=== PATIENT | female | born 1990 | race Caucasian/White ===

== ENCOUNTER 2018-02-15 12:54 | Emergency (ER) | payer MEDICAID, SELFPAY ==
[2018-02-15 13:00] VITALS: BP 137/64; PULSE 91; RESP 15; TEMP 37
--- NOTE | 2018-02-15 13:14 | W.ED.GENAD ---
Discharge Plan Disposition Patient Disposition: HOME Condition: Fair Discharge Details Chief Complaint: DentalOral Clinical Impression: Pain, dental Primary Care Provider: None,None ED Provider: Sara Suresh Home Meds and New Rx's Prescriptions: New penicillin V potassium 500 mg tablet 500 mg PO QID Qty: 28 RF: 0 Discharge Instructions Instructions: Toothache (ED) Additional Instructions: Encourage hydration. You may continue with Tylenol, 1000 mg every 6 hours as needed for discomfort. Please follow-up with dentist next week for reevaluation. Please take antibiotics as prescribed. Even if symptoms improve, please take the entire course. If you develop new or worsening symptoms please seek care urgently once again. I have asked our healthcare prof to help facilitate follow-up with primary care . Medical Decision Making Patient is 27-year-old female with chief complaint of anterior lower dental pain. She reports that yesterday she had multiple teeth extracted by her dentist in [place]. Is concerned that her pain is been increasing. Currently rating her pain at a 5 out of 10. Is also concerned that she stuck some remnant tooth remaining. On exam, she has swollen erythematous gums. No fluctuant area to suggest an abscess. Findings most consistent with postoperative changes. However, as the pain has been increasing, I feel that antibiotics are appropriate. She is not been placed on antibiotics postoperatively. I did attempt to contact the patient's dentist at [facility] in [place] and they are already closed. Discussed this with the patient. She reports is been taking Tylenol and this is not been completely helping with her discomfort. At this point, her pain seems fairly minimal. We discussed appropriate Tylenol dosing. Also advised heat or ice. I do not feel that narcotics are appropriate at this time she reports she is unable to take anti-inflammatories. I advised she follow-up with dentist next week for reevaluation. We discussed new/worsening symptoms, in particular signs of infection, and whe to seek care urgently once again. All of her questions and concerns were addressed, she is in agreement with this plan. HPI General Mode of arrival: ambulatory. Date/Time Provider Initiated Documentation: 02/15/18 13:04. Limitations to Documentation: no limitations. Information obtained by: patient. History of Present Illness 27 year old F presents to the emergency department with the chief complaint of dental pain, described as moderate, with intensity rated at 5. Quality is described as aching, and is localized to the face. Patient reports no radiation. Patient started experiencing this day(s) (1) and it has been constant. No relieving factors improve symptom(s), Movement worsens symptoms . Patient notes denies chest pain, cough, fever/chills, headaches, nausea/vomiting, rash and shortness of breath. Patient did receive the following treatments prior to arrival, none Related Data Home Medications Medication Instructions Recorded Confirmed penicillin V potassium 500 mg PO QID #28 tab 02/15/18 Previous Rx's Medication Instructions Recorded penicillin V potassium 500 mg PO QID #28 tab 02/15/18 General Stated Complaint: DentalOral KARIME: 5 Review of Systems Constitutional Reports as per HPI Eyes Denies change in vision ENT Reports as per HPI, Reports dental pain (lower dental pain), Denies otalgia, Denies nasal discharge, Denies sinus pain and Denies sinus pressure Cardiovascular Denies chest pain Respiratory Denies cough Gastrointestinal Denies nausea and Denies vomiting Musculoskeletal Denies numbness and Denies tingling Integumentary/Breasts Reports as per HPI, Denies erythema and Denies rash Neurologic Denies numbness, Denies radicular pain, Denies tingling and Denies paresthesias Exam Const General: cooperative, healthy appearing, comfortable, no acute distress, well developed and well groomed Nutritional Appearance: average body habitus and well nourished Orientation: alert and awake [facility] Head: normal to inspection and normocephalic Ears: hearing grossly normal bilaterally, external ears normal and TM's normal bilaterally General nose exam: external nose normal and nares normal Face and sinus: normal facial exam and sinuses nontender Mouth: abnormal oral mucosae (Patient has erythema and swelling to the anterior lower gumline. Exam is consistent with recent extraction of multiple lower anterior teeth. There does appear to be some retained bits of 11 along the left side of the anterior teeth which was concerned for the patient), tongue normal, oropharynx normal, moist mucous membranes, no muffled voice and no trismus Teeth and gingiva: abnormal dentition (As of) Throat: posterior oropharynx normal Eyes General: appearance normal, both eyes and all related structures Neck Neck: normal visual inspection, full ROM, no lymphadenopathy, no meningeal signs, trachea midline and supple Resp Effort & Inspection: normal respiratory effort, able to speak in complete sentences and no respiratory distress Auscultation: clear to auscultation bilaterally Cardio Rate: regular rate Rhythm: regular rhythm Heart Sounds: S1 normal and S2 normal Skin General skin exam: no rashes or lesions noted Neuro General: alert and awake Cognition: normal cognition Speech: speech normal Gait: normal gait Psych Appearance: grossly normal Mental Status: mental status grossly normal Speech and Movement: speech and movement normal Course Vital Signs Temperature 37.0 C 02/15/18 13:00 Pulse 91 H 02/15/18 13:00 Respiratory Rate 15 02/15/18 13:00 Blood Pressure 137/64 02/15/18 13:00 Temperature 37.0 C 02/15/18 13:00 Temperature Source Skin 02/15/18 13:00 Pulse 91 H 02/15/18 13:00 Respiratory Rate 15 02/15/18 13:00 Blood Pressure 137/64 02/15/18 13:00 Blood Pressure Position Sitting 02/15/18 13:00 Oxygen Delivery Method Room Air 02/15/18 13:00 Oxygen Flow Rate 0 02/15/18 13:00 Pain Level 5 02/15/18 13:00
--- NOTE | 2018-02-15 13:40 | ED.GENADUL_ITS ---
Discharge Plan Disposition Patient Disposition: HOME Condition: Fair Discharge Details Chief Complaint: DentalOral Clinical Impression: Pain, dental Primary Care Provider: None,None ED Provider: Sara Suresh Home Meds and New Rx's Prescriptions: New penicillin V potassium 500 mg tablet 500 mg PO QID Qty: 28 RF: 0 Discharge Instructions Instructions: Toothache (ED) Additional Instructions: Encourage hydration. You may continue with Tylenol, 1000 mg every 6 hours as needed for discomfort. Please follow-up with dentist next week for reevaluation. Please take antibiotics as prescribed. Even if symptoms improve , please take the entire course. If you develop new or worsening symptoms please seek care urgently once again. I have asked our regular senior care provider to help facilitate follow-up with primary care . Medical Decision Making Patient is 27-year-old female with chief complaint of anterior lower dental pain. She reports that yesterday she had multiple teeth extracted by her dentist in [place]. Is concerned that her pain is been increasing. Currently rating her pain at a 5 out of 10. Is also concerned that she stuck some remnant tooth remaining. On exam, she has swollen erythematous gums. No fluctuant area to suggest an abscess. Findings most consistent with postoperative changes. However, as the pain has been increasing, I feel that antibiotics are appropriate. She is not been placed on antibiotics postoperatively. I did attempt to contact the patient's dentist at [facility] in [place] and they are already closed. Discussed this with the patient. She reports is been taking Tylenol and this is not been completely helping with her discomfort. At this point, her pain seems fairly minimal. We discussed appropriate Tylenol dosing. Also advised heat or ice. I do not feel that narcotics are appropriate at this time she reports she is unable to take anti-inflammatories. I advised she follow-up with dentist next week for reevaluation. We discussed new/worsening symptoms, in particular signs of infection, and whe to seek care urgently once again. All of her questions and concerns were addressed, she is in agreement with this plan. HPI General Mode of arrival: ambulatory . Date/Time Provider Initiated Documentation: 02/15/18 13:04 . Limitations to Documentation: no limitations . Information obtained by: patient . History of Present Illness 27 year old F presents to the emergency department with the chief complaint of dental pain, described as moderate, with intensity rated at 5. Quality is described as aching, and is localized to the face. Patient reports no radiation. Patient started experiencing this day(s) (1) and it has been constant. No relieving factors improve symptom(s), Movement worsens symptoms . Patient notes denies chest pain, cough, fever/chills, headaches, nausea/vomiting, rash and shortness of breath. Patient did receive the following treatments prior to arrival, none Related Data Home Medications Medication Instructions Recorded Confirmed penicillin V potassium 500 mg PO QID #28 tab 02/15/18 Previous Rx's Medication Instructions Recorded penicillin V potassium 500 mg PO QID #28 tab 02/15/18 General Stated Complaint: DentalOral KARIME: 5 Review of Systems Constitutional Reports as per HPI Eyes Denies change in vision ENT Reports as per HPI, Reports dental pain (lower dental pain), Denies otalgia, Denies nasal discharge, Denies sinus pain and Denies sinus pressure Cardiovascular Denies chest pain Respiratory Denies cough Gastrointestinal Denies nausea and Denies vomiting Musculoskeletal Denies numbness and Denies tingling Integumentary/Breasts Reports as per HPI, Denies erythema and Denies rash Neurologic Denies numbness, Denies radicular pain, Denies tingling and Denies paresthesias Exam Const General: cooperative, healthy appearing, comfortable, no acute distress, well developed and well groomed Nutritional Appearance: average body habitus and well nourished Orientation: alert and awake [facility] Head: normal to inspection and normocephalic Ears: hearing grossly normal bilaterally, external ears normal and TM's normal bilaterally General nose exam: external nose normal and nares normal Face and sinus: normal facial exam and sinuses nontender Mouth: abnormal oral mucosae (Patient has erythema and swelling to the anterior lower gumline. Exam is consistent with recent extraction of multiple lower anterior teeth. There does appear to be some retained bits of 11 along the left side of the anterior teeth which was concerned for the patient), tongue normal, oropharynx normal, moist mucous membranes, no muffled voice and no trismus Teeth and gingiva: abnormal dentition (As of) Throat: posterior oropharynx normal Eyes General: appearance normal, both eyes and all related structures Neck Neck: normal visual inspection, full ROM, no lymphadenopathy, no meningeal signs , trachea midline and supple Resp Effort & Inspection: normal respiratory effort, able to speak in complete sentences and no respiratory distress Auscultation: clear to auscultation bilaterally Cardio Rate: regular rate Rhythm: regular rhythm Heart Sounds: S1 normal and S2 normal Skin General skin exam: no rashes or lesions noted Neuro General: alert and awake Cognition: normal cognition Speech: speech normal Gait: normal gait Psych Appearance: grossly normal Mental Status: mental status grossly normal Speech and Movement: speech and movement normal Course Vital Signs Temperature 37.0 C 02/15/18 13:00 Pulse 91 H 02/15/18 13:00 Respiratory Rate 15 02/15/18 13:00 Blood Pressure 137/64 02/15/18 13:00 Temperature 37.0 C 02/15/18 13:00 Temperature Source Skin 02/15/18 13:00 Pulse 91 H 02/15/18 13:00 Respiratory Rate 15 02/15/18 13:00 Blood Pressure 137/64 02/15/18 13:00 Blood Pressure Position Sitting 02/15/18 13:00 Oxygen Delivery Method Room Air 02/15/18 13:00 Oxygen Flow Rate 0 02/15/18 13:00 Pain Level 5 02/15/18 13:00
[2018-02-15 13:44] VITALS: BP 140/77; PULSE 77; RESP 16; TEMP 37; O2SAT 95
== END 2018-02-15 13:55 | disposition home or self-care (01) ==
LOC: ER 14:05
PROVIDERS: Emergency Provider Physician Assistant; PCP Nurse Practitioner Family
DX: R68.84 Jaw pain (principal); G89.18 Other acute postprocedural pain; Y84.8 Other medical procedures as the cause of abnormal reaction of the patient, or of later complication, without mention of misadventure at the time of the procedure
CPT/HCPCS: 81025; 99283

== ENCOUNTER 2018-03-05 19:38 | Inpatient (IN) | payer MEDICAID, SELFPAY ==
[2018-03-05] VITALS (33 sets, daily range): BP systolic 113–143; BP diastolic 47–82; PULSE 106–153; RESP 15–23; TEMP 36.5–37.2; O2SAT 38–100
--- NOTE | 2018-03-05 19:49 | DI.RAD_ITS ---
SYMPTOMS/DIAGNOSIS: ENDOTRACHEAL TUBE PORTABLE AP CHEST: There are no prior comparison exams. The endotracheal tube has been inserted with the tip at the level of the clavicles. A nasogastric tube is also seen, which projects in the stomach. The lungs are not well inflated and there are mildly increased basilar densities, likely reflecting atelectasis. There may be tiny bilateral pleural effusions. No pneumothorax is seen. IMPRESSION: Satisfactory placement of endotracheal and nasogastric tubes.
[2018-03-05] MEDS: PROPOFOL 500 MG/50 ML BTL 13.8 MG IVPB (19:50)
--- NOTE | 2018-03-05 20:04 | DI.CT_ITS ---
SYMPTOMS/DIAGNOSIS: SEIZURE, HYPOXIC, NO H/O PREVIOUS SEIZURES NONCONTRAST HEAD CT: Nasogastric tube and endotracheal tube are partially included. There is some mucosal thickening of the sinuses as well as evidence of previous sinus surgery. No intracranial hemorrhage or skull fracture is seen. No mass is identified. The ventricles are normal in size. Beam-hardening artifact is seen through the level of the nathan. IMPRESSION: No acute abnormality. CT ANGIOGRAPHY OF THE HEAD AND NECK: CT angiography was performed with multi slice acquisition and multi planar and 3D reconstruction. CT ANGIOGRAPHY OF THE HEAD: There is no evidence of occlusion or dissection or significant stenosis. No gross aneurysm is identified. IMPRESSION: Negative CT angiography of the head. CT ANGIOGRAPHY OF THE NECK: A nasogastric tube and endotracheal tube are seen. The vessels appear patent. There is no evidence of dissection, significant stenosis or occlusion. IMPRESSION: Negative CT angiography of the neck. CHEST CT FOR PULMONARY EMBOLISM: No pulmonary emboli or aortic dissection is seen. The heart size is normal. A nasogastric tube projects in the stomach. An endotracheal tube is in place with the tip at the level of the aortic arch. There are dependent changes in the lung bases. Basilar pneumonia cannot be entirely excluded. There is no evidence of pneumothorax, rib or spine fracture. There is artifact through the visualized portions of the upper abdomen. No gross abnormality is identified. IMPRESSION: No evidence of pulmonary emboli. There are bibasilar densities in the lungs, which may represent atelectasis versus pneumonia. Clinical correlation is recommended.
--- NOTE | 2018-03-05 20:27 | DI.VRAD_ITS ---
EXAM: XR Chest, 1 View EXAM DATE/TIME: 03/05/2018 7:51 PM CLINICAL HISTORY: 28 years old, female; Signs and symptoms; Other: Line placement TECHNIQUE: XR of the chest, 1 view. COMPARISON: No relevant prior studies available. FINDINGS: Tubes, catheters and devices: Endotracheal tube in satisfactory position. Nasogastric tube appears within the proximal stomach. Lungs: Low lung volumes. Linear bibasilar opacities. No elbert air space consolidation. Question small granuloma right lung base. Pleural space: Suspect small bilateral pleural effusions. No pneumothorax. Heart/Mediastinum: No cardiomegaly. Bones/joints: No acute fracture. IMPRESSION: 1. Lines and tubes in satisfactory position. 2. Linear bibasilar opacities most consistent with subsegmental atelectasis. Suspect small bilateral pleural effusions. Dictated and Authenticated by: Tatiana Abraham MD. Ordering:ADELE ROSE MD
[2018-03-05 20:31] LABS: Ammonia 49 umol/L (11-32)
[2018-03-05 20:32] LABS: Bilirubin Negative (Negative); Blood Small (Negative); Clarity Clear; Glucose Negative (Negative); Ketones Negative (Negative); Leukocyte Esterase Negative (Negative); Nitrite Negative (Negative); Specific Gravity 1.015 (1.005-1.025); Urobilinogen 0.2 EU/dL (Up TO 0.2); pH 5.5 (5-8)
[2018-03-05 20:35] LABS: INR 1.1 (1.0-3.5); PTT Activated 25.2 sec (21.0-31.4)
[2018-03-05 20:36] LABS: Salicylate 4.1 mg/dL (2.8-20.0)
[2018-03-05 20:45] LABS: Absolute Basophil Count 0.06 k/cumm (0.0-0.2); Absolute Monocyte Count 0.72 k/cumm (0.11-0.7); Basophils % 0.4; C-Reactive Protein 0.13 mg/dL (0.0-0.3); Eosinophils % 1.8; HCT 33.1 % (36.0-46.0); Immature Grans % 0.6; Lymphocytes % 49.8; Mean Corp. HGB Concentration 30.2 g/dL (32.0-36.0); Mean Corpuscular Hemoglobin 22.7 pg (27.0-33.0); Mean Corpuscular Volume 75.1 fL (80-95); Mean Platelet Volume 11.1 fL (8.0-11.0); Monocytes % 4.5; Neutrophils % 42.9; Platelet Count 480 x1000/uL (130-400); RBC 4.41 m/cumm (4.00-5.20); White Blood Cell Count 15.89 k/cumm (4.4-10.8)
[2018-03-05 20:46] LABS: ALT 22 U/L (12-78); AST 27 U/L (15-37); Albumin 3.9 g/dL (3.4-5.0); Alkaline Phosphatase 76 U/L (46-116); Anion Gap 20.6 mmol/L (3-11); BUN 14 mg/dL (7-18); Bilirubin, Total 1.1 mg/dL (0.2-1.0); CO2 17.4 mmol/L (21.0-32.0); Calcium 8.7 mg/dL (8.5-10.1); Chloride 100 mmol/L (98-107); Estimated GFR 59.14 (mL/min/1.73m2); Glucose 200 mg/dL (70-100); Sodium 138 mmol/L (136-145); TSH 2.22 uIU/mL (0.358-3.74); Total Protein 7.7 g/dL (6.4-8.2)
[2018-03-05 20:47] LABS: *AMPHETAMINES SCREEN URINE POSITIVE (Negative); *BARBITURATES SCREEN URINE Negative (Negative); *BENZODIAZEPINES SCREEN URINE Negative (Negative); Cannabinoids THC POSITIVE (Negative); Cocaine Screen,Urine Negative (Negative); METHADONE URINE SCREEN Negative (Negative); OPIATES URINE SCREEN Negative (Negative)
[2018-03-05 20:50] LABS: Absolute Eosinophil Count 0.29 k/cumm (0.0-0.7); Absolute Lymphocyte Count 7.91 k/cumm (1.2-3.4); Absolute Neutrophil Count 6.82 k/cumm (1.2-6.7); Troponin I < 0.02 ng/mL (0.00-0.06)
[2018-03-05 20:51] LABS: ETHANOL BLOOD < 3.0 mg/dL (<3); Tricyclic Antidepressants Negative (Negative)
[2018-03-05 20:54] LABS: Bacteria Moderate HPF (Negative); C & S Indicated? Yes; Casts Negative LPF (Negative); Crystals Few Amorphous HPF (Negative); Epithelial Cells Few HPF (Negative); Mucus Negative (Negative); Other Cells Few Renal (Negative); RBC Negative (0-2); WBC 0-2 HPF (0-5)
[2018-03-05 20:56] LABS: Acetaminophen < 2 ug/mL (10-30)
[2018-03-05 21:01] LABS: Diff Comment Diff Reviewed; Microcytosis 1+
[2018-03-05 21:02] LABS: Hypochromasia 2+
[2018-03-05 21:03] LABS: ESR 16 MM/HR (0-20)
[2018-03-05] MEDS: Omnipaque 350 MG/ML 100 ML BTL IJ ×2 (21:06→21:08)
--- NOTE | 2018-03-05 21:10 | DI.VRAD_ITS ---
EXAM: CT Head Without Intravenous Contrast EXAM DATE/TIME: 03/05/2018 8:09 PM CLINICAL HISTORY: 28 years old, female; Signs and symptoms; Other: Seizure, no seizure HX TECHNIQUE: Axial computed tomography images of the head/brain without intravenous contrast. All CT scans at this facility use at least one of these dose optimization techniques: automated exposure control; mA and/or kV adjustment per patient size (includes targeted exams where dose is matched to clinical indication); or iterative reconstruction. Coronal and sagittal reformatted images were created and reviewed. COMPARISON: No relevant prior studies available. FINDINGS: Tubes, catheters and devices: Endotracheal tube and nasogastric tube are partially seen. Brain: Small areas of hypoattenuation in the nathan, in the region of significant artifact, probably artifact related. No edema, midline shift or hemorrhage. No supratentorial infarct is identified. Ventricles: No ventriculomegaly. Bones/joints: No acute fracture. Sinuses: Air-fluid levels in the maxillary sinuses and left sphenoid sinus. Mastoid air cells: No mastoid effusion. Soft tissues: Small subcutaneous nodules in the right scalp, probably sebaceous cysts, benign morphology. Nasopharynx: Fluid in the nasopharynx and oropharynx. IMPRESSION: 1. No acute intracranial findings. 2. Small areas of hypoattenuation in the nathan, in the region of significant artifact, probably artifact related. Consider MRI if there is a clinical concern for acute pathology in the brainstem. 3. Air-fluid levels in the maxillary sinuses and left sphenoid sinus suggests acute sinusitis. Dictated and Authenticated by: Tatiana Abraham MD. Ordering:ADELE ROSE MD
--- NOTE | 2018-03-05 21:13 | DI.VRAD_ITS ---
EXAM: CT Angiography Chest With Intravenous Contrast EXAM DATE/TIME: 03/05/2018 8:09 PM CLINICAL HISTORY: 28 years old, female; Signs and symptoms; Other: Seizure, hypoxic TECHNIQUE: Axial computed tomographic angiography images of the chest with intravenous contrast using CT angiography protocol. All CT scans at this facility use at least one of these dose optimization techniques: automated exposure control; mA and/or kV adjustment per patient size (includes targeted exams where dose is matched to clinical indication); or iterative reconstruction. Coronal and sagittal reformatted images were created and reviewed. MIP reconstructed images were created and reviewed. CONTRAST: 85 ml of omnipaque 350 administered intravenously. COMPARISON: SC XR PORTABLE CHEST AP 03/05/2018 7:56 PM FINDINGS: Tubes, catheters and devices: Endotracheal tube in satisfactory position. Nasogastric tube passes through a small gastric remnant into proximal jejunum. Pulmonary arteries: No pulmonary emboli. Aorta: No aortic aneurysm. No aortic dissection. Lungs: Predominantly subpleural airspace disease, left greater than right lower lobes. Pleural space: No pneumothorax. No pleural effusion. Heart: No cardiomegaly. No pericardial effusion. Mediastinum: Question mild wall thickening of the midesophagus, no pathologic dilation. Stomach and bowel: Post surgical changes in the stomach. Lymph nodes: No enlarged lymph nodes. Bones/joints: No acute fracture. Soft tissues: No suspicious lesions. IMPRESSION: 1. No pulmonary emboli are seen. 2. Predominantly subpleural airspace disease, left greater than right lower lobes. Morphology suggests dependent atelectasis, favored over aspiration or pneumonia. 3. Lines and tubes as described. 4. Question mild wall thickening of the midesophagus, no pathologic dilation, but reflect a mild esophagitis. Dictated and Authenticated by: Tatiana Abraham MD. Ordering:ADELE ROSE MD
[2018-03-05] MEDS: LORazepam 2 MG/ML VIAL IVP ×2 (21:14→23:57)
[2018-03-05] MEDS: POTASSIUM CHLORIDE 20 MEQ/100 ML BAG 50 MEQ IVPB (21:14)
[2018-03-05] MEDS: Normal Saline 1,000 ML 1000 ML IV (21:14)
--- NOTE | 2018-03-05 21:22 | W.ED.GENAD ---
Discharge Plan Disposition Patient Disposition: [facility] INPATIENT Condition: Critical Discharge Details Chief Complaint: Seizure Clinical Impression: Overdose, Seizure, Hypoxemia, Acute respiratory failure, Tachycardia Reason For Visit: MAHI Primary Care Provider: None,None ED Provider: Luan Norton Home Meds and New Rx's Prescriptions: No Action dextroamphetamine-amphetamine [Adderall] 5 mg Tablet 5 mg PO BID RF: 0 trazodone 50 mg Tablet 50 mg PO DAILY RF: 0 sertraline 50 mg Tablet 50 mg PO DAILY RF: 0 Medical Decision Making This is a 28-year-old female who presents for seizure. She has no history of a seizure but does have a family history of seizures. Family states that she was sitting in bed when she just suddenly developed tonic-clonic movements, and seizure-like activity. Upon EMS arrival patient was postictal, and they had notable difficulty getting initial pulse ox. Accu-Chek was noted to be normal, she was tachycardic but afebrile per EMS. upon arrival to the emergency department the patient was notably obtunded, GCS was 4-5 based on some minimal movement to stimulation of the foot. She appeared to be in a postictal stage, pulse oximetry demonstrated an O2 sat in the 50s with a good [place], we immediately provided supplemental oxygen and began providing rescue breaths. Moments after this the patient began seizing again with mild tonic-clonic like movements. 2 mg of Ativan were given and 2 g of Prior were started, the seizure dissipated shortly thereafter. Repeat neuro exam demonstrated a GCS of 3, notable drooling, dilated and sluggishly reactive pupils, and a notably decreased respiratory drive. With the patient's hypoxemia, decreased mental status, and poor risk ration the decision was made to immediate intubate. After notable preoxygenation and bagging getting the patient up to 100% on pulse ox, patient was intubated. The initial attempt a MAC 3 blade was used and a limited view was noted. Tube was placed, however notable resistance to ventilation decreased breath sounds were present. Tube was immediately retracted, and using glide scope grade 1 view was achieved and the patient was easily intubated without complication. Patient's O2 saturation maintained above 96% during the entire intubation process. Patient was started on propofol. Initial differential is broad including toxic overdose, infection, or stroke with the patient's notable hypertension and tachycardia. He did go in and discussed the case with the patient's family, has been did state that she recently had her meds filled for the first time in months. She was given a full bottle of Adderall, but he denies any overdose. We did asked that he go back and retrieve the bottles for inspection. Upon retrieval it was noted that the Adderall was completely empty, and she had had a prescription for 3 days insinuating that she had taken over 25 pills which would be roughly 125 mg of Adderall. Patient's sertraline and trazodone bottles were completely filled. No medications were missing from there. I feel that this is the most likely source of her seizures, and Adderall overdose. EKG demonstrates no evidence of QRS widening, doubt TCA overdose as this would be clinically inconsistent. Patient signs and symptoms with her tachycardia, hypertension, and seizure correspond well with a Adderall overdose. Patient's laboratory workup demonstrates an elevated white count, which is most likely reactive. Hypokalemia 3.0, with a normal sodium and normal chloride. Anion gap is slightly elevated at 20, creatinine is elevated at 1.1, glucose is hyperglycemic. Ammonia is minimally elevated at 49, ESR and CRP are both normal. TSH and troponin are normal. Tox screen is positive for amphetamines and cannabis. Acetaminophen and salicylates and alcohol are negative. Patient's ABG demonstrates mild acidosis with a pH of 7.24, normal PCO2, and an elevated PaO2. Bicarb is slightly low at 20. Patient CT scan of the head is negative for any acute bleed, there is evidence of an abnormality in the nathan with recommended MRI follow-up. CT angios of the head demonstrates no acute process. CT angiography of the chest demonstrates no evidence of pulmonary embolus, some mild airspace disease, concerning for aspiration pneumonia, tox screen is positive for amphetamines. I feel the patient signs and symptoms are clinically consistent with an Adderall overdose. We did contact poison control, they had no additional recommendations. They recommended continued propofol and Ativan as needed, supportive therapy, fluid rehydration, and eventual MRI or EEG if available. We have added 20 mEq of IV potassium for the patient's hypokalemia, she will require continued IV potassium. For the aspiration pneumonia we have given 4.5 g of Zosyn. Patient had mild persistent tachycardia in the 110s-120s, we added an additional 2 mg of Ativan for 4 mg total. With the patient's seizure in addition to the Ativan that was given she was loaded with 2 g of Keppra for prophylaxis of future seizures. Patient has been rehydrated with 2 L of normal saline. Blood pressures are stable. He did contact the hospitalist Dr. Gonzalez, I discussed the case with him. He agrees with the assessment and plan. The patient will be admitted to the ICU for further management. I have extensively reviewed the treatment plan with the patient. I have addressed all patient concerns at this time. I have also discussed the plan with the admitting physician and they agree with the current assessment and plan and have agreed to assume responsibility for the patient. All parties demonstrate verbal understanding and agreement with our assessment and plan at this time. Procedure: Endotracheal Intubation Indication: Respiratory Distress A time-out was completed verifying correct patient, procedure, site, positioning, and special equipment if applicable. The patient was placed in a flat position. Sedation was obtained using Etomidate 20mg and paralysis was obtained using Rocuronium 100mg. The patient was easily ventilated using an ambu bag, and the patient had additional passive oxygenation with a nasal cannula running at 15 L. Oxygen saturations were 99-100% prior to intubation. A Mac 3 blade was used, the patient was edentulous, the patient was notably anterior, and a grade 3 view was achieved, endotracheal tube was placed, however first breath demonstrated no end-tidal change, and limited breath sounds. Oxygen saturation remained above 99%. Because of concern for inadequate tube placement the tube was immediately removed and the [employer] was used and inserted into the oropharynx at which time there was a Grade 1 view of the vocal cords. A 7.5-ukrainian endotracheal tube was inserted and visualized going through the vocal cords. The stylette was removed. Colorimetric change was visualized on the CO2 meter. Breath sounds were heard in both lung barnes equally. The endotracheal tube was placed at 23 cm, measured at the teeth. The patient continued to demonstrate excellent oxygen saturation during the entire intubation event, never dropping below 96%. Entire procedure lasted less than 3 minutes per A chest x-ray was ordered to assess for pneumothorax and verify endotrachealtube placement. No pneumothorax was seen and tube was in good position. The patient tolerated the procedure well and there were no complications. EKG 20: 10 Rate 137, QTc 500, QRS 100, sinus tachycardia versus atrial flutter, more likely sinus tachycardia. No ST elevations or depressions, no T wave inversions. No Q waves. Impression: 1. No pulmonary emboli are seen. 2. Predominantly subpleural airspace disease, left greater than right lower lobes. Morphology suggests dependent atelectasis, favored over aspiration or pneumonia. 3. Lines and tubes as described. 4. Question mild wall thickening of the midesophagus, no pathologic dilation, but reflect a mild esophagitis. Dictated and Authenticated by: Tatiana Abraham MD. Impression: 1. No acute intracranial findings. 2. Small areas of hypoattenuation in the nathan, in the region of significant artifact, probably artifact related. Consider MRI if there is a clinical concern for acute pathology in the brainstem. 3. Air-fluid levels in the maxillary sinuses and left sphenoid sinus suggests acute sinusitis. Dictated and Authenticated by: Tatiana Abraham MD. Impression: No acute arterial pathology. Patent carotid and vertebral system bilaterally. HPI General Date/Time Provider Initiated Documentation: 03/05/18 19:57. HPI Narrative: This is a 28-year-old female with a past medical history of ADHD who presents today for evaluation of seizure. Per family the patient was sitting in bed playing with her son when her eyes rolled in the back of the head and she started having a tonic-clonic seizure. EMS was immediately called, and on their arrival she was in a postictal state. She is tachycardic, and they had difficulty getting a normal pulse ox. Immediately brought her to the ER for further evaluation. The patient has no history of seizures in the past. She does have a family history of seizure on her mother side. Patient's does state that 3 days ago she did get a new prescription for 5 mg of Adderall times 30 pills, as well as 50 mg of trazodone times 30 pills and 50 mg of sertraline times 30 pills. He states that she used to be on 45 mg/day of Adderall, but her new primary care provider did not want to start her at that dose. He has been denies any recent suicidal ideations. He felt that she had been taking her medications as directed. He denies any IV or illicit drug use. From a social perspective does state that they have been living in a hotel/snf for the last 3 months. They are originally from [facility]. does admit that she does smoke marijuana occasionally. He denies any other modifying factors to the history. Past surgical history is positive for gastric bypass. No other significant past medical history or past surgical history per the . Related Data Home Medications Medication Instructions Recorded Confirmed dextroamphetamine-amphetamine 5 mg PO BID 03/05/18 03/05/18 [Adderall] sertraline 50 mg PO DAILY 03/05/18 03/05/18 trazodone 50 mg PO DAILY 03/05/18 03/05/18 General Stated Complaint: Seizure KARIME: 1 Review of Systems Review of Systems Unobtainable due to mental condition Exam Narrative Exam Narrative: 1.Const: Appearing older than stated age, notably obtunded, no signs of trauma 2.Eyes: Pupils were dilated, minimally reactive. No evidence of pinpoint pupils. 3.ENT: Atraumatic external nose and ears. Moist MM. Neck: Symmetric, trachea midline, No thyromegaly. There is no evidence of raccoon eyes, patel sign, CSF rhinorrhea, mastoid tenderness, cranial crepitus, hemotympanum, exophthalmos, or hyphema. Patient has no teeth, no evidence of tongue biting or lip biting. 4.CVS: +S1/S2, notably tachycardia no murmurs or gallops. Peripheral pulses 2+ and equal in all extremities. Brisk capillary refill in all extremities. 5.RESP: Rhonchorous breath sounds, decreased respiratory effort, no wheezes or rhonchi 6.GI: Soft, Nontender/Nondistended, No hepatosplenomegaly. No guarding or rebound. 7.MSK: Normocephalic/Atraumatic, Extremities w/o deformity or ttp No cyanosis or clubbing, no evidence of significant needle injection sites, cellulitis or abscess, notable tonic-clonic movements from seizure. 8.Skin: Warm, Dry. No rashes or lesions. 9.Neuro: GCS of 3, actively seizing, however prior to seizures patient had no evidence of clonus or hyperreflexia. 10.Psych: (AAO) x3. Appropriate mood and affect Course Vital Signs Respiratory Rate 23 03/05/18 19:33 Pulse Oximetry 56 L 03/05/18 19:33 Pulse 135 H 03/05/18 20:10 Pulse 135 H 03/05/18 20:10 Respiratory Rate 15 03/05/18 20:10 Respiratory Effort Grunting 03/05/18 20:11 Respiratory Depth Shallow 03/05/18 20:11 Respiratory Pattern Bradypnea 03/05/18 20:11 Blood Pressure 129/59 L 03/05/18 20:10 Blood Pressure Mean 75 03/05/18 20:10 Blood Pressure Position Supine 03/05/18 20:09 Pulse Oximetry 96 03/05/18 20:10 Respiratory End-tidal CO2 40 03/05/18 20:10 Oxygen Delivery Method Non-Rebreather 03/05/18 20:11 Oxygen Flow Rate 0 03/05/18 20:09 Fraction of Inspired Oxygen (FIO2) 60 03/05/18 20:04 Lab/Test Results Lab/Test Results: 03/05/18 21:11 Blood Blood Culture - Pending 03/05/18 21:11 Blood Blood Culture - Pending 03/05/18 19:59 Urine - Reflex from Ua Urine Culture - Pending 03/05/18 20:00 Blood Blood Culture - Pending 03/05/18 20:00 Blood Blood Culture - Pending Laboratory Tests Range/Units 03/05/18 03/05/18 03/05/18 19:59 19:59 19:59 WBC (4.4-10.8) k/cumm RBC (4.00-5.20) m/cumm Hgb (12.0-15.5) g/dL Hct (36.0-46.0) % MCV (80-95) fL MCH (27.0-33.0) pg MCHC (32.0-36.0) g/dL RDW (11.7-14.6) % Plt Count (130-400) x1000/uL MPV (8.0-11.0) fL Immature Gran % Neutrophils % Lymphocytes % Monocytes % Eosinophils % Basophils % Absolute Neutrophils (1.2-6.7) k/cumm Absolute Lymphocytes (1.2-3.4) k/cumm Absolute Monocytes (0.11-0.7) k/cumm Absolute Eosinophils (0.0-0.7) k/cumm Absolute Basophils (0.0-0.2) k/cumm Differential Comment RBC Morphology Hypochromasia Microcytosis ESR (0-20) MM/HR 16 PT (9.3-10.8) sec INR (1.0-3.5) APTT (21.0-31.4) sec Sodium (136-145) mmol/L Potassium (3.5-5.1) mmol/L Chloride (98-107) mmol/L Carbon Dioxide (21.0-32.0) mmol/L Anion Gap (3-11) mmol/L BUN (7-18) mg/dL Creatinine (0.55-1.02) mg/dL Estimated GFR/1.73 m2 (mL/min/1.73m2) Glucose (70-100) mg/dL Calcium (8.5-10.1) mg/dL Total Bilirubin (0.2-1.0) mg/dL AST (15-37) U/L ALT (12-78) U/L Alkaline Phosphatase (46-116) U/L Ammonia (11-32) umol/L Troponin I (0.00-0.06) ng/mL C-Reactive Protein (0.0-0.3) mg/dL 0.13 Total Protein (6.4-8.2) g/dL Albumin (3.4-5.0) g/dL TSH (0.358-3.74) uIU/mL Urine Color (Yellow) Urine Clarity Urine pH (5-8) Ur Specific [place] (1.005-1.025) Urine Protein (Negative) mg/dL Urine Ketones (Negative) mg/dL Urine Blood (Negative) Urine Nitrite (Negative) Urine Bilirubin (Negative) Urine Urobilinogen (Up TO 0.2) EU/dL Ur Leukocyte Esterase (Negative) Urine RBC (0-2) Urine WBC (0-5) HPF Ur Epithelial Cells (Negative) HPF Urine Crystals (Negative) HPF Urine Bacteria (Negative) HPF Urine Casts (Negative) LPF Urine Mucus (Negative) Urine Other (Negative) Ur Culture Indicated? Urine Glucose (Negative) mg/dL Salicylates (2.8-20.0) mg/dL 4.1 Urine Opiates Screen (Negative) Urine Methadone Screen (Negative) Acetaminophen (10-30) ug/mL < 2 L Ur Barbiturates Screen (Negative) Ur Tricyclics Screen (Negative) Ur Amphetamines Screen (Negative) U Benzodiazepines Scrn (Negative) Urine Cocaine Screen (Negative) Ur THC Screen (Negative) Ethyl Alcohol (<3) mg/dL Range/Units 03/05/18 03/05/18 03/05/18 19:59 19:59 19:59 WBC (4.4-10.8) k/cumm 15.89 H RBC (4.00-5.20) m/cumm 4.41 Hgb (12.0-15.5) g/dL 10.0 L Hct (36.0-46.0) % 33.1 L MCV (80-95) fL 75.1 L MCH (27.0-33.0) pg 22.7 L MCHC (32.0-36.0) g/dL 30.2 L RDW (11.7-14.6) % 17.0 H Plt Count (130-400) x1000/uL 480 H MPV (8.0-11.0) fL 11.1 H Immature Gran % 0.6 Neutrophils % 42.9 Lymphocytes % 49.8 Monocytes % 4.5 Eosinophils % 1.8 Basophils % 0.4 Absolute Neutrophils (1.2-6.7) k/cumm 6.82 H Absolute Lymphocytes (1.2-3.4) k/cumm 7.91 H Absolute Monocytes (0.11-0.7) k/cumm 0.72 H Absolute Eosinophils (0.0-0.7) k/cumm 0.29 Absolute Basophils (0.0-0.2) k/cumm 0.06 Differential Comment Diff reviewed RBC Morphology See below Hypochromasia 2+ Microcytosis 1+ ESR (0-20) MM/HR PT (9.3-10.8) sec INR (1.0-3.5) APTT (21.0-31.4) sec Sodium (136-145) mmol/L 138 Potassium (3.5-5.1) mmol/L 3.0 L Chloride (98-107) mmol/L 100 Carbon Dioxide (21.0-32.0) mmol/L 17.4 L Anion Gap (3-11) mmol/L 20.6 H BUN (7-18) mg/dL 14 Creatinine (0.55-1.02) mg/dL 1.10 H Estimated GFR/1.73 m2 (mL/min/1.73m2) 59.14 Glucose (70-100) mg/dL 200 H Calcium (8.5-10.1) mg/dL 8.7 Total Bilirubin (0.2-1.0) mg/dL 1.1 H AST (15-37) U/L 27 ALT (12-78) U/L 22 Alkaline Phosphatase (46-116) U/L 76 Ammonia (11-32) umol/L 49 H Troponin I (0.00-0.06) ng/mL < 0.02 C-Reactive Protein (0.0-0.3) mg/dL Total Protein (6.4-8.2) g/dL 7.7 Albumin (3.4-5.0) g/dL 3.9 TSH (0.358-3.74) uIU/mL 2.22 Urine Color (Yellow) Urine Clarity Urine pH (5-8) Ur Specific [place] (1.005-1.025) Urine Protein (Negative) mg/dL Urine Ketones (Negative) mg/dL Urine Blood (Negative) Urine Nitrite (Negative) Urine Bilirubin (Negative) Urine Urobilinogen (Up TO 0.2) EU/dL Ur Leukocyte Esterase (Negative) Urine RBC (0-2) Urine WBC (0-5) HPF Ur Epithelial Cells (Negative) HPF Urine Crystals (Negative) HPF Urine Bacteria (Negative) HPF Urine Casts (Negative) LPF Urine Mucus (Negative) Urine Other (Negative) Ur Culture Indicated? Urine Glucose (Negative) mg/dL Salicylates (2.8-20.0) mg/dL Urine Opiates Screen (Negative) Urine Methadone Screen (Negative) Acetaminophen (10-30) ug/mL Ur Barbiturates Screen (Negative) Ur Tricyclics Screen (Negative) Ur Amphetamines Screen (Negative) U Benzodiazepines Scrn (Negative) Urine Cocaine Screen (Negative) Ur THC Screen (Negative) Ethyl Alcohol (<3) mg/dL < 3.0 Range/Units 03/05/18 03/05/18 03/05/18 19:59 19:59 19:59 WBC (4.4-10.8) k/cumm RBC (4.00-5.20) m/cumm Hgb (12.0-15.5) g/dL Hct (36.0-46.0) % MCV (80-95) fL MCH (27.0-33.0) pg MCHC (32.0-36.0) g/dL RDW (11.7-14.6) % Plt Count (130-400) x1000/uL MPV (8.0-11.0) fL Immature Gran % Neutrophils % Lymphocytes % Monocytes % Eosinophils % Basophils % Absolute Neutrophils (1.2-6.7) k/cumm Absolute Lymphocytes (1.2-3.4) k/cumm Absolute Monocytes (0.11-0.7) k/cumm Absolute Eosinophils (0.0-0.7) k/cumm Absolute Basophils (0.0-0.2) k/cumm Differential Comment RBC Morphology Hypochromasia Microcytosis ESR (0-20) MM/HR PT (9.3-10.8) sec 11.0 H INR (1.0-3.5) 1.1 APTT (21.0-31.4) sec 25.2 Sodium (136-145) mmol/L Potassium (3.5-5.1) mmol/L Chloride (98-107) mmol/L Carbon Dioxide (21.0-32.0) mmol/L Anion Gap (3-11) mmol/L BUN (7-18) mg/dL Creatinine (0.55-1.02) mg/dL Estimated GFR/1.73 m2 (mL/min/1.73m2) Glucose (70-100) mg/dL Calcium (8.5-10.1) mg/dL Total Bilirubin (0.2-1.0) mg/dL AST (15-37) U/L ALT (12-78) U/L Alkaline Phosphatase (46-116) U/L Ammonia (11-32) umol/L Troponin I (0.00-0.06) ng/mL C-Reactive Protein (0.0-0.3) mg/dL Total Protein (6.4-8.2) g/dL Albumin (3.4-5.0) g/dL TSH (0.358-3.74) uIU/mL Urine Color (Yellow) Yellow Urine Clarity Clear Urine pH (5-8) 5.5 Ur Specific [place] (1.005-1.025) 1.015 Urine Protein (Negative) mg/dL 30 H Urine Ketones (Negative) mg/dL Negative Urine Blood (Negative) Small H Urine Nitrite (Negative) Negative Urine Bilirubin (Negative) Negative Urine Urobilinogen (Up TO 0.2) EU/dL 0.2 Ur Leukocyte Esterase (Negative) Negative Urine RBC (0-2) Negative Urine WBC (0-5) HPF 0-2 Ur Epithelial Cells (Negative) HPF Few Urine Crystals (Negative) HPF Few amorphous Urine Bacteria (Negative) HPF Moderate Urine Casts (Negative) LPF Negative Urine Mucus (Negative) Negative Urine Other (Negative) Few renal Ur Culture Indicated? Yes Urine Glucose (Negative) mg/dL Negative Salicylates (2.8-20.0) mg/dL Urine Opiates Screen (Negative) Negative Urine Methadone Screen (Negative) Negative Acetaminophen (10-30) ug/mL Ur Barbiturates Screen (Negative) Negative Ur Tricyclics Screen (Negative) Negative Ur Amphetamines Screen (Negative) Positive U Benzodiazepines Scrn (Negative) Negative Urine Cocaine Screen (Negative) Negative Ur THC Screen (Negative) Positive Ethyl Alcohol (<3) mg/dL POC- Test(urine) Negative
[2018-03-05 21:36] LABS: HCO3 20 mmol/L (22-28); pCO2 47 mmHg (34-47); pH 7.24 (7.35-7.45); pO2 168 mmHg (83-108)
--- NOTE | 2018-03-05 21:36 | DI.VRAD_ITS ---
EXAM DATE/TIME: 03/05/2018 8:09 PM EXAM: CT Angiography Head With Intravenous Contrast CLINICAL HISTORY: 28 years old, female; Signs and symptoms; Other: Seizure, hypoxic TECHNIQUE: Axial computed tomographic angiography images of the head with intravenous contrast using CT angiography protocol. All CT scans at this facility use at least one of these dose optimization techniques: automated exposure control; mA and/or kV adjustment per patient size (includes targeted exams where dose is matched to clinical indication); or iterative reconstruction. MIP reconstructed images were created and reviewed. CONTRAST: 85 ml of omnipaque 350 administered intravenously. COMPARISON: CT HEAD WO 03/05/2018 8:18 PM FINDINGS: Right internal carotid artery: Intracranial segment is patent with no significant stenosis. No aneurysm. Right anterior cerebral artery: No occlusion or significant stenosis. No aneurysm. Right middle cerebral artery: No occlusion or significant stenosis. No aneurysm. Right posterior cerebral artery: No occlusion or significant stenosis. No aneurysm. Right vertebral artery: No occlusion or significant stenosis. No aneurysm. Left internal carotid artery: Intracranial segment is patent with no significant stenosis. No aneurysm. Left anterior cerebral artery: No occlusion or significant stenosis. No aneurysm. Left middle cerebral artery: No occlusion or significant stenosis. No aneurysm. Left posterior cerebral artery: No occlusion or significant stenosis. No aneurysm. Left vertebral artery: No occlusion or significant stenosis. No aneurysm. Basilar artery: No occlusion or significant stenosis. No aneurysm. IMPRESSION: No acute arterial pathology. Patent [place] of [place]. EXAM: CT Angiography Neck With Intravenous Contrast EXAM DATE/TIME: 03/05/2018 8:09 PM CLINICAL HISTORY: 28 years old, female; Signs and symptoms; Other: Seizure, hypoxic TECHNIQUE: Axial computed tomographic angiography images of the neck with intravenous contrast using CT angiography protocol. All CT scans at this facility use at least one of these dose optimization techniques: automated exposure control; mA and/or kV adjustment per patient size (includes targeted exams where dose is matched to clinical indication); or iterative reconstruction. MIP reconstructed images were created and reviewed. CONTRAST: 85 ml of omnipaque 350 administered intravenously. COMPARISON: CT HEAD WO 03/05/2018 8:18 PM FINDINGS: VASCULATURE: Right common carotid artery: No significant stenosis. No dissection or occlusion. Right internal carotid artery: Extracranial segment is patent with no significant stenosis. No dissection or occlusion. Right external carotid artery: No occlusion or significant stenosis. Right vertebral artery: No significant stenosis. No dissection or occlusion. Left common carotid artery: No significant stenosis. No dissection or occlusion. Left internal carotid artery: Extracranial segment is patent with no significant stenosis. No dissection or occlusion. Left external carotid artery: No occlusion or significant stenosis. Left vertebral artery: No significant stenosis. No dissection or occlusion. NECK: Nasopharynx: Small amount of fluid in the nasopharynx, oropharynx, upper airway above the ETT terminates. Bones/joints: No acute fracture. Soft tissues: Normal. No significant soft tissue swelling. Esophagus: Nasogastric tube in the expected position in the esophagus. Other findings: Endotracheal tube in satisfactory position. IMPRESSION: No acute arterial pathology. Patent carotid and vertebral system bilaterally. COMMENT: Reference per NASCET criteria for degree of stenosis: Mild: <50% stenosis. Moderate: 50-69% stenosis. Severe: 70-94% stenosis. Near occlusion: 95-99% stenosis. Dictated and Authenticated by: Tatiana Abraham MD. Ordering:ADELE ROSE MD
[2018-03-05 21:38] LABS: Site Left Radial; sO2 100 % (94-98)
[2018-03-05] MEDS: PIPERACILLIN/TAZO 4.5 GM in Normal Saline 100 ML IVPB (21:43)
--- NOTE | 2018-03-05 22:07 | HPE_ITS ---
Date of service: 03/05/18 Time of Service: 22:06 Assessment and Plan (1) Seizure: Current visit: No Status: Acute Seizure most likely secondary to Adderall overdose though cannot rule out primary seizure disorder at this point. The overdose itself is either presumably intentional self-harm or perhaps a misguided attempt to immediately resume her prior dose. At any rate treatment will involve general supportive measures, will maintain on ventilator overnight. The propofol sedation should also be satisfactory antiseizure prophylaxis but will add benzodiazepines as needed for any breakthrough seizures. Should this become problematic will put on Versed drip. Otherwise the potassium is being replaced and will maintain on maintenance fluids. As to the possible aspiration patient has already received a loading dose of Zosyn and this is a satisfactory empiric program while monitoring for any development of pneumonitis. History of Present Illness Chief Complaint: Seizure Narrative: 28-year-old female with no prior history of seizures. Does have history of depression and ADHD previously on 45 mg daily of Adderall, none since September when she moved up here new PCP started her on Adderall 5 mg twice daily 3 days ago while at home today she was suddenly noted to have a tonic- clonic seizure. EMS was summoned and she was post ictal here in the emergency room she had another seizure, was given 2 g of Keppra and 2 mg of Ativan with resolution. He was noted to be hypoxic and deemed unable to protect her airway and she was intubated prophylactically. initial workup of note for potassium 3.[address] head [address] It was then noted that her Adderall bottle was empty representing thirty 5 mg tablets. Has been unable to recognize any preceding suicidal ideation. Post intubation film shows tubes in place with bibasilar atelectasis. Out of concern for possible aspiration she was given loading dose of Zosyn. Past medical history: ADHD, depression, status post gastric bypass Allergies none known Medications Adderall 5 bid, Zoloft 50 daily trazodone 50 daily Physical exam: Blood pressure 119/55, pulse 111, respirations on the ventilator 15, temp 37.2. HEENT shows no signs of head trauma. Pupils are 4 mm and reactive. Lungs are clear. Heart tachycardic and regular. Abdomen soft and nontender. Pelvic and rectal exams deferred. Extremities without edema, pulses 2+ and equal. Neurologically the the patient is not reactive to touch or voice and has no spontaneous motor activity. Laboratory: White count is 15.8 hematocrit 33 platelets 480. Sodium 138 potassium 3.0 chloride 100 bicarb 17 BUN 14 creatinine 1.1 glucose 200 calcium 8.7 TSH 2.2 urinalysis unremarkable urine tox screen positive for amphetamine and THC, acetaminophen is negative alcohol is negative. EKG shows sinus tachycardia with nonspecific T wave changes. Head CT negative (note small area of hypoattenuation in nathan, presumably artifact). X-ray shows tube in place and bibasilar atelectasis. Review of Systems Review of Systems Unobtainable due to mental status Meds Home Medications Medication Instructions Recorded Confirmed Type dextroamphetamine-amphetamine 5 mg PO BID 03/05/18 03/05/18 History [Adderall] sertraline 50 mg PO DAILY 03/05/18 03/05/18 History trazodone 50 mg PO DAILY 03/05/18 03/05/18 History Exam Narrative Exam Narrative: per HPI Results Labs : 03/05/18 19:59 03/05/18 19:59 Laboratory Results - last 24 hr 03/05/18 03/05/18 03/05/18 19:59 19:59 19:59 WBC RBC Hgb Hct MCV MCH MCHC RDW Plt Count MPV Immature Gran % Neutrophils % Lymphocytes % Monocytes % Eosinophils % Basophils % Absolute Neutrophils Absolute Lymphocytes Absolute Monocytes Absolute Eosinophils Absolute Basophils Differential Comment RBC Morphology Hypochromasia Microcytosis ESR 16 PT INR APTT Sample Site pCO2 pO2 O2 Saturation ABG pH ABG HCO3 ABG Total CO2 ABG Base Excess Oxygen Liter Flow FiO2 Sodium Potassium Chloride Carbon Dioxide Anion Gap BUN Creatinine Estimated GFR/1.73 m2 Glucose Calcium Total Bilirubin AST ALT Alkaline Phosphatase Ammonia Troponin I C-Reactive Protein 0.13 Total Protein Albumin TSH Urine Color Urine Clarity Urine pH Ur Specific Breeding Urine Protein Urine Ketones Urine Blood Urine Nitrite Urine Bilirubin Urine Urobilinogen Ur Leukocyte Esterase Urine RBC Urine WBC Ur Epithelial Cells Urine Crystals Urine Bacteria Urine Casts Urine Mucus Urine Other Ur Culture Indicated? Urine Glucose Salicylates 4.1 Urine Opiates Screen Urine Methadone Screen Acetaminophen < 2 L Ur Barbiturates Screen Ur Tricyclics Screen Ur Amphetamines Screen U Benzodiazepines Scrn Urine Cocaine Screen Ur THC Screen Ethyl Alcohol 03/05/18 03/05/18 03/05/18 19:59 19:59 19:59 WBC 15.89 H RBC 4.41 Hgb 10.0 L Hct 33.1 L MCV 75.1 L MCH 22.7 L MCHC 30.2 L RDW 17.0 H Plt Count 480 H MPV 11.1 H Immature Gran % 0.6 Neutrophils % 42.9 Lymphocytes % 49.8 Monocytes % 4.5 Eosinophils % 1.8 Basophils % 0.4 Absolute Neutrophils 6.82 H Absolute Lymphocytes 7.91 H Absolute Monocytes 0.72 H Absolute Eosinophils 0.29 Absolute Basophils 0.06 Differential Comment Diff reviewed RBC Morphology See below Hypochromasia 2+ Microcytosis 1+ ESR PT INR APTT Sample Site pCO2 pO2 O2 Saturation ABG pH ABG HCO3 ABG Total CO2 ABG Base Excess Oxygen Liter Flow FiO2 Sodium 138 Potassium 3.0 L Chloride 100 Carbon Dioxide 17.4 L Anion Gap 20.6 H BUN 14 Creatinine 1.10 H Estimated GFR/1.73 m2 59.14 Glucose 200 H Calcium 8.7 Total Bilirubin 1.1 H AST 27 ALT 22 Alkaline Phosphatase 76 Ammonia 49 H Troponin I < 0.02 C-Reactive Protein Total Protein 7.7 Albumin 3.9 TSH 2.22 Urine Color Urine Clarity Urine pH Ur Specific Breeding Urine Protein Urine Ketones Urine Blood Urine Nitrite Urine Bilirubin Urine Urobilinogen Ur Leukocyte Esterase Urine RBC Urine WBC Ur Epithelial Cells Urine Crystals Urine Bacteria Urine Casts Urine Mucus Urine Other Ur Culture Indicated? Urine Glucose Salicylates Urine Opiates Screen Urine Methadone Screen Acetaminophen Ur Barbiturates Screen Ur Tricyclics Screen Ur Amphetamines Screen U Benzodiazepines Scrn Urine Cocaine Screen Ur THC Screen Ethyl Alcohol < 3.0 03/05/18 03/05/18 03/05/18 19:59 19:59 19:59 WBC RBC Hgb Hct MCV MCH MCHC RDW Plt Count MPV Immature Gran % Neutrophils % Lymphocytes % Monocytes % Eosinophils % Basophils % Absolute Neutrophils Absolute Lymphocytes Absolute Monocytes Absolute Eosinophils Absolute Basophils Differential Comment RBC Morphology Hypochromasia Microcytosis ESR PT 11.0 H INR 1.1 APTT 25.2 Sample Site pCO2 pO2 O2 Saturation ABG pH ABG HCO3 ABG Total CO2 ABG Base Excess Oxygen Liter Flow FiO2 Sodium Potassium Chloride Carbon Dioxide Anion Gap BUN Creatinine Estimated GFR/1.73 m2 Glucose Calcium Total Bilirubin AST ALT Alkaline Phosphatase Ammonia Troponin I C-Reactive Protein Total Protein Albumin TSH Urine Color Yellow Urine Clarity Clear Urine pH 5.5 Ur Specific Breeding 1.015 Urine Protein 30 H Urine Ketones Negative Urine Blood Small H Urine Nitrite Negative Urine Bilirubin Negative Urine Urobilinogen 0.2 Ur Leukocyte Esterase Negative Urine RBC Negative Urine WBC 0-2 Ur Epithelial Cells Few Urine Crystals Few amorphous Urine Bacteria Moderate Urine Casts Negative Urine Mucus Negative Urine Other Few renal Ur Culture Indicated? Yes Urine Glucose Negative Salicylates Urine Opiates Screen Negative Urine Methadone Screen Negative Acetaminophen Ur Barbiturates Screen Negative Ur Tricyclics Screen Negative Ur Amphetamines Screen Positive U Benzodiazepines Scrn Negative Urine Cocaine Screen Negative Ur THC Screen Positive Ethyl Alcohol 03/05/18 21:32 WBC RBC Hgb Hct MCV MCH MCHC RDW Plt Count MPV Immature Gran % Neutrophils % Lymphocytes % Monocytes % Eosinophils % Basophils % Absolute Neutrophils Absolute Lymphocytes Absolute Monocytes Absolute Eosinophils Absolute Basophils Differential Comment RBC Morphology Hypochromasia Microcytosis ESR PT INR APTT Sample Site Left radial pCO2 47 pO2 168 H O2 Saturation 100 H ABG pH 7.24 L ABG HCO3 20 L ABG Total CO2 Not Applicable ABG Base Excess Oxygen Liter Flow A/c 15 vt 500 FiO2 60% 5 peep Sodium Potassium Chloride Carbon Dioxide Anion Gap BUN Creatinine Estimated GFR/1.73 m2 Glucose Calcium Total Bilirubin AST ALT Alkaline Phosphatase Ammonia Troponin I C-Reactive Protein Total Protein Albumin TSH Urine Color Urine Clarity Urine pH Ur Specific Breeding Urine Protein Urine Ketones Urine Blood Urine Nitrite Urine Bilirubin Urine Urobilinogen Ur Leukocyte Esterase Urine RBC Urine WBC Ur Epithelial Cells Urine Crystals Urine Bacteria Urine Casts Urine Mucus Urine Other Ur Culture Indicated? Urine Glucose Salicylates Urine Opiates Screen Urine Methadone Screen Acetaminophen Ur Barbiturates Screen Ur Tricyclics Screen Ur Amphetamines Screen U Benzodiazepines Scrn Urine Cocaine Screen Ur THC Screen Ethyl Alcohol Last Vital Signs Temp 37.2 C 03/05/18 20:09 Pulse 111 H 03/05/18 21:55 Resp 15 03/05/18 21:55 BP 119/55 L 03/05/18 21:55 Pulse Ox 99 03/05/18 21:55
[2018-03-05] MEDS: Normal Saline Flush 10 ML SYR IVP (23:57)
[2018-03-05] MEDS: POTASSIUM CHLORIDE/0.9% NACL 1,000 ML 125 MEQ IV (23:58)
[2018-03-06] VITALS (86 sets, daily range): BP systolic 86–136; BP diastolic 38–82; PULSE 88–141; RESP 10–27; TEMP 36.5–37.9; O2SAT 96–100
[2018-03-06 00:25] LABS: HCO3 19 mmol/L (22-28); pCO2 42 mmHg (34-47); pH 7.27 (7.35-7.45); pO2 97 mmHg (83-108); sO2 97 % (94-98); tCO2 19 mmol/L (22-29)
[2018-03-06 00:27] LABS: Site Right Radial
[2018-03-06] MEDS: PROPOFOL 1,000 MG/100 ML BTL 24.1 MG (00:45)
[2018-03-06] MEDS: LORazepam 2 MG/ML VIAL IVP ×3 (02:27→06:34)
[2018-03-06] MEDS: Normal Saline Flush 10 ML SYR IVP ×4 (02:27→10:48)
[2018-03-06] MEDS: PROPOFOL 1,000 MG/100 ML BTL 27.6 MG (03:10)
[2018-03-06] MEDS: PIPERACILLIN/TAZO 3.375 GM in Normal Saline 50 ML IVPB ×4 (03:51→21:10)
[2018-03-06 07:14] LABS: HCO3 20 mmol/L (22-28); pCO2 28 mmHg (34-47); pH 7.46 (7.35-7.45); pO2 139 mmHg (83-108)
[2018-03-06 07:17] LABS: Site Right Radial
[2018-03-06 07:19] LABS: FIO2 30 %
[2018-03-06 07:20] LABS: sO2 100 % (94-98)
[2018-03-06 07:21] LABS: HCT 26.7 % (36.0-46.0); Mean Corpuscular Hemoglobin 21.9 pg (27.0-33.0); RBC 3.66 m/cumm (4.00-5.20); RBC Distribution Width 16.7 % (11.7-14.6); White Blood Cell Count 9.56 k/cumm (4.4-10.8)
--- NOTE | 2018-03-06 07:36 | PDOC.CMIN ---
- If Service Date Differs Date of service: 03/06/18 Time of Service: 07:36 Care Management Initial Assess REASON FOR HOSPITALIZATION:: Adderall overdose, seizure. PAST MEDICAL HISTORY/PAST SURGICAL HISTORY:: Depression, ADHD. Surgical hx: gastic bypass. PREVIOUS FUNCTIONAL STATUS/SOCIAL/FAMILY SUPPORTS:: Per ER report, patient was sitting in bed playing with her son when her eyes rolled back in her head and she started having a tonic-clonic seizure. Per report, Selma's denies prior suicidal ideation, IV or illicit drug use. The family is originally from [facility] and have been living in a hotel/mcc for 3 months. CURRENT FUNCTIONAL STATUS:: Selma is currently intubated in the ICU. She continues to recieve IV fluids and has propofol titrated for sedation. Selma is getting a second EKG at this time, as changes were noted on her first. She is also having a chest xray. Selma is 'twitchy' and restless, and RN Madeline continues to monitor and titrate propofol and provide oral care and suction as needed. CM will offer support regarding housing and possible psychiatric needs when patient is awake. When medically clear, a psych evaluation will be ordered, MH will evaluate patient and a safety plan/CPSO will be initiated if necessary. ADVANCE DIRECTIVES:: None on file at [facility]. Has patient been provided with information about the portal?: Yes Did the patient sign up for the portal?: No CODE STATUS:: Full Code INSURANCE COVERAGE / FINANCIAL ISSUES:: Medicaid. CURRENT HOME/COMMUNITY SERVICES/EQUIPMENT:: Patient reportedly has been residing at a hotel/mcc for three months. No equipment. PRIMARY CARE PHYSICIAN:: Javier Gonzalez MD. PATIENT/FAMILY EDUCATION NEEDS:: Discharge education, any limitations, and follow up plan of care. Ask Me Three discussion. PLAN:: CM will continue to offer support to patient, family, and care team regarding discharge planning and discharge.
[2018-03-06 07:43] LABS: Anion Gap 13.7 mmol/L (3-11); BUN 13 mg/dL (7-18); CO2 19.3 mmol/L (21.0-32.0); CREATININE 0.82 mg/dL (0.55-1.02); Calcium 8.2 mg/dL (8.5-10.1); Chloride 106 mmol/L (98-107); Glucose 88 mg/dL (70-100); Potassium 3.8 mmol/L (3.5-5.1); Sodium 139 mmol/L (136-145)
[2018-03-06] MEDS: PROPOFOL 1,000 MG/100 ML BTL 34.5 MG IVPB (07:50)
--- NOTE | 2018-03-06 08:30 | DI.RAD_ITS ---
SYMPTOMS/DIAGNOSIS: CHECK TUBE PLACEMENT PORTABLE AP CHEST: Comparison is made with March,. Endotracheal tube and nasogastric tubes are unchanged in position. The heart size is normal. The lungs appear clear. IMPRESSION: No change in endotracheal or nasogastric tube. No acute abnormality.
[2018-03-06 08:32] LABS: Creatine Kinase 917 U/L (26-192)
--- NOTE | 2018-03-06 08:59 | INITIAL_ITS ---
- If Service Date Differs Date of service: 03/06/18 Time of Service: 07:36 Care Management Initial Assess REASON FOR HOSPITALIZATION:: Adderall overdose, seizure. PAST MEDICAL HISTORY/PAST SURGICAL HISTORY:: Depression, ADHD. Surgical hx: gastic bypass. PREVIOUS FUNCTIONAL STATUS/SOCIAL/FAMILY SUPPORTS:: Per ER report, patient was sitting in bed playing with her son when her eyes rolled back in her head and she started having a tonic-clonic seizure. Per report, Selma's denies prior suicidal ideation, IV or illicit drug use. The family is originally from [facility] and have been living in a hotel/fci for 3 months. CURRENT FUNCTIONAL STATUS:: Selma is currently intubated in the ICU. She continues to recieve IV fluids and has propofol titrated for sedation. Selma is getting a second EKG at this time, as changes were noted on her first. She is also having a chest xray. Selma is 'twitchy' and restless, and RN Madeline continues to monitor and titrate propofol and provide oral care and suction as needed. CM will offer support regarding housing and possible psychiatric needs when patient is awake. When medically clear, a psych evaluation will be ordered , MH will evaluate patient and a safety plan/CPSO will be initiated if necessary. ADVANCE DIRECTIVES:: None on file at [facility]. Has patient been provided with information about the portal?: Yes Did the patient sign up for the portal?: No CODE STATUS:: Full Code INSURANCE COVERAGE / FINANCIAL ISSUES:: Medicaid. CURRENT HOME/COMMUNITY SERVICES/EQUIPMENT:: Patient reportedly has been residing at a hotel/fci for three months. No equipment. PRIMARY CARE PHYSICIAN:: Javier Gonzalez MD. PATIENT/FAMILY EDUCATION NEEDS:: Discharge education, any limitations, and follow up plan of care. Ask Me Three discussion. PLAN:: CM will continue to offer support to patient, family, and care team regarding discharge planning and discharge.
[2018-03-06] MEDS: Enoxaparin 40 MG/0.4 ML SYR SC (09:03)
[2018-03-06 09:04] LABS: Troponin I 0.04 ng/mL (0.00-0.06)
[2018-03-06] MEDS: POTASSIUM CHLORIDE/0.9% NACL 1,000 ML 125 MEQ IV ×2 (09:33→18:25)
[2018-03-06 10:19] LABS: HCO3 22 mmol/L (22-28); pCO2 38 mmHg (34-47); pH 7.36 (7.35-7.45); pO2 96 mmHg (83-108); sO2 98 % (94-98); tCO2 21 mmol/L (22-29)
[2018-03-06 10:20] LABS: FIO2 30 %; Site Right Radial
[2018-03-06 10:22] LABS: FIO2L Vent L
[2018-03-06] MEDS: PROPOFOL 1,000 MG/100 ML BTL 44.9 MG IVPB ×6 (10:22→22:56)
--- NOTE | 2018-03-06 10:22 | PHARADMIT ---
Admission Pharmacy Clinical Review adderall overdose, seizure Code Status Full Code Current Weight Wgt- 104.9 kg Renally Cleared and Narrow Therapeutic Index Meds CrCl~ NA (no Height) QTc Value / Action Taken QTc-446 na BP Control, Fever BP- 102/57 Tmax- 37.2C Electrolytes reviewed Na- 139 K+3.8 DVT Prophylaxis Lovenox Opiate Usage / Scheduled Bowel Regimen Ordered No No Plt/SCr for Heparin / Enoxaparin Plts-480, SCr-0.82 INR for Warfarin inr-1.1 H/H stable, WBC/Bands H&H- 8.0/26.7 WBC- 9.56 Antibiotic appropriateness Zosyn Cultures and Sensitivities Blood, Urine-Pending Surgical ABX d/c within 24 hr na DM control / Insulin Dosing BG-88 Heart Failure (Check EF%) (YOMAIRA's, B-Block, Diuretics) none IV to PO Switch No Home Meds Reviewed Yes Home Meds Not Ordered Adderall, Sertraline, Trazodone Comments
[2018-03-06] MEDS: Furosemide 20 MG/2 ML VIAL IVP (10:47)
--- NOTE | 2018-03-06 11:03 | PT.INNT ---
Date of service: 03/06/18 Time of Service: 11:03 PT Notes PHYSICAL THERAPY NOTE 03/06/18 P.T consult received, chart reviewed. Pt remains sedated/not alert on ventilator. Spoke with RN, nursing will perform PROM to all extremities today and is repositioning patient every 2 hours. Will attempt PT eval tomorrow if patient alert and able to begin dangling at bedside and strengthening exercises or if patient gets extubated. Sheeba Ceja PT
[2018-03-06] MEDS: Pantoprazole 40 MG VIAL IVP (11:26)
--- NOTE | 2018-03-06 11:50 | NS.NUTBLAN_ITS ---
Date of service: 03/06/18 Time of Service: 11:30 Nutritional Consult Assessment:: Nutrition consult for tube feeding recommendations as patient is intubated. Spoke with who states that patient has been eating a regular diet for several years now. Her gastric bypass was many years ago. I was asking so as to get guidance for formula type. He also states that he thinks Selma is is 64. Her weight is 231 lbs./104.9kg. Adjusted ideal body weight is 185 lbs/84 kg. Her BMI is likely around 39.5 kg/m2 consistent with class 2 obesity. Her estimated energy needs for weight maintenance are 2120 calories (REE x 1.2). Estimated protein needs are 67- 84 grams per day ( 0.8-1.0 g/kg/day of adjusted ideal body weight. Estimated fluid needs are 2520 ml/day (30 ml/kg of adjusted ideal body weight. Nutritional Diagnosis:: Inability to take oral foods and fluids related to intubation. Intervention:: Recommend the following tube feeding regimen at goal: Jevity 1.2 jessica @ 55 ml/hour x 24 hour continuously. Start feeding at 30 ml/hr and increase by 15 ml/hr every four hours as tolerated ( or per protocol.) This feeding will provide 100% of her micronutrient need and her protein needs. It is underfeeding for calories but at a rate for slow weight weight loss and this feeding is likely short term. This feeding provides 1050 ml of free water so she may need up to 1.0 to 1.5 liters of additional free water based on her hydration needs. Monitoring and Evaluation:: Will monitor her weight and her tolerance to tube feeding. Will evaluate her nutrition care plan and will adjust as needed based on the goals of her feeding plan. Time Spent in Nutritional Counseling and Treatment: CATHY
[2018-03-06] MEDS: PROPOFOL 1,000 MG/100 ML BTL 41.4 MG IVPB (14:04)
[2018-03-06 14:39] LABS: Troponin I 0.02 ng/mL (0.00-0.06)
[2018-03-06 16:30] LABS: Magnesium 1.5 mg/dL (1.8-2.4)
--- NOTE | 2018-03-06 16:32 | PGE_ITS ---
Date of Service Date of service: 03/06/18 Time of Service: 16:18 Assessment and Plan (1) Amphetamine overdose of undetermined intent: Current visit: Yes Status: Acute The patient remains in the ICU, intubated, sedated. Continue sedation with propofol with prn ativan for seizures. Poison control checking in frequently and agrees with plan. Once patient is conscious, mental health evaluation would have to be performed. Vent settings adjusted - f/u daily CXR and ABG's. (2) Seizures: Current visit: Yes Status: Acute Likely due to adderall overdose. Read discussion above. Evidently, the initial seizure was about 10 minutes long. I am concerned that there may have been enough time for the patient to have sustained hypoxic brain injury. We will have to repeat head imaging/obtain MRI to ensure that there is not anoxic brain injury. (3) Rhabdomyolysis: Current visit: Yes Status: Acute Continue IV fluids + lasix. Monitor I/O's and kidney function. (4) Nonsustained ventricular tachycardia: Current visit: Yes Status: Acute Checking magnesium level. (5) ADHD: Current visit: Yes Status: Chronic home meds on hold (6) Depression: Current visit: Yes Status: Chronic home meds on hold (7) Microcytic anemia: Current visit: Yes Status: Acute obtain iron studies, b12, folate, hemoccult. Monitor H/H. (8) Hypokalemia: Current visit: Yes Status: Resolved (9) Discharge planning issues: Current visit: Yes Status: Acute will need mental health evaluation (10) DVT prophylaxis: Current visit: Yes Status: Acute lovenox Subjective Interval history since last seen: Ms Rosado had 2 seizure-like episodes overnight while intubated, treated with ativan. Her propofol was titrated up. Since then, she has not had any convulsive episodes. She remains intubated, sedated. She had a 7 beat run of non-sustained VTach. The patient is unable to answer questions due to being intubated/sedated. Exam Narrative Exam Narrative: General: Obese female, laying in bed, intubated, sedated, does not respond to verbal or painful stimuli Neurological: Sedated, no obvious focal deficits, not tracking, not following commands Psychiatric: Impossible to assess due to being sedated Skin: Intact HEENT: Eyes closed, pupils pinpoint; no submandibular lymphadenopathy, goiter, or JVD; not tracking; ET tube as well as OG tube in place Cardiovascular: regularly regular rhythm, no murmurs, rubs, or gallops Lungs: clear to auscultation bilaterally Gastrointestinal: Abdomen soft, nondistended Genitourinary: Ramirez in place Extremities: Trace edema bilateral lower extremities, no clubbing, or cyanosis, 2+ pedal pulses bilaterally Objective Objective Clinical Data: Abnormal lab results 03/05/18 03/05/18 03/05/18 Range/Units 19:59 19:59 19:59 WBC (4.4-10.8) k/cumm RBC (4.00-5.20) m/cumm Hgb (12.0-15.5) g/dL Hct (36.0-46.0) % MCV (80-95) fL MCH (27.0-33.0) pg MCHC (32.0-36.0) g/dL RDW (11.7-14.6) % Plt Count (130-400) x1000/uL MPV (8.0-11.0) fL Absolute Neutrophils (1.2-6.7) k/cumm Absolute Lymphocytes (1.2-3.4) k/cumm Absolute Monocytes (0.11-0.7) k/cumm PT (9.3-10.8) sec pCO2 (34-47) mmHg pO2 (83-108) mmHg O2 Saturation (94-98) % ABG pH (7.35-7.45) ABG HCO3 (22-28) mmol/L ABG Total CO2 (22-29) mmol/L Potassium 3.0 L (3.5-5.1) mmol/L Carbon Dioxide 17.4 L (21.0-32.0) mmol/L Anion Gap 20.6 H (3-11) mmol/L Creatinine 1.10 H (0.55-1.02) mg/dL Glucose 200 H (70-100) mg/dL Calcium (8.5-10.1) mg/dL Total Bilirubin 1.1 H (0.2-1.0) mg/dL Ammonia 49 H (11-32) umol/L Creatine Kinase (26-192) U/L Urine Protein (Negative) mg/dL Urine Blood (Negative) Acetaminophen < 2 L (10-30) ug/mL 03/05/18 03/05/18 03/05/18 Range/Units 19:59 19:59 19:59 WBC 15.89 H (4.4-10.8) k/cumm RBC (4.00-5.20) m/cumm Hgb 10.0 L (12.0-15.5) g/dL Hct 33.1 L (36.0-46.0) % MCV 75.1 L (80-95) fL MCH 22.7 L (27.0-33.0) pg MCHC 30.2 L (32.0-36.0) g/dL RDW 17.0 H (11.7-14.6) % Plt Count 480 H (130-400) x1000/uL MPV 11.1 H (8.0-11.0) fL Absolute Neutrophils 6.82 H (1.2-6.7) k/cumm Absolute Lymphocytes 7.91 H (1.2-3.4) k/cumm Absolute Monocytes 0.72 H (0.11-0.7) k/cumm PT 11.0 H (9.3-10.8) sec pCO2 (34-47) mmHg pO2 (83-108) mmHg O2 Saturation (94-98) % ABG pH (7.35-7.45) ABG HCO3 (22-28) mmol/L ABG Total CO2 (22-29) mmol/L Potassium (3.5-5.1) mmol/L Carbon Dioxide (21.0-32.0) mmol/L Anion Gap (3-11) mmol/L Creatinine (0.55-1.02) mg/dL Glucose (70-100) mg/dL Calcium (8.5-10.1) mg/dL Total Bilirubin (0.2-1.0) mg/dL Ammonia (11-32) umol/L Creatine Kinase (26-192) U/L Urine Protein 30 H (Negative) mg/dL Urine Blood Small H (Negative) Acetaminophen (10-30) ug/mL 03/05/18 03/06/18 03/06/18 Range/Units 21:32 00:15 07:00 WBC (4.4-10.8) k/cumm RBC (4.00-5.20) m/cumm Hgb (12.0-15.5) g/dL Hct (36.0-46.0) % MCV (80-95) fL MCH (27.0-33.0) pg MCHC (32.0-36.0) g/dL RDW (11.7-14.6) % Plt Count (130-400) x1000/uL MPV (8.0-11.0) fL Absolute Neutrophils (1.2-6.7) k/cumm Absolute Lymphocytes (1.2-3.4) k/cumm Absolute Monocytes (0.11-0.7) k/cumm PT (9.3-10.8) sec pCO2 (34-47) mmHg pO2 168 H (83-108) mmHg O2 Saturation 100 H (94-98) % ABG pH 7.24 L 7.27 L (7.35-7.45) ABG HCO3 20 L 19 L (22-28) mmol/L ABG Total CO2 19 L (22-29) mmol/L Potassium (3.5-5.1) mmol/L Carbon Dioxide 19.3 L (21.0-32.0) mmol/L Anion Gap 13.7 H (3-11) mmol/L Creatinine (0.55-1.02) mg/dL Glucose (70-100) mg/dL Calcium 8.2 L (8.5-10.1) mg/dL Total Bilirubin (0.2-1.0) mg/dL Ammonia (11-32) umol/L Creatine Kinase 917 H (26-192) U/L Urine Protein (Negative) mg/dL Urine Blood (Negative) Acetaminophen (10-30) ug/mL 03/06/18 03/06/18 03/06/18 Range/Units 07:00 07:10 10:10 WBC (4.4-10.8) k/cumm RBC 3.66 L (4.00-5.20) m/cumm Hgb 8.0 L (12.0-15.5) g/dL Hct 26.7 L (36.0-46.0) % MCV 73.0 L (80-95) fL MCH 21.9 L (27.0-33.0) pg MCHC 30.0 L (32.0-36.0) g/dL RDW 16.7 H (11.7-14.6) % Plt Count (130-400) x1000/uL MPV (8.0-11.0) fL Absolute Neutrophils (1.2-6.7) k/cumm Absolute Lymphocytes (1.2-3.4) k/cumm Absolute Monocytes (0.11-0.7) k/cumm PT (9.3-10.8) sec pCO2 28 L (34-47) mmHg pO2 139 H (83-108) mmHg O2 Saturation 100 H (94-98) % ABG pH 7.46 H (7.35-7.45) ABG HCO3 20 L (22-28) mmol/L ABG Total CO2 21 L (22-29) mmol/L Potassium (3.5-5.1) mmol/L Carbon Dioxide (21.0-32.0) mmol/L Anion Gap (3-11) mmol/L Creatinine (0.55-1.02) mg/dL Glucose (70-100) mg/dL Calcium (8.5-10.1) mg/dL Total Bilirubin (0.2-1.0) mg/dL Ammonia (11-32) umol/L Creatine Kinase (26-192) U/L Urine Protein (Negative) mg/dL Urine Blood (Negative) Acetaminophen (10-30) ug/mL Vital Signs Temperature 37.2 C 03/06/18 15:18 Temperature Source Temporal Artery Scan 03/06/18 15:18 Pulse 98 H 03/06/18 14:00 Pulse 99 H 03/06/18 14:00 Respiratory Rate 12 03/06/18 15:18 Respiratory Effort 03/06/18 15:18 Respiratory Depth Normal 03/06/18 15:18 Respiratory Pattern Normal 03/06/18 15:18 Blood Pressure 103/56 L 03/06/18 14:00 Blood Pressure Mean 66 03/06/18 14:00 Blood Pressure Position Supine 03/06/18 15:18 Pulse Oximetry 99 03/06/18 15:18 Respiratory End-tidal CO2 33 03/06/18 15:01 Oxygen Delivery Method Mechanical Ventilator 03/06/18 15:18 Oxygen Flow Rate 0 03/06/18 15:18 Fraction of Inspired Oxygen (FIO2) 25 03/06/18 15:01 Intake & Output 03/05/18 03/06/18 03/06/18 23:59 11:59 23:59 Intake Total 1450.00 / 1450.00 1310.000 / 1310.000 273.813 / 273.813 Output Total 500 / 500 600 / 600 187 / 1875 Balance 950.00 / 950.00 710.000 / 710.000 -1601.187 / -1601.187 Weight 115 kg 104.9 kg Intake: IV 1450.00 / 1450.00 1310.000 / 1310.000 273.813 / 273.813 Oral 0 / 0 Output: Gastric Drainage 0 / 0 0 / 0 0 / 0 Right Nare 0 / 0 0 / 0 0 / 0 Urine 500 / 500 600 / 600 1875 / 1875 Other: Urine Color Pale Yellow Pale Yellow Yellow Urine Appearance Clear Cloudy Clear Sediment Sediment Comment Ramirez patent and draining yellow/sediment urine. Ramirez patent and draining yellow/sediment urine. Gastric Occult Blood Right Nare Negative Laboratory Results WBC 9.56 k/cumm (4.4-10.8) D 03/06/18 07:00 RBC 3.66 m/cumm (4.00-5.20) L 03/06/18 07:00 Hgb 8.0 g/dL (12.0-15.5) L 03/06/18 07:00 Hct 26.7 % (36.0-46.0) L 03/06/18 07:00 MCV 73.0 fL (80-95) L 03/06/18 07:00 MCH 21.9 pg (27.0-33.0) L 03/06/18 07:00 MCHC 30.0 g/dL (32.0-36.0) L 03/06/18 07:00 RDW 16.7 % (11.7-14.6) H 03/06/18 07:00 Plt Count x1000/uL (130-400) 03/06/18 07:00 MPV fL (8.0-11.0) 03/06/18 07:00 Immature Gran % 0.6 03/05/18 19:59 Neutrophils % 42.9 03/05/18 19:59 Lymphocytes % 49.8 03/05/18 19:59 Monocytes % 4.5 12/04/18 19:59 Eosinophils % 1.8 03/05/18 19:59 Basophils % 0.4 03/05/18 19:59 Absolute Neutrophils 6.82 k/cumm (1.2-6.7) H 03/05/18 19:59 Absolute Lymphocytes 7.91 k/cumm (1.2-3.4) H 03/05/18 19:59 Absolute Monocytes 0.72 k/cumm (0.11-0.7) H 03/05/18 19:59 Absolute Eosinophils 0.29 k/cumm (0.0-0.7) 03/05/18 19:59 Absolute Basophils 0.06 k/cumm (0.0-0.2) 03/05/18 19:59 Differential Comment Diff reviewed 03/05/18 19:59 RBC Morphology See below 03/05/18 19:59 Hypochromasia 2+ 03/05/18 19:59 Microcytosis 1+ 03/05/18 19:59 ESR 16 MM/HR (0-20) 03/05/18 19:59 PT 11.0 sec (9.3-10.8) H 03/05/18 19:59 INR 1.1 (1.0-3.5) 03/05/18 19:59 APTT 25.2 sec (21.0-31.4) 03/05/18 19:59 Sample Site Right radial 03/06/18 10:10 pCO2 38 mmHg (34-47) 03/06/18 10:10 pO2 96 mmHg (83-108) 03/06/18 10:10 O2 Saturation 98 % (94-98) 03/06/18 10:10 ABG pH 7.36 (7.35-7.45) 03/06/18 10:10 ABG HCO3 22 mmol/L (22-28) 03/06/18 10:10 ABG Total CO2 21 mmol/L (22-29) L 03/06/18 10:10 ABG Base Excess mmol/L (-3-3) 03/06/18 10:10 Oxygen Liter Flow Vent L 03/06/18 10:10 FiO2 30 % 03/06/18 10:10 Sodium 139 mmol/L (136-145) 03/06/18 07:00 Potassium 3.8 mmol/L (3.5-5.1) D 03/06/18 07:00 Chloride 106 mmol/L (98-107) 03/06/18 07:00 Carbon Dioxide 19.3 mmol/L (21.0-32.0) L 03/06/18 07:00 Anion Gap 13.7 mmol/L (3-11) H 03/06/18 07:00 BUN 13 mg/dL (7-18) 03/06/18 07:00 Creatinine 0.82 mg/dL (0.55-1.02) 03/06/18 07:00 Estimated GFR/1.73 m2 >= 60.00 (mL/min/1.73m2) 03/06/18 07:00 Glucose 88 mg/dL (70-100) D 03/06/18 07:00 Calcium 8.2 mg/dL (8.5-10.1) L 03/06/18 07:00 Total Bilirubin 1.1 mg/dL (0.2-1.0) H 03/05/18 19:59 AST 27 U/L (15-37) 03/05/18 19:59 ALT 22 U/L (12-78) 03/05/18 19:59 Alkaline Phosphatase 76 U/L (46-116) 03/05/18 19:59 Ammonia 49 umol/L (11-32) H 03/05/18 19:59 Creatine Kinase 917 U/L (26-192) H 03/06/18 07:00 Troponin I 0.02 ng/mL (0.00-0.06) 03/06/18 14:10 C-Reactive Protein 0.13 mg/dL (0.0-0.3) 03/05/18 19:59 Total Protein 7.7 g/dL (6.4-8.2) 03/05/18 19:59 Albumin 3.9 g/dL (3.4-5.0) 03/05/18 19:59 TSH 2.22 uIU/mL (0.358-3.74) 03/05/18 19:59 Urine Color Yellow (Yellow) 03/05/18 19:59 Urine Clarity Clear 03/05/18 19:59 Urine pH 5.5 (5-8) 03/05/18 19:59 Ur Specific Converse 1.015 (1.005-1.025) 03/05/18 19:59 Urine Protein 30 mg/dL (Negative) H 03/05/18 19:59 Urine Ketones Negative mg/dL (Negative) 03/05/18 19:59 Urine Blood Small (Negative) H 03/05/18 19:59 Urine Nitrite Negative (Negative) 12 19:59 Urine Bilirubin Negative (Negative) 03/05/18 19:59 Urine Urobilinogen 0.2 EU/dL (Up TO 0.2) 12 19:59 Ur Leukocyte Esterase Negative (Negative) 03/05/18 19:59 Urine RBC Negative (0-2) 03/05/18 19:59 Urine WBC 0-2 HPF (0-5) 03/05/18 19:59 Ur Epithelial Cells Few HPF (Negative) 03/05/18 19:59 Urine Crystals Few amorphous HPF (Negative) 03/05/18 19:59 Urine Bacteria Moderate HPF (Negative) 03/05/18 19:59 Urine Casts Negative LPF (Negative) 03/05/18 19:59 Urine Mucus Negative (Negative) 03/05/18 19:59 Urine Other Few renal (Negative) 03/05/18 19:59 Ur Culture Indicated? Yes 03/05/18 19:59 Urine Glucose Negative mg/dL (Negative) 03/05/18 19:59 Salicylates 4.1 mg/dL (2.8-20.0) 03/05/18 19:59 Urine Opiates Screen Negative (Negative) 03/05/18 19:59 Urine Methadone Screen Negative (Negative) 03/05/18 19:59 Acetaminophen < 2 ug/mL (10-30) L 03/05/18 19:59 Ur Barbiturates Screen Negative (Negative) 03/05/18 19:59 Ur Tricyclics Screen Negative (Negative) 03/05/18 19:59 Ur Amphetamines Screen Positive (Negative) 03/05/18 19:59 U Benzodiazepines Scrn Negative (Negative) 03/05/18 19:59 Urine Cocaine Screen Negative (Negative) 03/05/18 19:59 Ur THC Screen Positive (Negative) 03/05/18 19:59 Ethyl Alcohol < 3.0 mg/dL (<3) 03/05/18 19:59 CXR: IMPRESSION: No change in endotracheal or nasogastric tube. No acute abnormality.
[2018-03-06] MEDS: MAGNESIUM SULFATE 4 GM/100 ML BAG IVPB (17:45)
[2018-03-06] MEDS: Acetaminophen Solution 650 MG/20.3 ML CUP NG (17:50)
[2018-03-06] MEDS: Normal Saline 1,000 ML 999 ML IV (18:42)
--- NOTE | 2018-03-06 19:44 | NUR.NOTE ---
Nursing Note: Between 3207-8871, blood pressures decreased from to 80s-90s systolically/30s-40s diastolically. Blood pressures compared on both upper extremeties. Normal saline bolus started, paged at 1842. confirmed order for normal saline bolus of 1 liter. At 1844 blood pressure 99/48. Patient mechanically ventilated with vital signs at 1845: HR 96, O2 98%, RR 13, BP 97/53(Map 63). IV RAC access leaking at 1845. Bolus paused during IV restart #20 Right Wrist. Bolus resumed and blood pressures mapping 60s.
[2018-03-07] VITALS (82 sets, daily range): BP systolic 84–130; BP diastolic 48–80; PULSE 74–113; RESP 11–17; TEMP 36–37.3; O2SAT 95–100
[2018-03-07] MEDS: PROPOFOL 1,000 MG/100 ML BTL 44.9 MG IVPB ×4 (01:14→09:37)
[2018-03-07] MEDS: LORazepam 2 MG/ML VIAL IVP ×2 (02:56→05:26)
[2018-03-07] MEDS: PIPERACILLIN/TAZO 3.375 GM in Normal Saline 50 ML IVPB ×4 (03:28→21:59)
[2018-03-07] MEDS: PROPOFOL 1,000 MG/100 ML BTL 44.898 MG IVPB ×2 (03:33→09:37)
[2018-03-07] MEDS: POTASSIUM CHLORIDE/0.9% NACL 1,000 ML 125 MEQ IV ×2 (03:40→13:11)
[2018-03-07 07:29] LABS: ALT 17 U/L (12-78); AST 33 U/L (15-37); Albumin 2.7 g/dL (3.4-5.0); Alkaline Phosphatase 55 U/L (46-116); Anion Gap 10.1 mmol/L (3-11); BUN 9 mg/dL (7-18); Bilirubin, Direct 0.25 mg/dL (0.00-0.20); Bilirubin, Total 0.7 mg/dL (0.2-1.0); CO2 22.9 mmol/L (21.0-32.0); CREATININE 0.82 mg/dL (0.55-1.02); Calcium 7.4 mg/dL (8.5-10.1); Chloride 107 mmol/L (98-107); Creatine Kinase 567 U/L (26-192); Glucose 100 mg/dL (70-100); Magnesium 2.2 mg/dL (1.8-2.4); Potassium 3.4 mmol/L (3.5-5.1); Sodium 140 mmol/L (136-145); Total Protein 5.6 g/dL (6.4-8.2)
[2018-03-07 07:32] LABS: Absolute Basophil Count 0.02 k/cumm (0.0-0.2); Absolute Lymphocyte Count 1.59 k/cumm (1.2-3.4); Absolute Monocyte Count 0.23 k/cumm (0.11-0.7); Absolute Neutrophil Count 2.49 k/cumm (1.2-6.7); Basophils % 0.5; Eosinophils % 2.3; HCT 25.3 % (36.0-46.0); HGB 7.4 g/dL (12.0-15.5); Lymphocytes % 35.9; Mean Corp. HGB Concentration 29.2 g/dL (32.0-36.0); Mean Corpuscular Hemoglobin 22.2 pg (27.0-33.0); Mean Corpuscular Volume 75.7 fL (80-95); Mean Platelet Volume 11.2 fL (8.0-11.0); Monocytes % 5.2; Neutrophils % 56.1; Platelet Count 242 x1000/uL (130-400); RBC 3.34 m/cumm (4.00-5.20); RBC Distribution Width 17.1 % (11.7-14.6); White Blood Cell Count 4.43 k/cumm (4.4-10.8)
[2018-03-07 07:53] LABS: Ferritin 4 ng/mL (8-388)
[2018-03-07 08:09] LABS: Iron 9 ug/dL (50-175); Total Iron Binding Capacity 335 ug/dL (250-450); Transferrin Sat 3 % (15-50)
--- NOTE | 2018-03-07 08:30 | DI.RAD_ITS ---
SYMPTOM/DIAGNOSIS: VENTED PATIENT PORTABLE CHEST: Comparison is made with 06 Mar 2018. An endotracheal tube and nasogastric tube are again noted, unchanged. Leads and tubing over lie the chest. The lungs are not well inflated but grossly clear. The heart size is normal. IMPRESSION: Stable positioning of endotracheal tube and nasogastric tube. No acute abnormality.
[2018-03-07 08:34] LABS: Folate 19.1 ng/mL (8.6-20.0); Vitamin B12 1918 pg/mL (193-986)
--- NOTE | 2018-03-07 09:52 | PT.INNT ---
Date of service: 03/07/18 Time of Service: 09:53 PT Notes PHYSICAL THERAPY NOTE 03/07/18 Pt remains sedated on ventilator, not appropriate for skilled PT intervention at this time. Nursing performing ROM and position changes. Sheeba Ceja PT
[2018-03-07] MEDS: Enoxaparin 40 MG/0.4 ML SYR SC (10:00)
[2018-03-07] MEDS: Pantoprazole 40 MG VIAL IVP ×2 (10:01→20:25)
[2018-03-07] MEDS: Normal Saline Flush 10 ML SYR IVP ×4 (10:01→20:24)
[2018-03-07] MEDS: Furosemide 20 MG/2 ML VIAL IVP ×3 (10:01→20:33)
[2018-03-07] MEDS: POTASSIUM CHLORIDE 20 MEQ/100 ML BAG 50 MEQ IVPB (11:44)
[2018-03-07] MEDS: PROPOFOL 1,000 MG/100 ML BTL 44.8 MG IVPB (11:44)
--- NOTE | 2018-03-07 12:03 | PDOC.CMPRO ---
- If Service Date Differs Date of service: 03/07/18 Time of Service: 12:03 Care Management Progress Note S/O: Selma continues to receive care in the ICU. She is intubated and receiving propofol for sedation, IV fluids, and feedings. Selma's , Elian, is at bedside and CM received history of patient and family from him. Elian reports that the family is from [place] and had been living in their car with their two children, ages 2 and 4, until they moved to [place] in September. At that time they lived in a family member's camper in [place] until the seasons changed and it became too cold. As of this past Sunday they have been residing at the [facility] in [facility]. Elian is currently unemployed and has an interview at [employer] tomorrow morning. Selma does not work. Selma is independent with her ADLs but does not drive. The family has been working with [employer] who have been paying for the hotel room. Elian reports that the vouchers are cold weather exemptions and they need to check in with [employer] daily as the vouchers are dependent on the weather. If it is cold, they provide a voucher. If not, they do not. Selma and Elian have been working with [employer] additionally (Raquel). According to Elian, [facility] will provide first and last month's rent for an apartment if he gets employment. Elian denies past suicidal ideations/depression for Selma and does not feel that this overdose was a suicide attempt. He reiterates the report from the ER and MD that Selma's new PCP ([facility]) restarted her adderall at a very low dose compared with her previous prescription. Elian reports that Selma told him on Sunday that she did not feel that the low dose was doing anything and so she adjusted her dose so that she could feel more clear and be more present. A: 28 year old female admitted with adderall overdose and seizures. P: Selma will discharge home when medically ready per MD. Anticipate patient will discharge with no services and follow up with her PCP. Selma will transport via private vehicle with her , Elian. CM will continue to offer support to patient, family, and care team regarding discharge planning and disposition.
--- NOTE | 2018-03-07 12:19 | CMPROGNOTE_ITS ---
- If Service Date Differs Date of service: 03/07/18 Time of Service: 12:03 Care Management Progress Note S/O: Selma continues to receive care in the ICU. She is intubated and receiving propofol for sedation, IV fluids, and feedings. Selma's , Elian, is at bedside and CM received history of patient and family from him. Elian reports that the family is from [place] and had been living in their car with their two children, ages 2 and 4, until they moved to [place] in September. At that time they lived in a family member's camper in [place] until the seasons changed and it became too cold. As of this past Sunday they have been residing at the [facility] in [facility]. Elian is currently unemployed and has an interview at [employer] tomorrow morning. Selma does not work. Selma is independent with her ADLs but does not drive. The family has been working with [employer] who have been paying for the hotel room. Elian reports that the vouchers are cold weather exemptions and they need to check in with [employer] daily as the vouchers are dependent on the weather. If it is cold, they provide a voucher. If not, they do not. Selma and Elian have been working with [employer] additionally ([place]). According to Elian, [facility] will provide first and last month's rent for an apartment if he gets employment. Elian denies past suicidal ideations/depression for Selma and does not feel that this overdose was a suicide attempt. He reiterates the report from the ER and MD that Selma's new PCP ([facility]) restarted her adderall at a very low dose compared with her previous prescription. Elian reports that Selma told him on Sunday that she did not feel that the low dose was doing anything and so she adjusted her dose so that she could feel more clear and be more present. A: 28 year old female admitted with adderall overdose and seizures. P: Selma will discharge home when medically ready per MD. Anticipate patient will discharge with no services and follow up with her PCP. Selma will transport via private vehicle with her , Elian. CM will continue to offer support to patient, family, and care team regarding discharge planning and disposition.
[2018-03-07] MEDS: PROPOFOL 1,000 MG/100 ML BTL 48.3 MG IVPB ×2 (14:01→16:01)
--- NOTE | 2018-03-07 15:39 | PDOC.EEG ---
EEG: [facility] Department of Neurology INPATIENT EEG REPORT Date of Recordin03/07/18 Interpreting Physician: Dr. Lakia De Anda Reason for study: Ms. Rosado is a 28 year-old woman admitted for status epilepticus (no prior history of seizures) thought to be secondary to Adderall OD. She is currently on propofol sedation with no seizure activity in 24+ hours. Current Medications: Active Medications Generic Name Dose Route Start Last Admin Trade Name Freq PRN Reason Stop Dose Admin Acetaminophen 650 mg 03/06/18 10:30 03/06/18 17:50 Tylenol Solution NG 650 mg Q6H PRN PRN Administration Acetaminophen 650 mg 03/07/18 12:00 Tylenol Solution NG TODAY SHOSHANA Albuterol/Ipratropium 3 ml 03/06/18 10:31 Duoneb Updraft UPD Q6H PRN PRN Diphenhydramine HCl 0 mg 03/07/18 11:15 Benadryl NG TODAY SHOSHANA Furosemide 20 mg 03/07/18 08:30 03/07/18 10:01 Lasix IVP 20 mg DAILY SHOSHANA Administration Potassium Chloride/Sodium Chloride 1,000 mls @ 125 mls/hr 03/05/18 22:45 03/07/18 13:11 Kcl 20meq/Ns IV 125 mls/hr INFUSION SHOSHANA Administration Piperacillin Sod/Tazobactam 50 mls @ 100 mls/hr 03/06/18 04:00 03/07/18 10:38 Sod 3.375 gm/ Sodium Chloride IVPB Infused Q6H SHOSHANA Infusion Propofol 1,000 mg in 100 mls @ 0 mls/hr 03/06/18 07:30 03/07/18 14:01 Diprivan IVPB 70 mcg/kg/min INFUSION SHOSHANA 48.3 mls/hr Administration Protocol As Directed Levetiracetam 1,000 mg/ Sodium 110 mls @ 400 mls/hr 03/07/18 20:00 Chloride IVPB Q12H SHOSHANA IV Miscellaneous Supplies 1 each 03/05/18 21:30 IV DIRECTED SHOSHANA Lorazepam 2 mg 03/06/18 01:01 03/07/18 05:26 Ativan Injection IVP 2 mg Q30 MIN PRN PRN Administration Pantoprazole Sodium 40 mg 03/07/18 20:00 Protonix Injection IVP BID SHOSHANA Sodium Chloride 0 ml 03/05/18 21:30 03/07/18 10:01 Saline Flush 10 Ml Syringe IVP 30 ml PRN PRN Administration dextroamphetamine-amphetamine [Adderall] 5 mg PO BID 03/05/18 sertraline 50 mg PO DAILY 03/05/18 trazodone 50 mg PO DAILY 03/05/18 METHODS: A 21 channel digitized electroencephalogram was performed in the [facility] Med/Surg Floor or ICU. The 10/20 international system of electrode placement was used and bipolar and referential electrode montages were recorded. In addition to EEG the patient was monitored for EKG and lateral/vertical eye movements. Activation procedures of photic stimulation and hyperventilation were performed if applicable. Video was used during activation procedures and during events where applicable. The duration of the recording was 30 minutes. DESCRIPTION OF EEG: The background was a continuous mix of moderate-amplitude delta and theta rhythms with beta activity noted frontally and at the vertex. There was no responsivity to the recording. There were abundant, high-amplitude left temporal (T3>F7) spike-wave discharges. There was no periodicity to suggest PLEDs. No seizures were detected. Activating Procedures: Photic stimulation was performed which produced no posterior driving response. Hyperventilation was not performed. EKG: EKG revealed normal sinus rhythm. INTERPRETATION: This EEG is abnormal due to: #1. Abundant left temporal spike-wave discharges. #2. Severe generalized slowing of the background rhythm. PRIOR EEG: none CLINICAL CORRELATION: This recording indicates the patient continues to be at increased risk for partial and secondary tonic-clonic seizures. The severe generalized slowing is likely secondary to medication effect, however, an underlying process (toxic/metabolic/ischemic) cannot be ruled out. Clinical correlation is advised. Lakia De Anda MD
--- NOTE | 2018-03-07 15:45 | PDOC.EEG_ITS ---
EEG: [facility] Department of Neurology INPATIENT EEG REPORT Date of Recordin03/07/18 Interpreting Physician: Dr. Lakia De Anda Reason for study: Ms. Rosado is a 28 year-old woman admitted for status epilepticus (no prior history of seizures) thought to be secondary to Adderall OD. She is currently on propofol sedation with no seizure activity in 24+ hours. Current Medications: Active Medications Generic Name Dose Route Start Last Admin Trade Name Freq PRN Reason Stop Dose Admin Acetaminophen 650 mg 03/06/18 10:30 03/06/18 17:50 Tylenol Solution NG 650 mg Q6H PRN PRN Administration Acetaminophen 650 mg 03/07/18 12:00 Tylenol Solution NG TODAY SHOSHANA Albuterol/Ipratropium 3 ml 03/06/18 10:31 Duoneb Updraft UPD Q6H PRN PRN Diphenhydramine HCl 0 mg 03/07/18 11:15 Benadryl NG TODAY SHOSHANA Furosemide 20 mg 03/07/18 08:30 03/07/18 10:01 Lasix IVP 20 mg DAILY SHOSHANA Administration Potassium Chloride/Sodium Chloride 1,000 mls @ 125 mls/hr 03/05/18 22:45 09/17 13:11 Kcl 20meq/Ns IV 125 mls/hr INFUSION SHOSHANA Administration Piperacillin Sod/Tazobactam 50 mls @ 100 mls/hr 03/06/18 04:00 03/07/18 10:38 Sod 3.375 gm/ Sodium Chloride IVPB Infused Q6H SHOSHANA Infusion Propofol 1,000 mg in 100 mls @ 0 mls/hr 03/06/18 07:30 03/07/18 14:01 Diprivan IVPB 70 mcg/kg/min INFUSION SHOSHANA 48.3 mls/hr Administration Protocol As Directed Levetiracetam 1,000 mg/ Sodium 110 mls @ 400 mls/hr 03/07/18 20:00 Chloride IVPB Q12H SHOSHANA IV Miscellaneous Supplies 1 each 03/05/18 21:30 IV DIRECTED SHOSHANA Lorazepam 2 mg 03/06/18 01:01 03/07/18 05:26 Ativan Injection IVP 2 mg Q30 MIN PRN PRN Administration Pantoprazole Sodium 40 mg 03/07/18 20:00 Protonix Injection IVP BID SHOSHANA Sodium Chloride 0 ml 03/05/18 21:30 03/07/18 10:01 Saline Flush 10 Ml Syringe IVP 30 ml PRN PRN Administration dextroamphetamine-amphetamine [Adderall] 5 mg PO BID 03/05/18 sertraline 50 mg PO DAILY 03/05/18 trazodone 50 mg PO DAILY 03/05/18 METHODS: A 21 channel digitized electroencephalogram was performed in the [facility] Med/Surg Floor or ICU. The 10/20 international system of electrode placement was used and bipolar and referential electrode montages were recorded. In addition to EEG the patient was monitored for EKG and lateral /vertical eye movements. Activation procedures of photic stimulation and hyperventilation were performed if applicable. Video was used during activation procedures and during events where applicable. The duration of the recording was 30 minutes. DESCRIPTION OF EEG: The background was a continuous mix of moderate-amplitude delta and theta rhythms with beta activity noted frontally and at the vertex. There was no responsivity to the recording. There were abundant, high-amplitude left temporal (T3>F7) spike-wave discharges. There was no periodicity to suggest PLEDs. No seizures were detected. Activating Procedures: Photic stimulation was performed which produced no posterior driving response. Hyperventilation was not performed. EKG: EKG revealed normal sinus rhythm. INTERPRETATION: This EEG is abnormal due to: #1. Abundant left temporal spike-wave discharges. #2. Severe generalized slowing of the background rhythm. PRIOR EEG: none CLINICAL CORRELATION: This recording indicates the patient continues to be at increased risk for partial and secondary tonic-clonic seizures. The severe generalized slowing is likely secondary to medication effect, however, an underlying process (toxic/ metabolic/ischemic) cannot be ruled out. Clinical correlation is advised. Lakia De Anda MD
--- NOTE | 2018-03-07 15:48 | NCONE_ITS ---
Date of service: 03/07/18 Time of Service: 15:48 Assessment and Plan (1) Seizures: Current visit: Yes Status: Acute (2) Status epilepticus: Current visit: Yes Status: Acute Ms. Rosado is a 28 year-old, right-handed woman admitted in status epilepticus secondary to presumed Adderall overdose. She is currently sedated on a propofol drip and has not had any seizure activity in the last 24 hours. However, she underwent an EEG this afternoon which shows ongoing left temporal irritability. Poison control has not been able to provide much information on how long to expect effects from the Adderall. I agree with Keppra load of 2000mg followed by 1000mg BID. While her EEG showed no seizure activity, the findings are concerning. We will record EEG activity overnight (we do not have continuous monitoring but can download the information in the morning). In the meantime, I think that we should be aggressive. I recommend increasing propofol sedation further in hopes to suppress the interictal activity and obtain burst suppression. Theoretically, the irritabilty should decrease with time as the amphetamines leave her system, however, there are concerns for hypoxic-ischemic injury which could cause ongoing epileptic activity. We are unable to obtain MRIs while intubated at our facility. Pending the overnight EEG, we should consider getting an updated CT head tomorrow vs transfer to higher level of care for MRI and continuous EEG monitoring. History of Present Illness Chief Complaint: seizures Narrative: Handedness: right. HPI: Ms. Rosado is a 28 year-old woman with a history of ADHD and depression who was admitted on 03/05/18 after she had a sudden convulsive seizure while at home. Her estimates she seized for approximately 10minutes. She was transported to [facility] ER where she was noted to have a GCS of 4-5 and O2 sats in the 50s. She was also hypertensive, tachycardia, and hypokalemic. She had another seizure in the ER and was subsequently intubated and placed on a propofol drip. She has no prior history of seizures. She had recently been prescribed Adderall of which the bottle was found empty (Rx was for 5mg BID). She was suspected of having overdosed on Adderall as the cause of her symptoms. She had several more seizures overnight on 03/05/18 which were treated with Ativan and an increase in propofol. She hasn't had any seizure activity since. She has periodically bucked the vent, chewed on her trach tube, and been agitated at times. She has a family history of seizures in her mother who began having seizures just a few years ago. Ms. Rosado's thinks her seizures were secondary to drug use. Otherwise, upon admission she had a CT head and CTA head/neck which I was able to review. She had some artifact in the nathan, otherwise, they were unremarkable. Her WBC was initially 15.89 which has reduced to 4.43. Potassium was 3.0 and is currently 3.4. She had an ammonia of 49. Her CK was 917 and is now 567. Her hgb has been dropping and is down to 7.4. She was guaiac positive and the plan is for a transfusion today. She had a normal TSH and B12. She underwent an EEG today which showed generalized slowing as well as abundant left temporal spike-wave discharges. 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 Surgical History H/O gastric bypass (Acute) Social History household members: family marital status: number of children: 2 current occupational status: unemployed current occupation: SAHM; 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 Visit Medication and Allergies Active Medications Generic Name Dose Route Start Last Admin Trade Name Freq PRN Reason Stop Dose Admin Acetaminophen 650 mg 03/06/18 10:30 03/06/18 17:50 Tylenol Solution NG 650 mg Q6H PRN PRN Administration Acetaminophen 650 mg 03/07/18 12:00 Tylenol Solution NG TODAY SHOSHANA Albuterol/Ipratropium 3 ml 03/06/18 10:31 Duoneb Updraft UPD Q6H PRN PRN Diphenhydramine HCl 0 mg 03/07/18 11:15 Benadryl NG TODAY SHOSHANA Furosemide 20 mg 03/07/18 08:30 03/07/18 10:01 Lasix IVP 20 mg DAILY SHOSHANA Administration Potassium Chloride/Sodium Chloride 1,000 mls @ 125 mls/hr 03/05/18 22:45 09/17 13:11 Kcl 20meq/Ns IV 125 mls/hr INFUSION SHOSHANA Administration Piperacillin Sod/Tazobactam 50 mls @ 100 mls/hr 03/06/18 04:00 03/07/18 10:38 Sod 3.375 gm/ Sodium Chloride IVPB Infused Q6H SHOSHANA Infusion Propofol 1,000 mg in 100 mls @ 0 mls/hr 03/06/18 07:30 03/07/18 14:01 Diprivan IVPB 70 mcg/kg/min INFUSION SHOSHANA 48.3 mls/hr Administration Protocol As Directed Levetiracetam 1,000 mg/ Sodium 110 mls @ 400 mls/hr 03/07/18 20:00 Chloride IVPB Q12H SHOSHANA IV Miscellaneous Supplies 1 each 03/05/18 21:30 IV DIRECTED SHOSHANA Lorazepam 2 mg 03/06/18 01:01 03/07/18 05:26 Ativan Injection IVP 2 mg Q30 MIN PRN PRN Administration Pantoprazole Sodium 40 mg 03/07/18 20:00 Protonix Injection IVP BID SHOSAHNA Sodium Chloride 0 ml 03/05/18 21:30 03/07/18 10:01 Saline Flush 10 Ml Syringe IVP 30 ml PRN PRN Administration Exam Narrative Exam Narrative: Physical Exam: Constitutional: intubated on proprofol drip, NAD Neck: Supple, no meningismus CV: RRR Resp: CTAB Abd: Soft, nontender, nondistended Neuro: MS/Language/Speech: intubated and sedated CN: PERRL, absent blink reflex; gag reflex reported as present; absent doll's eyes Sensory-motor: limited exam due to sedation; withdraw in the bilateral LE Reflexes: hyporeflexic throughout; toes downgoing bilaterally; Coordination: no ataxia Gait: deferred Results Last Vital Signs Temp 37 C 03/07/18 08:45 Pulse 93 H 03/07/18 14:00 Resp 12 03/07/18 15:44 BP 116/75 03/07/18 14:00 Pulse Ox 97 03/07/18 15:44 Labs : 03/07/18 18:38 03/07/18 06:40 Laboratory Results - last 24 hr 03/05/18 03/06/18 03/07/18 20:09 14:10 06:40 WBC RBC Hgb Hct MCV MCH MCHC RDW Plt Count MPV Immature Gran % Neutrophils % Lymphocytes % Monocytes % Eosinophils % Basophils % Absolute Neutrophils Absolute Lymphocytes Absolute Monocytes Absolute Eosinophils Absolute Basophils Sodium 140 Potassium 3.4 L Chloride 107 Carbon Dioxide 22.9 Anion Gap 10.1 BUN 9 Creatinine 0.82 Estimated GFR/1.73 m2 >= 60.00 Glucose 100 Calcium 7.4 L Magnesium 1.5 L 2.2 Iron TIBC Transferrin % Sat Ferritin 4 L Total Bilirubin 0.7 Conjugated Bilirubin 0.25 H AST 33 ALT 17 Alkaline Phosphatase 55 Creatine Kinase 567 H Troponin I 0.02 Total Protein 5.6 L Albumin 2.7 L Vitamin B12 Folate Urine Opiates Screen Cancelled Urine Methadone Screen Cancelled Ur Barbiturates Screen Cancelled Ur Tricyclics Screen Cancelled Ur Amphetamines Screen Cancelled U Benzodiazepines Scrn Cancelled Urine Cocaine Screen Cancelled Ur THC Screen Cancelled Patient ABO/Rh Antibody Screen Antibody Identification Antigen Identification Crossmatch 03/07/18 03/07/18 03/07/18 06:40 06:40 06:40 WBC 4.43 D RBC 3.34 L Hgb 7.4 L Hct 25.3 L MCV 75.7 L MCH 22.2 L MCHC 29.2 L RDW 17.1 H Plt Count 242 D MPV 11.2 H Immature Gran % 0.0 Neutrophils % 56.1 Lymphocytes % 35.9 Monocytes % 5.2 Eosinophils % 2.3 Basophils % 0.5 Absolute Neutrophils 2.49 Absolute Lymphocytes 1.59 Absolute Monocytes 0.23 Absolute Eosinophils 0.10 Absolute Basophils 0.02 Sodium Potassium Chloride Carbon Dioxide Anion Gap BUN Creatinine Estimated GFR/1.73 m2 Glucose Calcium Magnesium Iron 9 L TIBC 335 Transferrin % Sat 3 L Ferritin Total Bilirubin Conjugated Bilirubin AST ALT Alkaline Phosphatase Creatine Kinase Troponin I Total Protein Albumin Vitamin B12 1918 H Folate 19.1 Urine Opiates Screen Urine Methadone Screen Ur Barbiturates Screen Ur Tricyclics Screen Ur Amphetamines Screen U Benzodiazepines Scrn Urine Cocaine Screen Ur THC Screen Patient ABO/Rh Antibody Screen Antibody Identification Antigen Identification Crossmatch 03/07/18 03/07/18 11:34 11:34 WBC RBC Hgb Hct MCV MCH MCHC RDW Plt Count MPV Immature Gran % Neutrophils % Lymphocytes % Monocytes % Eosinophils % Basophils % Absolute Neutrophils Absolute Lymphocytes Absolute Monocytes Absolute Eosinophils Absolute Basophils Sodium Potassium Chloride Carbon Dioxide Anion Gap BUN Creatinine Estimated GFR/1.73 m2 Glucose Calcium Magnesium Iron TIBC Transferrin % Sat Ferritin Total Bilirubin Conjugated Bilirubin AST ALT Alkaline Phosphatase Creatine Kinase Troponin I Total Protein Albumin Vitamin B12 Folate Urine Opiates Screen Urine Methadone Screen Ur Barbiturates Screen Ur Tricyclics Screen Ur Amphetamines Screen U Benzodiazepines Scrn Urine Cocaine Screen Ur THC Screen Patient ABO/Rh O Positive Antibody Screen Positive Antibody Identification Anti-E Antigen Identification Not Applicable c Antigen - POSITIVE Crossmatch See Detail
--- NOTE | 2018-03-07 16:08 | CHAPLAIN ---
Selma remains intubated and sedated. I spoke with her Elian today as RT Javier, was getting ready to do tests. Elian said their two children are staying with family members and that's more important than him having support here, and allows him to be here with Selma. Elian said he believes Selma may be extubated tomorrow. He seems to be comfortable here, and attentive to Selma.
[2018-03-07] MEDS: PROPOFOL 1,000 MG/100 ML BTL 55.2 MG IVPB ×3 (17:58→21:31)
--- NOTE | 2018-03-07 18:10 | W.PM.PROGNOT ---
Date of Service Date of service: 03/07/18 Time of Service: 10:30 Assessment and Plan (1) Amphetamine overdose of undetermined intent: Current visit: Yes Status: Acute intubated, sedated. Continue sedation with propofol with prn ativan for seizures - considering ongoing epileptiform discharges, keppra was added today. Keep on ventilator, strongly sedated with propofol. Daily CXR. (2) Seizures: Current visit: Yes Status: Acute Likely due to adderall overdose. Read discussion above. Concern for anoxic brain injury due to the length of seizure. (3) Rhabdomyolysis: Current visit: Yes Status: Acute Improved. Continue IV fluids + lasix. Monitor I/O's and kidney function. (4) Nonsustained ventricular tachycardia: Current visit: Yes Status: Acute Repleted magnesium. Continue to monitor on tele. (5) ADHD: Current visit: Yes Status: Chronic home meds on hold (6) Depression: Current visit: Yes Status: Chronic home meds on hold Will need mental health evaluation to assess for suicidality once/if we are able to wean the vent. (7) Microcytic anemia: Current visit: Yes Status: Acute Gastroccult positive. S/p 1 unit pRBC's today. DVT ppx on hold. Patient was on iron infusions in the past and will likely have to have these as outpatient on discharge (8) Hypokalemia: Current visit: Yes Status: Resolved (9) Discharge planning issues: Current visit: Yes Status: Acute will need mental health evaluation if/when weaned off the ventilator. (10) DVT prophylaxis: Current visit: Yes Status: Acute SCD's Subjective Interval history since last seen: Remains intubated, sedated. Had an EEG today - this reveals epileptiform discharges in left temporal lobe (even while on propofol). No weaning trial today/sedation vacation due to findings on EEG. Exam Narrative Exam Narrative: General: Intubated, sedated, unarousable HEENT: pinpoint pupils, not tracking, MMM, no JVD. ET/OG tubes in place Heart: RRR, no m/r/g Lungs: CTAB GI: abdomen soft, nontender, nondistended Extremities: trace edema, no clubbing or cyanosis BLE's. Objective Objective Clinical Data: Abnormal lab results 03/07/18 03/07/18 03/07/18 Range/Units 06:40 06:40 06:40 RBC 3.34 L (4.00-5.20) m/cumm Hgb 7.4 L (12.0-15.5) g/dL Hct 25.3 L (36.0-46.0) % MCV 75.7 L (80-95) fL MCH 22.2 L (27.0-33.0) pg MCHC 29.2 L (32.0-36.0) g/dL RDW 17.1 H (11.7-14.6) % MPV 11.2 H (8.0-11.0) fL Potassium 3.4 L (3.5-5.1) mmol/L Calcium 7.4 L (8.5-10.1) mg/dL Iron 9 L (50-175) ug/dL Transferrin % Sat 3 L (15-50) % Ferritin 4 L (8-388) ng/mL Conjugated Bilirubin 0.25 H (0.00-0.20) mg/dL Creatine Kinase 567 H (26-192) U/L Total Protein 5.6 L (6.4-8.2) g/dL Albumin 2.7 L (3.4-5.0) g/dL Vitamin B12 (193-986) pg/mL Crossmatch 18 03/07/18 Range/Units 06:40 11:34 RBC (4.00-5.20) m/cumm Hgb (12.0-15.5) g/dL Hct (36.0-46.0) % MCV (80-95) fL MCH (27.0-33.0) pg MCHC (32.0-36.0) g/dL RDW (11.7-14.6) % MPV (8.0-11.0) fL Potassium (3.5-5.1) mmol/L Calcium (8.5-10.1) mg/dL Iron (50-175) ug/dL Transferrin % Sat (15-50) % Ferritin (8-388) ng/mL Conjugated Bilirubin (0.00-0.20) mg/dL Creatine Kinase (26-192) U/L Total Protein (6.4-8.2) g/dL Albumin (3.4-5.0) g/dL Vitamin B12 1918 H (193-986) pg/mL Crossmatch See Detail Vital Signs Temperature 36.4 C L 03/07/18 17:27 Temperature Source Temporal Artery Scan 03/07/18 13:45 Pulse 86 03/07/18 17:27 Pulse 89 03/07/18 14:20 Respiratory Rate 12 03/07/18 17:27 Respiratory Effort Mechanically Ventilated 03/07/18 13:45 Respiratory Depth Normal 03/07/18 13:45 Respiratory Pattern Normal 03/07/18 13:45 Blood Pressure 111/67 03/07/18 17:27 Blood Pressure Mean 83 03/07/18 14:00 Blood Pressure Position Supine 03/07/18 03:00 Pulse Oximetry 97 03/07/18 17:27 Respiratory End-tidal CO2 30 03/07/18 15:44 Oxygen Delivery Method Mechanical Ventilator 03/07/18 17:27 Oxygen Flow Rate 0 03/07/18 17:27 Fraction of Inspired Oxygen (FIO2) 21 03/07/18 15:44 Intake & Output 03/06/18 03/07/18 03/07/18 23:59 11:59 23:59 Intake Total 2805.063 / 2805.063 2525.332 / 2525.332 516.305 / 516.305 Output Total 2675 / 2675 225 / 225 1350 / 1350 Balance 130.063 / 671.218 8037.332 / 2300.332 -833.695 / -833.695 Weight 106 kg Intake: IV 2805.063 / 2805.063 2525.332 / 2525.332 516.305 / 516.305 Output: Gastric Drainage 0 / 0 Right Nare 0 / 0 Urine 2675 / 2675 225 / 225 1350 / 1350 Other: Urine Color Pale Pale Pale Yellow Brown Urine Appearance Clear Clear Clear Sediment Sediment Sediment Comment Ramirez patent and draining yellow/sediment urine. Ramirez in place Approxiate urine amount. Catheter device malfunctioned and leaked on floor Gastric Occult Blood Right Nare Positive Laboratory Results WBC 4.43 k/cumm (4.4-10.8) D 03/07/18 06:40 RBC 3.34 m/cumm (4.00-5.20) L 03/07/18 06:40 Hgb 7.4 g/dL (12.0-15.5) L 03/07/18 06:40 Hct 25.3 % (36.0-46.0) L 03/07/18 06:40 MCV 75.7 fL (80-95) L 03/07/18 06:40 MCH 22.2 pg (27.0-33.0) L 03/07/18 06:40 MCHC 29.2 g/dL (32.0-36.0) L 03/07/18 06:40 RDW 17.1 % (11.7-14.6) H 03/07/18 06:40 Plt Count 242 x1000/uL (130-400) D 03/07/18 06:40 MPV 11.2 fL (8.0-11.0) H 03/07/18 06:40 Immature Gran % 0.0 03/07/18 06:40 Neutrophils % 56.1 03/07/18 06:40 Lymphocytes % 35.9 03/07/18 06:40 Monocytes % 5.2 03/07/18 06:40 Eosinophils % 2.3 03/07/18 06:40 Basophils % 0.5 03/07/18 06:40 Absolute Neutrophils 2.49 k/cumm (1.2-6.7) 03/07/18 06:40 Absolute Lymphocytes 1.59 k/cumm (1.2-3.4) 03/07/18 06:40 Absolute Monocytes 0.23 k/cumm (0.11-0.7) 03/07/18 06:40 Absolute Eosinophils 0.10 k/cumm (0.0-0.7) 03/07/18 06:40 Absolute Basophils 0.02 k/cumm (0.0-0.2) 03/07/18 06:40 Differential Comment Diff reviewed 03/05/18 19:59 RBC Morphology See below 03/05/18 19:59 Hypochromasia 2+ 03/05/18 19:59 Microcytosis 1+ 03/05/18 19:59 ESR 16 MM/HR (0-20) 03/05/18 19:59 PT 11.0 sec (9.3-10.8) H 03/05/18 19:59 INR 1.1 (1.0-3.5) 03/05/18 19:59 APTT 25.2 sec (21.0-31.4) 03/05/18 19:59 Sample Site Right radial 03/06/18 10:10 pCO2 38 mmHg (34-47) 03/06/18 10:10 pO2 96 mmHg (83-108) 03/06/18 10:10 O2 Saturation 98 % (94-98) 03/06/18 10:10 ABG pH 7.36 (7.35-7.45) 03/06/18 10:10 ABG HCO3 22 mmol/L (22-28) 03/06/18 10:10 ABG Total CO2 21 mmol/L (22-29) L 03/06/18 10:10 ABG Base Excess mmol/L (-3-3) 03/06/18 10:10 Oxygen Liter Flow Vent L 03/06/18 10:10 FiO2 30 % 03/06/18 10:10 Sodium 140 mmol/L (136-145) 03/07/18 06:40 Potassium 3.4 mmol/L (3.5-5.1) L 03/07/18 06:40 Chloride 107 mmol/L (98-107) 03/07/18 06:40 Carbon Dioxide 22.9 mmol/L (21.0-32.0) 03/07/18 06:40 Anion Gap 10.1 mmol/L (3-11) 03/07/18 06:40 BUN 9 mg/dL (7-18) 03/07/18 06:40 Creatinine 0.82 mg/dL (0.55-1.02) 03/07/18 06:40 Estimated GFR/1.73 m2 >= 60.00 (mL/min/1.73m2) 03/07/18 06:40 Glucose 100 mg/dL (70-100) 03/07/18 06:40 Calcium 7.4 mg/dL (8.5-10.1) L 03/07/18 06:40 Magnesium 2.2 mg/dL (1.8-2.4) 03/07/18 06:40 Iron 9 ug/dL (50-175) L 03/07/18 06:40 TIBC 335 ug/dL (250-450) 03/07/18 06:40 Transferrin % Sat 3 % (15-50) L 03/07/18 06:40 Ferritin 4 ng/mL (8-388) L 03/07/18 06:40 Total Bilirubin 0.7 mg/dL (0.2-1.0) 03/07/18 06:40 Conjugated Bilirubin 0.25 mg/dL (0.00-0.20) H 03/07/18 06:40 AST 33 U/L (15-37) 03/07/18 06:40 ALT 17 U/L (12-78) 03/07/18 06:40 Alkaline Phosphatase 55 U/L (46-116) 03/07/18 06:40 Ammonia 49 umol/L (11-32) H 03/05/18 19:59 Creatine Kinase 567 U/L (26-192) H 03/07/18 06:40 Troponin I 0.02 ng/mL (0.00-0.06) 03/06/18 14:10 C-Reactive Protein 0.13 mg/dL (0.0-0.3) 03/05/18 19:59 Total Protein 5.6 g/dL (6.4-8.2) L 03/07/18 06:40 Albumin 2.7 g/dL (3.4-5.0) L 03/07/18 06:40 Vitamin B12 1918 pg/mL (193-986) H 03/07/18 06:40 Folate 19.1 ng/mL (8.6-20.0) 03/07/18 06:40 TSH 2.22 uIU/mL (0.358-3.74) 03/05/18 19:59 Urine Color Yellow (Yellow) 03/05/18 19:59 Urine Clarity Clear 03/05/18 19:59 Urine pH 5.5 (5-8) 03/05/18 19:59 Ur Specific [place] 1.015 (1.005-1.025) 03/05/18 19:59 Urine Protein 30 mg/dL (Negative) H 03/05/18 19:59 Urine Ketones Negative mg/dL (Negative) 03/05/18 19:59 Urine Blood Small (Negative) H 03/05/18 19:59 Urine Nitrite Negative (Negative) 03/05/18 19:59 Urine Bilirubin Negative (Negative) 03/05/18 19:59 Urine Urobilinogen 0.2 EU/dL (Up TO 0.2) 03/05/18 19:59 Ur Leukocyte Esterase Negative (Negative) 03/05/18 19:59 Urine RBC Negative (0-2) 03/05/18 19:59 Urine WBC 0-2 HPF (0-5) 03/05/18 19:59 Ur Epithelial Cells Few HPF (Negative) 03/05/18 19:59 Urine Crystals Few amorphous HPF (Negative) 03/05/18 19:59 Urine Bacteria Moderate HPF (Negative) 03/05/18 19:59 Urine Casts Negative LPF (Negative) 03/05/18 19:59 Urine Mucus Negative (Negative) 03/05/18 19:59 Urine Other Few renal (Negative) 03/05/18 19:59 Ur Culture Indicated? Yes 03/05/18 19:59 Urine Glucose Negative mg/dL (Negative) 03/05/18 19:59 Salicylates 4.1 mg/dL (2.8-20.0) 03/05/18 19:59 Urine Opiates Screen Negative (Negative) 03/05/18 19:59 Urine Methadone Screen Negative (Negative) 03/05/18 19:59 Acetaminophen < 2 ug/mL (10-30) L 03/05/18 19:59 Ur Barbiturates Screen Negative (Negative) 03/05/18 19:59 Ur Tricyclics Screen Negative (Negative) 03/05/18 19:59 Ur Amphetamines Screen Positive (Negative) 03/05/18 19:59 U Benzodiazepines Scrn Negative (Negative) 03/05/18 19:59 Urine Cocaine Screen Negative (Negative) 03/05/18 19:59 Ur THC Screen Positive (Negative) 03/05/18 19:59 Ethyl Alcohol < 3.0 mg/dL (<3) 03/05/18 19:59 Patient ABO/Rh O Positive 03/07/18 11:34 Antibody Screen Positive 03/07/18 11:34 Antibody Identification Anti-E 03/07/18 11:34 Antigen Identification Not Applicable 03/07/18 11:34 Antigen Identification E Antigen - NEGATIVE c Antigen - POSITIVE 03/07/18 11:34 Crossmatch See Detail 03/07/18 11:34
[2018-03-07 18:49] LABS: Abs Immature Grans 0.01 k/cumm (0.0-0.09); Absolute Basophil Count 0.02 k/cumm (0.0-0.2); Absolute Eosinophil Count 0.13 k/cumm (0.0-0.7); Absolute Lymphocyte Count 1.37 k/cumm (1.2-3.4); Absolute Monocyte Count 0.23 k/cumm (0.11-0.7); Absolute Neutrophil Count 2.81 k/cumm (1.2-6.7); Basophils % 0.4; Eosinophils % 2.8; HCT 27.4 % (36.0-46.0); HGB 8.3 g/dL (12.0-15.5); Immature Grans % 0.2; Mean Corp. HGB Concentration 30.3 g/dL (32.0-36.0); Mean Corpuscular Hemoglobin 22.9 pg (27.0-33.0); Mean Corpuscular Volume 75.7 fL (80-95); Mean Platelet Volume 11.6 fL (8.0-11.0); Neutrophils % 61.6; Platelet Count 237 x1000/uL (130-400); RBC 3.62 m/cumm (4.00-5.20); White Blood Cell Count 4.57 k/cumm (4.4-10.8)
[2018-03-07] MEDS: diphenhydrAMINE 25 MG CAP NG (19:26)
--- NOTE | 2018-03-07 21:18 | NUR.NOTE ---
Vianey Dodd RN was asked regarding the patient having a positive gastroccult at 0600 on 03/07/18 and thereby the patient received blood because the AM lovenox had been given. He stated that he did not get any residual from the patient and may have marked the positive erin errantly.The patient's HGB has improved. Dr. Zuniga did want the blood in the patient to improve the HGB for a possible extubation. Nursing Note:
[2018-03-07] MEDS: PROPOFOL 1,000 MG/100 ML BTL 51.8 MG IVPB (23:24)
[2018-03-08] VITALS (49 sets, daily range): BP systolic 82–114; BP diastolic 48–81; PULSE 71–94; RESP 12–20; TEMP 36.5–37.1; O2SAT 93–100
[2018-03-08] MEDS: PROPOFOL 1,000 MG/100 ML BTL 55.2 MG IVPB ×9 (01:15→14:40)
[2018-03-08] MEDS: POTASSIUM CHLORIDE/0.9% NACL 1,000 ML 125 MEQ IV (02:48)
[2018-03-08] MEDS: PIPERACILLIN/TAZO 3.375 GM in Normal Saline 50 ML 9 GM IVPB (03:30)
[2018-03-08 07:16] LABS: Abs Immature Grans 0.01 k/cumm (0.0-0.09); Absolute Basophil Count 0.01 k/cumm (0.0-0.2); Absolute Eosinophil Count 0.17 k/cumm (0.0-0.7); Absolute Lymphocyte Count 1.68 k/cumm (1.2-3.4); Absolute Monocyte Count 0.21 k/cumm (0.11-0.7); Absolute Neutrophil Count 2.22 k/cumm (1.2-6.7); Basophils % 0.2; HCT 27.7 % (36.0-46.0); HGB 8.4 g/dL (12.0-15.5); Immature Grans % 0.2; Lymphocytes % 39.1; Mean Corp. HGB Concentration 30.3 g/dL (32.0-36.0); Mean Corpuscular Volume 75.7 fL (80-95); Mean Platelet Volume 11.9 fL (8.0-11.0); Monocytes % 4.9; Neutrophils % 51.6; Platelet Count 234 x1000/uL (130-400); RBC 3.66 m/cumm (4.00-5.20); RBC Distribution Width 18.1 % (11.7-14.6)
[2018-03-08 07:33] LABS: Anion Gap 10.4 mmol/L (3-11); BUN 10 mg/dL (7-18); CO2 22.6 mmol/L (21.0-32.0); CREATININE 0.73 mg/dL (0.55-1.02); Calcium 7.5 mg/dL (8.5-10.1); Chloride 109 mmol/L (98-107); Creatine Kinase 225 U/L (26-192); Glucose 78 mg/dL (70-100); Magnesium 1.6 mg/dL (1.8-2.4); Potassium 3.8 mmol/L (3.5-5.1); Sodium 142 mmol/L (136-145)
[2018-03-08 07:44] LABS: Anisocytosis 2+; Diff Comment RBC Morph Reviewed; Hypochromasia 3+; Microcytosis 3+
[2018-03-08 07:45] LABS: Poikilocytes 2+
[2018-03-08] MEDS: Normal Saline Flush 10 ML SYR IVP (08:20)
[2018-03-08] MEDS: Pantoprazole 40 MG VIAL IVP (08:20)
[2018-03-08] MEDS: Furosemide 20 MG/2 ML VIAL IVP (08:20)
--- NOTE | 2018-03-08 08:49 | PT.INNT ---
Date of service: 03/08/18 Time of Service: 08:49 PT Notes PHYSICAL THERAPY NOTE 03/08/18 Pt remains deeply sedated, D/C PT Consult due to patient unable to actively participate in skilled therapy services at this time. Nursing to perform PROM to extremities and reposition every 2 hours. Sheeba Ceja PT
--- NOTE | 2018-03-08 09:08 | PDOC.EEG ---
EEG: [facility] Department of Neurology INPATIENT OVERNIGHT EEG REPORT Date of Recordin03/07/18 at 16:54:15 to 03/08/18 at 07:52:45 Interpreting Physician: Dr. Lakia De Anda Reason for study: Ms. Rosado is a 28 year-old woman admitted in status epilepticus who remains on propofol drip and Keppra. Current Medications: Active Medications Generic Name Dose Route Start Last Admin Trade Name Freq PRN Reason Stop Dose Admin Acetaminophen 650 mg 03/06/18 10:30 03/06/18 17:50 Tylenol Solution NG 650 mg Q6H PRN PRN Administration Acetaminophen 650 mg 03/07/18 12:00 Tylenol Solution NG TODAY SHOSHANA Albuterol/Ipratropium 3 ml 03/06/18 10:31 Duoneb Updraft UPD Q6H PRN PRN Diphenhydramine HCl 0 mg 03/07/18 11:15 03/07/18 19:26 Benadryl NG 25 mg TODAY SHOSHANA Administration Furosemide 20 mg 03/07/18 08:30 03/08/18 08:20 Lasix IVP 20 mg DAILY SHOSHANA Administration Potassium Chloride/Sodium Chloride 1,000 mls @ 125 mls/hr 03/05/18 22:45 03/08/18 02:48 Kcl 20meq/Ns IV 125 mls/hr INFUSION SHOSHANA Administration Piperacillin Sod/Tazobactam 50 mls @ 100 mls/hr 03/06/18 04:00 03/08/18 08:00 Sod 3.375 gm/ Sodium Chloride IVPB 0 mls/hr Q6H SHOSHANA Infusion Propofol 1,000 mg in 100 mls @ 0 mls/hr 03/06/18 07:30 03/08/18 08:02 Diprivan IVPB 80 mcg/kg/min INFUSION SHOSHANA 55.2 mls/hr Administration Protocol As Directed Levetiracetam 1,000 mg/ Sodium 110 mls @ 400 mls/hr 03/07/18 20:00 03/08/18 08:20 Chloride IVPB 400 mls/hr Q12H SHOSHANA Administration IV Miscellaneous Supplies 1 each 03/05/18 21:30 IV DIRECTED SHOSHANA Lorazepam 2 mg 03/06/18 01:01 03/07/18 05:26 Ativan Injection IVP 2 mg Q30 MIN PRN PRN Administration Pantoprazole Sodium 40 mg 03/07/18 20:00 03/08/18 08:20 Protonix Injection IVP 40 mg BID SHOSHANA Administration Sodium Chloride 0 ml 03/05/18 21:30 03/08/18 08:20 Saline Flush 10 Ml Syringe IVP 30 ml PRN PRN Administration dextroamphetamine-amphetamine [Adderall] 5 mg PO BID 03/05/18 sertraline 50 mg PO DAILY 03/05/18 trazodone 50 mg PO DAILY 03/05/18 METHODS: A 21 channel digitized electroencephalogram was performed in the [facility] Med/Surg Floor or ICU. The 10/20 international system of electrode placement was used and bipolar and referential electrode montages were recorded. In addition to EEG the patient was monitored for EKG and lateral/vertical eye movements. Activation procedures of photic stimulation and hyperventilation were performed if applicable. Video was used during activation procedures and during events where applicable. The duration of the recording was ~15 hours. DESCRIPTION OF EEG: The background rhythm varied from a sleep looking pattern (mixed delta/theta with alpha/beta activity frontally and at the vertex) to burst suppression (suppression 3-5 seconds long; ~6 hours of the recording) to full suppression (about 1 hour). Through all of this, there continued to be frequent moderate and high-amplitude left temporal spike wave discharges even during times of suppression. At times, there was a periocidity to the spike-waves consistent with PLEDs (periodic lateralized epileptiform discharges). There was no seizure activity noted. Activating Procedures: Photic stimulation and hyperventilation were not performed. EKG: EKG revealed normal sinus rhythm. INTERPRETATION: This EEG is abnormal due to: #1. Frequent left temporal spike-wave discharges. #2. Occasional left temporal PLEDs (periodic lateralized epileptiform discharges). #3. Severe generalized slowing. PRIOR EE03/07/18: severe generalized slowing and abundant left temporal spike-wave discharges. CLINICAL CORRELATION: The patient remains at high risk for breakthrough seizures. The background rhythm showed varying levels of suppression likely secondary to medication effects, however, an underlying process cannot be excluded. Lakia De Anda MD
--- NOTE | 2018-03-08 09:17 | PDOC.EEG_ITS ---
EEG: [facility] Department of Neurology INPATIENT OVERNIGHT EEG REPORT Date of Recordin03/07/18 at 16:54:15 to 03/08/18 at 07:52:45 Interpreting Physician: Dr. Lakia De Anda Reason for study: Ms. Rosado is a 28 year-old woman admitted in status epilepticus who remains on propofol drip and Keppra. Current Medications: Active Medications Generic Name Dose Route Start Last Admin Trade Name Freq PRN Reason Stop Dose Admin Acetaminophen 650 mg 03/06/18 10:30 03/06/18 17:50 Tylenol Solution NG 650 mg Q6H PRN PRN Administration Acetaminophen 650 mg 03/07/18 12:00 Tylenol Solution NG TODAY SHOSHANA Albuterol/Ipratropium 3 ml 03/06/18 10:31 Duoneb Updraft UPD Q6H PRN PRN Diphenhydramine HCl 0 mg 03/07/18 11:15 03/07/18 19:26 Benadryl NG 25 mg TODAY SHOSHANA Administration Furosemide 20 mg 03/07/18 08:30 03/08/18 08:20 Lasix IVP 20 mg DAILY SHOSHANA Administration Potassium Chloride/Sodium Chloride 1,000 mls @ 125 mls/hr 03/05/18 22:45 10/17 02:48 Kcl 20meq/Ns IV 125 mls/hr INFUSION SHOSHANA Administration Piperacillin Sod/Tazobactam 50 mls @ 100 mls/hr 03/06/18 04:00 03/08/18 08:00 Sod 3.375 gm/ Sodium Chloride IVPB 0 mls/hr Q6H SHOSHANA Infusion Propofol 1,000 mg in 100 mls @ 0 mls/hr 03/06/18 07:30 03/08/18 08:02 Diprivan IVPB 80 mcg/kg/min INFUSION SHOSHANA 55.2 mls/hr Administration Protocol As Directed Levetiracetam 1,000 mg/ Sodium 110 mls @ 400 mls/hr 03/07/18 20:00 03/08/18 08:20 Chloride IVPB 400 mls/hr Q12H SHOSHANA Administration IV Miscellaneous Supplies 1 each 03/05/18 21:30 IV DIRECTED SHOSHANA Lorazepam 2 mg 03/06/18 01:01 03/07/18 05:26 Ativan Injection IVP 2 mg Q30 MIN PRN PRN Administration Pantoprazole Sodium 40 mg 03/07/18 20:00 03/08/18 08:20 Protonix Injection IVP 40 mg BID SHOSHANA Administration Sodium Chloride 0 ml 03/05/18 21:30 03/08/18 08:20 Saline Flush 10 Ml Syringe IVP 30 ml PRN PRN Administration dextroamphetamine-amphetamine [Adderall] 5 mg PO BID 03/05/18 sertraline 50 mg PO DAILY 03/05/18 trazodone 50 mg PO DAILY 03/05/18 METHODS: A 21 channel digitized electroencephalogram was performed in the [facility] Med/Surg Floor or ICU. The 10/20 international system of electrode placement was used and bipolar and referential electrode montages were recorded. In addition to EEG the patient was monitored for EKG and lateral /vertical eye movements. Activation procedures of photic stimulation and hyperventilation were performed if applicable. Video was used during activation procedures and during events where applicable. The duration of the recording was ~15 hours. DESCRIPTION OF EEG: The background rhythm varied from a sleep looking pattern (mixed delta/theta with alpha/beta activity frontally and at the vertex) to burst suppression ( suppression 3-5 seconds long; ~6 hours of the recording) to full suppression ( about 1 hour). Through all of this, there continued to be frequent moderate and high-amplitude left temporal spike wave discharges even during times of suppression. At times, there was a periocidity to the spike-waves consistent with PLEDs (periodic lateralized epileptiform discharges). There was no seizure activity noted. Activating Procedures: Photic stimulation and hyperventilation were not performed. EKG: EKG revealed normal sinus rhythm. INTERPRETATION: This EEG is abnormal due to: #1. Frequent left temporal spike-wave discharges. #2. Occasional left temporal PLEDs (periodic lateralized epileptiform discharges ). #3. Severe generalized slowing. PRIOR EE03/07/18: severe generalized slowing and abundant left temporal spike-wave discharges. CLINICAL CORRELATION: The patient remains at high risk for breakthrough seizures. The background rhythm showed varying levels of suppression likely secondary to medication effects, however, an underlying process cannot be excluded. Lakia De Anda MD
[2018-03-08] MEDS: DEXTROSE 5%-0.9% SALINE 1,000 ML 75 ML IV (09:53)
[2018-03-08] MEDS: MAGNESIUM SULFATE 2 GM/50 ML BAG IVPB (10:03)
[2018-03-08] MEDS: PIPERACILLIN/TAZO 3.375 GM in Normal Saline 50 ML IVPB (10:46)
--- NOTE | 2018-03-08 11:16 | DI.RAD_ITS ---
SYMPTOM/DIAGNOSIS: INTUBATED, F/U PORTABLE AP CHEST: Comparison is made with 03/07/18. There is poor inspiration with low lung volumes. Heart size and pulmonary vasculature are within normal limits. The endotracheal tube is present, the tip is at the thoracic inlet above the emilia , approximately 5 cm. above the emilia. This is stable. There is a nasogastric tube present, the tip is seen in the stomach. This is unchanged in location. The lungs remain clear. No effusions or pneumothoraces are identified. IMPRESSION: Stable position of both endotracheal tube and nasogastric tube. No acute pulmonary process.
--- NOTE | 2018-03-08 11:24 | PDOC.CMPRO ---
- If Service Date Differs Date of service: 03/08/18 Time of Service: 11:24 Care Management Progress Note S/O: Selma continues to receive care in the ICU. She is intubated and receiving propofol for sedation, IV fluids, and feedings. Jose Guadalupe's , Elian, is at bedside. Stephanes brain activity was monitored overnight via EEG with focal activity noted. Jose Guadalupe will likely be transferred to [facility] today, pending bed availability. CHRISTIAN spoke at length with Jose Guadalupe's , who reports that he will follow behind the ambulance if Jose Guadalupe is transferred. Elian was able to postpone his interview at [facility] until Sunday. He is now staying at the [facility]; moving there yesterday from the [facility]. A: 28 year old female admitted with adderall overdose and seizures. P: Selma will discharge home when medically ready per MD. Anticipate patient will transfer to [facility] pending bed availability. Selma will transport via private vehicle with her , Elian. CHRISTIAN will continue to offer support to patient, family, and care team regarding discharge planning and disposition.
--- NOTE | 2018-03-08 11:43 | CMPROGNOTE_ITS ---
- If Service Date Differs Date of service: 03/08/18 Time of Service: 11:24 Care Management Progress Note S/O: Selma continues to receive care in the ICU. She is intubated and receiving propofol for sedation, IV fluids, and feedings. Jose Guadalupe's , Elian, is at bedside. Stephanes brain activity was monitored overnight via EEG with focal activity noted. Jose Guadalupe will likely be transferred to [facility] today, pending bed availability. CHRISTIAN spoke at length with Jose Guadalupe's , who reports that he will follow behind the ambulance if Jose Guadalupe is transferred. Elian was able to postpone his interview at [facility] until Sunday. He is now staying at the [facility]; moving there yesterday from the [facility]. A: 28 year old female admitted with adderall overdose and seizures. P: Selma will discharge home when medically ready per MD. Anticipate patient will transfer to [facility] pending bed availability. Selma will transport via private vehicle with her , Elian. CHRISTIAN will continue to offer support to patient, family, and care team regarding discharge planning and disposition.
--- NOTE | 2018-03-08 12:05 | DSE_ITS ---
Date of service: 03/08/18 Time of Service: 12:12 DS: Diagnosis Discharge Diagnosis (1) Amphetamine overdose of undetermined intent: Status: Acute (2) Seizures: Status: Acute Asessment and Plan: Tonic clonic (3) Status epilepticus: Status: Acute Asessment and Plan: nonconvulsive (4) Nonsustained ventricular tachycardia: Status: Resolved Asessment and Plan: In setting of hypomagnesemia (5) Microcytic anemia: Status: Chronic Asessment and Plan: s/p transfusion of 1 unit pRBC's, mild gastroccult positivity with OG tube in place (6) Upper GI bleed: Status: Resolved Asessment and Plan: Never active; gastroccult positive (7) ADHD: Status: Chronic (8) Depression: Status: Chronic (9) Rhabdomyolysis: Status: Resolved (10) Hypokalemia: Status: Resolved (11) Obesity: Status: Chronic Asessment and Plan: BMI 41.6, s/p gastic bypass Discharge Plan Disposition Patient Disposition: [facility] Condition: Critical Discharge Details Reason For Visit: ADDERALL OVERDOSE, SEIZURE Admit Date/Time: 03/05/18 21:30 Admit Provider: Javier Gonzalez Attending Provider: Javier Gonzalez Primary Care Provider: None,None Hospital Course Hospital Course: Ms Rosado is a 28 year old female with PMHx of ADHD, depression, chronic anemia post gastric bypass, who was admitted to [facility] on 03/05/18 after a witnessed seizure at home as well as a seizure in the ED. The seizure at home had lasted 10 minutes, per . He noted that her adderall bottle was empty. She had been prescribed adderall 5 mg PO BID by her new PCP, and there had been 30 pills in the bottle. The medication was filled 3 days earlier. It is unclear if the patient had ingested the 30 mg all at once or had been taking higher doses over several days. There is no reported suicidal ideation that she had expressed to her . After treatment of her seizure in the ED, she was intubated prophylactically after being noted to be hypoxic and unable to protect airway. She was admitted to [facility] ICU with propofol for sedation, on vent. During the course of the night 03/05/18 - 03/06/18, the patient had 2 more tonic clonic events, requiring treatment with ativan IV. Propofol was titrated up, and visible tonic clonic seizures resolved. EEG obtained based on neurology recommendations showed continued L temporal lobe epileptiform discharges, however. IV keppra was introduced, with overnight EEG showing continued L temporal lobe epileptiform activity. The patient was loaded with fosphenytoin. At this point, it is felt that the patient would benefit from continuous EEG monitoring at a facility where such services are available ([facility] does not have this modality available and there is no neurology coverage today or on the weekend). Other things to note are that 1.The patient is being prophylactically treated with zosyn for an aspiration pneumonia, though her CXR has not revealed any infiltrate 2. She had an episode of nonsustained Vtach while her magnesium was 1.5. 3. She required a transfusion of 1 unit of pRBC's for her acute on chronic anemia. There is no evidence of active/gross bleeding, but she was found to be gastroccult positive. She is on protonix IV BID and her tube feeding is on hold. Her DVT ppx was d/c'ed. Patient was previously on venofer infusions due to her chronic anemia post gastric bypass. 4. Patient had mild rhabdomyolysis which resolved with IV hydration in combination with IV lasix. 5. Patient remains hemodynamically stable with minimal oxygen requirements on vent. 6. Patient remains deeply sedated on propofol. 7. It is unclear whether or not the patient may have sustained a hypoxic brain injury. [facility] was contacted - no ICU beds available. Dr Ritter of MICU at [facility] agreed to accept the patient. We appreciate the help of our [facility] colleagues and wish the patient well. Home Meds and New Rx's Prescriptions: New ipratropium-albuterol 0.5 mg-3 mg(2.5 mg base)/3 mL Solution For Nebulization 3 ml UPD Q6H PRN PRNQty: 0 RF: 0 acetaminophen 650 mg/20.3 mL Solution 650 mg NG Q6H PRN PRNQty: 0 RF: 0 lorazepam 2 mg/mL Solution 2 mg IVP Q30 MIN PRN PRNQty: 0 RF: 0 pantoprazole [Protonix] 40 mg Recon Soln 40 mg IVP BID Qty: 0 RF: 0 levetiracetam [Keppra] 500 mg/5 mL Solution 1,000 mg IVPB Q12H Qty: 0 RF: 0 piperacillin-tazobactam [Zosyn] 3.375 gram recon soln 3.375 gm IV Q6H Qty: 10 RF: 0 Discontinued dextroamphetamine-amphetamine [Adderall] 5 mg Tablet 5 mg PO BID RF: 0 trazodone 50 mg Tablet 50 mg PO DAILY RF: 0 sertraline 50 mg Tablet 50 mg PO DAILY RF: 0 Discharge Instructions Activity:: bedrest Equipment/Supplies:: No Equipment Needed Diet:: NPO Discharge Orders Discharge Orders: Discharge Order (Routine); Ordered 03/08/18 Ordered By: Stephani Zuniga Exam Narrative Exam Narrative: General: Intubated, sedated, unarousable HEENT: pinpoint pupils, not tracking, MMM, no JVD. ET/OG tubes in place Heart: RRR, no m/r/g Lungs: CTAB GI: abdomen soft, nontender, nondistended Extremities: trace edema, no clubbing or cyanosis BLE's. DS: Data Vitals/I&O Vitals and I&O: Vital Signs Temperature 36.5 C 03/08/18 08:35 Temperature Source Temporal Artery Scan 03/08/18 08:35 Pulse 87 03/08/18 10:00 Pulse 87 03/08/18 10:00 Respiratory Rate 12 03/08/18 11:53 Respiratory Effort 03/08/18 08:35 Respiratory Depth Normal 03/08/18 08:35 Respiratory Pattern Normal 03/08/18 03:00 Blood Pressure 111/67 03/08/18 10:00 Blood Pressure Mean 77 03/08/18 10:00 Blood Pressure Position Standing 03/08/18 08:35 Pulse Oximetry 97 03/08/18 11:53 Respiratory End-tidal CO2 27 03/08/18 11:53 Oxygen Delivery Method Mechanical Ventilator 03/08/18 08:35 Oxygen Flow Rate 0 03/08/18 08:35 Fraction of Inspired Oxygen (FIO2) 32 03/08/18 11:53 Intake & Output 03/07/18 03/08/18 03/08/18 23:59 11:59 23:59 Intake Total 1161.865 / 7223.356 3999.470 / 2874.470 Output Total 3100 / 3100 1700 / 1700 Balance -1938.135 / -1934.956 7416.470 / 1174.470 Weight 106.5 kg Intake: IV 911.865 / 220.823 3706.470 / 2874.470 Blood Product 250 / 250 Rbc Leuko Reduced Unit 250 / 250 [id number] Output: Urine 3100 / 3100 1700 / 1700 Other: Urine Color Pale Yellow Straw Green Urine Appearance Clear Clear Comment Voding large amounts clear light yellow/pale urine with indwelling robledo intact. Pale yellow urine output in robledo tube, though greenish color noted in robledo collection bag. Gastric Occult Blood Right Nare Negative Negative Completed studies during hospitalization [Text1]: CXR 03/05/18: Satisfactory placement of endotracheal and nasogastric tubes. CT/CTA head/neck 03/05/18: No acute abnormality. Negative CT angiography of the head. Negative CT angiography of the neck. CTA chest 03/05/18: No evidence of pulmonary emboli. There are bibasilar densities in the lungs, which may represent atelectasis versus pneumonia. Clinical correlation is recommended. CXR 03/06/18: IMPRESSION: No change in endotracheal or nasogastric tube. No acute abnormality. CXR 03/07/18: Stable positioning of endotracheal tube and nasogastric tube. No acute abnormality. CXR 03/08/18: IMPRESSION: Stable position of both endotracheal tube and nasogastric tube. No acute pulmonary process. Labs on day of discharge: Labs from last 24 hours 03/08/18 03/08/18 03/07/18 06:50 06:50 18:38 WBC 4.30 L 4.57 RBC 3.66 L 3.62 L Hgb 8.4 L 8.3 L Hct 27.7 L 27.4 L MCV 75.7 L 75.7 L MCH 23.0 L 22.9 L MCHC 30.3 L 30.3 L RDW 18.1 H 18.0 H Plt Count 234 237 MPV 11.9 H 11.6 H Immature Gran % 0.2 0.2 Neutrophils % 51.6 61.6 Lymphocytes % 39.1 30.0 Monocytes % 4.9 5.0 Eosinophils % 4.0 2.8 Basophils % 0.2 0.4 Absolute Neutrophils 2.22 2.81 Absolute Lymphocytes 1.68 1.37 Absolute Monocytes 0.21 0.23 Absolute Eosinophils 0.17 0.13 Absolute Basophils 0.01 0.02 Differential Comment Rbc morph reviewed RBC Morphology See below Hypochromasia 3+ Poikilocytosis 2+ Anisocytosis 2+ Microcytosis 3+ Sodium 142 Potassium 3.8 Chloride 109 H Carbon Dioxide 22.6 Anion Gap 10.4 BUN 10 Creatinine 0.73 Estimated GFR/1.73 m2 >= 60.00 Glucose 78 Calcium 7.5 L Magnesium 1.6 L Creatine Kinase 225 H Patient ABO/Rh Antibody Screen Antibody Identification Antigen Identification Crossmatch 03/07/18 03/07/18 11:34 11:34 WBC RBC Hgb Hct MCV MCH MCHC RDW Plt Count MPV Immature Gran % Neutrophils % Lymphocytes % Monocytes % Eosinophils % Basophils % Absolute Neutrophils Absolute Lymphocytes Absolute Monocytes Absolute Eosinophils Absolute Basophils Differential Comment RBC Morphology Hypochromasia Poikilocytosis Anisocytosis Microcytosis Sodium Potassium Chloride Carbon Dioxide Anion Gap BUN Creatinine Estimated GFR/1.73 m2 Glucose Calcium Magnesium Creatine Kinase Patient ABO/Rh O Positive Antibody Screen Positive Antibody Identification Anti-E Antigen Identification c Antigen - POSITIVE Not Applicable Crossmatch See Detail Preliminary micro results at discharge 03/05/18 21:30 Blood Culture - Preliminary Blood NO GROWTH 48 HOURS 03/05/18 21:15 Blood Culture - Preliminary Blood NO GROWTH 48 HOURS PFSH Depression (Chronic) ADHD (Chronic) Family History Mother Substance abuse Seizures H/O gastric bypass (Acute) Family History Mother Substance abuse Seizures Medical History Depression (Chronic) ADHD (Chronic) Social History household members: family marital status: number of children: 2 current occupational status: unemployed current occupation: [employer]; 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 Surgical History H/O gastric bypass (Acute) Social History household members: family marital status: number of children: 2 current occupational status: unemployed current occupation: SAHM; 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
--- NOTE | 2018-03-08 13:51 | PDOC.CMDIS ---
- If Service Date Differs Date of service: 03/08/18 Time of Service: 13:51 LACE Index Scoring Tool - Questions: Length of Stay (in days): 4 - 6 Acuity (Admit via E.D.?): Yes E.D. Visits: 2 - Answers: Total Score: 9 Risk of Readmission: Low Risk Care Management Discharge Reason for Hospitalization: Adderall overdose, seizure. Discharge Plan: Jose Guadalupe was transfered to [facility] for continual care.
--- NOTE | 2018-03-08 13:54 | CMDISCH_ITS ---
- If Service Date Differs Date of service: 03/08/18 Time of Service: 13:51 LACE Index Scoring Tool - Questions: Length of Stay (in days): 4 - 6 Acuity (Admit via E.D.?): Yes E.D. Visits: 2 - Answers: Total Score: 9 Risk of Readmission: Low Risk Care Management Discharge Reason for Hospitalization: Adderall overdose, seizure. Discharge Plan: Jose Guadalupe was transfered to [facility] for continual care.
[2018-03-08] MEDS: Normal Saline 1,000 ML 1000 ML IV (14:40)
--- NOTE | 2018-03-08 14:53 | CHAPLAIN ---
Selma was transferred to [facility]. Her left a few hours before to get here ahead of her. Their children are staying with family members.
== END 2018-03-08 14:55 | DRG 917 ==
LOC: ER 23:09 → ICU 03-06 11:30
PROVIDERS: Admitting Provider General Practice; Emergency Provider Student in an Organized Health Care Education/Training Program; PCP Nurse Practitioner Family; Visit Provider Internal Medicine
DX: T43.624A Poisoning by amphetamines, undetermined, initial encounter (principal); J96.01 Acute respiratory failure with hypoxia; R40.20 Unspecified coma; E87.2 Acidosis; I47.2 Ventricular tachycardia; K92.2 Gastrointestinal hemorrhage, unspecified; Z68.41 Body mass index [BMI] 40.0-44.9, adult; D62 Acute posthemorrhagic anemia; Z99.11 Dependence on respirator [ventilator] status; R56.9 Unspecified convulsions; G25.3 Myoclonus; E87.6 Hypokalemia; D50.9 Iron deficiency anemia, unspecified; R94.01 Abnormal electroencephalogram [EEG]; T79.6XXA Traumatic ischemia of muscle, initial encounter; Y92.013 Bedroom of single-family (private) house as the place of occurrence of the external cause; F90.9 Attention-deficit hyperactivity disorder, unspecified type; F32.9 Major depressive disorder, single episode, unspecified; E66.9 Obesity, unspecified; Z98.84 Bariatric surgery status; R40.2432 Glasgow coma scale score 3-8, at arrival to emergency department; R78.89 Finding of other specified substances, not normally found in blood; E83.42 Hypomagnesemia; Z78.1 Physical restraint status
CPT/HCPCS: 31500; 36415; 36430; 36591; 51702; 70496; 70498; 71275; 80048; 80053; 80076; 80307; 81025; 82550; 82805; 85027; 85652; 86255; 86850; 86900; 86901; 86920; 87040; 93005; 96361; 96365; 96366; 96368; 96375; 99223; 99255; 99291; J1650; 36600; 70450; 71045; 80320; 80329; 81003; 81015; 82140; 82607; 82728; 82746; 83540; 83550; 83735; 84443; 84484; 85025; 85610; 85730; 86140; 86870; 86902; 87086; 93010; 94002; J1941; J1953; J2060; J2543; J3475; J3480; J3490; J7042; P9016

== ENCOUNTER 2018-03-12 10:45 | Inpatient (IN) | payer MEDICAID, SELFPAY ==
[2018-03-12] VITALS (48 sets, daily range): BP systolic 116–144; BP diastolic 52–95; PULSE 76–108; RESP 8–93; TEMP 36.5–37.1; O2SAT 93–99
--- NOTE | 2018-03-12 10:55 | DI.COMBO_ITS ---
SYMPTOM/DIAGNOSIS: ALTERED MENTAL STATUS NONCONTRAST HEAD CT: No intracranial hemorrhage, mass or infarct is seen. There has been no change when compared with 03/05/18. IMPRESSION: Negative head CT. PA AND LATERAL CHEST: Comparison is made with 03/08/18. The endotracheal tube and nasogastric tube have been removed. The heart size is normal. The lungs are clear. IMPRESSION: Negative chest xray.
--- NOTE | 2018-03-12 11:13 | ED.GENADUL_ITS ---
Discharge Plan Disposition Patient Disposition: [facility] INPATIENT Condition: Poor Discharge Details Chief Complaint: AMS/LOC Clinical Impression: Altered mental status, Seizures Reason For Visit: SEIZURE Admit Date/Time: 03/12/18 13:22 Admit Provider: Tex Lucas Attending Provider: Tex Lucas Primary Care Provider: Yoli Manning ED Provider: Sara Suresh Discharge Data Discharge Date/Time-TO BE ENTERED AT DEPARTURE: 03/12/18 16:07 Medical Decision Making Patient is a 28-year-old female, brought in by , with chief complaint of altered mental status. Patient has complicated, acute medical course. Patient was discharged from [facility] yesterday. Patient was initially seen on 03/05/2018 during episode of status epilepticus in the setting of Adderall overdose. Patient was initially admitted here and then was transferred to [facility]. Past medical history includes ADHD, depression, chronic anemia post gastric bypass. During her admission, patient had 2 more tonic-clonic events treated with IV Ativan. EEG was performed showing a left temporal lobe epileptiform discharges. Was also noted by Dr. Cunha that the patient had severe generalized slowing which she was questioning may be secondary to medication effects. Patient was on IV Keppra. Patient was transferred to [facility] for further neurologic evaluation. While here patient did have an episode of nonsustained V. tach with a magnesium of 1.5. Patient did require a transfusion of RBCs for acute on chronic anemia. At the time of her evaluation, there is no evidence of acute/gross bleeding Gastroccult was positive. Patient was noted to have mild rhabdomyolysis which resolved with IV hydration and IV Lasix. There is also concern if the patient may have sustained hypoxic brain injury. On exam today, she is moving all of her extremities but has no ability of speech, is not following directions. Gag reflex is intact. reports that prior to arrival, they are at the gas station when she suddenly became altered. States that she was staring off into space and since that time has not been able to speak to him or answer questions. Reports that since going home yesterday, patient was at baseline with normal mentation per the 's report. He reports that she has not taken any medication as of today. No alcohol or drug use. No trauma. All this began approximate 30 minutes prior to arrival. No seizure activity is noted on exam. Will obtain repeat imaging as well as laboratory evaluation. Access is very difficult to obtain on the patient which is delayed blood work. Review discharge information from [facility] EEG was obtained at that time concerning for focal structural lesion affecting the left cerebral hemisphere and possibly an epileptic focus in this region. In addition, they no diffuse or possible multifocal cerebral dysfunction likely in part due to medication effect. Subsequent EEG video demonstrate nonspecific markers of significant diffuse or multifocal encephalopathy and propensity towards seizure suggested. Patient discharged with f/u with PCP and local neurology. Advised repeat EEG in 4-6 weeks. Patient not placed on antiepileptic drugs at that time. Approximately 45 minutes after arrival, patient began saying yes and is nodding her head. Cannot form speech beyond this but does appear more alert and to be improving. Patient's mentation and physical ability has waxed and waned. She is able to follow commands, moving all 4 extremities well with strength equal bilaterally. Needs redirection with frequent relapse into poor mentation and speech. Laboratory evaluation without significant abnormality. Patient remains anemic at 10.2 but is improved since last admission, she did recieve I U pRBC. UA and UDS pending Consulted with Dr. Yee who advised giving the patient 0.5mg Ativan IV and 2g of Keppra. Advised MRI and EEG. Advised admission for observation. Will consult with hospitalist. Spoke with Dr. Lucas who agrees to admission, will consult with Dr. Alen north. EEG is able to be done at this time, will be completed in the department. consulted with hospitalist, Dr. Lucas, regarding admission for continued observation, neurology consult and MRI. He agrees to admission. Spoke with patient regarding admission, has left [facility] and has been gone for the past few hours. She is agreeable to admission although seems frustrated as she was hoping to be home after recent hospital stay. Patient appears improved, is speaking in short sentences. Speech is slightly slurred. Dr. Shah evaluated the patient in the department prior to her being transitioned to inpatient unit, she reviewed EEG findings. Please see her note. Patient transferred to inpatient unit. HPI General Mode of arrival: wheelchair . Date/Time Provider Initiated Documentation: 03/12/18 10:45 . Limitations to Documentation: altered mental status . Information obtained by: family () . History of Present Illness 28 year old F presents to the emergency department with the chief complaint of AMS, described as severe, Patient started experiencing this minute(s) (30) and it has been constant. No relieving factors improve symptom(s), No exacerbating factors reported . Patient notes other ( reports that prior to her sudden onset of AMS, she was at baseline with no complaints.). Related Data Home Medications Medication Instructions Recorded Confirmed ipratropium-albuterol 3 ml UPD Q6H PRN PRN #0 ml 03/08/18 03/12/18 dextroamphetamine-amphetamine 5 mg PO BID 03/12/18 03/12/18 [Adderall] sertraline [Zoloft] 100 mg PO DAILY 03/12/18 03/12/18 trazodone 100 mg PO .QHS 03/12/18 03/12/18 Previous Rx's Medication Instructions Recorded ipratropium-albuterol 3 ml UPD Q6H PRN PRN #0 ml 03/08/18 Allergies Allergy/AdvReac Type Severity Reaction Status Date / Time No Known Allergies Allergy Unverified 03/12/18 11:01 General Stated Complaint: AMS/LOC KARIME: 1 Review of Systems Review of Systems Unobtainable due to mental status Neurologic Reports as per HPI PFSH 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) Depression (Chronic) ADHD (Chronic) Family History Mother Substance abuse Seizures H/O gastric bypass (Acute) Family History Mother Substance abuse Seizures Medical History Depression (Chronic) ADHD (Chronic) Social History household members: family number of children: 2 current occupational status: unemployed current occupation: SAHM; 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 Surgical History H/O gastric bypass (Acute) Social History household members: family number of children: 2 current occupational status: unemployed current occupation: SAHM; 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 Exam Const General: comfortable and no acute distress Nutritional Appearance: well nourished and overweight Orientation: alert and awake Limitations: altered mental status, behavioral limitations and physical limitations (patient is not answering questions, will not follow commands) [facility] Head: normal to inspection, no palpable skull fracture, normocephalic and atraumatic Ears: hearing grossly normal bilaterally, external ears normal and TM's normal bilaterally General nose exam: external nose normal Mouth: oral mucosae normal, lip normal, tongue normal, oropharynx normal and moist mucous membranes Throat: other (gag intact) Eyes General: appearance normal, both eyes and all related structures Alignment and Position: alignment normal Periorbital: periorbital findings normal Eyelids: eyelids normal Cornea: corneas normal Pupils: PERRL EOM: EOM intact bilaterally Resp Effort & Inspection: normal respiratory effort, not able to speak in complete sentences (not speaking), no respiratory distress, no retractions and no stridor Auscultation: clear to auscultation bilaterally, no rales, no rhonchi and no wheezes Cardio Rate: regular rate Rhythm: regular rhythm Heart Sounds: S1 normal and S2 normal GI Inspection: normal to inspection, no abdominal wall ecchymosis, no edema and non-distended Palpation: soft, no hepatosplenomegaly, not firm, no guarding, not rigid and nontender Auscultation: normal bowel sounds Skin General skin exam: no rashes or lesions noted Lesions: no lesions Rashes: no rashes Trauma: no lacerations or abrasions Neuro General: alert, awake, not oriented x3, gait abnormal, tone abnormal and moves all extremities (patiet is moving extremities, was able to assist staff in getting into bed. However, she will not follow commands, unable to have her preform strength testing activities) Cranial Nerves: PERRL, accommodation normal, EOM intact bilaterally, no nystagmus, tongue midline, gag reflex normal and able to rotate head bilaterally Cognition: abnormal cognition Speech: abnormal speech (aphasic) Gait: gait abnormal (patient needed large amount of assistance with transition from wheelchair to bed) Motor: tone not normal throughout (unable to assess) Sensory Exam: sensory deficits noted (unable to assess) Plantar Reflexes: Downgoing: bilateral Course Vital Signs Temperature 36.6 C 03/12/18 10:56 Pulse 87 03/12/18 10:56 Respiratory Rate 93 H 03/12/18 10:56 Blood Pressure 140/83 03/12/18 10:56 Pulse Oximetry 97 03/12/18 10:56 Temperature 36.6 C 03/12/18 10:56 Temperature Source Skin 03/12/18 10:56 Pulse 87 03/12/18 10:56 Respiratory Rate 93 H 03/12/18 10:56 Respiratory Effort Non-Labored 03/12/18 10:56 Blood Pressure 140/83 03/12/18 10:56 Pulse Oximetry 97 03/12/18 10:56 Oxygen Delivery Method Room Air 03/12/18 10:56 Oxygen Flow Rate 0 03/12/18 10:56
[2018-03-12 11:52] LABS: Ammonia < 10 umol/L (11-32)
[2018-03-12 11:54] LABS: Abs Immature Grans 0.03 k/cumm (0.0-0.09); Absolute Basophil Count 0.02 k/cumm (0.0-0.2); Absolute Eosinophil Count 0.26 k/cumm (0.0-0.7); Absolute Lymphocyte Count 1.56 k/cumm (1.2-3.4); Absolute Monocyte Count 0.31 k/cumm (0.11-0.7); Absolute Neutrophil Count 2.34 k/cumm (1.2-6.7); Basophils % 0.4; Eosinophils % 5.8; HCT 34.1 % (36.0-46.0); HGB 10.2 g/dL (12.0-15.5); Immature Grans % 0.7; Lymphocytes % 34.5; Mean Corp. HGB Concentration 29.9 g/dL (32.0-36.0); Mean Corpuscular Hemoglobin 22.2 pg (27.0-33.0); Mean Corpuscular Volume 74.1 fL (80-95); Mean Platelet Volume 11.3 fL (8.0-11.0); Monocytes % 6.9; Neutrophils % 51.7; Platelet Count 237 x1000/uL (130-400); RBC Distribution Width 18.5 % (11.7-14.6); White Blood Cell Count 4.52 k/cumm (4.4-10.8)
[2018-03-12 12:04] LABS: ALT 32 U/L (12-78); AST 38 U/L (15-37); Albumin 3.3 g/dL (3.4-5.0); Alkaline Phosphatase 67 U/L (46-116); BUN 17 mg/dL (7-18); Bilirubin, Total 0.3 mg/dL (0.2-1.0); CREATININE 0.63 mg/dL (0.55-1.02); Calcium 8.9 mg/dL (8.5-10.1); Chloride 106 mmol/L (98-107); Glucose 103 mg/dL (70-100); Magnesium 1.7 mg/dL (1.8-2.4); Potassium 3.9 mmol/L (3.5-5.1); Sodium 142 mmol/L (136-145); TSH 3.87 uIU/mL (0.358-3.74); Total Protein 6.9 g/dL (6.4-8.2)
[2018-03-12 12:09] LABS: Anisocytosis 3+; Diff Comment RBC Morph Reviewed; Hypochromasia 3+; Microcytosis 3+; Poikilocytes 2+; Polychromasia Present
[2018-03-12 12:13] LABS: ETHANOL BLOOD < 3.0 mg/dL (<3)
[2018-03-12 12:14] LABS: Troponin I < 0.02 ng/mL (0.00-0.06)
[2018-03-12 12:45] LABS: FREE T4 0.91 ng/dL (0.76-1.46)
[2018-03-12] MEDS: LORazepam 2 MG/ML VIAL 0.5 MG IVP (12:45)
[2018-03-12] MEDS: Normal Saline 1,000 ML 1000 ML IV (12:45)
--- NOTE | 2018-03-12 15:16 | PDOC.EEG ---
EEG: [facility] Department of Neurology INPATIENT EEG REPORT Date of Recordin03/12/18 Interpreting Physician: Dr. Lakia De Anda Reason for study: Ms. Rosado is a 28 year-old woman with a recent history of status epilepticus thought to be secondary to Adderall OD who presents with a staring spell and continued altered behavior. Current Medications: Active Medications Generic Name Dose Route Start Last Admin Trade Name Freq PRN Reason Stop Dose Admin Acetaminophen 0 mg 03/12/18 13:22 Tylenol PO Q4H PRN PRN Al Hydrox/Mg Hydrox/Simethicone 30 ml 03/12/18 13:22 Mylanta Liquid PO Q2H PRN PRN Albuterol/Ipratropium 3 ml 03/12/18 13:22 Duoneb Updraft UPD Q6H PRN PRN Dimethicone/Zinc Oxide 0 gm 03/12/18 13:22 Misael Protect Cream TP PRN PRN Docusate Sodium 100 mg 03/12/18 13:22 Colace PO TID PRN PRN Enoxaparin Sodium 40 mg 03/12/18 14:00 Lovenox SC Q24H SHOSHANA Sodium Chloride 1,000 mls @ 100 mls/hr 03/12/18 13:30 Saline 1000ml Bag IV INFUSION SHOSHANA IV Miscellaneous Supplies 1 each 03/12/18 11:00 IV DIRECTED SHOSHANA Magnesium Hydroxide 30 ml 03/12/18 13:22 Milk Of Magnesia PO DAILY PRN PRN Polyethylene Glycol 17 gm 03/12/18 13:22 Miralax PO DAILY PRN PRN Constipation Sertraline HCl 100 mg 03/13/18 08:30 Zoloft PO DAILY SHOSHANA Sodium Chloride 0 ml 03/12/18 10:55 Saline Flush 10 Ml Syringe IVP PRN PRN Trazodone HCl 100 mg 03/12/18 22:00 Desyrel PO HS SHOSHANA ipratropium-albuterol 3 ml UPD Q6H PRN PRN #0 ml 03/08/18 dextroamphetamine-amphetamine [Adderall] 5 mg PO BID 03/12/18 sertraline [Zoloft] 100 mg PO DAILY 03/12/18 trazodone 100 mg PO .QHS 03/12/18 METHODS: A 21 channel digitized electroencephalogram was performed in the [facility] ER, Med/Surg Floor, or ICU. The 10/20 international system of electrode placement was used and bipolar and referential electrode montages were recorded. In addition to EEG the patient was monitored for EKG and lateral/vertical eye movements. Activation procedures of photic stimulation and hyperventilation were performed if applicable. Video was used during activation procedures and during events where applicable. The duration of the recording was 30 minutes. DESCRIPTION OF EEG: The patient was noted to be asleep during the recording. There were periods of normal arousal but no sustained wakefulness. Stage II sleep was present with symmetrical sleep spindles, K-complexes, and vertex waves. There were occasional, left>right, independent, high-amplitude spike-wave discharges in the bilateral temporal lobes (T3 and F8). Activating Procedures: Photic stimulation was performed which produced no posterior driving response. Hyperventilation was not performed. EKG: EKG revealed normal sinus rhythm. INTERPRETATION: This EEG is abnormal due to: #1. Bilateral independent temporal spike-wave discharges (T3 and F8). #2. Asleep only study. PRIOR EEG: -03/07/18: severe generalized slowing and abundant left temporal spike-wave discharges. -03/07/18-03/08/18 (inpatient): severe generalized slowing with occasional periods of burst suppression; abundant left temporal spike-wave discharges occasionally rhythmic consistent with PLEDs CLINICAL CORRELATION: This recording represents the interictal expression of a localization-related epilepsy and indicates the patient is at increased risk for partial and secondary tonic-clonic seizures. Clinical correlation is advised. Lakia De Anda MD
[2018-03-12] MEDS: Normal Saline Flush 10 ML SYR IVP (16:41)
[2018-03-12] MEDS: Normal Saline 1,000 ML 100 ML IV (16:42)
--- NOTE | 2018-03-12 18:10 | W.PM.HP.N ---
Date of service: 03/12/18 Time of Service: 18:10 Assessment and Plan (1) Seizures: Current visit: No Status: Acute She appears to be continuing to have seizures, EEG abnormal, she was not discharged home on any antiepileptic medications. She has been Keppra loaded, she will continue Keppra 1000 mg BID starting tonight based on Neurology recommendations. MRI results from [facility] available, no evidence of anoxic brain injury. MRI for tomorrow cancelled. Neurology to follow. Ativan ordered PRN for seizures. Monitor on telemetry. (2) Depression: Current visit: No Status: Chronic Continue home dose of Zoloft. (3) DVT prophylaxis: Current visit: No Status: Acute Subcutaneous lovenox. (4) Discharge planning issues: Current visit: No Status: Acute She is a FULL code. Continue to monitor overnight. This case was discussed with Dr. Lucas who is in agreement. History of Present Illness Chief Complaint: Altered mental status Narrative: Selma Rosado is a 28 year old female with a history of ADHD, depression and chronic anemia s/p gastric bypass surgery who was recently admitted to [facility] for Adderall overdose with seizures (tonic clonic) at which time she was intubated, sedated on Propofol and continued to have epileptiform discharges on EEG. There was concern for anoxic brain injury. She was transferred to [facility] on 03/08/18 for higher level of care as [facility] does not have continuous EEG monitoring and does not have constant neurology coverage. While at [facility], she had EEG which was concerning for focal structural lesion affecting the left cerebral hemisphere and possibly an epileptic focus in this region. In addition, they no diffuse or possible multifocal cerebral dysfunction likely in part due to medication effect. Subsequent EEG video demonstrate nonspecific markers of significant diffuse or multifocal encephalopathy and propensity towards seizure suggested. Patient discharged with f/u with PCP and local neurology. Advised repeat EEG in 4-6 weeks. Patient not discharged on antiepileptic medication. She also underwent MRI Brain at [facility] which did not show evidence of diffuse anoxic brain injury. She was discharged from [facility] yesterday, on 03/11/18. Today, per the ED record, she an her were at a gas station 30 minutes prior to her arrival at the hospital when her mental status suddenly changed. She was staring off and was unable to speak to him or answer his questions. In the ED, she was unable to engage in conversation. She was able to follow directions. Her labs were largely unremarkable. She remains anemic with Hgb of 10.2. UA and UDS pending. Her denies any alcohol or drug use. Dr. De Anda was consulted in the ED, she recommended giving her Ativan 0.5 mg IV and Keppra load, as well as MRI and EEG. EEG was completed in the ED and continued to show bilateral independent temporal spike-wave discharges. She is admitted to the Med/surg floor for further observation and management. At the time of her admission to the floor, she wakens to voice, however, she is not able to engage in meaningful conversation. She is drowsy, she opens her eyes and makes eye contact. She follows some commands. She is not able to provide HPI or ROS. She does not have any visitors present. 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 Meds Home Medications Medication Instructions Recorded Confirmed Type ipratropium-albuterol 3 ml UPD Q6H PRN PRN #0 ml 03/08/18 03/12/18 Rx dextroamphetamine-amphetamine 5 mg PO BID 03/12/18 03/12/18 History [Adderall] sertraline [Zoloft] 100 mg PO DAILY 03/12/18 03/12/18 History trazodone 100 mg PO .QHS 03/12/18 03/12/18 History Allergies Allergy/AdvReac Type Severity Reaction Status Date / Time No Known Allergies Allergy Unverified 03/12/18 11:01 Exam Narrative Exam Narrative: General: Drowsy, opens eyes briefly to verbal stimuli, answers some questions briefly. Well nourished, overweight. Neurology: Not able to state name, date or place. Pupils are equal, round and reactive to light, Unable to assess EOMs. Mucous membranes moist. Not able to follow commands. HEENT: Normocephalic, atraumatic. Hearing intact, mucous membranes moist. Neck: supple, no JVD. Respiratory: respirations even and unlabored. Lung sounds clear to auscultation throughout. Cardiac: heart rate regular, no murmur, gallop or rubs. Abdomen: Normoactive bowel sounds, abdomen soft, nontender, nondistended, no masses appreciated. Extremities: no calf swelling or warmth, no edema, pedal pulses intact bilaterally. Results Labs : 03/12/18 11:46 03/12/18 11:25 Laboratory Results - last 24 hr 03/12/18 03/12/18 03/12/18 11:25 11:25 11:25 WBC RBC Hgb Hct MCV MCH MCHC RDW Plt Count MPV Immature Gran % Neutrophils % Lymphocytes % Monocytes % Eosinophils % Basophils % Absolute Neutrophils Absolute Lymphocytes Absolute Monocytes Absolute Eosinophils Absolute Basophils Differential Comment RBC Morphology Polychromasia Hypochromasia Poikilocytosis Anisocytosis Microcytosis Sodium 142 Potassium 3.9 Chloride 106 Carbon Dioxide 29.0 Anion Gap 7.0 BUN 17 Creatinine 0.63 Estimated GFR/1.73 m2 >= 60.00 Glucose 103 H Calcium 8.9 Magnesium 1.7 L Total Bilirubin 0.3 AST 38 H ALT 32 Alkaline Phosphatase 67 Ammonia < 10 L Troponin I < 0.02 Total Protein 6.9 Albumin 3.3 L TSH 3.87 H Free T4 0.91 Ethyl Alcohol < 3.0 03/12/18 11:46 WBC 4.52 RBC 4.60 Hgb 10.2 L Hct 34.1 L MCV 74.1 L MCH 22.2 L MCHC 29.9 L RDW 18.5 H Plt Count 237 MPV 11.3 H Immature Gran % 0.7 Neutrophils % 51.7 Lymphocytes % 34.5 Monocytes % 6.9 Eosinophils % 5.8 Basophils % 0.4 Absolute Neutrophils 2.34 Absolute Lymphocytes 1.56 Absolute Monocytes 0.31 Absolute Eosinophils 0.26 Absolute Basophils 0.02 Differential Comment Rbc morph reviewed RBC Morphology See below Polychromasia Present Hypochromasia 3+ Poikilocytosis 2+ Anisocytosis 3+ Microcytosis 3+ Sodium Potassium Chloride Carbon Dioxide Anion Gap BUN Creatinine Estimated GFR/1.73 m2 Glucose Calcium Magnesium Total Bilirubin AST ALT Alkaline Phosphatase Ammonia Troponin I Total Protein Albumin TSH Free T4 Ethyl Alcohol Last Vital Signs Temp 36.9 C 03/12/18 16:56 Pulse 84 03/12/18 16:56 Resp 19 03/12/18 16:56 BP 124/77 03/12/18 16:56 Pulse Ox 98 03/12/18 16:56
--- NOTE | 2018-03-12 18:26 | HPE_ITS ---
Date of service: 03/12/18 Time of Service: 18:10 Assessment and Plan (1) Seizures: Current visit: No Status: Acute She appears to be continuing to have seizures, EEG abnormal, she was not discharged home on any antiepileptic medications. She has been Keppra loaded, she will continue Keppra 1000 mg BID starting tonight based on Neurology recommendations. MRI results from [facility] available, no evidence of anoxic brain injury. MRI for tomorrow cancelled. Neurology to follow. Ativan ordered PRN for seizures. Monitor on telemetry. (2) Depression: Current visit: No Status: Chronic Continue home dose of Zoloft. (3) DVT prophylaxis: Current visit: No Status: Acute Subcutaneous lovenox. (4) Discharge planning issues: Current visit: No Status: Acute She is a FULL code. Continue to monitor overnight. This case was discussed with Dr. Lucas who is in agreement. History of Present Illness Chief Complaint: Altered mental status Narrative: Selma Rosado is a 28 year old female with a history of ADHD, depression and chronic anemia s/p gastric bypass surgery who was recently admitted to [facility] for Adderall overdose with seizures (tonic clonic) at which time she was intubated, sedated on Propofol and continued to have epileptiform discharges on EEG. There was concern for anoxic brain injury. She was transferred to [facility] on 03/08/18 for higher level of care as [facility] does not have continuous EEG monitoring and does not have constant neurology coverage. While at [facility], she had EEG which was concerning for focal structural lesion affecting the left cerebral hemisphere and possibly an epileptic focus in this region. In addition, they no diffuse or possible multifocal cerebral dysfunction likely in part due to medication effect. Subsequent EEG video demonstrate nonspecific markers of significant diffuse or multifocal encephalopathy and propensity towards seizure suggested. Patient discharged with f/u with PCP and local neurology. Advised repeat EEG in 4-6 weeks. Patient not discharged on antiepileptic medication. She also underwent MRI Brain at [facility] which did not show evidence of diffuse anoxic brain injury. She was discharged from [facility] yesterday, on 03/11/18. Today, per the ED record, she an her were at a gas station 30 minutes prior to her arrival at the hospital when her mental status suddenly changed. She was staring off and was unable to speak to him or answer his questions. In the ED, she was unable to engage in conversation. She was able to follow directions. Her labs were largely unremarkable. She remains anemic with Hgb of 10.2. UA and UDS pending. Her denies any alcohol or drug use. Dr. De Anda was consulted in the ED, she recommended giving her Ativan 0.5 mg IV and Keppra load, as well as MRI and EEG. EEG was completed in the ED and continued to show bilateral independent temporal spike-wave discharges. She is admitted to the Med/surg floor for further observation and management. At the time of her admission to the floor, she wakens to voice, however, she is not able to engage in meaningful conversation. She is drowsy, she opens her eyes and makes eye contact. She follows some commands. She is not able to provide HPI or ROS. She does not have any visitors present. 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 Meds Home Medications Medication Instructions Recorded Confirmed Type ipratropium-albuterol 3 ml UPD Q6H PRN PRN #0 ml 03/08/18 03/12/18 Rx dextroamphetamine-amphetamine 5 mg PO BID 03/12/18 03/12/18 History [Adderall] sertraline [Zoloft] 100 mg PO DAILY 03/12/18 03/12/18 History trazodone 100 mg PO .QHS 03/12/18 03/12/18 History Allergies Allergy/AdvReac Type Severity Reaction Status Date / Time No Known Allergies Allergy Unverified 03/12/18 11:01 Exam Narrative Exam Narrative: General: Drowsy, opens eyes briefly to verbal stimuli, answers some questions briefly. Well nourished, overweight. Neurology: Not able to state name, date or place. Pupils are equal, round and reactive to light, Unable to assess EOMs. Mucous membranes moist. Not able to follow commands. HEENT: Normocephalic, atraumatic. Hearing intact, mucous membranes moist. Neck: supple, no JVD. Respiratory: respirations even and unlabored. Lung sounds clear to auscultation throughout. Cardiac: heart rate regular, no murmur, gallop or rubs. Abdomen: Normoactive bowel sounds, abdomen soft, nontender, nondistended, no masses appreciated. Extremities: no calf swelling or warmth, no edema, pedal pulses intact bilaterally. Results Labs : 03/12/18 11:46 03/12/18 11:25 Laboratory Results - last 24 hr 03/12/18 03/12/18 03/12/18 11:25 11:25 11:25 WBC RBC Hgb Hct MCV MCH MCHC RDW Plt Count MPV Immature Gran % Neutrophils % Lymphocytes % Monocytes % Eosinophils % Basophils % Absolute Neutrophils Absolute Lymphocytes Absolute Monocytes Absolute Eosinophils Absolute Basophils Differential Comment RBC Morphology Polychromasia Hypochromasia Poikilocytosis Anisocytosis Microcytosis Sodium 142 Potassium 3.9 Chloride 106 Carbon Dioxide 29.0 Anion Gap 7.0 BUN 17 Creatinine 0.63 Estimated GFR/1.73 m2 >= 60.00 Glucose 103 H Calcium 8.9 Magnesium 1.7 L Total Bilirubin 0.3 AST 38 H ALT 32 Alkaline Phosphatase 67 Ammonia < 10 L Troponin I < 0.02 Total Protein 6.9 Albumin 3.3 L TSH 3.87 H Free T4 0.91 Ethyl Alcohol < 3.0 03/12/18 11:46 WBC 4.52 RBC 4.60 Hgb 10.2 L Hct 34.1 L MCV 74.1 L MCH 22.2 L MCHC 29.9 L RDW 18.5 H Plt Count 237 MPV 11.3 H Immature Gran % 0.7 Neutrophils % 51.7 Lymphocytes % 34.5 Monocytes % 6.9 Eosinophils % 5.8 Basophils % 0.4 Absolute Neutrophils 2.34 Absolute Lymphocytes 1.56 Absolute Monocytes 0.31 Absolute Eosinophils 0.26 Absolute Basophils 0.02 Differential Comment Rbc morph reviewed RBC Morphology See below Polychromasia Present Hypochromasia 3+ Poikilocytosis 2+ Anisocytosis 3+ Microcytosis 3+ Sodium Potassium Chloride Carbon Dioxide Anion Gap BUN Creatinine Estimated GFR/1.73 m2 Glucose Calcium Magnesium Total Bilirubin AST ALT Alkaline Phosphatase Ammonia Troponin I Total Protein Albumin TSH Free T4 Ethyl Alcohol Last Vital Signs Temp 36.9 C 03/12/18 16:56 Pulse 84 03/12/18 16:56 Resp 19 03/12/18 16:56 BP 124/77 03/12/18 16:56 Pulse Ox 98 03/12/18 16:56
[2018-03-12] MEDS: Acetaminophen 325 MG TAB PO (18:49)
[2018-03-12] MEDS: Enoxaparin 40 MG/0.4 ML SYR SC (18:51)
[2018-03-12] MEDS: MAGNESIUM SULFATE 1 GM/100 ML BAG IVPB (19:02)
--- NOTE | 2018-03-12 19:13 | NUR.NOTE ---
Nursing Note: 1845 Patient awake and more alert at this time. Patient is attempting to answer questions but is making little sense. Speech is repetitive and does not answer the questions asked. Patient does know who she is, her and todays date. Patient keeps repeating that it is Mar 12 when asked where she is
--- NOTE | 2018-03-12 20:58 | NCONE_ITS ---
Date of service: 03/12/18 Time of Service: 16:22 Assessment and Plan (1) Status epilepticus: Current visit: No Status: Acute (2) Focal epilepsy with impairment of consciousness: Current visit: Yes Status: Acute Ms. Rosado is a 28 year-old, right-handed woman with a PMH of depression and ADHD who was recently admitted in status epilepticus thought to be secondary to Adderall OD, who now present s/p complex partial seizure. An EEG shows independent bilateral temporal spikes indicating she is at increased risk of further seizures. It's unclear is she underwent a brain MRI at [facility] or now. The EEG findings are certainly concerning for an anoxic brain injury. I recommend a brain MRI w/o contrast as further work-up if it has not already been performed. Otherwise, she should continue Keppra 1000mg BID starting tonight. ADRs were discussed with her and her . I agree with observation admission until she returns to baseline and to ensure no further seizures. History of Present Illness Chief Complaint: seizure Narrative: Handedness: right. HPI: Ms. Rosado is a 28 year-old woman with a PMH of depression and ADHD who was recently admitted to [facility] and later transferred to [facility] on 03/05/18 for status epilepticus thought to be secondary to an Adderall OD (non-intentional). While hospitalized, an EEG showed frequent left temporal spike-waves. There was a concern she may have suffered an anoxic brain injury due to significant hypoxemia upon presentation. She was eventually extubated and per spouse, was back to baseline. She was not started on an AED as the mechanism of seizure was felt to be secondary to the OD. It is unclear if she had a brain MRI prior to discharge yesterday 03/11/18. She presents back to the ER after she was witnessed by her to have another seizure. They stopped at a gas station/mart but she did not get out of the car. He noted that she was staring off, looking slowly around. She was unresponsive for about 2minutes. He did not note any automatisms. He brought her to the ER where she was initially thought to be post-ictal but then had waxing and waning alertness/ability to converse, etc. There was concern for ongoing seizure activity vs status epilepticus. She was given 0.5mg IV Ativan and 2gm IV Keppra after which she seemed to improve, though at the time of my evaluation, she was still having some confusion. She had a CT head which I was able to review and showed no acute changes. She had an EEG with showed occasional, independent, bilateral temporal spikes. She had not slept the night before and had not taken her Trazadone. She and her tell me that she was scared to take any medications in case they caused a seizure. To review, she has no prior history of seizure before last week. Her mother had a single seizure at age 2 associated with an acute TBI and then no seizures until as an adult 3 years ago which has been attributed to drug abuse. She has no history of meningitis/encephalitis. She has a 6th grade education which was complicated by ADHD. She does not drive. 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 Surgical History H/O gastric bypass (Acute) Social History household members: family number of children: 2 current occupational status: unemployed current occupation: SAHM; 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 Visit Medication and Allergies Active Medications Generic Name Dose Route Start Last Admin Trade Name Freq PRN Reason Stop Dose Admin Acetaminophen 0 mg 03/12/18 13:22 03/12/18 18:49 Tylenol PO 650 mg Q4H PRN PRN Administration Al Hydrox/Mg Hydrox/Simethicone 30 ml 03/12/18 13:22 Mylanta Liquid PO Q2H PRN PRN Albuterol/Ipratropium 3 ml 03/12/18 13:22 Duoneb Updraft UPD Q6H PRN PRN Dimethicone/Zinc Oxide 0 gm 03/12/18 13:22 Misael Protect Cream TP PRN PRN Docusate Sodium 100 mg 03/12/18 13:22 Colace PO TID PRN PRN Enoxaparin Sodium 40 mg 03/12/18 18:00 03/12/18 18:51 Lovenox SC 40 mg Q24H SHOSHANA Administration Sodium Chloride 1,000 mls @ 100 mls/hr 03/12/18 13:30 03/12/18 16:42 Saline 1000ml Bag IV 100 mls/hr INFUSION SHOSHANA Administration Levetiracetam 1,000 mg/ Sodium 110 mls @ 400 mls/hr 03/12/18 20:00 03/12/18 20:53 Chloride IVPB 400 mls/hr BID SHOSHANA Administration IV Miscellaneous Supplies 1 each 03/12/18 11:00 IV DIRECTED SHOSHANA Lorazepam 1 mg 03/12/18 17:54 Ativan Injection IVP Q2H PRN PRN Magnesium Hydroxide 30 ml 03/12/18 13:22 Milk Of Magnesia PO DAILY PRN PRN Polyethylene Glycol 17 gm 03/12/18 13:22 Miralax PO DAILY PRN PRN Constipation Sertraline HCl 100 mg 03/13/18 08:30 Zoloft PO DAILY SHOSHANA Sodium Chloride 0 ml 03/12/18 10:55 03/12/18 16:41 Saline Flush 10 Ml Syringe IVP 10 ml PRN PRN Administration Trazodone HCl 100 mg 03/12/18 22:00 Desyrel PO HS SHOSHANA Allergies No Known Allergies Allergy (Unverified 03/12/18 11:01) Exam Narrative Exam Narrative: Physical Exam: Gen: Patient of apparent stated age, NAD Head and face: no facial or cranial abnormalities Neck: Supple, no meningismus, no occipital tenderness CV: + S1, S2, RRR, no murmur Resp: CTA B/L Abd: soft, nontender, nondistended Ext: No edema. No clubbing or cyanosis. No bony deformity. Neuro Exam: Language: fluency, naming, and repetition intact; some difficulty with commands/ comprehension Mental Status: somewhat lethargic, some confusion on recent events and remote history Speech: mild dysarthria/raspiness (baseline per +/- slightly worse from recent intubation) Cranial nerves: Funduscopy: not performed CN II: visual barnes intact CN III, IV, : extraocular movements intact, no nystagmus, pupils symmetric and reactive to light CN V: face sensation intact to LT CN VII: no facial asymmetry noted CN VIII: hearing intact bilaterally CN IX, X: palate rises symmetrically CN XI: trapezius/SCM 5/5 bilaterally CN XII: protrudes tongue symmetrically Sensory: intact to LT in all extremities Motor: bulk and tone intact. Fine motor movements intact bilaterally. No pronator drift. Strength 5/5 throughout including the deltoids, biceps, triceps , wrist extensors, hip flexors, knee flexors, knee extensors, ankle flexors, and ankle extensors. Reflexes: 2+ at the biceps, triceps, brachioradialis, patella, and achilles tendons bilaterally; toes down going bilaterally; Coordination: FTN and HTS intact bilaterally Gait: deferred Results Last Vital Signs Temp 37.1 C 03/12/18 19:25 Pulse 80 03/12/18 19:25 Resp 17 03/12/18 19:25 BP 116/77 03/12/18 19:25 Pulse Ox 98 03/12/18 19:25 Labs : 03/12/18 11:46 03/12/18 11:25 Laboratory Results - last 24 hr 03/12/18 03/12/18 03/12/18 11:25 11:25 11:25 WBC RBC Hgb Hct MCV MCH MCHC RDW Plt Count MPV Immature Gran % Neutrophils % Lymphocytes % Monocytes % Eosinophils % Basophils % Absolute Neutrophils Absolute Lymphocytes Absolute Monocytes Absolute Eosinophils Absolute Basophils Differential Comment RBC Morphology Polychromasia Hypochromasia Poikilocytosis Anisocytosis Microcytosis Sodium 142 Potassium 3.9 Chloride 106 Carbon Dioxide 29.0 Anion Gap 7.0 BUN 17 Creatinine 0.63 Estimated GFR/1.73 m2 >= 60.00 Glucose 103 H Calcium 8.9 Magnesium 1.7 L Total Bilirubin 0.3 AST 38 H ALT 32 Alkaline Phosphatase 67 Ammonia < 10 L Troponin I < 0.02 Total Protein 6.9 Albumin 3.3 L TSH 3.87 H Free T4 0.91 Ethyl Alcohol < 3.0 03/12/18 11:46 WBC 4.52 RBC 4.60 Hgb 10.2 L Hct 34.1 L MCV 74.1 L MCH 22.2 L MCHC 29.9 L RDW 18.5 H Plt Count 237 MPV 11.3 H Immature Gran % 0.7 Neutrophils % 51.7 Lymphocytes % 34.5 Monocytes % 6.9 Eosinophils % 5.8 Basophils % 0.4 Absolute Neutrophils 2.34 Absolute Lymphocytes 1.56 Absolute Monocytes 0.31 Absolute Eosinophils 0.26 Absolute Basophils 0.02 Differential Comment Rbc morph reviewed RBC Morphology See below Polychromasia Present Hypochromasia 3+ Poikilocytosis 2+ Anisocytosis 3+ Microcytosis 3+ Sodium Potassium Chloride Carbon Dioxide Anion Gap BUN Creatinine Estimated GFR/1.73 m2 Glucose Calcium Magnesium Total Bilirubin AST ALT Alkaline Phosphatase Ammonia Troponin I Total Protein Albumin TSH Free T4 Ethyl Alcohol
[2018-03-12] MEDS: traZODone 100 MG TAB PO (21:07)
[2018-03-13] VITALS (10 sets, daily range): BP systolic 111–144; BP diastolic 69–86; PULSE 82–100; RESP 17–20; TEMP 36.8–37.8; O2SAT 97–99
[2018-03-13] MEDS: Acetaminophen 325 MG TAB PO ×2 (03:26→23:50)
[2018-03-13] MEDS: Normal Saline 1,000 ML 100 ML IV ×2 (04:45→16:06)
[2018-03-13 07:16] LABS: Abs Immature Grans 0.01 k/cumm (0.0-0.09); Absolute Basophil Count 0.01 k/cumm (0.0-0.2); Absolute Lymphocyte Count 1.99 k/cumm (1.2-3.4); Absolute Monocyte Count 0.23 k/cumm (0.11-0.7); Absolute Neutrophil Count 1.71 k/cumm (1.2-6.7); Basophils % 0.2; Eosinophils % 4.8; HCT 29.7 % (36.0-46.0); HGB 8.9 g/dL (12.0-15.5); Immature Grans % 0.2; Mean Corpuscular Hemoglobin 22.5 pg (27.0-33.0); Mean Corpuscular Volume 75.2 fL (80-95); Mean Platelet Volume 10.7 fL (8.0-11.0); Monocytes % 5.5; Neutrophils % 41.3; Platelet Count 211 x1000/uL (130-400); RBC 3.95 m/cumm (4.00-5.20); White Blood Cell Count 4.15 k/cumm (4.4-10.8)
[2018-03-13 07:30] LABS: Anion Gap 7.9 mmol/L (3-11); BUN 9 mg/dL (7-18); CO2 26.1 mmol/L (21.0-32.0); CREATININE 0.52 mg/dL (0.55-1.02); Calcium 8.3 mg/dL (8.5-10.1); Chloride 107 mmol/L (98-107); Glucose 85 mg/dL (70-100); Magnesium 1.6 mg/dL (1.8-2.4); Potassium 3.6 mmol/L (3.5-5.1); Sodium 141 mmol/L (136-145)
--- NOTE | 2018-03-13 07:40 | PDOC.CMIN ---
- If Service Date Differs Date of service: 03/13/18 Time of Service: 07:40 Care Management Initial Assess REASON FOR HOSPITALIZATION:: Seizure. PAST MEDICAL HISTORY/PAST SURGICAL HISTORY:: ADHD, depression, focal epilepsy with impairment of consciousness. Surgical hx: gastric bypass. PREVIOUS FUNCTIONAL STATUS/SOCIAL/FAMILY SUPPORTS:: Jose Guadalupe is a readmission to [facility], having transferred from this hospital to [facility] on 03/08 for further neurologic evaluation. On her admittance to [facility], per ER report, patient was sitting in bed playing with her son when her eyes rolled back in her head and she started having a tonic-clonic seizure. Per report, Jose Guadalupe's denies prior suicidal ideation, IV or illicit drug use. The family is originally from [place] and have been living in a hotel/custodial for 3 months. When not living in hotels they live in their car with their two young children. Per Jose Guadalupe's , Elian, Jose Guadalupe is independent with her ADLs but does not drive. The family has been working with [employer] who have been paying for the hotel room. Elian reports that the vouchers are cold weather exemptions and they need to check in with [employer] daily as the vouchers are dependent on the weather. If it is cold, they provide a voucher. If not, they do not. Jose Guadalupe and Elian have been working with [employer] additionally (Raquel). According to Elian, [employer] will provide first and last month's rent for an apartment if he gets employment. Elian denies past suicidal ideations/depression for Selma and does not feel that this overdose was a suicide attempt. He reiterates the report from the ER and MD that Jose Guadalupe's new PCP ([facility]) restarted her adderall at a very low dose compared with her previous prescription. Elian reports that Jose Guadalupe told him on Sunday (03/02) that she did not feel that the low dose was doing anything and so she adjusted her dose so that she could feel more clear and be more present. Per Elian and ER report, Elian brought Jose Guadalupe to the ER on 03/12 due to altered mentatl status, and staring off into space and not being able to answer questions or speak. CURRENT FUNCTIONAL STATUS:: Jose Guadalupe is lying in bed with , Elian, when CM visits this morning. She makes good eye contact and is fidgety in bed. Jose Guadalupe is verbal at this time but unable to respond appropriately to questions posed by CM. When asked how she was feeling, Jose Guadalupe responded yes and nodded her head in agreement. She was able to tell CM that her daughter had not been away from her for over 48 hours in her whole life (complete sentence) but then began laughing inappropriately and 'babbling' about leaving, appointments, etc. Elian reports that Jose Guadalupe was at baseline following discharge from [facility] on Sunday and that she remained that way until Sunday. Sunday, in the parking lot of [employer], Jose Guadalupe began 'staring and was unresponsive'. At that time, Elian brought her back to the ER. Elian again denies any illicit drug use and reports that Jose Guadalupe has not been taking her adderall, nor was she discharged from [facility] with an anti-seizure meds. Jose Guadalupe is now receiving IV fluids and Keppra and is being monitored on telemetry. Jose Guadalupe had a neurology consult last evening and will be seen by Dr. De Anda today. ADVANCE DIRECTIVES:: None on file at [facility]. Has patient been provided with information about the portal?: Yes Did the patient sign up for the portal?: No CODE STATUS:: Full Code INSURANCE COVERAGE / FINANCIAL ISSUES:: Medicaid. CURRENT HOME/COMMUNITY SERVICES/EQUIPMENT:: [employer]; vouchers for hotels, [employer] (director of casework services Raquel). No equipment. PRIMARY CARE PHYSICIAN:: Javier Gonzalez MD. POTENTIAL DISCHARGE NEEDS:: Follow up appointment with PCP. PATIENT/FAMILY EDUCATION NEEDS:: Discharge education, any limitations, and follow up plan of care. Ask Me Three discussion. Additional referrals to community resources/supports (?). ANTICIPATED BARRIERS TO DISCHARGE:: Housing/homelessness. TRANSPORTATION:: Jose Guadalupe will transport via private vehicle with her , Elian. PLAN:: Jose Guadalupe will discharge when medically ready per MD. Anticipate patient will discharge with no services and follow up with her PCP. CM will continue to offer support to patient, family, and care team regarding discharge planning and disposition. Readmission - Within the Past 30 Days Yes or No: Y - Date of First Admission Date of 1st Admission: 03/05/18 - Date of this Admission Date of Admission: 03/12/18 This admission was: Through ED - Assessment for Readmission Summary of readmission circumstances, based upon interviews: Jose Guadalupe was initially admitted to [facility] on 03/05/18 following an adderall overdose with resultant seizures. Jose Guadalupe was intubated during her stay and transferred to [facility] for further neurological evaluation on 03/08/2018. Following her discharge from [facility], Jose Guadalupe was readmitted to [facility] due to presentation with a staring spell and continued altered behavior.
[2018-03-13] MEDS: Sertraline 50 MG TAB 100 MG PO (07:56)
--- NOTE | 2018-03-13 08:06 | INITIAL_ITS ---
- If Service Date Differs Date of service: 03/13/18 Time of Service: 07:40 Care Management Initial Assess REASON FOR HOSPITALIZATION:: Seizure. PAST MEDICAL HISTORY/PAST SURGICAL HISTORY:: ADHD, depression, focal epilepsy with impairment of consciousness. Surgical hx: gastric bypass. PREVIOUS FUNCTIONAL STATUS/SOCIAL/FAMILY SUPPORTS:: Jose Guadalupe is a readmission to [facility], having transferred from this hospital to [facility] on 03/08 for further neurologic evaluation. On her admittance to [facility], per ER report, patient was sitting in bed playing with her son when her eyes rolled back in her head and she started having a tonic-clonic seizure. Per report, Jose Guadalupe's denies prior suicidal ideation, IV or illicit drug use. The family is originally from [facility] and have been living in a hotel/penitentiary for 3 months. When not living in hotels they live in their car with their two young children. Per Jose Guadalupe's , Elian, Jose Guadalupe is independent with her ADLs but does not drive. The family has been working with [employer] who have been paying for the hotel room. Elian reports that the vouchers are cold weather exemptions and they need to check in with [employer] daily as the vouchers are dependent on the weather. If it is cold, they provide a voucher. If not, they do not. Jose Guadalupe and Elian have been working with [employer] additionally (Raquel). According to Elian, [employer] will provide first and last month's rent for an apartment if he gets employment. Elian denies past suicidal ideations/depression for [place] and does not feel that this overdose was a suicide attempt. He reiterates the report from the ER and MD that Jose Guadalupe's new PCP ([facility]) restarted her adderall at a very low dose compared with her previous prescription. Elian reports that Jose Guadalupe told him on Sunday (03/02) that she did not feel that the low dose was doing anything and so she adjusted her dose so that she could feel more clear and be more present. Per Elian and ER report, Elian brought Jose Guadalupe to the ER on 03/12 due to altered mentatl status, and staring off into space and not being able to answer questions or speak. CURRENT FUNCTIONAL STATUS:: Jose Guadalupe is lying in bed with , Elian, when CM visits this morning. She makes good eye contact and is fidgety in bed. Jose Guadalupe is verbal at this time but unable to respond appropriately to questions posed by CM. When asked how she was feeling, Jose Guadalupe responded yes and nodded her head in agreement. She was able to tell CM that her daughter had not been away from her for over 48 hours in her whole life (complete sentence) but then began laughing inappropriately and 'babbling' about leaving, appointments, etc. Elian reports that Jose Guadalupe was at baseline following discharge from [facility] on Sunday and that she remained that way until Sunday. Sunday, in the parking lot of [employer], Jose Guadalupe began 'staring and was unresponsive'. At that time, Elian brought her back to the ER. Elian again denies any illicit drug use and reports that Jose Guadalupe has not been taking her adderall, nor was she discharged from [facility] with an anti-seizure meds. Jose Guadalupe is now receiving IV fluids and Keppra and is being monitored on telemetry. Jose Guadalupe had a neurology consult last evening and will be seen by Dr. De Anda today. ADVANCE DIRECTIVES:: None on file at [facility]. Has patient been provided with information about the portal?: Yes Did the patient sign up for the portal?: No CODE STATUS:: Full Code INSURANCE COVERAGE / FINANCIAL ISSUES:: Medicaid. CURRENT HOME/COMMUNITY SERVICES/EQUIPMENT:: [employer]; vouchers for hotels, [employer] (lining caser Raquel). No equipment. PRIMARY CARE PHYSICIAN:: Javier Gonzalez MD. POTENTIAL DISCHARGE NEEDS:: Follow up appointment with PCP. PATIENT/FAMILY EDUCATION NEEDS:: Discharge education, any limitations, and follow up plan of care. Ask Me Three discussion. Additional referrals to community resources/supports (?). ANTICIPATED BARRIERS TO DISCHARGE:: Housing/homelessness. TRANSPORTATION:: Jose Guadalupe will transport via private vehicle with her , Elian. PLAN:: Jose Guadalupe will discharge when medically ready per MD. Anticipate patient will discharge with no services and follow up with her PCP. CM will continue to offer support to patient, family, and care team regarding discharge planning and disposition. Readmission - Within the Past 30 Days Yes or No: Y - Date of First Admission Date of 1st Admission: 03/05/18 - Date of this Admission Date of Admission: 03/12/18 This admission was: Through ED - Assessment for Readmission Summary of readmission circumstances, based upon interviews: Jose Guadalupe was initially admitted to [facility] on 03/05/18 following an adderall overdose with resultant seizures. Jose Guadalupe was intubated during her stay and transferred to [facility] for further neurological evaluation on 03/08/2018. Following her discharge from [facility], Jose Guadalupe was readmitted to [facility] due to presentation with a staring spell and continued altered behavior.
[2018-03-13 10:32] LABS: Bilirubin Negative (Negative); Blood Large (Negative); Clarity Sl Cloudy; Glucose Negative (Negative); Ketones Negative (Negative); Leukocyte Esterase Negative (Negative); Nitrite Negative (Negative); Urobilinogen 0.2 EU/dL (Up TO 0.2)
[2018-03-13 10:39] LABS: WBC 0-2 HPF (0-5)
[2018-03-13 10:40] LABS: Bacteria Rare HPF (Negative); C & S Indicated? No; Casts Negative LPF (Negative); Crystals Negative HPF (Negative); Epithelial Cells Few HPF (Negative); Mucus Negative (Negative); RBC >50 (0-2)
[2018-03-13 10:43] LABS: *AMPHETAMINES SCREEN URINE Negative (Negative); *BARBITURATES SCREEN URINE Negative (Negative); *BENZODIAZEPINES SCREEN URINE Negative (Negative); Cannabinoids THC Negative (Negative); Cocaine Screen,Urine Negative (Negative); METHADONE URINE SCREEN Negative (Negative); OPIATES URINE SCREEN Negative (Negative)
[2018-03-13 10:51] LABS: Tricyclic Antidepressants Negative (Negative)
--- NOTE | 2018-03-13 12:30 | W.PM.PROGNOT ---
Date of Service Date of service: 03/13/18 Time of Service: 12:30 Assessment and Plan (1) Status epilepticus: Current visit: No Status: Acute (2) Focal epilepsy with impairment of consciousness: Current visit: No Status: Acute (3) Altered mental status: Current visit: Yes Status: Acute Ms. Rosado is a 28 year-old, right-handed woman with a PMH of depression and ADHD who was recently admitted in status epilepticus thought to be secondary to Adderall OD, who now presents s/p complex partial seizure with an abnormal EEG showing independent bilateral temporal spikes. She has had persistent altered mental status which I don't think we can attribute due to medication side effect (Ativan) or post-ictal state. There is no waxing/waning of her symptoms to suggest further subclinical/missed seizures, though that remains on the differential. I recommend an MRI brain with and without contrast to further workup. After the MRI, if she continues to have altered mental status, I recommend a lumbar puncture with the usual studies including cell count, glucose, protein, Gram stain and culture, plus viral studies (including encephalitis panels), VDRL, oligoclonal bands, and IgG index and synthesis. I would also like a CSF and serum paraneoplastic panel. I also recommend increasing Keppra to 1500 mg twice daily in case of clinical seizures. We do not have EEG capabilities today, however, we anticipate that they will be available tomorrow. If she still has altered mental status tomorrow, I will recommend that we start EEG and leave it on for at least the day to look for potential subclinical seizures. DISCLAIMER: This note was created using [employer] voice recognition software. Subjective Interval history since last seen: No reported seizures overnight. She is more alert since I saw her yesterday afternoon but remains quite confused with bizarre answers at times (not just to recent events). There was no waxing/waning of symptoms - just persistent. MRI brain at [facility] read as normal. UDS was unremarkable. I confirmed with that prior to arrival at the hospital yesterday, she is completely at baseline both memory and personality ramos. He also believes her personality is at baseline today. Nursing staff noted somewhat bizarre laughing spell earlier today. Exam Narrative Exam Narrative: Physical Exam: Constitutional: Patient of apparent stated age, well nourished, well developed, no acute distress Neuro: MS/Language/Speech: Alert, oriented to self only, clear language (fluency and comprehension) at times; often confused and answers questions with bizarre statements, no dysarthria CN: PERRL, EOMI, visual barnes full, trigeminal sensation intact, no facial asymmetry, hearing intact to whisper, palate elevates symmetrically, tongue protrudes midline, SCM and trap strength intact Motor: Normal bulk and tone. FMM intact, no pronator drift. 5/5 strength in bilateral upper and lower extremities Sensation: Intact to light touch throughout Coordination: Finger to nose performed without dysmetria Gait: Deferred Objective Objective Clinical Data: Abnormal lab results 03/12/18 03/13/18 03/13/18 Range/Units 11:46 07:05 07:05 WBC 4.15 L (4.4-10.8) k/cumm RBC 3.95 L (4.00-5.20) m/cumm Hgb 10.2 L 8.9 L (12.0-15.5) g/dL Hct 34.1 L 29.7 L (36.0-46.0) % MCV 74.1 L 75.2 L (80-95) fL MCH 22.2 L 22.5 L (27.0-33.0) pg MCHC 29.9 L 30.0 L (32.0-36.0) g/dL RDW 18.5 H 18.0 H (11.7-14.6) % MPV 11.3 H (8.0-11.0) fL Creatinine 0.52 L (0.55-1.02) mg/dL Calcium 8.3 L (8.5-10.1) mg/dL Magnesium 1.6 L (1.8-2.4) mg/dL Urine Blood (Negative) Urine RBC (0-2) 03/13/18 Range/Units 10:16 WBC (4.4-10.8) k/cumm RBC (4.00-5.20) m/cumm Hgb (12.0-15.5) g/dL Hct (36.0-46.0) % MCV (80-95) fL MCH (27.0-33.0) pg MCHC (32.0-36.0) g/dL RDW (11.7-14.6) % MPV (8.0-11.0) fL Creatinine (0.55-1.02) mg/dL Calcium (8.5-10.1) mg/dL Magnesium (1.8-2.4) mg/dL Urine Blood Large H (Negative) Urine RBC >50 H (0-2) Vital Signs Temperature 37.2 C 03/13/18 07:40 Temperature Source Tympanic 03/13/18 07:40 Pulse 100 H 03/13/18 07:40 Pulse Rhythm Regular 03/13/18 08:00 Pulse 98 H 03/12/18 15:16 Respiratory Rate 17 03/13/18 07:40 Respiratory Effort Non-Labored 03/13/18 08:00 Respiratory Depth Normal 03/13/18 08:00 Respiratory Pattern Normal 03/13/18 08:00 Blood Pressure 144/86 H 03/13/18 07:40 Blood Pressure Mean 97 03/12/18 15:16 Pulse Oximetry 99 03/13/18 07:40 Oxygen Delivery Method Room Air 03/13/18 07:40 Oxygen Flow Rate 0 03/13/18 07:40 Pain Level 0 03/13/18 07:40 Comment 03/13/18 03:45 Intake & Output 03/12/18 03/13/18 03/13/18 23:59 11:59 23:59 Intake Total 1240 / 1240 1110 / 1110 Output Total 800 / 800 1250 / 1250 Balance 440 / 440 -140 / -140 Weight 102.4 kg Intake: IV 1240 / 1240 1110 / 1110 Output: Urine 800 / 800 1250 / 1250 Other: Comment urine very bloody from patient's meses patient on menses Voiding Methods Toilet Toilet Laboratory Results WBC 4.15 k/cumm (4.4-10.8) L 03/13/18 07:05 RBC 3.95 m/cumm (4.00-5.20) L 03/13/18 07:05 Hgb 8.9 g/dL (12.0-15.5) L 03/13/18 07:05 Hct 29.7 % (36.0-46.0) L 03/13/18 07:05 MCV 75.2 fL (80-95) L 03/13/18 07:05 MCH 22.5 pg (27.0-33.0) L 03/13/18 07:05 MCHC 30.0 g/dL (32.0-36.0) L 03/13/18 07:05 RDW 18.0 % (11.7-14.6) H 03/13/18 07:05 Plt Count 211 x1000/uL (130-400) 03/13/18 07:05 MPV 10.7 fL (8.0-11.0) 03/13/18 07:05 Immature Gran % 0.2 03/13/18 07:05 Neutrophils % 41.3 03/13/18 07:05 Lymphocytes % 48.0 03/13/18 07:05 Monocytes % 5.5 03/13/18 07:05 Eosinophils % 4.8 03/13/18 07:05 Basophils % 0.2 03/13/18 07:05 Absolute Neutrophils 1.71 k/cumm (1.2-6.7) 03/13/18 07:05 Absolute Lymphocytes 1.99 k/cumm (1.2-3.4) 03/13/18 07:05 Absolute Monocytes 0.23 k/cumm (0.11-0.7) 03/13/18 07:05 Absolute Eosinophils 0.20 k/cumm (0.0-0.7) 03/13/18 07:05 Absolute Basophils 0.01 k/cumm (0.0-0.2) 03/13/18 07:05 Differential Comment Rbc morph reviewed 03/12/18 11:46 RBC Morphology See below 03/12/18 11:46 Polychromasia Present 03/12/18 11:46 Hypochromasia 3+ 03/12/18 11:46 Poikilocytosis 2+ 03/12/18 11:46 Anisocytosis 3+ 03/12/18 11:46 Microcytosis 3+ 03/12/18 11:46 Sodium 141 mmol/L (136-145) 03/13/18 07:05 Potassium 3.6 mmol/L (3.5-5.1) 03/13/18 07:05 Chloride 107 mmol/L (98-107) 03/13/18 07:05 Carbon Dioxide 26.1 mmol/L (21.0-32.0) 03/13/18 07:05 Anion Gap 7.9 mmol/L (3-11) 03/13/18 07:05 BUN 9 mg/dL (7-18) D 03/13/18 07:05 Creatinine 0.52 mg/dL (0.55-1.02) L 03/13/18 07:05 Estimated GFR/1.73 m2 >= 60.00 (mL/min/1.73m2) 03/13/18 07:05 Glucose 85 mg/dL (70-100) 03/13/18 07:05 Calcium 8.3 mg/dL (8.5-10.1) L 03/13/18 07:05 Magnesium 1.6 mg/dL (1.8-2.4) L 03/13/18 07:05 Total Bilirubin 0.3 mg/dL (0.2-1.0) 03/12/18 11:25 AST 38 U/L (15-37) H 03/12/18 11:25 ALT 32 U/L (12-78) 03/12/18 11:25 Alkaline Phosphatase 67 U/L (46-116) 03/12/18 11:25 Ammonia < 10 umol/L (11-32) L 03/12/18 11:25 Troponin I < 0.02 ng/mL (0.00-0.06) 03/12/18 11:25 Total Protein 6.9 g/dL (6.4-8.2) 03/12/18 11:25 Albumin 3.3 g/dL (3.4-5.0) L 03/12/18 11:25 TSH 3.87 uIU/mL (0.358-3.74) H 03/12/18 11:25 Free T4 0.91 ng/dL (0.76-1.46) 03/12/18 11:25 Urine Color [place] (Yellow) 03/13/18 10:16 Urine Clarity Sl cloudy 03/13/18 10:16 Urine pH 7.0 (5-8) 03/13/18 10:16 Ur Specific [place] 1.010 (1.005-1.025) 03/13/18 10:16 Urine Protein Negative mg/dL (Negative) 03/13/18 10:16 Urine Ketones Negative mg/dL (Negative) 03/13/18 10:16 Urine Blood Large (Negative) H 03/13/18 10:16 Urine Nitrite Negative (Negative) 03/13/18 10:16 Urine Bilirubin Negative (Negative) 03/13/18 10:16 Urine Urobilinogen 0.2 EU/dL (Up TO 0.2) 03/13/18 10:16 Ur Leukocyte Esterase Negative (Negative) 03/13/18 10:16 Urine RBC >50 (0-2) H 03/13/18 10:16 Urine WBC 0-2 HPF (0-5) 03/13/18 10:16 Ur Epithelial Cells Few HPF (Negative) 03/13/18 10:16 Urine Crystals Negative HPF (Negative) 03/13/18 10:16 Urine Bacteria Rare HPF (Negative) 03/13/18 10:16 Urine Casts Negative LPF (Negative) 03/13/18 10:16 Urine Mucus Negative (Negative) 03/13/18 10:16 Ur Culture Indicated? No 03/13/18 10:16 Urine Glucose Negative mg/dL (Negative) 03/13/18 10:16 Urine Opiates Screen Negative (Negative) 03/13/18 10:00 Urine Methadone Screen Negative (Negative) 03/13/18 10:00 Ur Barbiturates Screen Negative (Negative) 03/13/18 10:00 Ur Tricyclics Screen Negative (Negative) 03/13/18 10:00 Ur Amphetamines Screen Negative (Negative) 03/13/18 10:00 U Benzodiazepines Scrn Negative (Negative) 03/13/18 10:00 Urine Cocaine Screen Negative (Negative) 03/13/18 10:00 Ur THC Screen Negative (Negative) 03/13/18 10:00 Ethyl Alcohol < 3.0 mg/dL (<3) 03/12/18 11:25 Path Cons Comment 03/12/18 11:46
[2018-03-13] MEDS: Gadoterate meglumine 20 ML VIAL IVP (13:15)
--- NOTE | 2018-03-13 13:30 | DI.MRI_ITS ---
SYMPTOMS/DIAGNOSIS: CONFUSION, SEIZURE MRI OF THE BRAIN: Pre and post contrast examination was performed. The study is severely compromised due to significant patient motion artifact. The diffusion weighted images show no evidence of an acute infarct. The ventricles are intact. The basilar cisterns are patent. There is no acute midline shift or mass effect. Following contrast administration, no enhancing lesions are appreciated. The pituitary gland appears grossly unremarkable. The temporal lobes appear symmetric. IMPRESSION: Severely limited examination due to significant patient motion artifact. No gross abnormality is identified. Followup examination should be considered when the patient is better able to hold still.
[2018-03-13] MEDS: Normal Saline Flush 10 ML SYR IVP (14:00)
--- NOTE | 2018-03-13 14:03 | PGE_ITS ---
Date of Service Date of service: 03/13/18 Time of Service: 14:02 Assessment and Plan (1) Seizures: Current visit: No Status: Acute EEG abnormal in ED. Keppra loaded in the ED. She was initially started on Keppra 1000 mg BID, increased to 1500 mg BID today, based on Neurology recommendations. MRI results from [facility] available, no evidence of anoxic brain injury. No improvement in mental status. Ativan ordered PRN for seizures. Monitor on telemetry. Repeat MRI and EEG. Neurology following. (2) Depression: Current visit: No Status: Chronic Continue home dose of Zoloft. (3) DVT prophylaxis: Current visit: No Status: Acute Subcutaneous lovenox. (4) Discharge planning issues: Current visit: No Status: Acute She is a FULL code. This case was discussed with Dr. Lucas who is in agreement. Subjective Interval history since last seen: [place] remains confused today. She is unable to answer questions appropriately. She cannot tell me how many children she has, she is not oriented to place or time. Nursing was concerned earlier today that she was continuously repeating the same phrase. Her is present. He is concerned about her confusion. He again reports that she was behaving like herself when she was discharged from [facility] 2 days ago, until they were at a gas station yesterday when she suddenly looked like she did not know where she was and was unable to communicate with him. He continues to deny any drug use. Her UDS was negative. No seizure activity reported over night. Exam Narrative Exam Narrative: General: Well nourished, overweight. alert but not oriented to place or time. Speech clear but does not give appropriate answers to questions. Appears confused/puzzled when trying to answer. Loses track of thought process while talking. Neurology: Pupils are equal, round and reactive to light, EOMI. Lips dry. Tongue protrudes midline, palate rises symmetrically. Not able to follow commands. HEENT: Normocephalic, atraumatic. Hearing intact, mucous membranes moist. Neck: supple, no JVD. Respiratory: respirations even and unlabored. Lung sounds clear to auscultation throughout. Cardiac: heart rate regular, no murmur, gallop or rubs. Abdomen: Normoactive bowel sounds, abdomen soft, nontender, nondistended, no masses appreciated. Extremities: no calf swelling or warmth, no edema, pedal pulses intact bilaterally. Objective Objective Clinical Data: Abnormal lab results 03/12/18 03/13/18 03/13/18 Range/Units 11:46 07:05 07:05 WBC 4.15 L (4.4-10.8) k/cumm RBC 3.95 L (4.00-5.20) m/cumm Hgb 10.2 L 8.9 L (12.0-15.5) g/dL Hct 34.1 L 29.7 L (36.0-46.0) % MCV 74.1 L 75.2 L (80-95) fL MCH 22.2 L 22.5 L (27.0-33.0) pg MCHC 29.9 L 30.0 L (32.0-36.0) g/dL RDW 18.5 H 18.0 H (11.7-14.6) % MPV 11.3 H (8.0-11.0) fL Creatinine 0.52 L (0.55-1.02) mg/dL Calcium 8.3 L (8.5-10.1) mg/dL Magnesium 1.6 L (1.8-2.4) mg/dL Urine Blood (Negative) Urine RBC (0-2) 03/13/18 Range/Units 10:16 WBC (4.4-10.8) k/cumm RBC (4.00-5.20) m/cumm Hgb (12.0-15.5) g/dL Hct (36.0-46.0) % MCV (80-95) fL MCH (27.0-33.0) pg MCHC (32.0-36.0) g/dL RDW (11.7-14.6) % MPV (8.0-11.0) fL Creatinine (0.55-1.02) mg/dL Calcium (8.5-10.1) mg/dL Magnesium (1.8-2.4) mg/dL Urine Blood Large H (Negative) Urine RBC >50 H (0-2) Vital Signs Temperature 37.2 C 03/13/18 11:35 Temperature Source Tympanic 03/13/18 11:35 Pulse 91 H 03/13/18 11:35 Pulse Rhythm Regular 03/13/18 08:00 Pulse 98 H 03/12/18 15:16 Respiratory Rate 18 03/13/18 11:35 Respiratory Effort Non-Labored 03/13/18 08:00 Respiratory Depth Normal 03/13/18 08:00 Respiratory Pattern Normal 03/13/18 08:00 Blood Pressure 131/79 03/13/18 11:35 Blood Pressure Mean 97 03/12/18 15:16 Pulse Oximetry 98 03/13/18 11:35 Oxygen Delivery Method Room Air 03/13/18 11:35 Oxygen Flow Rate 0 03/13/18 11:35 Pain Level 0 03/13/18 11:35 Comment 03/13/18 03:45 Intake & Output 03/12/18 03/13/18 03/13/18 23:59 11:59 23:59 Intake Total 1240 / 1240 1630 / 1630 240 / 240 Output Total 800 / 800 1250 / 1250 Balance 440 / 440 380 / 380 240 / 240 Weight 102.4 kg Intake: IV 1240 / 1240 1110 / 1110 Oral 520 / 520 240 / 240 Output: Urine 800 / 800 1250 / 1250 Other: Comment urine very bloody from patient's meses patient on menses Voiding Methods Toilet Toilet Laboratory Results WBC 4.15 k/cumm (4.4-10.8) L 03/13/18 07:05 RBC 3.95 m/cumm (4.00-5.20) L 03/13/18 07:05 Hgb 8.9 g/dL (12.0-15.5) L 03/13/18 07:05 Hct 29.7 % (36.0-46.0) L 03/13/18 07:05 MCV 75.2 fL (80-95) L 03/13/18 07:05 MCH 22.5 pg (27.0-33.0) L 03/13/18 07:05 MCHC 30.0 g/dL (32.0-36.0) L 03/13/18 07:05 RDW 18.0 % (11.7-14.6) H 03/13/18 07:05 Plt Count 211 x1000/uL (130-400) 03/13/18 07:05 MPV 10.7 fL (8.0-11.0) 03/13/18 07:05 Immature Gran % 0.2 03/13/18 07:05 Neutrophils % 41.3 03/13/18 07:05 Lymphocytes % 48.0 03/13/18 07:05 Monocytes % 5.5 03/13/18 07:05 Eosinophils % 4.8 03/13/18 07:05 Basophils % 0.2 03/13/18 07:05 Absolute Neutrophils 1.71 k/cumm (1.2-6.7) 03/13/18 07:05 Absolute Lymphocytes 1.99 k/cumm (1.2-3.4) 03/13/18 07:05 Absolute Monocytes 0.23 k/cumm (0.11-0.7) 03/13/18 07:05 Absolute Eosinophils 0.20 k/cumm (0.0-0.7) 03/13/18 07:05 Absolute Basophils 0.01 k/cumm (0.0-0.2) 03/13/18 07:05 Differential Comment Rbc morph reviewed 03/12/18 11:46 RBC Morphology See below 03/12/18 11:46 Polychromasia Present 03/12/18 11:46 Hypochromasia 3+ 03/12/18 11:46 Poikilocytosis 2+ 03/12/18 11:46 Anisocytosis 3+ 03/12/18 11:46 Microcytosis 3+ 03/12/18 11:46 Sodium 141 mmol/L (136-145) 03/13/18 07:05 Potassium 3.6 mmol/L (3.5-5.1) 03/13/18 07:05 Chloride 107 mmol/L (98-107) 03/13/18 07:05 Carbon Dioxide 26.1 mmol/L (21.0-32.0) 03/13/18 07:05 Anion Gap 7.9 mmol/L (3-11) 03/13/18 07:05 BUN 9 mg/dL (7-18) D 03/13/18 07:05 Creatinine 0.52 mg/dL (0.55-1.02) L 03/13/18 07:05 Estimated GFR/1.73 m2 >= 60.00 (mL/min/1.73m2) 03/13/18 07:05 Glucose 85 mg/dL (70-100) 03/13/18 07:05 Calcium 8.3 mg/dL (8.5-10.1) L 03/13/18 07:05 Magnesium 1.6 mg/dL (1.8-2.4) L 03/13/18 07:05 Total Bilirubin 0.3 mg/dL (0.2-1.0) 03/12/18 11:25 AST 38 U/L (15-37) H 03/12/18 11:25 ALT 32 U/L (12-78) 03/12/18 11:25 Alkaline Phosphatase 67 U/L (46-116) 03/12/18 11:25 Ammonia < 10 umol/L (11-32) L 03/12/18 11:25 Troponin I < 0.02 ng/mL (0.00-0.06) 03/12/18 11:25 Total Protein 6.9 g/dL (6.4-8.2) 03/12/18 11:25 Albumin 3.3 g/dL (3.4-5.0) L 03/12/18 11:25 TSH 3.87 uIU/mL (0.358-3.74) H 03/12/18 11:25 Free T4 0.91 ng/dL (0.76-1.46) 03/12/18 11:25 Urine Color [place] (Yellow) 03/13/18 10:16 Urine Clarity Sl cloudy 03/13/18 10:16 Urine pH 7.0 (5-8) 03/13/18 10:16 Ur Specific [place] 1.010 (1.005-1.025) 03/13/18 10:16 Urine Protein Negative mg/dL (Negative) 03/13/18 10:16 Urine Ketones Negative mg/dL (Negative) 03/13/18 10:16 Urine Blood Large (Negative) H 03/13/18 10:16 Urine Nitrite Negative (Negative) 03/13/18 10:16 Urine Bilirubin Negative (Negative) 03/13/18 10:16 Urine Urobilinogen 0.2 EU/dL (Up TO 0.2) 03/13/18 10:16 Ur Leukocyte Esterase Negative (Negative) 03/13/18 10:16 Urine RBC >50 (0-2) H 03/13/18 10:16 Urine WBC 0-2 HPF (0-5) 03/13/18 10:16 Ur Epithelial Cells Few HPF (Negative) 03/13/18 10:16 Urine Crystals Negative HPF (Negative) 03/13/18 10:16 Urine Bacteria Rare HPF (Negative) 03/13/18 10:16 Urine Casts Negative LPF (Negative) 03/13/18 10:16 Urine Mucus Negative (Negative) 03/13/18 10:16 Ur Culture Indicated? No 03/13/18 10:16 Urine Glucose Negative mg/dL (Negative) 03/13/18 10:16 Urine Opiates Screen Negative (Negative) 03/13/18 10:00 Urine Methadone Screen Negative (Negative) 03/13/18 10:00 Ur Barbiturates Screen Negative (Negative) 03/13/18 10:00 Ur Tricyclics Screen Negative (Negative) 03/13/18 10:00 Ur Amphetamines Screen Negative (Negative) 03/13/18 10:00 U Benzodiazepines Scrn Negative (Negative) 03/13/18 10:00 Urine Cocaine Screen Negative (Negative) 03/13/18 10:00 Ur THC Screen Negative (Negative) 03/13/18 10:00 Ethyl Alcohol < 3.0 mg/dL (<3) 03/12/18 11:25 Path Cons Comment 03/12/18 11:46
[2018-03-13 18:10] LABS: Clarity Clear; Xanthochromia Absent
[2018-03-13 18:12] LABS: Tube # 4
[2018-03-13 18:24] LABS: RBC 0 /mm3 (0-5); WBC 2 /mm3 (0-5)
[2018-03-13 18:27] LABS: Glucose (CSF) 60 mg/dL (40-70); Total Protein (CSF) 24 mg/dL (15-45)
[2018-03-13] MEDS: Magnesium Chloride 64 MG TABCR PO (19:47)
[2018-03-13] MEDS: traZODone 100 MG TAB PO (21:30)
[2018-03-14] VITALS (8 sets, daily range): BP systolic 108–143; BP diastolic 72–87; PULSE 71–140; RESP 18–20; TEMP 36.7–37.1; O2SAT 96–100
--- NOTE | 2018-03-14 00:58 | NUR.NOTE ---
Nursing Note: 7P to 7A shift: Pt received on bed fully awake and responsed to verbal command with rambling speech but comprehensible. Pt is more alert and oriented to person and place. No seizure activity noted until this time. Ambulates to bathroom with just supervision x 2. Temp was 37.8 and tylenol given. Able to communicate with on the phone. Denied of pain. Has menstrual period, and passed blood clots once Seizure precautions observed. Call lights within reach.
[2018-03-14] MEDS: Normal Saline 1,000 ML 100 ML IV ×2 (01:53→12:23)
[2018-03-14 07:17] LABS: Abs Immature Grans 0.01 k/cumm (0.0-0.09); Absolute Basophil Count 0.02 k/cumm (0.0-0.2); Absolute Eosinophil Count 0.14 k/cumm (0.0-0.7); Absolute Lymphocyte Count 2.32 k/cumm (1.2-3.4); Absolute Monocyte Count 0.24 k/cumm (0.11-0.7); Absolute Neutrophil Count 1.43 k/cumm (1.2-6.7); Anion Gap 11.2 mmol/L (3-11); BUN 8 mg/dL (7-18); Basophils % 0.5; CO2 23.8 mmol/L (21.0-32.0); CREATININE 0.57 mg/dL (0.55-1.02); Calcium 8.6 mg/dL (8.5-10.1); Chloride 108 mmol/L (98-107); Eosinophils % 3.4; Glucose 85 mg/dL (70-100); HCT 30.2 % (36.0-46.0); Immature Grans % 0.2; Lymphocytes % 55.8; Mean Corp. HGB Concentration 29.8 g/dL (32.0-36.0); Mean Corpuscular Hemoglobin 22.6 pg (27.0-33.0); Mean Corpuscular Volume 75.9 fL (80-95); Mean Platelet Volume 11.1 fL (8.0-11.0); Monocytes % 5.8; Neutrophils % 34.3; Platelet Count 204 x1000/uL (130-400); Potassium 3.5 mmol/L (3.5-5.1); RBC 3.98 m/cumm (4.00-5.20); RBC Distribution Width 18.5 % (11.7-14.6); Sodium 143 mmol/L (136-145); White Blood Cell Count 4.16 k/cumm (4.4-10.8)
[2018-03-14] MEDS: Potassium Chloride 20 MEQ TABCR 40 MEQ PO (08:10)
[2018-03-14] MEDS: Sertraline 50 MG TAB 100 MG PO (08:10)
[2018-03-14] MEDS: Magnesium Chloride 64 MG TABCR PO ×2 (08:11→19:37)
[2018-03-14 10:10] LABS: Magnesium 1.6 mg/dL (1.8-2.4)
[2018-03-14] MEDS: THIAMINE 500 MG in Normal Saline 100 ML 200 MG IVPB ×2 (10:10→20:09)
--- NOTE | 2018-03-14 10:48 | PDOC.CMPRO ---
- If Service Date Differs Date of service: 03/14/18 Time of Service: 10:48 Care Management Progress Note S/O: Jose Guadalupe is lying in bed with her , Elian, at bedside. She is engaged in conversation and much more talkative than yesterday. Jose Guadalupe is better able to answer CM's questions but is not back to baseline according to Elian. Jose Guadalupe is able to answer that her children's names are Shoaib and Faiza, but when asked by Elian what his 'hand is', she struggles and finally responds, 'Shoaib'. Jose Guadalupe tells CM that she is tired of talking and sounding like [place]. Her speech is clearer than yesterday but remains delayed and is far from baseline according to Elian. Jose Guadalupe will have an EEG today and continues to receive IV keppra and fluids. Neurology is continuing to follow her. A: 28 year old female admitted for seizures. P: Jose Guadalupe will dishcarge home when medically ready per MD. Anticipate patient will discharge with no services and follow up with her PCP. Jose Guadalupe will transport via private vehicle with her , Elian. will continue to offer support to patient, family, and care team regarding discharge planning and disposition.
--- NOTE | 2018-03-14 13:17 | W.PM.PROGNOT ---
Date of Service Date of service: 03/14/18 Time of Service: 13:17 Assessment and Plan (1) Focal epilepsy with impairment of consciousness: Current visit: No Status: Acute (2) Altered mental status: Current visit: Yes Status: Acute Ms. Rosado is a 28 year-old, right-handed woman with a PMH of depression and ADHD who was recently admitted in status epilepticus (03/05/18) thought to be secondary to Adderall OD (but this doesn't seem likely anymore), who now presents s/p complex partial seizure (03/12/18) with an abnormal EEG showing independent bilateral temporal spikes. She continues to remain altered. EEG re-started today with results below. No seizures seen but is having PLED-like changes which in the spectrum of seizure/status. CSF studies are still pending. EEG prelim report: Normal background rhythm with frequent L >R temporal spike-waves. Also has frequent bursts of bitemporal and left temporal theta associated with a few spikes - almost PLED-like. Plan is to give 1500mg IV Fosphenytoin now. Continue EEG overnight. Continue Keppra 1500mg BID for now. I think ok to d/c IV thiamine. Subjective Interval history since last seen: No change overnight. She remains confused. No seizures. She underwent an LP which is unremarkable thus far: W2/R0, G60, P24. Parneoplastic panel is pending. Previous normal labs include B12, TSH, and CRP, CBC, and CMP. She has been started on IV thiamine. She has had a normal brain MRI x2. We have restarted EEG. Today her provides a history of prior bipolar disorder. She was treated with lithium, Seroquel, Lamictal in the past. Prior to leaving [place] she was on a combination of Adderall, Zoloft, Wellbutrin, clonazepam, and trazodone. Interestingly, she restarted her antidepressants approximately 2 weeks ago. He does recall manic episodes in the past where she would not sleep for several days, would be somewhat anxious, and cleaned the house. He does think that her current symptoms are similar to her manic episodes in the past. Exam Narrative Exam Narrative: Physical Exam: Constitutional: Patient of apparent stated age, well nourished, well developed, no acute distress Neuro: MS/Language/Speech: Alert, oriented to self only, clear language (fluency and comprehension) at times; often confused and answers questions with bizarre statements, laughs intermittently; no dysarthria Gait: Deferred Objective Objective Clinical Data: Abnormal lab results 03/14/18 03/14/18 Range/Units 06:40 06:40 WBC 4.16 L (4.4-10.8) k/cumm RBC 3.98 L (4.00-5.20) m/cumm Hgb 9.0 L (12.0-15.5) g/dL Hct 30.2 L (36.0-46.0) % MCV 75.9 L (80-95) fL MCH 22.6 L (27.0-33.0) pg MCHC 29.8 L (32.0-36.0) g/dL RDW 18.5 H (11.7-14.6) % MPV 11.1 H (8.0-11.0) fL Chloride 108 H (98-107) mmol/L Anion Gap 11.2 H (3-11) mmol/L Magnesium 1.6 L (1.8-2.4) mg/dL Vital Signs Temperature 37.0 C 03/14/18 07:50 Temperature Source Tympanic 03/14/18 07:50 Pulse 87 03/14/18 07:50 Pulse Rhythm Regular 03/14/18 07:50 Pulse 98 H 03/12/18 15:16 Respiratory Rate 20 03/14/18 07:50 Respiratory Effort Non-Labored 03/14/18 07:50 Respiratory Depth Normal 03/14/18 07:50 Respiratory Pattern Normal 03/14/18 07:50 Blood Pressure 143/86 H 03/14/18 07:50 Blood Pressure Mean 97 03/12/18 15:16 Pulse Oximetry 98 03/14/18 07:50 Oxygen Delivery Method Room Air 03/14/18 07:50 Oxygen Flow Rate 0 03/14/18 07:50 Pain Level 0 03/14/18 07:50 Comment 03/13/18 03:45 Intake & Output 03/13/18 03/14/18 03/14/18 23:59 11:59 23:59 Intake Total 1591.667 / 3221.667 2138.334 / 2138.334 0 / 2138.334 Output Total 1600 / 2850 1450 / 1450 Balance -8.333 / 371.667 688.334 / 688.334 0 / 688.334 Intake: IV 1351.667 / 2461.667 1658.334 / 1658.334 0 / 1658.334 Oral 240 / 760 480 / 480 Output: Urine 1600 / 2850 1450 / 1450 Other: Urine Color Yellow [place] Urine Appearance Clear Clear Urine Odor Normal Strong Comment has her menstrual period. Having menses Voiding Methods Toilet Laboratory Results WBC 4.16 k/cumm (4.4-10.8) L 03/14/18 06:40 RBC 3.98 m/cumm (4.00-5.20) L 03/14/18 06:40 Hgb 9.0 g/dL (12.0-15.5) L 03/14/18 06:40 Hct 30.2 % (36.0-46.0) L 03/14/18 06:40 MCV 75.9 fL (80-95) L 03/14/18 06:40 MCH 22.6 pg (27.0-33.0) L 03/14/18 06:40 MCHC 29.8 g/dL (32.0-36.0) L 03/14/18 06:40 RDW 18.5 % (11.7-14.6) H 03/14/18 06:40 Plt Count 204 x1000/uL (130-400) 03/14/18 06:40 MPV 11.1 fL (8.0-11.0) H 03/14/18 06:40 Immature Gran % 0.2 03/14/18 06:40 Neutrophils % 34.3 03/14/18 06:40 Lymphocytes % 55.8 03/14/18 06:40 Monocytes % 5.8 03/14/18 06:40 Eosinophils % 3.4 03/14/18 06:40 Basophils % 0.5 03/14/18 06:40 Absolute Neutrophils 1.43 k/cumm (1.2-6.7) 03/14/18 06:40 Absolute Lymphocytes 2.32 k/cumm (1.2-3.4) 03/14/18 06:40 Absolute Monocytes 0.24 k/cumm (0.11-0.7) 03/14/18 06:40 Absolute Eosinophils 0.14 k/cumm (0.0-0.7) 03/14/18 06:40 Absolute Basophils 0.02 k/cumm (0.0-0.2) 03/14/18 06:40 Differential Comment Rbc morph reviewed 03/12/18 11:46 RBC Morphology See below 03/12/18 11:46 Polychromasia Present 03/12/18 11:46 Hypochromasia 3+ 03/12/18 11:46 Xanthochromia Absent 03/13/18 17:45 Poikilocytosis 2+ 03/12/18 11:46 Anisocytosis 3+ 03/12/18 11:46 Microcytosis 3+ 03/12/18 11:46 Sodium 143 mmol/L (136-145) 03/14/18 06:40 Potassium 3.5 mmol/L (3.5-5.1) 03/14/18 06:40 Chloride 108 mmol/L (98-107) H 03/14/18 06:40 Carbon Dioxide 23.8 mmol/L (21.0-32.0) 03/14/18 06:40 Anion Gap 11.2 mmol/L (3-11) H 03/14/18 06:40 BUN 8 mg/dL (7-18) 03/14/18 06:40 Creatinine 0.57 mg/dL (0.55-1.02) 03/14/18 06:40 Estimated GFR/1.73 m2 >= 60.00 (mL/min/1.73m2) 03/14/18 06:40 Glucose 85 mg/dL (70-100) 03/14/18 06:40 Calcium 8.6 mg/dL (8.5-10.1) 03/14/18 06:40 Magnesium 1.6 mg/dL (1.8-2.4) L 03/14/18 06:40 Total Bilirubin 0.3 mg/dL (0.2-1.0) 03/12/18 11:25 AST 38 U/L (15-37) H 03/12/18 11:25 ALT 32 U/L (12-78) 03/12/18 11:25 Alkaline Phosphatase 67 U/L (46-116) 03/12/18 11:25 Ammonia < 10 umol/L (11-32) L 03/12/18 11:25 Troponin I < 0.02 ng/mL (0.00-0.06) 03/12/18 11:25 Total Protein 6.9 g/dL (6.4-8.2) 03/12/18 11:25 Albumin 3.3 g/dL (3.4-5.0) L 03/12/18 11:25 TSH 3.87 uIU/mL (0.358-3.74) H 03/12/18 11:25 Free T4 0.91 ng/dL (0.76-1.46) 03/12/18 11:25 Urine Color [place] (Yellow) 03/13/18 10:16 Urine Clarity Sl cloudy 03/13/18 10:16 Urine pH 7.0 (5-8) 03/13/18 10:16 Ur Specific [place] 1.010 (1.005-1.025) 03/13/18 10:16 Urine Protein Negative mg/dL (Negative) 03/13/18 10:16 Urine Ketones Negative mg/dL (Negative) 03/13/18 10:16 Urine Blood Large (Negative) H 03/13/18 10:16 Urine Nitrite Negative (Negative) 03/13/18 10:16 Urine Bilirubin Negative (Negative) 03/13/18 10:16 Urine Urobilinogen 0.2 EU/dL (Up TO 0.2) 03/13/18 10:16 Ur Leukocyte Esterase Negative (Negative) 03/13/18 10:16 Urine RBC >50 (0-2) H 03/13/18 10:16 Urine WBC 0-2 HPF (0-5) 03/13/18 10:16 Ur Epithelial Cells Few HPF (Negative) 03/13/18 10:16 Urine Crystals Negative HPF (Negative) 03/13/18 10:16 Urine Bacteria Rare HPF (Negative) 03/13/18 10:16 Urine Casts Negative LPF (Negative) 03/13/18 10:16 Urine Mucus Negative (Negative) 03/13/18 10:16 Ur Culture Indicated? No 03/13/18 10:16 Urine Glucose Negative mg/dL (Negative) 03/13/18 10:16 CSF Tube Number 4 03/13/18 17:45 CSF Color Colorless 03/13/18 17:45 CSF Clarity Clear 03/13/18 17:45 CSF WBC 2 /mm3 (0-5) 03/13/18 17:45 CSF RBC 0 /mm3 (0-5) 03/13/18 17:45 CSF Diff Comment 03/13/18 17:45 CSF Glucose 60 mg/dL (40-70) 03/13/18 17:45 CSF Total Protein 24 mg/dL (15-45) 03/13/18 17:45 Urine Opiates Screen Negative (Negative) 03/13/18 10:00 Urine Methadone Screen Negative (Negative) 03/13/18 10:00 Ur Barbiturates Screen Negative (Negative) 03/13/18 10:00 Ur Tricyclics Screen Negative (Negative) 03/13/18 10:00 Ur Amphetamines Screen Negative (Negative) 03/13/18 10:00 U Benzodiazepines Scrn Negative (Negative) 03/13/18 10:00 Urine Cocaine Screen Negative (Negative) 03/13/18 10:00 Ur THC Screen Negative (Negative) 03/13/18 10:00 Ethyl Alcohol < 3.0 mg/dL (<3) 03/12/18 11:25 Resp Virus Spec Desc Cancelled 03/13/18 13:40 Resp Virus Reprt Status Cancelled 03/13/18 13:40 Resp Viral Panel Intrp Cancelled 03/13/18 13:40 Path Cons Comment 03/12/18 11:46
--- NOTE | 2018-03-14 15:02 | PHARADMIT ---
Admission Pharmacy Clinical Review Seizure, (s/p Adderall overdose and transfer to [facility]) Code Status Full Code Current Weight Wgt-102.4 kg Renally Cleared and Narrow Therapeutic Index Meds CrCl~ 86.6 mL/min Meds-OK QTc Value / Action Taken QTc-416 na BP Control, Fever BP-143.56 Electrolytes reviewed Na-143 K+3.5 Mag-1.6 DVT Prophylaxis Lovenox Opiate Usage / Scheduled Bowel Regimen Ordered No Yes Plt/SCr for Heparin / Enoxaparin Plts-204 SCr-0.57 INR for Warfarin na H/H stable, WBC/Bands H&H- 9.0/30.2 WBC- 4.16 Antibiotic appropriateness none Cultures and Sensitivities none Surgical ABX d/c within 24 hr na DM control / Insulin Dosing BG- 85 Heart Failure (Check EF%) (YOMAIRA's, B-Block, Diuretics) No meds IV to PO Switch No Home Meds Reviewed Yes Home Meds Not Ordered Adderall, Combivent inh, Setralin Comments Patient returns after discharge from [facility] for Adderall overdose induced seizures. Urine drug screen negative. Neurology started High dose Thiamine therapy
--- NOTE | 2018-03-14 15:05 | PGE_ITS ---
Addendum entered and electronically signed by Zara Rutherford NP 03/14/18 17:41: EEG reviewed by Neurology and found to be abnormal. Dilantin added. Plan to assess dilantin level in the morning. EEG overnight. Neurology to review EEG in the morning. Hold on Seroquel trial, plan to continue home dose of zoloft and trazodone. Neurology to continue following. Original Note: Date of Service Date of service: 03/14/18 Time of Service: 15:02 Assessment and Plan (1) Seizures: Current visit: No Status: Acute Repeat EEG pending. She was initially started on Keppra 1000 mg BID, increased to 1500 mg BID yesterday, based on Neurology recommendations. No seizure activity. MRI normal x2. Mental status remains altered. Continue high dose thiamine IV. Ativan ordered PRN for seizures. LP results did not appear infectious, continue to monitor LP results. Monitor on telemetry. Neurology following, EEG pending. (2) Depression: Current visit: No Status: Chronic With history of bipolar disorder per report. Hold zoloft and trazodone. Trial Seroquel at HS. (3) DVT prophylaxis: Current visit: No Status: Acute Subcutaneous lovenox. (4) Discharge planning issues: Current visit: No Status: Acute She is a FULL code. This case was discussed with Dr. Lucas who is in agreement. Subjective Interval history since last seen: [place] remains confused. She is more alert today. She answers some questions, she can tell me her kids names today, she spells them without me asking. She is tearful because she wants to go home. Her is present. She continues to look to him for answers to questions. He feels that she is doing better today. She did not sleep last night. Her reported to Neurology that the patient has a history of Bipolar Disorder and has been on treatment for it in the past. He reports that her current behavior resembles manic episodes in the past. Exam Narrative Exam Narrative: General: Well nourished, overweight. alert, oriented to self but not oriented to place or time. Speech clear. Answers some questions appropriately. Appears confused/puzzled when trying to answer. Loses track of thought process while talking. Neurology: Pupils are equal, round and reactive to light, EOMI. Tongue protrudes midline, palate rises symmetrically. Not able to follow commands. HEENT: Normocephalic, atraumatic. Hearing intact, mucous membranes moist. Neck: supple, no JVD. Respiratory: respirations even and unlabored. Lung sounds clear to auscultation throughout. Cardiac: heart rate regular, no murmur, gallop or rubs. Abdomen: Normoactive bowel sounds, abdomen soft, nontender, nondistended, no masses appreciated. Extremities: no calf swelling or warmth, no edema, pedal pulses intact bilaterally. Objective Objective Clinical Data: Abnormal lab results 03/14/18 03/14/18 Range/Units 06:40 06:40 WBC 4.16 L (4.4-10.8) k/cumm RBC 3.98 L (4.00-5.20) m/cumm Hgb 9.0 L (12.0-15.5) g/dL Hct 30.2 L (36.0-46.0) % MCV 75.9 L (80-95) fL MCH 22.6 L (27.0-33.0) pg MCHC 29.8 L (32.0-36.0) g/dL RDW 18.5 H (11.7-14.6) % MPV 11.1 H (8.0-11.0) fL Chloride 108 H (98-107) mmol/L Anion Gap 11.2 H (3-11) mmol/L Magnesium 1.6 L (1.8-2.4) mg/dL Vital Signs Temperature 37.0 C 03/14/18 07:50 Temperature Source Tympanic 03/14/18 07:50 Pulse 87 03/14/18 07:50 Pulse Rhythm Regular 03/14/18 07:50 Pulse 98 H 03/12/18 15:16 Respiratory Rate 20 03/14/18 07:50 Respiratory Effort Non-Labored 03/14/18 07:50 Respiratory Depth Normal 03/14/18 07:50 Respiratory Pattern Normal 03/14/18 07:50 Blood Pressure 143/86 H 03/14/18 07:50 Blood Pressure Mean 97 03/12/18 15:16 Pulse Oximetry 98 03/14/18 07:50 Oxygen Delivery Method Room Air 03/14/18 07:50 Oxygen Flow Rate 0 03/14/18 07:50 Pain Level 0 03/14/18 07:50 Comment 03/13/18 03:45 Intake & Output 03/13/18 03/14/18 03/14/18 23:59 11:59 23:59 Intake Total 1591.667 / 3221.667 2243.334 / 2243.334 0 / 2243.334 Output Total 1600 / 2850 1450 / 1450 Balance -8.333 / 371.667 793.334 / 793.334 0 / 793.334 Intake: IV 1351.667 / 2461.667 1763.334 / 1763.334 0 / 1763.334 Oral 240 / 760 480 / 480 Output: Urine 1600 / 2850 1450 / 1450 Other: Urine Color Yellow [place] Urine Appearance Clear Clear Urine Odor Normal Strong Comment has her menstrual period. Having menses Voiding Methods Toilet Laboratory Results WBC 4.16 k/cumm (4.4-10.8) L 03/14/18 06:40 RBC 3.98 m/cumm (4.00-5.20) L 03/14/18 06:40 Hgb 9.0 g/dL (12.0-15.5) L 03/14/18 06:40 Hct 30.2 % (36.0-46.0) L 03/14/18 06:40 MCV 75.9 fL (80-95) L 03/14/18 06:40 MCH 22.6 pg (27.0-33.0) L 03/14/18 06:40 MCHC 29.8 g/dL (32.0-36.0) L 03/14/18 06:40 RDW 18.5 % (11.7-14.6) H 03/14/18 06:40 Plt Count 204 x1000/uL (130-400) 03/14/18 06:40 MPV 11.1 fL (8.0-11.0) H 03/14/18 06:40 Immature Gran % 0.2 03/14/18 06:40 Neutrophils % 34.3 03/14/18 06:40 Lymphocytes % 55.8 03/14/18 06:40 Monocytes % 5.8 03/14/18 06:40 Eosinophils % 3.4 03/14/18 06:40 Basophils % 0.5 03/14/18 06:40 Absolute Neutrophils 1.43 k/cumm (1.2-6.7) 03/14/18 06:40 Absolute Lymphocytes 2.32 k/cumm (1.2-3.4) 03/14/18 06:40 Absolute Monocytes 0.24 k/cumm (0.11-0.7) 03/14/18 06:40 Absolute Eosinophils 0.14 k/cumm (0.0-0.7) 03/14/18 06:40 Absolute Basophils 0.02 k/cumm (0.0-0.2) 03/14/18 06:40 Differential Comment Rbc morph reviewed 03/12/18 11:46 RBC Morphology See below 03/12/18 11:46 Polychromasia Present 03/12/18 11:46 Hypochromasia 3+ 03/12/18 11:46 Xanthochromia Absent 03/13/18 17:45 Poikilocytosis 2+ 03/12/18 11:46 Anisocytosis 3+ 03/12/18 11:46 Microcytosis 3+ 03/12/18 11:46 Sodium 143 mmol/L (136-145) 03/14/18 06:40 Potassium 3.5 mmol/L (3.5-5.1) 03/14/18 06:40 Chloride 108 mmol/L (98-107) H 03/14/18 06:40 Carbon Dioxide 23.8 mmol/L (21.0-32.0) 03/14/18 06:40 Anion Gap 11.2 mmol/L (3-11) H 03/14/18 06:40 BUN 8 mg/dL (7-18) 03/14/18 06:40 Creatinine 0.57 mg/dL (0.55-1.02) 03/14/18 06:40 Estimated GFR/1.73 m2 >= 60.00 (mL/min/1.73m2) 03/14/18 06:40 Glucose 85 mg/dL (70-100) 03/14/18 06:40 Calcium 8.6 mg/dL (8.5-10.1) 03/14/18 06:40 Magnesium 1.6 mg/dL (1.8-2.4) L 03/14/18 06:40 Total Bilirubin 0.3 mg/dL (0.2-1.0) 03/12/18 11:25 AST 38 U/L (15-37) H 03/12/18 11:25 ALT 32 U/L (12-78) 03/12/18 11:25 Alkaline Phosphatase 67 U/L (46-116) 03/12/18 11:25 Ammonia < 10 umol/L (11-32) L 03/12/18 11:25 Troponin I < 0.02 ng/mL (0.00-0.06) 03/12/18 11:25 Total Protein 6.9 g/dL (6.4-8.2) 03/12/18 11:25 Albumin 3.3 g/dL (3.4-5.0) L 03/12/18 11:25 TSH 3.87 uIU/mL (0.358-3.74) H 03/12/18 11:25 Free T4 0.91 ng/dL (0.76-1.46) 03/12/18 11:25 Urine Color [place] (Yellow) 03/13/18 10:16 Urine Clarity Sl cloudy 03/13/18 10:16 Urine pH 7.0 (5-8) 03/13/18 10:16 Ur Specific [place] 1.010 (1.005-1.025) 03/13/18 10:16 Urine Protein Negative mg/dL (Negative) 03/13/18 10:16 Urine Ketones Negative mg/dL (Negative) 03/13/18 10:16 Urine Blood Large (Negative) H 03/13/18 10:16 Urine Nitrite Negative (Negative) 03/13/18 10:16 Urine Bilirubin Negative (Negative) 03/13/18 10:16 Urine Urobilinogen 0.2 EU/dL (Up TO 0.2) 03/13/18 10:16 Ur Leukocyte Esterase Negative (Negative) 03/13/18 10:16 Urine RBC >50 (0-2) H 03/13/18 10:16 Urine WBC 0-2 HPF (0-5) 03/13/18 10:16 Ur Epithelial Cells Few HPF (Negative) 03/13/18 10:16 Urine Crystals Negative HPF (Negative) 03/13/18 10:16 Urine Bacteria Rare HPF (Negative) 03/13/18 10:16 Urine Casts Negative LPF (Negative) 03/13/18 10:16 Urine Mucus Negative (Negative) 03/13/18 10:16 Ur Culture Indicated? No 03/13/18 10:16 Urine Glucose Negative mg/dL (Negative) 03/13/18 10:16 CSF Tube Number 4 03/13/18 17:45 CSF Color Colorless 03/13/18 17:45 CSF Clarity Clear 03/13/18 17:45 CSF WBC 2 /mm3 (0-5) 03/13/18 17:45 CSF RBC 0 /mm3 (0-5) 03/13/18 17:45 CSF Diff Comment 03/13/18 17:45 CSF Glucose 60 mg/dL (40-70) 03/13/18 17:45 CSF Total Protein 24 mg/dL (15-45) 03/13/18 17:45 Urine Opiates Screen Negative (Negative) 03/13/18 10:00 Urine Methadone Screen Negative (Negative) 03/13/18 10:00 Ur Barbiturates Screen Negative (Negative) 03/13/18 10:00 Ur Tricyclics Screen Negative (Negative) 03/13/18 10:00 Ur Amphetamines Screen Negative (Negative) 03/13/18 10:00 U Benzodiazepines Scrn Negative (Negative) 03/13/18 10:00 Urine Cocaine Screen Negative (Negative) 03/13/18 10:00 Ur THC Screen Negative (Negative) 03/13/18 10:00 Ethyl Alcohol < 3.0 mg/dL (<3) 03/12/18 11:25 Resp Virus Spec Desc Cancelled 03/13/18 13:40 Resp Virus Reprt Status Cancelled 03/13/18 13:40 Resp Viral Panel Intrp Cancelled 03/13/18 13:40 Path Cons Comment 03/12/18 11:46
[2018-03-14] MEDS: Acetaminophen 325 MG TAB PO ×2 (16:23→23:31)
[2018-03-14] MEDS: Nicotine 14 MG/24 HR PATCH TD (18:27)
[2018-03-14] MEDS: Normal Saline Flush 10 ML SYR IVP ×2 (19:37→22:48)
[2018-03-14] MEDS: Enoxaparin 40 MG/0.4 ML SYR SC (19:37)
[2018-03-14] MEDS: Normal Saline 500 ML IV (20:10)
[2018-03-14] MEDS: MAGNESIUM SULFATE 1 GM/100 ML BAG IVPB (21:02)
[2018-03-14] MEDS: traZODone 100 MG TAB PO (23:23)
[2018-03-15 00:01] VITALS: BP 132/78; PULSE 116; RESP 20; TEMP 37; O2SAT 98
[2018-03-15] MEDS: Normal Saline Flush 10 ML SYR IVP ×2 (01:57→18:16)
[2018-03-15] MEDS: THIAMINE 500 MG in Normal Saline 100 ML 200 MG IVPB ×2 (01:58→08:45)
[2018-03-15 07:14] LABS: Abs Immature Grans 0.01 k/cumm (0.0-0.09); Absolute Basophil Count 0.02 k/cumm (0.0-0.2); Absolute Eosinophil Count 0.16 k/cumm (0.0-0.7); Absolute Lymphocyte Count 2.07 k/cumm (1.2-3.4); Absolute Monocyte Count 0.29 k/cumm (0.11-0.7); Absolute Neutrophil Count 1.66 k/cumm (1.2-6.7); Basophils % 0.5; Eosinophils % 3.8; HCT 31.4 % (36.0-46.0); HGB 9.4 g/dL (12.0-15.5); Immature Grans % 0.2; Lymphocytes % 49.2; Mean Corp. HGB Concentration 29.9 g/dL (32.0-36.0); Mean Corpuscular Hemoglobin 22.6 pg (27.0-33.0); Mean Corpuscular Volume 75.5 fL (80-95); Mean Platelet Volume 11.9 fL (8.0-11.0); Monocytes % 6.9; Neutrophils % 39.4; Platelet Count 256 x1000/uL (130-400); RBC 4.16 m/cumm (4.00-5.20); RBC Distribution Width 19.2 % (11.7-14.6); White Blood Cell Count 4.21 k/cumm (4.4-10.8)
[2018-03-15 07:24] VITALS: PULSE 114
[2018-03-15 07:30] LABS: PHENYTOIN (DILANTIN) 9.5 ug/mL (10.0-20.0)
[2018-03-15 07:33] LABS: Anion Gap 11.3 mmol/L (3-11); BUN 12 mg/dL (7-18); CO2 23.7 mmol/L (21.0-32.0); CREATININE 0.65 mg/dL (0.55-1.02); Calcium 8.8 mg/dL (8.5-10.1); Chloride 107 mmol/L (98-107); Glucose 82 mg/dL (70-100); Magnesium 1.9 mg/dL (1.8-2.4); Potassium 3.7 mmol/L (3.5-5.1); Sodium 142 mmol/L (136-145)
[2018-03-15 07:40] VITALS: BP 111/68; PULSE 112; RESP 19; TEMP 36.7; O2SAT 98
[2018-03-15] MEDS: Magnesium Chloride 64 MG TABCR PO ×2 (07:41→19:28)
[2018-03-15] MEDS: Sertraline 50 MG TAB 100 MG PO (07:42)
[2018-03-15] MEDS: Potassium Chloride 20 MEQ TABCR 40 MEQ PO (07:42)
--- NOTE | 2018-03-15 09:05 | PDOC.EEG_ITS ---
EEG: [facility] Department of Neurology INPATIENT EEG REPORT Date of Recordin03/14/18 at 11:40:02 to 03/15/18 at 07:58:12 Interpreting Physician: Dr. Lakia De Anda Reason for study: Ms. Rosado is a 28 year-old woman with a recent episode of status epilepticus who recently had a complex partial seizure now with continued altered mental status. Current Medications: Active Medications Generic Name Dose Route Start Last Admin Trade Name Freq PRN Reason Stop Dose Admin Acetaminophen 0 mg 03/12/18 13:22 03/14/18 23:31 Tylenol PO 650 mg Q4H PRN PRN Administration Al Hydrox/Mg Hydrox/Simethicone 30 ml 03/12/18 13:22 Mylanta Liquid PO Q2H PRN PRN Albuterol/Ipratropium 3 ml 03/12/18 13:22 Duoneb Updraft UPD Q6H PRN PRN Dimethicone/Zinc Oxide 0 gm 03/12/18 13:22 Misael Protect Cream TP PRN PRN Docusate Sodium 100 mg 03/12/18 13:22 Colace PO TID PRN PRN Enoxaparin Sodium 40 mg 03/12/18 18:00 03/14/18 19:37 Lovenox SC 40 mg Q24H SHOSHANA Administration Levetiracetam 1,500 mg/ Sodium 115 mls @ 400 mls/hr 03/13/18 20:00 03/15/18 08:05 Chloride IVPB Infused Q12H SHOSHANA Infusion Thiamine HCl 500 mg/ Sodium 105 mls @ 200 mls/hr 03/14/18 10:00 03/15/18 08:45 Chloride IVPB 03/17/18 02:32 200 mls/hr Q8H SHOSHANA Administration Thiamine HCl 250 mg/ Sodium 102.5 mls @ 205 mls/hr 03/17/18 08:30 Chloride IVPB 03/21/18 08:59 DAILY SHOSHANA Sodium Chloride 500 mls @ 0 mls/hr 03/14/18 19:54 03/14/18 22:25 Saline 500ml Bag IV 0 mls/hr PRN PRN Infusion As Directed IV Miscellaneous Supplies 1 each 03/12/18 11:00 IV DIRECTED SHOSHANA Lorazepam 1 mg 03/12/18 17:54 Ativan Injection IVP Q2H PRN PRN Magnesium Chloride 64 mg 03/13/18 20:00 03/15/18 07:41 Slow-Mag PO 64 mg BID SHOSHANA Administration Magnesium Hydroxide 30 ml 03/12/18 13:22 Milk Of Magnesia PO DAILY PRN PRN Nicotine 14 mg 03/14/18 17:41 03/14/18 18:27 Nicoderm Cq TD 14 mg DAILY PRN PRN Administration Nicotine 10 mg 03/14/18 17:41 03/14/18 18:27 Nicotrol IH 10 mg Q2H PRN PRN Administration Polyethylene Glycol 17 gm 03/12/18 13:22 Miralax PO DAILY PRN PRN Constipation Potassium Chloride 40 meq 03/14/18 08:30 03/15/18 07:42 K-Dur PO 40 meq DAILY SHOSHANA Administration Sertraline HCl 100 mg 03/15/18 08:30 03/15/18 07:42 Zoloft PO 100 mg DAILY SHOSHANA Administration Sodium Chloride 0 ml 03/12/18 10:55 03/15/18 01:57 Saline Flush 10 Ml Syringe IVP 10 ml PRN PRN Administration Trazodone HCl 100 mg 03/14/18 22:00 03/14/18 23:23 Desyrel PO 100 mg HS SHOSHANA Administration ipratropium-albuterol 3 ml UPD Q6H PRN PRN #0 ml 03/08/18 dextroamphetamine-amphetamine [Adderall] 5 mg PO BID 03/12/18 sertraline [Zoloft] 100 mg PO DAILY 03/12/18 trazodone 100 mg PO .QHS 03/12/18 METHODS: A 21 channel digitized electroencephalogram was performed in the [facility] Med/Surg Floor or ICU. The 10/20 international system of electrode placement was used and bipolar and referential electrode montages were recorded. In addition to EEG the patient was monitored for EKG and lateral/vertical eye movements. Activation procedures of photic stimulation and hyperventilation were performed if applicable. Video was used during activation procedures and during events where applicable. The duration of the recording was ~20 hours. DESCRIPTION OF EEG: Waking background activity: During maximal wakefulness a 9-Hz posterior background rhythm was present which was well-modulated, symmetrical, reactive to eye opening, and of moderate voltage. Faster frequencies were present in the bilateral anterior head regions. There was a normal anterior-posterior voltage gradient. Drowsy and sleeping background activity: During drowsiness, there was attenuation of the posterior dominant background rhythm and vertex waves. Normal stage II and III sleep was present with symmetrical sleep spindles, K- complexes, and vertex waves with slowing of the background rhythm to delta/theta frequencies. REM sleep manifested by rapid lateral eye movements and faster background rhythms was recorded. Arousal was unremarkable. The recording was limited due to long periods of disconnection/significant artifact. Interictal abnormalities: During wakefulness, there were frequent bursts of high-amplitude, left temporal sharp theta activity intermixed with spike-waves (F7/T3) lasting 3-5 seconds. At times, the theta activity was generalized. These bursts seemed slightly less frequent and of shorter duration (1-3 seconds) after she was loaded with 1500mg IV phosphenytoin. The left temporal spike- waves occurred frequently and independently of the theta bursts. There were also rare, independent, right temporal spike-waves (T4/T6). During sleep, there was near continuous, arrhythmic, independent bitemporal sharp- and spike wave activity. Ictal findings: Please see interictal abnormalities above. Sleep seemed to be in a pattern consistent with partial electrical status epilepticus of sleep. Activating Procedures: Photic stimulation and hyperventilation were not performed. EKG: EKG revealed normal sinus rhythm. INTERPRETATION: This long-term EEG is abnormal due to: #1. Near continuous left >right temporal sharp and spike-wave activity during sleep consistent with partial electrical status epilepticus of sleep. #2. Bilateral independent temporal spike-wave discharges (F7/T3 and T4/T6). #3. Frequent bursts of generalized, left temporal predominant sharp theta activity intermixed with spike-waves during wakefulness. PRIOR EEG: -03/07/18: severe generalized slowing and abundant left temporal spike-wave discharges. -03/07/18-03/08/18 (inpatient overnight): severe generalized slowing with occasional periods of burst suppression; abundant left temporal spike-wave discharges occasionally rhythmic consistent with PLEDs. -03/12/18: Asleep only study with bilateral independent temporal spike-waves at T3 and F8. CLINICAL CORRELATION: The patients appears to be in a partial status epilepticus (left hemisphere), though the right hemisphere seems involved too. I recommend loading with 500mg IV phenobarbital now (already on Keppra and fosphenytoin). Continue EEG monitoring. Lakia De Anda MD
[2018-03-15 11:28] VITALS: BP 106/72; PULSE 82; RESP 18; TEMP 36.8; O2SAT 98
--- NOTE | 2018-03-15 11:41 | PDOC.CMPRO ---
- If Service Date Differs Date of service: 03/15/18 Time of Service: 11:41 Care Management Progress Note S/O: Jose Guadalupe is sitting on the edge of her bed with her at bedside when CM visits this morning. She is teary, as she has been informed that she will be transferring to [facility] for monitoring. CM attempted to engage Jose Guadalupe in conversation and she deferred to Elian, asking him to answer for her. Per neurology, Jose Guadalupe's EEG revealed an apparent partial status epilepticus (left hemisphere) with some involvement likely in the right hemisphere. CHRISTIAN, Jose Guadalupe, and Elian discussed the reasoning behind transferring to [facility] and they have indicated that they understand. Elian asked the CM for directions to [place] (as he will be driving down) and whether anyone could assist him with purchasing gas. CHRISTIAN spoke with Chaplain Kelly (who does not have any available) and left a message for [facility]. CM will continue to follow. A: 28 year old female admitted for seizures. P: Jose Guadalupe will transfer to [facility] when a bed becomes available. Jose Guadalupe will transport via EMS. CM will continue to offer support to patient, family, and care team regarding discharge planning and disposition.
--- NOTE | 2018-03-15 11:50 | CMPROGNOTE_ITS ---
- If Service Date Differs Date of service: 03/15/18 Time of Service: 11:41 Care Management Progress Note S/O: Jose Guadalupe is sitting on the edge of her bed with her at bedside when CM visits this morning. She is teary, as she has been informed that she will be transferring [place] [facility] [place]. CM attempted to engage Jose Guadalupe in conversation and she deferred to Elian, asking him to answer for her. Per neurology, Jose Guadalupe's EEG revealed an apparent partial status epilepticus (left hemisphere) with some involvement likely in the right hemisphere. CHRISTIAN, Jose Guadalupe, and Elian discussed the reasoning behind transferring to [facility] and they have indicated that they understand. Elian asked the CM for directions to [place] (as he will be driving down) and whether anyone could assist him with purchasing gas. CHRISTIAN spoke with Chaplain Kelly (who does not have any available) and left a message for [employer]. CM will continue to follow. A: 28 year old female admitted for seizures. P: Jose Guadalupe will transfer to [facility] when a bed becomes available. Jose Guadalupe will transport via EMS. CM will continue to offer support to patient, family, and care team regarding discharge planning and disposition.
--- NOTE | 2018-03-15 11:59 | CHAPLAIN ---
Selma was sitting in a chair sitting next to her when I visited. She smiled, but didn't actively participate in the conversation. She responded when I asked what her children's names are. Her said the response was an improvement from yesterday. She is waiting to be transferred to [facility] and her will follow if he can find a gas card. Assistant Portfolio Manager Joyce Parker in checking to see if [facility] has any gas cards. He said their kids are staying with relatives, but are aware that their mom is in the hospital.
[2018-03-15 12:10] LABS: IgG, CSF <1.60 mg/dl (0.48-5.86)
[2018-03-15 14:20] LABS: VDRL, CSF Negative (Negative)
[2018-03-15 15:46] VITALS: PULSE 85
[2018-03-15 16:02] VITALS: BP 104/89; PULSE 89; RESP 26; TEMP 36.2; O2SAT 97
--- NOTE | 2018-03-15 16:14 | PGE_ITS ---
Date of Service Date of service: 03/15/18 Time of Service: 12:40 Assessment and Plan (1) Seizures: Current visit: No Status: Acute Repeat EEG . Currently on Keppra, Phenytoin and phenobarbital based on Neurology recommendations. No seizure activity. MRI normal x2. Mental status remains altered. Ativan ordered PRN for seizures. LP results pending, continue to monitor LP results. Monitor on telemetry. Neurology following. She has been accepted to [facility] and will transfer when a bed becomes available, very likely tonight. (2) Depression: Current visit: No Status: Chronic With history of bipolar disorder per report. Continue zoloft and trazodone. (3) DVT prophylaxis: Current visit: No Status: Acute Subcutaneous lovenox. (4) Discharge planning issues: Current visit: No Status: Acute She is a FULL code. Transfer to [facility] as soon as a bed becomes available. This case was discussed with Dr. Lucas who is in agreement. Subjective Interval history since last seen: Selma Rosado is a 28 year old female with a history of ADHD, depression and chronic anemia s/p gastric bypass surgery (no history of seizures prior) who was recently admitted to [facility] for Adderall overdose (unintentional) with seizures (tonic clonic) at which time she was intubated, sedated on Propofol and continued to have epileptiform discharges on EEG. There was concern for anoxic brain injury. She was transferred to [facility] on 03/08/18 for higher level of care as [facility] does not have continuous EEG monitoring and does not have constant neurology coverage. At [facility], she had an MRI that which did not show evidence of diffuse anoxic brain injury. She was discharged with f/u with PCP and local neurology. Advised repeat EEG in 4-6 weeks. Patient not discharged on antiepileptic medication as it was felt that the seizures were related to the OD. She was discharged from [facility] on 03/11/18. The following day, 03/12/18, her reports that they were at a gas station when she had a change of mental status and was staring off, looking slowly around. She remained unresponsive for about 2 minutes without any obvious seizure activity. There was concern for ongoing seizure activity vs status epilepticus. She was given 0.5mg IV Ativan and 2gm IV Keppra after which she seemed to improve. She had a CT head which showed no acute changes. She had an EEG with showed occasional, independent, bilateral temporal spikes. She was admitted to the med/surg floor and started on Keppra 1000 BID. She remained confused without obvious seizure activity. She went on to have an MRI that was limited by motion artifact but no abnormalities noted. She was seen by Dr. De Anda, Neurology, who recommended increasing Keppra to 1500 BID and repeat EEG. Repeat EEG revealed independent bilateral temporal spikes. Phenytoin was added. High dose thiamine was added and discontinued after continuous EEG showed normal background rhythm with frequent L >R temporal spike-waves. Also has frequent bursts of bitemporal and left temporal theta associated with a few spikes - almost PLED-like (per Neuorlogy note). Phenobarb was added based on Dr. De Anda recommendations. The patient remains confused. LP results so far reveal: W2/R0, G60, P24. Parneoplastic panel is pending. Labs unremarkable except anemia, which has been chronic since gastric bypass surgery, the patient is also having menses. Dr. De Anda reviewed this case with Neurology at [facility]. The patient has been accepted at [facility] for higher level of care. She will likely transfer this evening. Exam Narrative Exam Narrative: General: Well nourished, overweight. alert, oriented to self but not oriented to place or time. Speech clear. Answers some questions inappropriately. Appears confused/puzzled when trying to answer. Loses track of thought process while talking. Neurology: Pupils are equal, round and reactive to light, EOMI. Tongue protrudes midline, palate rises symmetrically. Not able to follow commands. laughs intermittently. HEENT: Normocephalic, atraumatic. Hearing intact, mucous membranes moist. Neck: supple, no JVD. Respiratory: respirations even and unlabored. Lung sounds clear to auscultation throughout. Cardiac: heart rate regular, no murmur, gallop or rubs. Abdomen: Normoactive bowel sounds, abdomen soft, nontender, nondistended, no masses appreciated. Extremities: no calf swelling or warmth, no edema, pedal pulses intact bilaterally. Objective Objective Clinical Data: Abnormal lab results 03/15/18 03/15/18 03/15/18 Range/Units 06:30 06:30 06:30 WBC 4.21 L (4.4-10.8) k/cumm Hgb 9.4 L (12.0-15.5) g/dL Hct 31.4 L (36.0-46.0) % MCV 75.5 L (80-95) fL MCH 22.6 L (27.0-33.0) pg MCHC 29.9 L (32.0-36.0) g/dL RDW 19.2 H (11.7-14.6) % MPV 11.9 H (8.0-11.0) fL Anion Gap 11.3 H (3-11) mmol/L Phenytoin 9.5 L (10.0-20.0) ug/mL Vital Signs Temperature 36.8 C 03/15/18 11:28 Temperature Source Tympanic 03/15/18 11:28 Pulse 85 03/15/18 15:46 Pulse Rhythm Regular 03/15/18 07:45 Pulse 98 H 03/12/18 15:16 Respiratory Rate 18 03/15/18 11:28 Respiratory Effort Non-Labored 03/15/18 07:45 Respiratory Depth Normal 03/15/18 07:45 Respiratory Pattern Normal 03/15/18 07:45 Blood Pressure 106/72 03/15/18 11:28 Blood Pressure Mean 97 03/12/18 15:16 Pulse Oximetry 98 03/15/18 11:28 Oxygen Delivery Method Room Air 03/15/18 11:28 Oxygen Flow Rate 0 03/15/18 11:28 Pain Level 0 03/15/18 11:28 Comment 03/13/18 03:45 Intake & Output 03/14/18 03/15/18 03/15/18 23:59 11:59 23:59 Intake Total 1305.023 / 3548.357 1225 / 1465 240 / 1465 Output Total 3850 / 5300 1400 / 1400 Balance -2544.977 / -1751.643 -175 / 65 240 / 65 Intake: IV 955.023 / 2718.357 325 / 325 Oral 350 / 830 900 / 1140 240 / 1140 Output: Urine 3850 / 5300 1400 / 1400 Other: Urine Color Yellow [place] Urine Appearance Clear Clear Urine Odor Normal Strong Comment In hat from previous void. Voiding Methods Toilet Toilet Laboratory Results WBC 4.21 k/cumm (4.4-10.8) L 03/15/18 06:30 RBC 4.16 m/cumm (4.00-5.20) 03/15/18 06:30 Hgb 9.4 g/dL (12.0-15.5) L 03/15/18 06:30 Hct 31.4 % (36.0-46.0) L 03/15/18 06:30 MCV 75.5 fL (80-95) L 03/15/18 06:30 MCH 22.6 pg (27.0-33.0) L 03/15/18 06:30 MCHC 29.9 g/dL (32.0-36.0) L 03/15/18 06:30 RDW 19.2 % (11.7-14.6) H 03/15/18 06:30 Plt Count 256 x1000/uL (130-400) 03/15/18 06:30 MPV 11.9 fL (8.0-11.0) H 03/15/18 06:30 Immature Gran % 0.2 03/15/18 06:30 Neutrophils % 39.4 03/15/18 06:30 Lymphocytes % 49.2 03/15/18 06:30 Monocytes % 6.9 03/15/18 06:30 Eosinophils % 3.8 03/15/18 06:30 Basophils % 0.5 03/15/18 06:30 Absolute Neutrophils 1.66 k/cumm (1.2-6.7) 03/15/18 06:30 Absolute Lymphocytes 2.07 k/cumm (1.2-3.4) 03/15/18 06:30 Absolute Monocytes 0.29 k/cumm (0.11-0.7) 03/15/18 06:30 Absolute Eosinophils 0.16 k/cumm (0.0-0.7) 03/15/18 06:30 Absolute Basophils 0.02 k/cumm (0.0-0.2) 03/15/18 06:30 Differential Comment Rbc morph reviewed 03/12/18 11:46 RBC Morphology See below 03/12/18 11:46 Polychromasia Present 03/12/18 11:46 Hypochromasia 3+ 03/12/18 11:46 Xanthochromia Absent 03/13/18 17:45 Poikilocytosis 2+ 03/12/18 11:46 Anisocytosis 3+ 03/12/18 11:46 Microcytosis 3+ 03/12/18 11:46 Sodium 142 mmol/L (136-145) 03/15/18 06:30 Potassium 3.7 mmol/L (3.5-5.1) 03/15/18 06:30 Chloride 107 mmol/L (98-107) 03/15/18 06:30 Carbon Dioxide 23.7 mmol/L (21.0-32.0) 03/15/18 06:30 Anion Gap 11.3 mmol/L (3-11) H 03/15/18 06:30 BUN 12 mg/dL (7-18) 03/15/18 06:30 Creatinine 0.65 mg/dL (0.55-1.02) 03/15/18 06:30 Estimated GFR/1.73 m2 >= 60.00 (mL/min/1.73m2) 03/15/18 06:30 Glucose 82 mg/dL (70-100) 03/15/18 06:30 Calcium 8.8 mg/dL (8.5-10.1) 03/15/18 06:30 Magnesium 1.9 mg/dL (1.8-2.4) 03/15/18 06:30 Total Bilirubin 0.3 mg/dL (0.2-1.0) 03/12/18 11:25 AST 38 U/L (15-37) H 03/12/18 11:25 ALT 32 U/L (12-78) 03/12/18 11:25 Alkaline Phosphatase 67 U/L (46-116) 03/12/18 11:25 Ammonia < 10 umol/L (11-32) L 03/12/18 11:25 Troponin I < 0.02 ng/mL (0.00-0.06) 03/12/18 11:25 Total Protein 6.9 g/dL (6.4-8.2) 03/12/18 11:25 Albumin 3.3 g/dL (3.4-5.0) L 03/12/18 11:25 TSH 3.87 uIU/mL (0.358-3.74) H 03/12/18 11:25 Free T4 0.91 ng/dL (0.76-1.46) 03/12/18 11:25 Urine Color [place] (Yellow) 03/13/18 10:16 Urine Clarity Sl cloudy 03/13/18 10:16 Urine pH 7.0 (5-8) 03/13/18 10:16 Ur Specific [place] 1.010 (1.005-1.025) 03/13/18 10:16 Urine Protein Negative mg/dL (Negative) 03/13/18 10:16 Urine Ketones Negative mg/dL (Negative) 03/13/18 10:16 Urine Blood Large (Negative) H 03/13/18 10:16 Urine Nitrite Negative (Negative) 03/13/18 10:16 Urine Bilirubin Negative (Negative) 03/13/18 10:16 Urine Urobilinogen 0.2 EU/dL (Up TO 0.2) 03/13/18 10:16 Ur Leukocyte Esterase Negative (Negative) 03/13/18 10:16 Urine RBC >50 (0-2) H 03/13/18 10:16 Urine WBC 0-2 HPF (0-5) 03/13/18 10:16 Ur Epithelial Cells Few HPF (Negative) 03/13/18 10:16 Urine Crystals Negative HPF (Negative) 03/13/18 10:16 Urine Bacteria Rare HPF (Negative) 03/13/18 10:16 Urine Casts Negative LPF (Negative) 03/13/18 10:16 Urine Mucus Negative (Negative) 03/13/18 10:16 Ur Culture Indicated? No 03/13/18 10:16 Urine Glucose Negative mg/dL (Negative) 03/13/18 10:16 CSF Tube Number 4 03/13/18 17:45 CSF Color Colorless 03/13/18 17:45 CSF Clarity Clear 03/13/18 17:45 CSF WBC 2 /mm3 (0-5) 03/13/18 17:45 CSF RBC 0 /mm3 (0-5) 03/13/18 17:45 CSF Diff Comment 03/13/18 17:45 CSF Glucose 60 mg/dL (40-70) 03/13/18 17:45 CSF Total Protein 24 mg/dL (15-45) 03/13/18 17:45 Urine Opiates Screen Negative (Negative) 03/13/18 10:00 Urine Methadone Screen Negative (Negative) 03/13/18 10:00 Ur Barbiturates Screen Negative (Negative) 03/13/18 10:00 Phenytoin 9.5 ug/mL (10.0-20.0) L 03/15/18 06:30 Ur Tricyclics Screen Negative (Negative) 03/13/18 10:00 Ur Amphetamines Screen Negative (Negative) 03/13/18 10:00 U Benzodiazepines Scrn Negative (Negative) 03/13/18 10:00 Urine Cocaine Screen Negative (Negative) 03/13/18 10:00 Ur THC Screen Negative (Negative) 03/13/18 10:00 Ethyl Alcohol < 3.0 mg/dL (<3) 03/12/18 11:25 Resp Virus Spec Desc Cancelled 03/13/18 13:40 Resp Virus Reprt Status Cancelled 03/13/18 13:40 Resp Viral Panel Intrp Cancelled 03/13/18 13:40 Path Cons Comment 03/12/18 11:46
[2018-03-15 17:05] LABS: CSF Bands 0 bands; CSF Olig Bands Interpretation 0 bands (<4); Serum Bands 0 bands
[2018-03-15] MEDS: Enoxaparin 40 MG/0.4 ML SYR SC (18:17)
--- NOTE | 2018-03-15 20:22 | NUR.NOTE ---
Nursing Note: Nursing report called to Shavon at [facility] at 2021. All questions answered.
[2018-04-04 08:54] LABS: AGNA-1 Negative titer (<1:240); ANNA-1 Negative titer (<1:240); ANNA-2 Negative titer (<1:240); ANNA-3 Negative titer (<1:240); PCA-1 Negative titer (<1:240); PCA-2 Negative titer (<1:240); PCA-Tr Negative titer (<1:240); Striational (Striated Muscle) Negative titer (<1:120)
== END 2018-03-15 20:00 | disposition short-term general hospital (02) | DRG 101 ==
LOC: ER 14:10 → MS 16:14 → OBS 07-09 15:14
PROVIDERS: Nurse Practitioner; Admitting Provider Internal Medicine; Emergency Provider Physician Assistant; PCP Nurse Practitioner Family; Visit Provider Internal Medicine
DX: G40.101 Localization-related (focal) (partial) symptomatic epilepsy and epileptic syndromes with simple partial seizures, not intractable, with status epilepticus (principal); R41.82 Altered mental status, unspecified; R94.01 Abnormal electroencephalogram [EEG]; F32.9 Major depressive disorder, single episode, unspecified; F90.9 Attention-deficit hyperactivity disorder, unspecified type; F17.210 Nicotine dependence, cigarettes, uncomplicated
CPT/HCPCS: 36415; 36416; 70553; 80048; 80053; 80307; 82945; 82962; 87529; 89050; 89051; 93005; 95819; 95953; 96361; 96365; 96375; 99219; 99225; 99232; 99233; 99255; 99285; J1650; 70450; 71046; 80185; 80320; 81003; 81015; 82140; 82784; 83519; 83520; 83735; 83916; 84157; 84439; 84443; 84484; 85025; 86256; 86592; 87070; 87205; 93010; G0378; J1165; J1953; J2060; J2560; J3475

== ENCOUNTER 2018-05-20 09:01 | Emergency (ER) | payer MEDICAID, SELFPAY ==
[2018-05-20 09:04] VITALS: BP 123/69; PULSE 108; RESP 16; TEMP 36.6; O2SAT 100
--- NOTE | 2018-05-20 09:20 | W.ED.GENAD ---
Discharge Plan Disposition Patient Disposition: HOME Condition: Stable Discharge Details Chief Complaint: RespSymp Clinical Impression: Cough Primary Care Provider: Kelly Tam ED Provider: Iván Barrett Home Meds and New Rx's Prescriptions: New doxycycline hyclate 100 mg tablet 100 mg PO BID Qty: 14 RF: 0 No Action melatonin 5 mg tablet 10 mg PO HS PRNRF: 0 levetiracetam 750 mg tablet 1,500 mg PO BID Qty: 120 RF: 5 sumatriptan succinate 100 mg tablet 100 mg PO ONCE Qty: 9 RF: 5 phenytoin sodium extended 200 mg capsule 200 mg PO BID RF: 0 ferrous sulfate [FeroSul] 325 mg (65 mg iron) tablet 325 mg PO BID RF: 0 cholecalciferol (vitamin D3) 2,000 unit capsule 2,000 unit PO DAILY RF: 0 sertraline [Zoloft] 100 mg Tablet 100 mg PO DAILY RF: 0 topiramate 200 mg tablet 100 mg PO DAILY RF: 0 Discharge Instructions Instructions: Acute Cough (ED) Additional Instructions: if not better in a week see your primary care provider if you feel you are more significantly ill or having more trouble breathing return to the emergency department for reevaluation Medical Decision Making 28 yo female comes in with 2 weeks of cough, runny nose and subjective fevers. Denies recent travel, rashes, does smoke but denies alcohol, uses marijuana denies ivdu. She appears well systemically with clear rhinorrhea, normal oropharynx, soft nontender abdomen and on exam has clear lungs throughout other than faint crackles in lll. No murmurs, no stigmata of endocarditis so doubt this. No severe headache or meningismus so doubt patent attorney infection. Given well appearance do not feel labs or imaging indicated. Given lung exam findings will treat as possible early cap and advised f/u with pcp, return precautions given Differential Diagnosis uri, influenza, pna HPI General Mode of arrival: ambulatory. Date/Time Provider Initiated Documentation: 05/20/18 09:03. Limitations to Documentation: no limitations. Information obtained by: patient. History of Present Illness 28 year old F presents to the emergency department with the chief complaint of cough, described as moderate, with intensity rated at 4. Patient started experiencing this day(s) (10) and it has been constant. No relieving factors improve symptom(s), No exacerbating factors reported . Patient notes malaise. Patient did receive the following treatments prior to arrival, none Related Data Home Medications Medication Instructions Recorded Confirmed sertraline [Zoloft] 100 mg PO DAILY 03/12/18 05/20/18 levetiracetam 750 mg tablet 1,500 mg PO BID #120 tab 04/23/18 05/20/18 melatonin 5 mg tablet 10 mg PO HS PRN tab 04/23/18 05/20/18 sumatriptan 100 mg tablet 100 mg PO ONCE #9 tab 04/23/18 05/20/18 cholecalciferol (vitamin D3) 2,000 2,000 unit PO DAILY 05/17/18 05/20/18 unit capsule ferrous sulfate 325 mg (65 mg 325 mg PO BID tab 05/17/18 05/20/18 iron) tablet phenytoin sodium extended 200 mg 200 mg PO BID 05/17/18 05/20/18 capsule doxycycline hyclate 100 mg PO BID #14 tab 05/20/18 topiramate 100 mg PO DAILY 05/20/18 05/20/18 Previous Rx's Medication Instructions Recorded levetiracetam 750 mg tablet 1,500 mg PO BID #120 tab 04/23/18 sumatriptan 100 mg tablet 100 mg PO ONCE #9 tab 04/23/18 doxycycline hyclate 100 mg PO BID #14 tab 05/20/18 Allergies Allergy/AdvReac Type Severity Reaction Status Date / Time trazodone Allergy Severe Verified 05/20/18 09:10 amphetamine [From Adderall] AdvReac Verified 05/20/18 09:10 bupropion [From Wellbutrin] AdvReac Verified 05/20/18 09:10 dextroamphetamine AdvReac Verified 05/20/18 09:10 [From Adderall] General Stated Complaint: RespSymp KARIME: 4 Review of Systems Review of Systems All systems reviewed & are unremarkable except as noted in HPI and below ENT Denies change in voice Cardiovascular Denies chest pain and Denies dyspnea Respiratory Denies cough and Denies dyspnea Gastrointestinal Denies abdominal pain, Denies nausea and Denies vomiting Genitourinary Denies dysuria Musculoskeletal Denies joint swelling Integumentary/Breasts Denies rash [facility] Medical History 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) Depression (Chronic) ADHD (Chronic) Insomnia (Acute) Iron deficiency anemia (Acute) 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) Pilar cyst (Acute) Post-traumatic stress disorder (Acute) Social phobia (Acute) Uterine bleeding (Acute) Surgical History H/O gastric bypass (Acute) Social History household members: family number of children: 2 current occupational status: unemployed current occupation: [employer]; 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 Smoking and Tabacco status: Current every day Exam Const General: no acute distress Orientation: alert HENMT Head: normal to inspection Ears: external ears normal General nose exam: external nose normal Mouth: moist mucous membranes Eyes General: appearance normal, both eyes and all related structures Neck Neck: normal visual inspection Resp Effort & Inspection: normal respiratory effort and able to speak in complete sentences Cardio Rate: regular rate (hr 92 on my exam) Skin General skin exam: no rashes or lesions noted Neuro General: alert and oriented x3 Extrem General: normal to inspection Psych Mental Status: mental status grossly normal Course Vital Signs Temperature 36.6 C 05/20/18 09:04 Pulse 108 H 05/20/18 09:04 Respiratory Rate 16 05/20/18 09:04 Blood Pressure 123/69 05/20/18 09:04 Pulse Oximetry 100 05/20/18 09:04 Temperature 36.6 C 05/20/18 09:04 Temperature Source Skin 05/20/18 09:04 Pulse 108 H 05/20/18 09:04 Respiratory Rate 16 05/20/18 09:04 Respiratory Effort 05/20/18 09:11 Respiratory Depth Normal 05/20/18 09:09 Blood Pressure 123/69 05/20/18 09:04 Blood Pressure Position Sitting 05/20/18 09:04 Pulse Oximetry 100 05/20/18 09:04 Oxygen Delivery Method Room Air 05/20/18 09:04 Oxygen Flow Rate 0 05/20/18 09:04 Pain Level 5 05/20/18 09:04
--- NOTE | 2018-05-20 09:24 | ED.GENADUL_ITS ---
Discharge Plan Disposition Patient Disposition: HOME Condition: Stable Discharge Details Chief Complaint: RespSymp Clinical Impression: Cough Primary Care Provider: Kelly Tam ED Provider: Iván Barrett Home Meds and New Rx's Prescriptions: New doxycycline hyclate 100 mg tablet 100 mg PO BID Qty: 14 RF: 0 No Action melatonin 5 mg tablet 10 mg PO HS PRNRF: 0 levetiracetam 750 mg tablet 1,500 mg PO BID Qty: 120 RF: 5 sumatriptan succinate 100 mg tablet 100 mg PO ONCE Qty: 9 RF: 5 phenytoin sodium extended 200 mg capsule 200 mg PO BID RF: 0 ferrous sulfate [FeroSul] 325 mg (65 mg iron) tablet 325 mg PO BID RF: 0 cholecalciferol (vitamin D3) 2,000 unit capsule 2,000 unit PO DAILY RF: 0 sertraline [Zoloft] 100 mg Tablet 100 mg PO DAILY RF: 0 topiramate 200 mg tablet 100 mg PO DAILY RF: 0 Discharge Instructions Instructions: Acute Cough (ED) Additional Instructions: if not better in a week see your primary care provider if you feel you are more significantly ill or having more trouble breathing return to the emergency department for reevaluation Medical Decision Making 28 yo female comes in with 2 weeks of cough, runny nose and subjective fevers. Denies recent travel, rashes, does smoke but denies alcohol, uses marijuana denies ivdu. She appears well systemically with clear rhinorrhea, normal oropharynx, soft nontender abdomen and on exam has clear lungs throughout other than faint crackles in lll. No murmurs, no stigmata of endocarditis so doubt this. No severe headache or meningismus so doubt seo analyst infection. Given well appearance do not feel labs or imaging indicated. Given lung exam findings will treat as possible early cap and advised f/u with pcp, return precautions given Differential Diagnosis uri, influenza, pna HPI General Mode of arrival: ambulatory . Date/Time Provider Initiated Documentation: 05/20/18 09:03 . Limitations to Documentation: no limitations . Information obtained by: patient . History of Present Illness 28 year old F presents to the emergency department with the chief complaint of cough, described as moderate, with intensity rated at 4. Patient started experiencing this day(s) (10) and it has been constant. No relieving factors improve symptom(s), No exacerbating factors reported . Patient notes malaise. Patient did receive the following treatments prior to arrival, none Related Data Home Medications Medication Instructions Recorded Confirmed sertraline [Zoloft] 100 mg PO DAILY 03/12/18 05/20/18 levetiracetam 750 mg tablet 1,500 mg PO BID #120 tab 04/23/18 05/20/18 melatonin 5 mg tablet 10 mg PO HS PRN tab 04/23/18 05/20/18 sumatriptan 100 mg tablet 100 mg PO ONCE #9 tab 04/23/18 05/20/18 cholecalciferol (vitamin D3) 2,000 2,000 unit PO DAILY 05/17/18 05/20/18 unit capsule ferrous sulfate 325 mg (65 mg 325 mg PO BID tab 05/17/18 05/20/18 iron) tablet phenytoin sodium extended 200 mg 200 mg PO BID 05/17/18 05/20/18 capsule doxycycline hyclate 100 mg PO BID #14 tab 05/20/18 topiramate 100 mg PO DAILY 05/20/18 05/20/18 Previous Rx's Medication Instructions Recorded levetiracetam 750 mg tablet 1,500 mg PO BID #120 tab 04/23/18 sumatriptan 100 mg tablet 100 mg PO ONCE #9 tab 04/23/18 doxycycline hyclate 100 mg PO BID #14 tab 05/20/18 Allergies Allergy/AdvReac Type Severity Reaction Status Date / Time trazodone Allergy Severe Verified 05/20/18 09:10 amphetamine [From Adderall] AdvReac Verified 05/20/18 09:10 bupropion [From Wellbutrin] AdvReac Verified 05/20/18 09:10 dextroamphetamine AdvReac Verified 05/20/18 09:10 [From Adderall] General Stated Complaint: RespSymp KARIME: 4 Review of Systems Review of Systems All systems reviewed & are unremarkable except as noted in HPI and below ENT Denies change in voice Cardiovascular Denies chest pain and Denies dyspnea Respiratory Denies cough and Denies dyspnea Gastrointestinal Denies abdominal pain, Denies nausea and Denies vomiting Genitourinary Denies dysuria Musculoskeletal Denies joint swelling Integumentary/Breasts Denies rash [facility] Medical History 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) Depression (Chronic) ADHD (Chronic) Insomnia (Acute) Iron deficiency anemia (Acute) 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) Pilar cyst (Acute) Post-traumatic stress disorder (Acute) Social phobia (Acute) Uterine bleeding (Acute) Surgical History H/O gastric bypass (Acute) Social History household members: family number of children: 2 current occupational status: unemployed current occupation: [employer]; 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 Smoking and Tabacco status: Current every day Exam Const General: no acute distress Orientation: alert HENMT Head: normal to inspection Ears: external ears normal General nose exam: external nose normal Mouth: moist mucous membranes Eyes General: appearance normal, both eyes and all related structures Neck Neck: normal visual inspection Resp Effort & Inspection: normal respiratory effort and able to speak in complete sentences Cardio Rate: regular rate (hr 92 on my exam) Skin General skin exam: no rashes or lesions noted Neuro General: alert and oriented x3 Extrem General: normal to inspection Psych Mental Status: mental status grossly normal Course Vital Signs Temperature 36.6 C 05/20/18 09:04 Pulse 108 H 05/20/18 09:04 Respiratory Rate 16 05/20/18 09:04 Blood Pressure 123/69 05/20/18 09:04 Pulse Oximetry 100 05/20/18 09:04 Temperature 36.6 C 05/20/18 09:04 Temperature Source Skin 05/20/18 09:04 Pulse 108 H 05/20/18 09:04 Respiratory Rate 16 05/20/18 09:04 Respiratory Effort 05/20/18 09:11 Respiratory Depth Normal 05/20/18 09:09 Blood Pressure 123/69 05/20/18 09:04 Blood Pressure Position Sitting 05/20/18 09:04 Pulse Oximetry 100 05/20/18 09:04 Oxygen Delivery Method Room Air 05/20/18 09:04 Oxygen Flow Rate 0 05/20/18 09:04 Pain Level 5 05/20/18 09:04
== END 2018-05-20 09:43 | disposition home or self-care (01) ==
LOC: ER 09:47
PROVIDERS: Emergency Provider Emergency Medicine; PCP Nurse Practitioner Family
DX: R05 Cough (principal); R50.9 Fever, unspecified
CPT/HCPCS: 81025; 99283

== ENCOUNTER 2019-05-22 10:47 | Outpatient (CLI) | payer MEDICAID, SELFPAY ==
[2019-05-23 13:50] LABS: Levetiracetam 50.2 mcg/mL
== END 2019-05-22 11:07 ==
PROVIDERS: PCP Nurse Practitioner Family; Visit Provider Psychiatry & Neurology Neurology
DX: G40.109 Localization-related (focal) (partial) symptomatic epilepsy and epileptic syndromes with simple partial seizures, not intractable, without status epilepticus (principal); Z51.81 Encounter for therapeutic drug level monitoring
CPT/HCPCS: 36415; 80177; 80201

== ENCOUNTER 2019-06-10 10:58 | Outpatient (CLI) | payer MEDICAID, SELFPAY ==
[2019-06-11 13:32] LABS: Levetiracetam 46.2 mcg/mL
[2019-06-12 06:09] LABS: Topiramate 9.9 mcg/mL
== END 2019-06-10 11:18 ==
PROVIDERS: PCP Nurse Practitioner Family; Visit Provider Psychiatry & Neurology Neurology
DX: G40.109 Localization-related (focal) (partial) symptomatic epilepsy and epileptic syndromes with simple partial seizures, not intractable, without status epilepticus (principal); Z51.81 Encounter for therapeutic drug level monitoring
CPT/HCPCS: 36415; 80177; 80201

== ENCOUNTER 2019-07-22 10:42 | Outpatient (REF) | payer MEDICAID, SELFPAY ==
--- NOTE | 2019-07-22 10:00 | PAPFT_PTH ---
PATIENT: Selma Rosado LOC: [facility] U#:[id number] AGE/SX: 29/F ROOM: RE07/22/[address]: Amalia Newberry CNM : 1990 BED: DIS: 07/22/2019 SPEC #: [id number] RECD: 07/22/19 12:48 STATUS: [facility] RESwetha #: [id number] HUSAM: 07/22/19 10:[address]: Amalia Newberry DEPT: [facility] Cytology RECD BY: iRkki Hernandez ENTERED: 07/22/19 12:48 SP TYPE: PAPFT OTHR DR: Kelly Tam Tissues: 1 - CX/ENDOCX FOR PAP SMEARS Procedures: PAP THIN PREP/UVM Screening Comments: [id number]
[2019-07-22 11:57] LABS: *AMPHETAMINES SCREEN URINE Negative (Negative); *BARBITURATES SCREEN URINE Negative (Negative); *BENZODIAZEPINES SCREEN URINE Negative (Negative); Cannabinoids THC POSITIVE (Negative); Cocaine Screen,Urine Negative (Negative); METHADONE URINE SCREEN Negative (Negative); OPIATES URINE SCREEN Negative (Negative); Tricyclic Antidepressants Negative (Negative)
[2019-07-22 11:59] LABS: Abs Immature Grans 0.02 k/cumm (0.0-0.09); Absolute Basophil Count 0.01 k/cumm (0.0-0.2); Absolute Eosinophil Count 0.28 k/cumm (0.0-0.7); Absolute Lymphocyte Count 2.41 k/cumm (1.2-3.4); Absolute Monocyte Count 0.24 k/cumm (0.11-0.7); Absolute Neutrophil Count 3.51 k/cumm (1.2-6.7); Basophils % 0.2; Eosinophils % 4.3; HCT 37.4 % (36.0-46.0); HGB 12.7 g/dL (12.0-15.5); Immature Grans % 0.3 %; Lymphocytes % 37.2; Mean Corpuscular Hemoglobin 31.9 pg (27.0-33.0); Mean Platelet Volume 11.4 fL (8.0-11.0); Monocytes % 3.7; Neutrophils % 54.3; Platelet Count 181 x1000/uL (130-400); RBC 3.98 m/cumm (4.00-5.20); RBC Distribution Width 14.2 % (11.7-14.6); White Blood Cell Count 6.47 k/cumm (4.4-10.8)
[2019-07-22 12:16] LABS: TSH (W/Ref FT4) 1.33 uIU/mL (0.36-3.74)
[2019-07-22 13:30] LABS: Kit/Specimen SENT
[2019-07-23 09:13] LABS: Hepatitis B Surface Ag Negative (Negative)
[2019-07-23 10:08] LABS: HIV-1/2 Ag & Ab Screen Negative (Negative); Hepatitis C Ab w Rflx HCV PCR Negative (Negative)
[2019-07-23 15:23] LABS: Chlamydia Result Negative (Negative); GC Result Negative (Negative)
[2019-07-23 16:13] LABS: Syphilis Total Ab w/Reflex Nonreactive (Nonreactive)
[2019-07-25 09:51] LABS: Rubella IgG Ab (UVM) Positive (See Note)
[2019-07-25 10:08] LABS: Varicella IgG Antibody Positive (See Note)
[2019-07-26 23:33] LABS: Buprenorphine Negative; Norbuprenorphine Negative
[2019-07-28 02:28] LABS: Result Summary NEGATIVE; Specimen WB Whole Blood
== END 2019-07-22 11:02 ==
LOC: LBN 10:42
PROVIDERS: PCP Nurse Practitioner Family; Visit Provider Advanced Practice Midwife
DX: Z34.91 Encounter for supervision of normal pregnancy, unspecified, first trimester (principal); N89.8 Other specified noninflammatory disorders of vagina; Z11.4 Encounter for screening for human immunodeficiency virus [HIV]; Z11.59 Encounter for screening for other viral diseases; Z12.4 Encounter for screening for malignant neoplasm of cervix; Z01.84 Encounter for antibody response examination; Z11.3 Encounter for screening for infections with a predominantly sexual mode of transmission; Z36.89 Encounter for other specified antenatal screening
CPT/HCPCS: 80307; 86787; 86803; 86850; 86900; 86901; 87340; 87389; 87491; 87591; 88142; 81220; 84443; 85025; 86762; 86780; 86870; 87086; 87480; 87510; 87660

== ENCOUNTER 2019-08-01 01:55 | Outpatient (CLI) | payer MEDICAID, SELFPAY ==
[2019-08-01 09:43] LABS: Glucose,1 Hr (Glucola) 86 mg/dL (80-140)
[2019-08-04 16:16] LABS: Levetiracetam 69.4 mcg/mL
[2019-08-05 02:08] LABS: Topiramate 5.5 mcg/mL
== END 2019-08-01 02:15 ==
PROVIDERS: Advanced Practice Midwife; PCP Nurse Practitioner Family; Visit Provider Psychiatry & Neurology Neurology
DX: G40.109 Localization-related (focal) (partial) symptomatic epilepsy and epileptic syndromes with simple partial seizures, not intractable, without status epilepticus (principal); Z51.81 Encounter for therapeutic drug level monitoring; Z79.899 Other long term (current) drug therapy
CPT/HCPCS: 36415; 82950; 80177; 80201

== ENCOUNTER 2019-09-10 00:32 | Outpatient (CLI) | payer MEDICAID, SELFPAY ==
--- NOTE | 2019-09-10 13:18 | DI.US_ITS ---
EXAM: US OB 2-3 TRIMESTER CLINICAL HISTORY: Prenancy high risk. History of seizures D/O, Z34.90. TECHNIQUE: Transabdominal obstetrical ultrasound performed. COMPARISON: No exams were available for comparison FINDINGS: There is a single living intrauterine gestation. The estimated sonographic age is 20 weeks 6 days. The fetus was in various positions during the examination. heart rate is 144 beats per minute. No anatomic abnormalities are identified. Amniotic fluid visually appears within normal limi ts. The placenta is anterior without evidence of previa. IMPRESSION: 1. Single live intrauterine gestation as above. 2. Normal anatomic survey. DATA REPOSITORY:
== END 2019-09-10 00:52 ==
PROVIDERS: PCP Nurse Practitioner Family; Visit Provider Obstetrics & Gynecology
DX: O99.352 Diseases of the nervous system complicating pregnancy, second trimester (principal); G40.109 Localization-related (focal) (partial) symptomatic epilepsy and epileptic syndromes with simple partial seizures, not intractable, without status epilepticus; Z3A.20 20 weeks gestation of pregnancy
CPT/HCPCS: 76805

== ENCOUNTER 2019-09-22 21:47 | Emergency (ER) | payer MEDICAID, SELFPAY ==
--- NOTE | 2019-09-22 22:00 | ED.GENADUL_ITS ---
Discharge Plan Disposition Patient Disposition: HOME Condition: Fair Discharge Details Chief Complaint: RespSymp Clinical Impression: Pneumonia affecting , Acute dehydration, Acute hypokalemia Primary Care Provider: Kelly Tam ED Provider: Sara Suresh Home Meds and New Rx's Prescriptions: New cefpodoxime 200 mg tablet 200 mg PO BID 10 Days Qty: 20 RF: 0 Continued gabapentin 400 mg capsule 400 mg PO TID PRNRF: 0 mirtazapine [Remeron] 15 mg tablet 15 mg PO DAILY RF: 0 PNV #[id number] 30 mg iron-10 mg iron-1 mg capsule 1 cap PO DAILY Qty: 90 RF: 3 topiramate 200 mg tablet 400 mg PO BID Qty: 360 RF: 3 aspirin 81 mg tablet,delayed release (DR/EC) 81 mg PO DAILY Qty: 90 RF: 2 dextroamphetamine-amphetamine [Adderall] 30 mg tablet 30 mg PO DAILY RF: 0 dextroamphetamine-amphetamine [Adderall] 20 mg tablet 20 mg PO DAILY RF: 0 levetiracetam 1,000 mg tablet 2,000 mg PO BID Qty: 120 RF: 5 Discharge Instructions Instructions: Dehydration (ED), Hypokalemia (ED), Pneumonia (ED) Additional Instructions: Encourage water intake. You may use Tylenol to help with discomfort. Please continue with vitamin. Please increase potassium intake. Your exam, lab and imaging are consistent with bacterial pneumonia. Please take the Cefpodoxime as prescribed. Even if symptoms improve, please take the entire course. Please stop smoking. Please contact your TODDLER NANNY tomorrow to schedule follow-up appointment. Your COVID testing is pending. Until this is returnS, please continue to quarantine. If you develop inability stay hydrated, shortness of breath or the new/worsening symptom please seek care urgently once again. Stand Alone Forms: PENDING COVID-19 TESTING Referrals: Kelly Tam [Primary Care Provider] - Discharge Data Discharge Date/Time-TO BE ENTERED AT DEPARTURE: 09/23/19 00:35 Medical Decision Making Patient is a 29-year-old female presents today with chief complaint of cough and vaginal discharge. Patient is G3, P2. 26 weeks gestation. States that she had a normal thus far. States that she began having cough 2 weeks ago. Denies any fevers or chills. Denies any other associated URI symptoms. No abdominal pain, cramping. Denies any nausea or vomiting. No change in bowel or bladder habits. She reports then today she began having some brown discharge. States that this is been very scant and does not have any in her pad at this time. She has not had any cramping. Nursing staff obtained heart sounds numbness to be 152. Patient is an active smoker. She does have a history of seizure disorder, reports her last seizure was approximately 1.5 years ago. She has not been able to follow-up with TODDLER NANNY secondary to her cough. Is concerned that she may have COVID. On exam, patient has frequent nonproductive cough. She does appear slightly dehydrated. Abdominal exam is consistent with a gestational history and no acute findings are noted. Again, no discharge is seen on exam today. Lungs are coarse. I am concerned for potential pneumonia. Will obtain chest x-ray. Patient I discussed her/benefits of chest x-ray and she was understanding would like to proceed. Patient is tachycardic with a heart rate of 124. I believe this is likely associated with dehydration. Will hydrate the patient obtain baseline labs. FINDINGS: Lungs: Lingular infiltrate and subsegmental atelectasis Pleural space: Unremarkable. No pleural effusion. No pneumothorax. Heart/Mediastinum: Unremarkable. No cardiomegaly. Bones/joints: Unremarkable. IMPRESSION: Lingular infiltrate. We will give patient 1 g ceftriaxone. Labs reviewed. Leukocytosis with a white count of 13.7. Potassium is low at 3.0, will replenish this orally. Anion gap is elevated slightly at 12.9. I believe this likely associated with dehydration. COVID-19 testing is pending. Spoke with TODDLER NANNY. Advised they will see the patient in follow-up. I do not feel a further evaluation of the brown discharge would be necessary as the patient is not experiencing any abdominal discomfort Patient diagnosed with pneumonia. Will be discharged home with a prescription for Cefpodoxime. Encourage hydration. Encourage smoking cessation. Encourage close follow-up with primary care and/or TODDLER NANNY. Have referred patient for outpatient Tahir testing. Needs to be completed in the COVID 10 tomorrow. Patient was given strict return precautions. We also discussed the vaginal discharge which seems to have stopped at this point. She will continue to monitor this closely and will return urgently if she develops any abdominal pain, cramping or increased discharge. All of her questions and concerns were addressed and she is in agreement with this plan. HPI General Mode of arrival: ambulatory . Date/Time Provider Initiated Documentation: 09/22/19 21:58 . Limitations to Documentation: no limitations . Information obtained by: patient and RN notes reviewed . HPI Narrative: Patient is a 29 year old female presenting today wtih c/c of cough x 2 weeks. States taht cough has progressively increased. She continues to smoke. Patient is 26 week gestation, G3, P2. States that shei s now having scant amount of brown vaginal discharge. No abdominal pain, no cramping, no bleeding. Continues to feel movement. Denies CP. No GI upset. No known sick contacts. No recent travel. Was recently seen at [facility] [place]. Has hx of seizures but denies any in past 1.5 years. Related Data Home Medications Medication Instructions Recorded Confirmed mirtazapine 15 mg tablet 15 mg PO DAILY 03/06/19 09/22/19 vitamin#30 30 mg iron-10 1 cap PO DAILY #90 cap 05/07/19 09/22/19 mg iron-folic acid 1 mg-omg3 capsule gabapentin 400 mg capsule 400 mg PO TID PRN cap 06/10/19 09/22/19 levetiracetam 1,000 mg tablet 2,000 mg PO BID #120 tab 06/12/19 09/22/19 aspirin 81 mg tablet,delayed 81 mg PO DAILY #90 tab 07/22/19 09/22/19 release topiramate 200 mg tablet 400 mg PO BID #360 tab 08/06/19 09/22/19 dextroamphetamine-amphetamine 20 20 mg PO DAILY 09/02/19 09/22/19 mg tablet dextroamphetamine-amphetamine 30 30 mg PO DAILY 09/02/19 09/22/19 mg tablet cefpodoxime 200 mg PO BID 10 Days #20 tab 09/23/19 Previous Rx's Medication Instructions Recorded vitamin#30 30 mg iron-10 1 cap PO DAILY #90 cap 05/07/19 mg iron-folic acid 1 mg-omg3 capsule levetiracetam 1,000 mg tablet 2,000 mg PO BID #120 tab 06/12/19 aspirin 81 mg tablet,delayed 81 mg PO DAILY #90 tab 07/22/19 release topiramate 200 mg tablet 400 mg PO BID #360 tab 08/06/19 cefpodoxime 200 mg PO BID 10 Days #20 tab 09/23/19 Allergies Allergy/AdvReac Type Severity Reaction Status Date / Time trazodone Allergy Severe Verified 09/02/19 12:40 bupropion [From Wellbutrin] AdvReac Verified 09/02/19 12:40 General KARIME: 4 Review of Systems Constitutional Constitutional: Reports as per HPI, Denies chills, Denies fever(s) and Denies headache(s) Eyes Eyes: Reports as per HPI, Denies eye discharge and Denies irritation ENT Ears, Nose, Mouth, and Throat: Reports as per HPI and Denies headache(s) Cardiovascular Cardiovascular: Reports as per HPI, Denies chest pain, Reports dyspnea and Reports dyspnea on exertion Respiratory Respiratory: Reports as per HPI, Reports chest congestion, Reports cough, Denies hemoptysis, Denies excessive phlegm production, Denies pain on inspiration, Denies pain with cough, Reports dyspnea, Reports dyspnea on exertion, Denies stridor and Denies wheezing Gastrointestinal Gastrointestinal: Reports as per HPI, Denies abdominal pain, Denies change in bowel habits, Denies nausea and Denies vomiting Genitourinary Genitourinary: Reports as per HPI, Reports vaginal discharge and Denies vaginal odor Integumentary/Breasts Skin/Breast: Reports as per HPI and Denies rash Neurologic Neurologic: Reports as per HPI and Denies headache(s) Allergic/Immunologic Allergic/Immunologic: Denies wheezing [facility] Social History Smoking/Tobacco Use Status: Current every day Tobacco Type: cigarettes Alcohol Intake: never Substance use type: does not use Household members: spouse and family Number of Children: 2 current occupation: SAHM; 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 Date GA/Weeks # Outcome Route Wgt Sex Labor Lgth Anesthes ia Location Prov Complic 05/07/13 38 No Successful vaginal 2.778 kg Male 24 hrs Billie Ivey [place] 01/21/16 36 No Successful vaginal 2.58 kg Female 12 hrs Billie Ivey [place] Delivery Date: 05/07/13 spont but long labor, epidural didn't work well, hematoma softball sized and had to go to the OR, had a blood transfusion, discharged home at day 5. Baby was fine. Chhaya Newberry Delivery Date: 01/21/16 IOL at 36 wks for pre-eclampsia, epidural that didn't work well, no complications, baby in isolette at first, went home day 4. RohithChhaya Exam Const General: cooperative, healthy appearing, comfortable, no acute distress, well developed and well groomed Nutritional Appearance: well nourished and overweight Orientation: alert and awake [facility] Head: normal to inspection, normocephalic and atraumatic Ears: hearing grossly normal bilaterally, external ears normal and TM's normal bilaterally General nose exam: external nose normal and nares normal Face and sinus: normal facial exam, sinuses nontender and face symmetric Mouth: oral mucosae normal, lip normal, tongue normal, oropharynx normal and mucous membranes dry (appears dry) Teeth and gingiva: poor dentition Throat: posterior oropharynx normal, tonsils normal and uvula midline Eyes General: appearance normal, both eyes and all related structures Neck Neck: normal visual inspection, full ROM, no lymphadenopathy and no meningeal signs Resp Effort & Inspection: normal respiratory effort, able to speak in complete sentences and no respiratory distress Auscultation: crackles (scattered), no rales, no rhonchi and no wheezes Cardio Rate: regular rate Rhythm: regular rhythm Heart Sounds: S1 normal and S2 normal GI Inspection: normal to inspection (normal for gestational age) External Female Exam: normal external appearance (no discharged noted at this time) Back/Spine/Pelvis Back: no CVA tenderness Skin General skin exam: no rashes or lesions noted Neuro General: patient alert and patient awake Cognition: normal cognition Speech: speech normal Gait: normal gait Extrem General: normal to inspection, full ROM, capillary refill normal, no pedal edema, no calf tenderness and normal gait Psych Appearance: grossly normal and well kempt Mental Status: mental status grossly normal Speech and Movement: speech and movement normal
[2019-09-22 22:04] VITALS: BP 138/82; PULSE 124; RESP 18; TEMP 36.3; O2SAT 95
--- NOTE | 2019-09-22 22:15 | DI.RAD_ITS ---
EXAM: XR PORTABLE CHEST AP CLINICAL HISTORY: cough x 2 weeks TECHNIQUE: COMPARISON: CR XR CHEST 2V PA LATERAL from 03/12/2018 FINDINGS: The heart is not enlarged. Lungs are predominantly clear but there is an area of apparent focal patc hy consolidation involving the left lung base, probably involving the lingula. Findings are suspicio us for acute pneumonia in the appropriate clinical setting. IMPRESSION:
[2019-09-22] MEDS: Lactated Ringers 1,000 ML 1000 ML IV (22:50)
[2019-09-22 22:56] LABS: Abs Immature Grans 0.15 k/cumm (0.0-0.09); Absolute Neutrophil Count 11.37 k/cumm (1.2-6.7); Basophils % 0.1; Eosinophils % 0.7; HCT 35.1 % (36.0-46.0); HGB 12.4 g/dL (12.0-15.5); Immature Grans % 1.1 %; Lymphocytes % 12.3; Mean Corp. HGB Concentration 35.3 g/dL (32.0-36.0); Mean Corpuscular Hemoglobin 33.4 pg (27.0-33.0); Mean Corpuscular Volume 94.6 fL (80-95); Mean Platelet Volume 9.9 fL (8.0-11.0); Monocytes % 2.9; Neutrophils % 82.9; Platelet Count 285 x1000/uL (130-400); RBC 3.71 m/cumm (4.00-5.20); RBC Distribution Width 13.5 % (11.7-14.6); White Blood Cell Count 13.71 k/cumm (4.4-10.8)
[2019-09-22 23:03] LABS: ALT 22 U/L (14-59); AST 19 U/L (15-37); Albumin 2.3 g/dL (3.4-5.0); Alkaline Phosphatase 132 U/L (46-116); Anion Gap 12.9 mmol/L (3-11); BUN 9 mg/dL (7-18); Bilirubin, Total 0.6 mg/dL (0.2-1.0); CO2 19.1 mmol/L (21.0-32.0); CREATININE 0.67 mg/dL (0.55-1.02); Calcium 8.9 mg/dL (8.5-10.1); Chloride 103 mmol/L (98-107); Glucose 103 mg/dL (74-106); Sodium 135 mmol/L (136-145); Total Protein 7.4 g/dL (6.4-8.2)
[2019-09-22 23:14] LABS: Absolute Basophil Count 0.01 k/cumm (0.0-0.2); Absolute Lymphocyte Count 1.69 k/cumm (1.2-3.4)
--- NOTE | 2019-09-22 23:25 | DI.VRAD_ITS ---
PROCEDURE INFORMATION: Exam: XR Chest, 1 View Exam date and time: 09/22/2019 11:10 PM Age: 29 years old Clinical indication: Patient HX: , cough x 2 weeks TECHNIQUE: Imaging protocol: XR of the chest Views: 1 view. COMPARISON: CR XR CHEST 2V PA LATERAL 03/12/2018 12:13 PM FINDINGS: Lungs: Lingular infiltrate and subsegmental atelectasis Pleural space: Unremarkable. No pleural effusion. No pneumothorax. Heart/Mediastinum: Unremarkable. No cardiomegaly. Bones/joints: Unremarkable. IMPRESSION: Lingular infiltrate. Dictated and Authenticated by: Peterson Collazo MD. Ordering:JOSE Ruiz MD
[2019-09-22 23:37] VITALS: BP 105/65; PULSE 24; RESP 24; TEMP 36.3; O2SAT 98
[2019-09-22] MEDS: cefTRIAXone 1 GM/50 ML BAG IVPB (23:37)
[2019-09-22] MEDS: POTASSIUM CHLORIDE 20 MEQ, POTASSIUM CHLORIDE 10 MEQ 30 MEQ PO (23:46)
[2019-09-22 23:50] LABS: Bilirubin Negative (Negative); Blood Negative (Negative); Clarity Clear (Clear); Glucose Negative (Negative); Ketones Negative (Negative); Leukocyte Esterase Negative (Negative); Nitrite Negative (Negative); pH 6.5 (5-8)
[2019-09-23 00:30] VITALS: PULSE 104; RESP 24; O2SAT 100
[2019-09-23 23:57] LABS: COVID-19 RT-PCR UVMMC Result Negative (Negative)
== END 2019-09-23 00:35 | disposition home or self-care (01) ==
PROVIDERS: Emergency Provider Physician Assistant; PCP Nurse Practitioner Family
DX: O99.512 Diseases of the respiratory system complicating pregnancy, second trimester (principal); O99.282 Endocrine, nutritional and metabolic diseases complicating pregnancy, second trimester; F17.210 Nicotine dependence, cigarettes, uncomplicated; Z3A.26 26 weeks gestation of pregnancy; O26.893 Other specified pregnancy related conditions, third trimester
CPT/HCPCS: 36415; 80053; 96361; 96365; 99284; U0003; 71045; 81003; 85025; J0696

== ENCOUNTER 2019-10-20 10:27 | Outpatient (REF) | payer MEDICAID, SELFPAY ==
[2019-10-20 10:57] LABS: Abs Immature Grans 0.05 k/cumm (0.0-0.09); Absolute Basophil Count 0.01 k/cumm (0.0-0.2); Absolute Eosinophil Count 0.32 k/cumm (0.0-0.7); Absolute Lymphocyte Count 1.89 k/cumm (1.2-3.4); Absolute Monocyte Count 0.26 k/cumm (0.11-0.7); Absolute Neutrophil Count 4.63 k/cumm (1.2-6.7); Basophils % 0.1; Eosinophils % 4.5; HCT 36.1 % (36.0-46.0); HGB 12.4 g/dL (12.0-15.5); Immature Grans % 0.7 %; Lymphocytes % 26.4; Mean Corp. HGB Concentration 34.3 g/dL (32.0-36.0); Mean Corpuscular Hemoglobin 34.3 pg (27.0-33.0); Mean Corpuscular Volume 99.7 fL (80-95); Monocytes % 3.6; Neutrophils % 64.7; Platelet Count 183 x1000/uL (130-400); RBC 3.62 m/cumm (4.00-5.20); RBC Distribution Width 13.1 % (11.7-14.6); White Blood Cell Count 7.16 k/cumm (4.4-10.8)
[2019-10-20 11:01] LABS: Potassium 3.6 mmol/L (3.5-5.1)
[2019-10-21 12:55] LABS: Levetiracetam 50.5 mcg/mL
[2019-10-22 08:29] LABS: Topiramate 14.9 mcg/mL
== END 2019-10-20 10:47 ==
LOC: LBN 10:27
PROVIDERS: Psychiatry & Neurology Neurology; PCP Nurse Practitioner Family; Visit Provider Obstetrics & Gynecology
DX: Z34.90 Encounter for supervision of normal pregnancy, unspecified, unspecified trimester (principal); E87.6 Hypokalemia; R82.90 Unspecified abnormal findings in urine
CPT/HCPCS: 80177; 80201; 84132; 85025; 87086

== ENCOUNTER 2019-11-11 01:10 | Outpatient (CLI) | payer MEDICAID, SELFPAY ==
--- NOTE | 2019-11-11 06:30 | DI.US_ITS ---
EXAM: US OB AGUILA WEIGHT CLINICAL HISTORY: with history of gastric bypass,z98.84. TECHNIQUE: Transabdominal obstetrical ultrasound performed. COMPARISON: US US OB 2-3 TRIMESTER from 09/10/2019 FINDINGS: Transabdominal obstetrical ultrasound performed. FINDINGS: Number of fetuses: One. position: Transverse head to the right. heart rate: 147 bpm. Placental location: Anterior and to the right. No evidence of previa. BIOMETRIC DATA: EFW: 1471 grms 24% Composite Age: 29 weeks 4 days EDC: 01/23/2020 Heart Rate: 147BPM Amniotic fluid index: 31 cm. Visually, the amniotic fluid appears greater than normal. ANATOMICAL SURVEY: Not performed at this time. IMPRESSION: 1. Single live intrauterine gestation as above. 2. Amniotic fluid index is 31 cm. 3. Estimated weight is 1471 g. DATA REPOSITORY:
== END 2019-11-11 01:30 ==
PROVIDERS: PCP Nurse Practitioner Family; Visit Provider Obstetrics & Gynecology
DX: Z34.93 Encounter for supervision of normal pregnancy, unspecified, third trimester (principal); Z98.84 Bariatric surgery status
CPT/HCPCS: 76816

== ENCOUNTER 2019-11-28 07:27 | Outpatient (CLI) | payer MEDICAID, SELFPAY | END 2019-11-28 07:47 | PROVIDERS: PCP Nurse Practitioner Family; Visit Provider Obstetrics & Gynecology | DX: O40.3XX0 Polyhydramnios, third trimester, not applicable or unspecified (principal); Z3A.32 32 weeks gestation of pregnancy | CPT/HCPCS: 59025 ==

== ENCOUNTER 2019-12-05 07:37 | Outpatient (CLI) | payer MEDICAID, SELFPAY | END 2019-12-05 07:57 | PROVIDERS: PCP Nurse Practitioner Family; Visit Provider Obstetrics & Gynecology Gynecology | DX: O13.3 Gestational [pregnancy-induced] hypertension without significant proteinuria, third trimester (principal); O99.353 Diseases of the nervous system complicating pregnancy, third trimester; G40.909 Epilepsy, unspecified, not intractable, without status epilepticus; Z3A.33 33 weeks gestation of pregnancy | CPT/HCPCS: 59025 ==

== ENCOUNTER 2019-12-09 07:09 | Outpatient (CLI) | payer MEDICAID, SELFPAY | END 2019-12-09 07:29 | PROVIDERS: PCP Nurse Practitioner Family; Visit Provider Obstetrics & Gynecology | DX: O40.3XX0 Polyhydramnios, third trimester, not applicable or unspecified (principal); Z3A.33 33 weeks gestation of pregnancy | CPT/HCPCS: 59025 ==

== ENCOUNTER 2019-12-11 00:25 | Outpatient (CLI) | payer MEDICAID, SELFPAY ==
--- NOTE | 2019-12-11 08:00 | DI.US_ITS ---
EXAM: US OB AGUILA WEIGHT CLINICAL HISTORY: Polyhydramnios,O40.9XX0. TECHNIQUE: Transabdominal obstetrical ultrasound performed. COMPARISON: US US OB AGUILA WEIGHT from 11/11/2019 FINDINGS:: Number of fetuses: One. position: Vertex. Placental location: Anterior. No evidence of previa. BIOMETRIC DATA: BPD: 83mm = 33+1 weeks HC: 304mm = 33+ 6 weeks AC: 302 mm = 34+1 weeks FL: 59 mm = 30+ 6 weeks below the expected range. EFW: 2126 Gms = 12 % Composite Age: 33+ 6 EDC by ultrasound: 29 January 2020 Heart Rate: 130BPM Amniotic fluid index: 32.1 cm. Polyhydramnios IMPRESSION: Overall size and weight are within the low normal range. Femur lengths are measuring small for dates. Polyhydramnios. DATA REPOSITORY:
== END 2019-12-11 00:45 ==
PROVIDERS: PCP Nurse Practitioner Family; Visit Provider Obstetrics & Gynecology
DX: O40.3XX0 Polyhydramnios, third trimester, not applicable or unspecified (principal)
CPT/HCPCS: 76816

== ENCOUNTER 2019-12-12 09:30 | Observation (INO) | payer MEDICAID, SELFPAY ==
--- NOTE | 2019-12-12 13:06 | W.PM.DS.N ---
Date of service: 12/12/19 Time of Service: 13:06 Discharge Plan Disposition Patient Disposition: HOME Condition: Good Discharge Details Reason For Visit: R/O LABOR Admit Date/Time: 12/12/19 09:30 Admit Provider: Javier James Attending Provider: Javier James Primary Care Provider: Kelly Tam Hospital Course Hospital Course: Patient presents at 34 weeks gestation with regular contractions. Patient did have repeat cervical exams which were unchanged at 1 to 2 cm in dilatation. The patient is known to have polyhydramnios. heart tracing was reactive on NST. The patient was felt suitable for discharge home. Labor precautions given. Home Meds and New Rx's Prescriptions: Continued gabapentin 400 mg capsule 400 mg PO TID PRNRF: 0 mirtazapine [Remeron] 15 mg tablet 15 mg PO DAILY RF: 0 PNV #[id number] 30 mg iron-10 mg iron-1 mg capsule 1 cap PO DAILY Qty: 90 RF: 3 topiramate 200 mg tablet 400 mg PO BID Qty: 360 RF: 3 aspirin 81 mg tablet,delayed release (DR/EC) 81 mg PO DAILY Qty: 90 RF: 2 dextroamphetamine-amphetamine [Adderall] 30 mg tablet 30 mg PO DAILY RF: 0 dextroamphetamine-amphetamine [Adderall] 20 mg tablet 20 mg PO DAILY RF: 0 metoclopramide HCl [Reglan] 5 mg tablet 5 mg PO QACHS Qty: 60 RF: 2 levetiracetam 500 mg tablet 500 mg PO BID Qty: 60 RF: 5 levetiracetam 1,000 mg tablet 2,000 mg PO BID Qty: 120 RF: 5 (DME) blood-glucose meter [OneTouch Ultra2 Meter] Misc See Rx Instructions .ROUTE .MEDSUPPLY Qty: 1 RF: 0 (DME) lancets [OneTouch UltraSoft Lancets] Misc See Rx Instructions .ROUTE .MEDSUPPLY Qty: 200 RF: 2 (DME) OneTouch Ultra Blue Test Strip Strip See Rx Instructions .ROUTE .MEDSUPPLY Qty: 200 RF: 2 Discharge Instructions Activity:: Activity as Tolerated Equipment/Supplies:: No Equipment Needed Diet:: As Tolerated Discharge Orders Discharge Orders: Discharge Order (Routine); Ordered 09/11/20 Ordered By: Javier James DS: Summary Status at Discharge Functional status at discharge: independent ambulation Overall status at discharge: patient is back to baseline Mental Status: mental status grossly normal Speech and Movement: speech and movement normal Mood: congruent mood Affect: normal affect Exam Psych Mental Status: mental status grossly normal Speech and Movement: speech and movement normal Mood: congruent mood Affect: normal affect PFSH Medical History (Updated 12/11/19 @ 11:50 by Javier James MD) ADHD Depression Focal epilepsy with impairment of consciousness HRP (high risk ) Insomnia Iron deficiency anemia 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 Pilar cyst Polyhydramnios affecting in third trimester Post-traumatic stress disorder Social phobia Uterine bleeding Surgical History (Updated 10/20/19 @ 09:32 by Javier James MD) H/O gastric bypass Family History Mother Substance abuse Seizures Social History (Updated 10/28/19 @ 14:31 by Libby Martinez LPN) Smoking/Tobacco Use Status: Current every day Tobacco Type: cigarettes Alcohol Intake: never Substance use type: does not use Household members: spouse and family Number of Children: 2 current occupation: SAHM; 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 Date GA/Weeks # Outcome Route Wgt Sex Labor Lgth Anesthesia Location Prov Complic 05/07/13 38 No Successful vaginal 6 lb 2 oz Male 24 hrs [place] 01/21/16 36 No Successful vaginal 5 lb 11 oz Female 12 hrs [place] Delivery Date: 05/07/13 spont but long labor, epidural didn't work well, hematoma softball sized and had to go to the OR, had a blood transfusion, discharged home at day 5. Baby was fine. Chhaya Newberry Delivery Date: 01/21/16 IOL at 36 wks for pre-eclampsia, epidural that didn't work well, no complications, baby in isolette at first, went home day 4. Chhaya Newberry
== END 2019-12-12 12:50 | disposition home or self-care (01) ==
LOC: OBS 11:40 → BCD 11:43 → OBS 11:43
PROVIDERS: Admitting Provider Obstetrics & Gynecology; PCP Nurse Practitioner Family; Visit Provider Obstetrics & Gynecology
DX: O60.03 Preterm labor without delivery, third trimester (principal); Z3A.34 34 weeks gestation of pregnancy; O40.3XX0 Polyhydramnios, third trimester, not applicable or unspecified
CPT/HCPCS: 59025; 99238; G0378

== ENCOUNTER 2019-12-15 08:09 | Outpatient (CLI) | payer MEDICAID, SELFPAY ==
[2019-12-15 08:47] VITALS: BP 117/75; PULSE 86; RESP 20; TEMP 36.5
--- NOTE | 2019-12-15 10:49 | W.OBNST ---
Date of service: 12/15/19 Time of Service: 10:49 NST Evaluation Reason for NST Reasons for Nonstress Test: POLYHYDRAMNIOS Gestational Age Gestational Age in Weeks and Days: 34 Weeks and 4Days Test and Monitor Explained Test/Monitor Explained: Test Explained, Monitor Explained and Patient Verbalized Understanding NST Information Date on Monitor: 12/15/19 Time on Monitor: 08:35 Date off Monitor: 12/15/19 Time off Monitor: 09:28 Total Time on Monitor: 53 NST Interventions: PO Hydration and Reposition Patient Contraction Frequency: Q15 min with intermittent irritability NST Evaluation Patient States Movement: Present FHR Baseline: 135 Variability: Moderate 6-25 bpm Accelerations: 15x15 Decelerations: None NST Results: Reactive Note NST Note NST Reviewed and Verified by: Javier James
== END 2019-12-15 09:30 | disposition other institution (70) ==
LOC: BCD 08:10 → OBS 08:28
PROVIDERS: PCP Nurse Practitioner Family; Visit Provider Obstetrics & Gynecology
DX: O40.3XX0 Polyhydramnios, third trimester, not applicable or unspecified (principal); Z3A.34 34 weeks gestation of pregnancy
CPT/HCPCS: 59025

== ENCOUNTER 2019-12-16 00:32 | Outpatient (CLI) | payer MEDICAID, SELFPAY ==
--- NOTE | 2019-12-16 06:45 | DI.US_ITS ---
EXAM: US OB AGUILA UMBILICAL ARTERY CLINICAL HISTORY: POLHYDRAMNIOS,SMALL FOR GEST AGE,O40.9XX0,O36.5990 TECHNIQUE: Ultrasound performed using standard protocol. COMPARISON: US US OB AGUILA WEIGHT from 12/11/2019 FINDINGS: Limited OB ultrasound was performed utilizing 3rd trimester protocol. This is reportedly a 35 week 2 day gestational. Placenta is anterior with no placenta previa. There is polyhydramnios visually wi th an AGUILA 29. Fetus is in cephalic presentation. heart rate 160 BPM. Umbilical artery Doppler evaluation shows systolic-diastolic ratio 2.6, pulsatility index 0.91, and r esistive index 0.61. These findings are all in the normal range between the 50th and 95th percentile for predicted gestational age. IMPRESSION: DATA REPOSITORY:
== END 2019-12-16 00:52 ==
PROVIDERS: PCP Nurse Practitioner Family; Visit Provider Obstetrics & Gynecology
DX: O40.3XX0 Polyhydramnios, third trimester, not applicable or unspecified (principal); Z3A.35 35 weeks gestation of pregnancy
CPT/HCPCS: 76816; 76820

== ENCOUNTER 2019-12-18 09:48 | Outpatient (CLI) | payer MEDICAID, SELFPAY ==
[2019-12-18 10:14] VITALS: BP 109/67; PULSE 104; TEMP 16
[2019-12-18 10:35] VITALS: BP 109/67; PULSE 104
--- NOTE | 2019-12-18 11:02 | W.OBNST ---
Date of service: 12/18/19 Time of Service: 11:02 NST Evaluation Gestational Age Gestational Age in Weeks and Days: 34 Weeks and 4Days Note NST Note Note: Patient has a reactive nonstress test which is category 1 heart tones are 130s with moderate variability accelerations are appropriate NST Reviewed and Verified by: Lore Dia
--- NOTE | 2019-12-18 11:04 | W.PM.PROGNOT ---
Date of Service Date of service: 12/18/19 Time of Service: 11:04 Assessment and Plan Assessment and plan (1) Polyhydramnios affecting in third trimester: Status: Acute Assessment and plan: Here in the center for an evaluation of labor. She does not appear to be in labor. She has scheduled repeat at 39 weeks. She will follow-up in the office at regular visit next week. Signs and symptoms of labor as well as preeclampsia discussed with the patient today. (2) SGA (small for gestational age), , affecting care of mother, antepartum: Status: Acute Subjective Subjective Interval history since last seen: Patient is seen in the birthing center today with complaints of contractions which are approximately every 7 minutes. She is had good activity and denies loss of fluid. She has no signs or symptoms of preeclampsia. She is here for evaluation of labor Exam Narrative Exam Narrative: Patient is seen in the birthing unit and is comfortable. Nonstress test had been performed and was category 1 with a reactive tracing irregular contractions. Manual OB Exam: dilated (Cervical exam is 1/2 cm dilated with cervix at 60% effaced no changes) 1 Objective Last Vital Signs Pulse 104 H 12/18/19 10:35 BP 109/67 12/18/19 10:35
--- NOTE | 2019-12-22 07:24 | W.OBNST ---
Date of service: 12/18/19 Time of Service: 11:02 NST Evaluation Reason for NST Reasons for Nonstress Test: POLYHYDRAMNIOS Gestational Age Gestational Age in Weeks and Days: 34 Weeks and 4Days Test and Monitor Explained Test/Monitor Explained: Test Explained, Monitor Explained and Patient Verbalized Understanding Vital Signs Blood Pressure: 109/67 Pulse: 104 Temperature: 60.8 F NST Information Time on Monitor: 10:15 Date off Monitor: 12/18/19 Time off Monitor: 10:44 NST Interventions: PO Hydration NST Evaluation Patient States Movement: Present FHR Baseline: 135 Variability: Moderate 6-25 bpm Accelerations: 15x15 Decelerations: None NST Results: Reactive Note NST Note Note: Patient has a reactive nonstress tests category 1 with heart rates in the 130s moderate variability's. Accelerations are appropriate. NST Reviewed and Verified by: Lore Dia
[2019-12-22 07:25] VITALS: BP 109/67; PULSE 104; TEMP 16
== END 2019-12-18 11:10 | disposition home or self-care (01) ==
LOC: BCD 09:52 → OBS 10:10
PROVIDERS: PCP Nurse Practitioner Family; Visit Provider Obstetrics & Gynecology
DX: O40.3XX0 Polyhydramnios, third trimester, not applicable or unspecified (principal); O36.5930 Maternal care for other known or suspected poor fetal growth, third trimester, not applicable or unspecified; Z3A.34 34 weeks gestation of pregnancy
CPT/HCPCS: 59025; NC

== ENCOUNTER 2019-12-24 11:03 | Outpatient (CLI) | payer MEDICAID, SELFPAY ==
[2019-12-24 11:12] VITALS: BP 127/68; PULSE 117; TEMP 36.8
[2019-12-24 11:17] VITALS: BP 127/68; PULSE 117
--- NOTE | 2019-12-24 11:48 | W.OBNST ---
Date of service: 12/24/19 Time of Service: 11:50 NST Evaluation Reason for NST Reasons for Nonstress Test: POLYHYDRAMNIOS Gestational Age Gestational Age in Weeks and Days: 35 Weeks and 6Days Test and Monitor Explained Test/Monitor Explained: Test Explained, Monitor Explained and Patient Verbalized Understanding Vital Signs Blood Pressure: 127/68 Pulse: 117 Temperature: 98.2 F NST Information Date on Monitor: 12/24/19 Time on Monitor: 11:11 Date off Monitor: 12/24/19 Time off Monitor: 11:42 Total Time on Monitor: 31 NST Interventions: PO Hydration NST Evaluation Patient States Movement: Present FHR Baseline: 150 Variability: Moderate 6-25 bpm Accelerations: 15x15 Decelerations: None NST Results: Reactive NST Results Other: Vianey Valadez MD reviewed strip Note NST Note Note: Category 1. Reactive. Pt is scheduled for u/s for growth, AGUILA after this appointment. NST Reviewed and Verified by: fortino alegre
[2019-12-24 11:50] VITALS: BP 127/68; PULSE 117; TEMP 36.8
== END 2019-12-24 11:45 ==
LOC: BCD 11:03 → OBS 11:05
PROVIDERS: PCP Nurse Practitioner Family; Visit Provider Obstetrics & Gynecology Gynecology
DX: O40.3XX0 Polyhydramnios, third trimester, not applicable or unspecified (principal); Z3A.35 35 weeks gestation of pregnancy
CPT/HCPCS: 59025

== ENCOUNTER 2019-12-24 14:02 | Outpatient (REF) | payer MEDICAID, SELFPAY ==
[2019-12-24 14:43] LABS: *AMPHETAMINES SCREEN URINE POSITIVE (Negative); *BARBITURATES SCREEN URINE Negative (Negative); *BENZODIAZEPINES SCREEN URINE Negative (Negative); Cannabinoids THC POSITIVE (Negative); Cocaine Screen,Urine Negative (Negative); METHADONE URINE SCREEN Negative (Negative); OPIATES URINE SCREEN Negative (Negative)
[2019-12-24 14:46] LABS: Tricyclic Antidepressants Negative (Negative)
[2020-01-01 08:43] LABS: Buprenorphine Negative
== END 2019-12-24 14:22 ==
LOC: LBN 14:02
PROVIDERS: PCP Nurse Practitioner Family; Visit Provider Obstetrics & Gynecology Gynecology
DX: Z34.90 Encounter for supervision of normal pregnancy, unspecified, unspecified trimester (principal)
CPT/HCPCS: 80307; 87081

== ENCOUNTER 2019-12-29 15:15 | Outpatient (CLI) | payer MEDICAID, SELFPAY ==
[2019-12-29 16:36] VITALS: BP 109/68; PULSE 98; TEMP 36.6
--- NOTE | 2019-12-29 16:51 | W.PM.PROGNOT ---
Date of Service Date of service: 12/29/19 Time of Service: 16:51 Assessment and Plan Assessment and plan (1) SGA (small for gestational age), , affecting care of mother, antepartum: Status: Acute Assessment and plan: Will check labs, NST, NO cervical dialtion, no contractions on the monitor (2) Polyhydramnios: Status: Acute (3) HRP (high risk ): Status: Acute (4) History of gastric bypass: Status: Acute Subjective Subjective Interval history since last seen: Patient seen in triage with multiple complaints: Headache, swelling, visual changes, spotting, contractions and nausea and vomiting. Last PO intake was on the way over, a chicken sandwich. Had a cigarette an hour ago. Baby is moving and active Exam Const General: cooperative, No well groomed and disheveled Nutritional Appearance: obese Orientation: alert and oriented x3 Eyes General: appearance normal, both eyes and all related structures Resp Effort & Inspection: normal respiratory effort Cardio Rate: regular rate GI Inspection: normal to inspection Palpation: soft Other: gravid, 36 weeks Skin Other: multiple skin lesions and sores Extrem General: edema (3+) Laterality: bilateral
[2019-12-29 17:02] VITALS: BP 109/68; PULSE 98; TEMP 36.6
[2019-12-29 17:29] LABS: Abs Immature Grans 0.05 10^3/uL (0.0-0.06); Absolute Basophil Count 0.04 10^3/uL (0.0-0.2); Absolute Eosinophil Count 0.17 10^3/uL (0.0-0.7); Absolute Lymphocyte Count 2.27 10^3/uL (1.2-3.4); Absolute Monocyte Count 0.31 10^3/uL (0.1-0.8); Absolute Neutrophil Count 6.62 10^3/uL (1.2-6.7); Basophils % 0.4; Eosinophils % 1.8; HCT 35.4 % (36.0-46.0); HGB 12.3 g/dL (11.2-15.7); Immature Grans % 0.5; MCH 33.9 pg (27.0-33.0); MCHC 34.7 % (32.0-36.0); MCV 97.5 fL (80-95); Monocytes % 3.3; Nucleated RBC 0 %; Platelet Count 203 10^3/uL (130-400); RBC 3.63 10^6/uL (3.93-5.22); RDW 13.2 % (11.7-14.6); RDW-SD 47.1 fL; WBC 9.46 10^3/uL (4.4-10.8)
[2019-12-29 17:45] LABS: ALT 15 U/L (14-59); AST 18 U/L (15-37); Albumin 2.5 g/dL (3.4-5.0); Alkaline Phosphatase 112 U/L (46-116); Anion Gap 9.5 mmol/L (3-11); BUN 19 mg/dL (7-18); Bilirubin, Total 0.5 mg/dL (0.2-1.0); CO2 20.5 mmol/L (21.0-32.0); CREATININE 0.83 mg/dL (0.55-1.02); Calcium 8.3 mg/dL (8.5-10.1); Chloride 106 mmol/L (98-107); Glucose 90 mg/dL (74-106); Potassium 3.7 mmol/L (3.5-5.1); Sodium 136 mmol/L (136-145); Total Protein 6.2 g/dL (6.4-8.2)
--- NOTE | 2019-12-29 18:02 | W.OBNST ---
Date of service: 12/29/19 Time of Service: 18:02 NST Evaluation Reason for NST Reasons for Nonstress Test: GESTATIONAL HYPERTENSION Gestational Age Gestational Age in Weeks and Days: 37 Weeks and 2Days Test and Monitor Explained Test/Monitor Explained: Test Explained, Monitor Explained and Patient Verbalized Understanding Vital Signs Blood Pressure: 109/68 Pulse: 98 Temperature: 97.9 F NST Information Date on Monitor: 12/29/19 Time on Monitor: 15:42 NST Interventions: PO Hydration NST Evaluation Patient States Movement: Present FHR Baseline: 140 Variability: Moderate 6-25 bpm Accelerations: 15x15 Decelerations: None Note NST Note Note: Category 1 strip. Labs normal OK for D/C NST Reviewed and Verified by: Lore Dia
[2019-12-29 18:03] VITALS: BP 109/68; PULSE 98; TEMP 36.6
[2019-12-29 20:27] LABS: COMMENT (LAB VIEW ONLY) 94.88 mg/dL
== END 2019-12-29 18:10 | disposition home or self-care (01) ==
LOC: BCD 15:17 → OBS 16:32
PROVIDERS: PCP Nurse Practitioner Family; Visit Provider Obstetrics & Gynecology
DX: O13.3 Gestational [pregnancy-induced] hypertension without significant proteinuria, third trimester (principal); Z3A.37 37 weeks gestation of pregnancy; O36.5930 Maternal care for other known or suspected poor fetal growth, third trimester, not applicable or unspecified; O40.3XX0 Polyhydramnios, third trimester, not applicable or unspecified; Z98.84 Bariatric surgery status
CPT/HCPCS: 36415; 59025; 80053; 99232; 82565; 84156; 85025

== ENCOUNTER 2019-12-30 00:55 | Outpatient (CLI) | payer MEDICAID, SELFPAY ==
--- NOTE | 2019-12-30 08:23 | DI.US_ITS ---
EXAM: US OB AGUILA WEIGHT CLINICAL HISTORY: small for gestational age,o36.5990,o40.9xx0,polhydramnios. TECHNIQUE: Transabdominal obstetrical ultrasound performed. COMPARISON: US US OB AGUILA UMBILICAL ARTERY from 12/16/2019 US US OB AGUILA UMBILICAL ARTERY from 12/16/2019 FINDINGS:: Number of fetuses: One. position: Vertex. Placental location: Anterior. No evidence of previa. BIOMETRIC DATA: BPD: 87mm = 35+1 HC: 320mm = 36+ 0 AC: 323mm = 36+ 2 FL: 66 mm = 34+1 EFW: 2704 Gms = 15 % Composite Age: 35+3 EDC: 31 January 2020 Heart Rate: 150BPM Amniotic fluid index: 13.9 cm. Amount of fluid is within normal limits. IMPRESSION: size is below the normal range. weight is at the low normal range. The amniotic fluid i ndex is now normal. DATA REPOSITORY:
== END 2019-12-30 01:15 ==
PROVIDERS: PCP Nurse Practitioner Family; Visit Provider Obstetrics & Gynecology
DX: O36.5930 Maternal care for other known or suspected poor fetal growth, third trimester, not applicable or unspecified (principal); O40.3XX0 Polyhydramnios, third trimester, not applicable or unspecified
CPT/HCPCS: 76816

== ENCOUNTER 2019-12-30 13:35 | Inpatient (IN) | payer MEDICAID, SELFPAY ==
--- NOTE | 2019-12-30 13:46 | PLAC_PTH ---
PATIENT: Selma Rosado LOC: OBS U#:[id number] AGE/SX: 29/F ROOM: OBS.304 RE12/30/[address]: Javier James MD : 1990 BED: A DIS: 01/01/2020 SPEC #: [id number] RECD: 12/30/19 16:51 STATUS: BEVERLY REQ #: [id number] HUSAM: 12/30/19 13:[address]: Javier James DEPT: Surgical Specimen RECD BY: Rosalee Hinojosa ENTERED: 12/30/19 16:51 SP TYPE: PLAC OTHR DR: Kelly Tam Tissues: 1 - PLACENTA (3RD TRIMESTER) Procedures: GROSS AND MICRO LEVEL 5 Comments: [id number]
[2019-12-30] MEDS: Oxytocin 10 UNITS/ML VIAL IM (13:48)
[2019-12-30 14:00] VITALS: BP 109/79; PULSE 80; RESP 18; O2SAT 98
[2019-12-30 14:14] VITALS: BP 102/69; PULSE 84
[2019-12-30 14:35] VITALS: BP 107/78; PULSE 85; RESP 18
[2019-12-30 14:48] LABS: HCT 34.7 % (36.0-46.0); MCH 33.8 pg (27.0-33.0); MCHC 34.6 % (32.0-36.0); MCV 97.7 fL (80-95); MPV 10.8 fL (8.0-11.0); Platelet Count 176 10^3/uL (130-400); RBC 3.55 10^6/uL (3.93-5.22); RDW 13.2 % (11.7-14.6); RDW-SD 46.4 fL; WBC 11.51 10^3/uL (4.4-10.8)
[2019-12-30 14:50] VITALS: BP 102/69; PULSE 82; RESP 18
--- NOTE | 2019-12-30 14:59 | W.PM.HP.N ---
Date of service: 12/30/19 Time of Service: 14:00 Assessment and Plan Assessment and plan (1) labor: Status: Acute Assessment and plan: labor with delivery shortly following admission. Clinically there was likely a placental abruption with a large amount of vaginal bleeding that was encountered on initial exam. See delivery note for details. History of Present Illness History of Present Illness Chief Complaint: labor Narrative: 29-year-old -0-0-2 at 36.5 with cessation presents as her clinic appointment with heavy vaginal bleeding, contractions and was found to have complete cervical dilatation. The patient was referred immediately to labor and delivery. Delivery ensued shortly after admission. The patient's medical history is significant for epilepsy, obesity, history of gastric bypass and a history of amphetamine abuse. No complete tracing could be obtained prior to delivery. The heart rate was noted to be 140s. 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 Pilar cyst Polyhydramnios affecting in third trimester Post-traumatic stress disorder Social phobia Uterine bleeding Surgical History (Updated 10/20/19 @ 09:32 by Javier James MD) H/O gastric bypass Family History Mother Substance abuse Seizures Social History (Updated 10/28/19 @ 14:31 by Libby Martinez LPN) Smoking/Tobacco Use Status: Current every day Tobacco Type: cigarettes Alcohol Intake: never Substance use type: does not use Household members: spouse and family Number of Children: 2 current occupation: SAHM; 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 Date GA/Weeks # Outcome Route Wgt Sex Labor Lgth Anesthesia Location Prov Complic 05/07/13 38 No Successful vaginal 6 lb 2 oz Male 24 hrs [place] 01/21/16 36 No Successful vaginal 5 lb 11 oz Female 12 hrs [facility] [place] Delivery Date: 05/07/13 spont but long labor, epidural didn't work well, hematoma softball sized and had to go to the OR, had a blood transfusion, discharged home at day 5. Baby was fine. [facility] New[facility] Delivery Date: 01/21/16 IOL at 36 wks for pre-eclampsia, epidural that didn't work well, no complications, baby in isolette at first, went home day 4. Chhaya Newberry Meds Home Medications and Allergies Home Medications Medication Instructions Recorded Confirmed Type mirtazapine 15 mg tablet 15 mg PO DAILY 03/06/19 12/30/19 History vitamin#30 30 mg iron-10 1 cap PO DAILY #90 cap 05/07/19 12/30/19 Rx mg iron-folic acid 1 mg-omg3 capsule gabapentin 400 mg capsule 400 mg PO TID PRN cap 06/10/19 12/30/19 History levetiracetam 1,000 mg tablet 2,000 mg PO BID #120 tab 06/12/19 12/30/19 Rx aspirin 81 mg tablet,delayed 81 mg PO DAILY #90 tab 07/22/19 12/30/19 Rx release topiramate 200 mg tablet 400 mg PO BID #360 tab 08/06/19 12/30/19 Rx dextroamphetamine-amphetamine 20 20 mg PO DAILY 09/02/19 12/30/19 History mg tablet dextroamphetamine-amphetamine 30 30 mg PO DAILY 09/02/19 12/30/19 History mg tablet metoclopramide HCl 5 mg tablet 5 mg PO QACHS #60 tab 09/26/19 12/30/19 Rx blood sugar diagnostic #200 each 10/22/19 12/30/19 Rx blood-glucose meter #1 each 10/22/19 12/30/19 Rx lancets #200 each 10/22/19 12/30/19 Rx levetiracetam 500 mg tablet 500 mg PO BID #60 tab 10/28/19 12/30/19 Rx Allergies Allergy/AdvReac Type Severity Reaction Status Date / Time trazodone Allergy Severe Verified 12/05/19 09:54 bupropion [From Wellbutrin] AdvReac Per pt. Verified 12/05/19 09:54 possible seizure cause Exam Other: Initial examination yielded a large amount of vaginal bleeding, complete cervical dilatation with bulging membranes. I was unable to evaluate the presenting part on this exam and a bedside ultrasound confirmed vertex presentation. Results Labs Result diagrams: 12/30/19 14:32 Labs: Laboratory Results - last 24 hr 12/30/19 14:32 WBC 11.51 H RBC 3.55 L Hgb 12.0 Hct 34.7 L MCV 97.7 H MCH 33.8 H MCHC 34.6 RDW 13.2 Plt Count 176 MPV 10.8 Last Vital Signs Pulse 85 12/30/19 14:35 Resp 18 12/30/19 14:35 BP 107/78 12/30/19 14:35 Pulse Ox 98 12/30/19 14:00 COVID-19 Screening Have you,or household,traveled outside [place] in last 14 days?: No Had IN PERSON contact w/suspected or confirmed C-19 person: No
--- NOTE | 2019-12-30 15:05 | W.OBDELIVERY ---
Date of service: 12/30/19 Time of Service: 14:00 OB Labor/ Delivery Information Labor/Delivery Information Shoulder Dystocia: No Stages of Labor Complete Dilatation Date: 12/30/19 Complete Dilatation Time: 13:30 ROM Baby A: 12/30/19 ROM Baby A: 13:41 ROM Total Time- Baby A: [id number] Delivery Date-Baby A: 12/30/19 Infant Delivery Time-Baby A: 13:46 Labor Stage 2 Duration: 16 minutes Placenta Delivery Date-Baby A: 12/30/19 Placenta Delivery Time-Baby A: 13:48 Labor-Stage 3 Duration: 2 minutes Placenta Status: Delivered Baby A Infant Gender: Male Score-1 Minute Interval(Baby A) Heart Rate-1 minute: 100 BPM or Greater Respiratory Effort- 1 minute: Spontaneous/Strong Cry Muscle Tone-1 minute: Active Movement Reflex Response-1 minute: Prompt Response Color-1 minute: Pallor or Cyanosis Total Score-1 minute: 8 Score-5 Minute Interval(Baby A) Heart Rate- 5 minute: 100 BPM or Greater Respiratory Effort-5 minute: Spontaneous/Strong Cry Muscle Tone-5 minute: Active Movement Reflex Response-5 minute: Prompt Response Color-5 minute: Pallor or Cyanosis Total Score- 5 minute: 8 Baby A Delivery Delivery Method: Spontaneaous Presentation: Vertex Cephalic Position: Vertex Vertex Position: Left Occipital Anterior Breech Position: N/A Cord Description-Baby A: 3 Vessels Membrane Rupture: Artificial Amniotic Fluid: Bloody Estimated Blood Loss: 150 Delivery Outcome: Liveborn Complications: None Infant Disposition: Remains with Mother Procedure Procedures: Ultrasound , indication: Evaluate presentation , ultrasound findings: Cephalic presentaiton .
[2019-12-30 15:25] VITALS: BP 97/65; PULSE 78; RESP 18
[2019-12-30 19:15] VITALS: BP 118/77; PULSE 103; RESP 18; TEMP 36.6
[2019-12-30] MEDS: levETIRAcetam 500 MG TAB 2500 MG PO (19:50)
[2019-12-30] MEDS: Topiramate 100 MG TAB 400 MG PO (19:50)
[2019-12-30] MEDS: Acetaminophen 325 MG TAB 650 MG PO (19:50)
[2019-12-30] MEDS: Metoclopramide 10 MG TAB 5 MG PO (22:08)
[2019-12-30] MEDS: Gabapentin 400 MG CAP PO (22:08)
[2019-12-31] MEDS: Acetaminophen 325 MG TAB 650 MG PO ×2 (05:36→10:44)
[2019-12-31 07:56] VITALS: BP 108/69; PULSE 95; RESP 18; TEMP 37.3; O2SAT 98
[2019-12-31] MEDS: levETIRAcetam 500 MG TAB 2500 MG PO ×2 (08:27→20:38)
[2019-12-31] MEDS: Metoclopramide 10 MG TAB 5 MG PO ×4 (08:28→20:39)
[2019-12-31] MEDS: Topiramate 100 MG TAB 400 MG PO ×2 (08:28→20:39)
--- NOTE | 2019-12-31 08:50 | W.PM.OBPNV1 ---
Date of service: 12/31/19 Time of Service: 08:50 Assessment and Plan Assessment and plan (1) (normal spontaneous vaginal delivery): Status: Acute Assessment and plan: Uncomplicated course. Continue routine care. (2) labor: Status: Acute Subjective Subjective Patient comments: No complaints and Pain well controlled baby status: Doing well, Bottle feeding well and Rooming in Exam Physical Exam Vital signs: Temp Pulse Resp BP Pulse Ox 99.1 F 95 H 18 108/69 98 12/31/19 07:56 12/31/19 07:56 12/31/19 07:56 12/31/19 07:56 12/31/19 07:56 Results Hemoglobin/Hematocrit: Hgb 12.0 g/dL (11.2-15.7) 12/30/19 14:32 Hct 34.7 % (36.0-46.0) L 12/30/19 14:32 Abnormal Lab Findings: Abnormal Labs 12/30/19 12/30/19 14:32 14:32 WBC 11.51 H RBC 3.55 L Hct 34.7 L MCV 97.7 H MCH 33.8 H Crossmatch See Detail
[2019-12-31 15:03] LABS: COVID-19 RT-PCR UVMMC Result Negative (Negative)
[2019-12-31 16:30] VITALS: BP 110/68; PULSE 68; RESP 20; TEMP 36.7; O2SAT 98
[2019-12-31 20:30] VITALS: BP 122/66; PULSE 76; RESP 18; TEMP 36.6
[2019-12-31] MEDS: Gabapentin 400 MG CAP PO (20:41)
[2019-12-31] MEDS: Mirtazapine 15 MG TAB PO (23:35)
[2020-01-01 08:10] VITALS: BP 106/75; PULSE 86; RESP 20; TEMP 36.5; O2SAT 97
[2020-01-01] MEDS: levETIRAcetam 500 MG TAB 2500 MG PO (08:13)
[2020-01-01] MEDS: Topiramate 100 MG TAB 400 MG PO (08:13)
[2020-01-01] MEDS: Metoclopramide 10 MG TAB 5 MG PO (08:14)
[2020-01-01] MEDS: Acetaminophen 325 MG TAB 650 MG PO (09:22)
--- NOTE | 2020-01-01 10:21 | W.PM.OBPNV1 ---
Date of service: 01/01/20 Time of Service: 10:21 Assessment and Plan Assessment and plan (1) (normal spontaneous vaginal delivery): Status: Acute Assessment and plan: Satisfactory course. Plan for Mirena IUD at 6 weeks . Ok to discharge home. Subjective Subjective Patient comments: No complaints [place] baby status: Doing well Exam Physical Exam Vital signs: Temp Pulse Resp BP Pulse Ox 97.7 F 86 20 106/75 97 01/01/20 08:10 01/01/20 08:10 01/01/20 08:10 01/01/20 08:10 01/01/20 08:10 Results Hemoglobin/Hematocrit: Hgb 12.0 g/dL (11.2-15.7) 12/30/19 14:32 Hct 34.7 % (36.0-46.0) L 12/30/19 14:32 Abnormal Lab Findings: Abnormal Labs 12/30/19 12/30/19 14:32 14:32 WBC 11.51 H RBC 3.55 L Hct 34.7 L MCV 97.7 H MCH 33.8 H Crossmatch See Detail
--- NOTE | 2020-01-01 10:25 | DSE_ITS ---
Date of service: 01/01/20 Time of Service: 10:25 DS: Diagnosis Discharge Diagnosis (1) (normal spontaneous vaginal delivery): Status: Acute (2) labor: Status: Acute Discharge Plan Disposition Patient Disposition: HOME Condition: Good Discharge Details Reason For Visit: LABOR Admit Date/Time: 12/30/19 13:35 Admit Provider: Javier James Attending Provider: Javier James Primary Care Provider: Kelly Tam Hospital Course Hospital Course: The patient presented at 36.5 weeks in active labor with complete cervical dilatation and intact membranes. She delivered immediately following admission. She did have a significant amount of vaginal bleeding prior to delivery and amniotic fluid was blood suggesting placental abruption. She delivered a vigorous LBM infant. Her course was uncomplicated and she was felt suitable for discharge home on PPD 2. Home Meds and New Rx's Prescriptions: Continued gabapentin 400 mg capsule 400 mg PO TID PRNRF: 0 mirtazapine [Remeron] 15 mg tablet 15 mg PO DAILY RF: 0 PNV #[id number] acid-omega3 30 mg iron-10 mg iron-1 mg capsule 1 cap PO DAILY Qty: 90 RF: 3 topiramate 200 mg tablet 400 mg PO BID Qty: 360 RF: 3 aspirin 81 mg tablet,delayed release (DR/EC) 81 mg PO DAILY Qty: 90 RF: 2 dextroamphetamine-amphetamine [Adderall] 30 mg tablet 30 mg PO DAILY RF: 0 dextroamphetamine-amphetamine [Adderall] 20 mg tablet 20 mg PO DAILY RF: 0 metoclopramide HCl [Reglan] 5 mg tablet 5 mg PO QACHS Qty: 60 RF: 2 levetiracetam 500 mg tablet 500 mg PO BID Qty: 60 RF: 5 levetiracetam 1,000 mg tablet 2,000 mg PO BID Qty: 120 RF: 5 (DME) blood-glucose meter [OneTouch Ultra2 Meter] Misc See Rx Instructions .ROUTE .MEDSUPPLY Qty: 1 RF: 0 (DME) lancets [OneTouch UltraSoft Lancets] Misc See Rx Instructions .ROUTE .MEDSUPPLY Qty: 200 RF: 2 (DME) OneTouch Ultra Blue Test Strip Strip See Rx Instructions .ROUTE .MEDSUPPLY Qty: 200 RF: 2 Discharge Instructions Activity:: Activity as Tolerated Equipment/Supplies:: No Equipment Needed Diet:: As Tolerated Discharge Orders Discharge Orders: Discharge Order (Routine); Ordered 01/01/20 Ordered By: Javier James OB:DS Summary Summary Vaginal Delivery Method: Spontaneaous Episiotomy Description: None Laceration Description: None Laceration Extension: N/A Contraception Discussed Contraception Discussed: Yes, Infant Gender-Baby A: Male weight: 5 lb 8.714 oz Status at Discharge Functional status at discharge: independent ambulation Overall status at discharge: patient is back to baseline Mental Status: mental status grossly normal Speech and Movement: speech and movement normal Mood: congruent mood Affect: normal affect Exam Physical Exam Vital signs: Temp Pulse Resp BP Pulse Ox 97.7 F 86 20 106/75 97 01/01/20 08:10 01/01/20 08:10 01/01/20 08:10 01/01/20 08:10 01/01/20 08:10 PFSH Medical History (Updated 01/01/20 @ 10:26 by Javier James MD) ADHD Depression Focal epilepsy with impairment of consciousness HRP (high risk ) Insomnia Iron deficiency anemia 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 Pilar cyst Polyhydramnios affecting in third trimester Post-traumatic stress disorder Social phobia Uterine bleeding Surgical History (Updated 10/20/19 @ 09:32 by Javier James MD) H/O gastric bypass Family History Mother Substance abuse Seizures Social History (Updated 10/28/19 @ 14:31 by Libby Martinez LPN) Smoking/Tobacco Use Status: Current every day Tobacco Type: cigarettes Alcohol Intake: never Substance use type: does not use Household members: spouse and family Number of Children: 2 current occupation: SAHM; 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 Date GA/Weeks # Outcome Route Wgt Sex Labor Lgth Anesthes ia Location [facility] Complic 05/07/13 38 No Successful vaginal 6 lb 2 oz Male 24 hrs Billie Ivey [place] 01/21/16 36 No Successful vaginal 5 lb 11 oz Female 12 hrs Billie Ivey [place] Delivery Date: 05/07/13 spont but long labor, epidural didn't work well, hematoma softball sized and had to go to the OR, had a blood transfusion, discharged home at day 5. Baby was fine. Chhaya Newberry Delivery Date: 01/21/16 IOL at 36 wks for pre-eclampsia, epidural that didn't work well, no complications, baby in isolette at first, went home day 4. Chhaya Newberry DS: Data Vitals/I&O Vitals and I&O: Vital Signs Temperature 97.7 F 01/01/20 08:10 Pulse 86 01/01/20 08:10 Pulse Rhythm Regular 01/01/20 08:10 Respiratory Rate 20 01/01/20 08:10 Respiratory Depth Normal 12/30/19 21:12 Blood Pressure 106/75 01/01/20 08:10 Blood Pressure Mean 85 01/01/20 08:10 Pulse Oximetry 97 01/01/20 08:10 Pain Level 5 01/01/20 09:22 Intake & Output 12/31/19 12/31/19 01/01/20 11:59 23:59 11:59 Other: Urine Color Pale Data Completed and Pending Labs on day of discharge: Labs from last 24 hours 12/30/19 19:27 COVID-19 PCR Negative Nasopharyn COVID-19 PCR Not Applicable Ref Test Perform Site [facility] lab
--- NOTE | 2020-01-02 10:38 | CMPROGNOTE_ITS ---
- If Service Date Differs Date of service: 01/02/20 Time of Service: 10:38 Care Management Progress Note S/O: CHRISTIAN meets with Selma at the request of Center nurse, Colin. Selma reports she asked to speak with CHRISTIAN because she is experiencing some anxiety and depression around her inability to take her son home. He was born on Sunday, weighing over 5 lbs. Since then, he has been losing weight so he cannot be discharged home yet. Selma says she feels that being unable to ta ke her son home is a reflection on her parenting skills. She goes on to share that she has two other children at home who miss her and want their new brother to come home soon. A: Selma is a 29 year old female admitted to the [facility] on 12/30/2019 for labor and delivery. P: CHRISTIAN discusses Selma's concerns with OB RN, Colin. CM reenforces the importance of staff reassuring Selma that her son remaining at the hospital until he begins to gain weight is not a reflection on her parenting skills, but is in her baby's best interest. CHRISTIAN will also outreach to Sharon Vogel, social media specialist, and ask that she check-in with Selma during her stay at [facility].
== END 2020-01-01 10:55 | disposition home or self-care (01) | DRG 806 ==
PROVIDERS: Admitting Provider Obstetrics & Gynecology; PCP Nurse Practitioner Family; Visit Provider Obstetrics & Gynecology
DX: O60.14X0 Preterm labor third trimester with preterm delivery third trimester, not applicable or unspecified (principal); O99.354 Diseases of the nervous system complicating childbirth; Z37.0 Single live birth; Z3A.36 36 weeks gestation of pregnancy; O69.89X0 Labor and delivery complicated by other cord complications, not applicable or unspecified; O67.8 Other intrapartum hemorrhage; O99.214 Obesity complicating childbirth; O99.334 Smoking (tobacco) complicating childbirth; O99.344 Other mental disorders complicating childbirth; E66.9 Obesity, unspecified; F17.210 Nicotine dependence, cigarettes, uncomplicated; G40.909 Epilepsy, unspecified, not intractable, without status epilepticus; F90.9 Attention-deficit hyperactivity disorder, unspecified type; Z67.40 Type O blood, Rh positive; Z79.82 Long term (current) use of aspirin; R76.0 Raised antibody titer; Z11.59 Encounter for screening for other viral diseases
CPT/HCPCS: 36410; 85027; 86850; 86900; 86901; 86920; 99223; U0003; 86870; 86902; 88307; J2590

== ENCOUNTER 2020-04-23 16:51 | Outpatient (REF) | payer MEDICAID, SELFPAY ==
[2020-04-23 13:36] LABS: HCT 44.7 % (36.0-46.0); HGB 14.9 g/dL (11.2-15.7); MCH 31.5 pg (27.0-33.0); MCHC 33.3 % (32.0-36.0); MCV 94.5 fL (80-95); MPV 11.3 fL (8.0-11.0); Platelet Count 231 10^3/uL (130-400); RBC 4.73 10^6/uL (3.93-5.22); RDW 13.3 % (11.7-14.6); RDW-SD 46.8 fL; WBC 7.05 10^3/uL (4.4-10.8)
[2020-04-23 13:50] LABS: Iron 129 ug/dL (50-170); Total Iron Binding Capacity 381 ug/dL (250-450); Transferrin Sat 34 % (15-50)
[2020-04-23 14:24] LABS: ALT 17 U/L (14-59); AST 13 U/L (15-37); Albumin 3.5 g/dL (3.4-5.0); Alkaline Phosphatase 67 U/L (46-116); Anion Gap 11.2 mmol/L (3-11); BUN 17 mg/dL (7-18); Bilirubin, Total 0.4 mg/dL (0.2-1.0); CO2 20.8 mmol/L (21.0-32.0); CREATININE 0.95 mg/dL (0.55-1.02); Calcium 8.6 mg/dL (8.5-10.1); Chloride 108 mmol/L (98-107); Ferritin 16 ng/mL (8-252); Glucose 82 mg/dL (74-106); Potassium 3.8 mmol/L (3.5-5.1); Sodium 140 mmol/L (136-145); TSH (W/Ref FT4) 1.05 uIU/mL (0.36-3.74); Total Protein 6.7 g/dL (6.4-8.2); Vitamin B12 > 2000 pg/mL (193-986)
[2020-04-23 14:25] LABS: Folate > 20.0 ng/mL (8.6-20.0)
[2020-04-26 06:36] LABS: Vitamin D 25 Total 44.8 ng/ml (30-100)
== END 2020-04-23 17:11 ==
LOC: NCHCN 16:51
PROVIDERS: PCP Nurse Practitioner Family; Visit Provider Family Medicine
DX: F32.9 Major depressive disorder, single episode, unspecified (principal); R53.83 Other fatigue; Z98.0 Intestinal bypass and anastomosis status
CPT/HCPCS: 80053; 82306; 85027; 82607; 82728; 82746; 83540; 83550; 84443

== ENCOUNTER 2020-08-02 16:15 | Emergency (ER) | payer MEDICAID, SELFPAY ==
--- NOTE | 2020-08-02 16:26 | ED.GENADUL_ITS ---
Discharge Plan Disposition Patient Disposition: HOME Condition: Improving Discharge Details Clinical Impression: Alcohol abuse, Nausea, Hypomagnesemia Primary Care Provider: Kelly Tam ED Provider: Sara Suresh Home Meds and New Rx's Prescriptions: New ondansetron 4 mg tablet,disintegrating 4 mg PO Q6H PRN (Reason: nausea and vomiting) Qty: 10 RF: 0 Continued gabapentin 400 mg capsule 400 mg PO TID PRNRF: 0 dextroamphetamine-amphetamine [Adderall] 20 mg tablet 20 mg PO DAILY RF: 0 dextroamphetamine-amphetamine [Adderall] 30 mg tablet 30 mg PO DAILY RF: 0 topiramate 200 mg tablet 200 mg PO BID Qty: 180 RF: 3 levetiracetam 1,000 mg tablet 2,000 mg PO BID Qty: 120 RF: 5 PNV #[id number] acid-omega3 30 mg iron-10 mg iron-1 mg capsule 1 cap PO DAILY Qty: 90 RF: 3 Discharge Instructions Instructions: Abuse of Alcohol (ED), Acute Nausea and Vomiting (ED), Hypomagnesemia (ED) Additional Instructions: Please continue to abstain from alcohol. Please encourage water intake. Please keep your upcoming appointment with your therapist, psychologist and EEG. Please continue with your epilepsy medications as previously prescribed. You have been prescribed Zofran if you have any recurrence of your nausea. You may have this every 6 hours and resolves over time. Please contact your primary care to schedule a follow-up appointment this week for reevaluation. If you develop chest pain, shortness of breath, inability stay hydrated or other new/worsening symptoms please seek care urgently once again. Referrals: Kelly Tam [Primary Care Provider] - Discharge Data Discharge Date/Time-TO BE ENTERED AT DEPARTURE: 08/02/20 19:30 Medical Decision Making Patient is a pleasant 30-year-old female presenting today with chief complaint of increased alcohol consumption. She reports that she had a bad episode of depression over the past few weeks. States that she does not typically drink but 1 week ago began drinking heavily and was drinking a pint of fireball a day. Did not have any alcohol yesterday, none today. Patient became aware of her drinking and is concerned for the welfare of her children if she continues. Was seen by her therapist today who advised that she come here for evaluation. She reports that she has an appointment with her psychiatrist tomorrow. She denies any thoughts of self-harm, harming others. Patient's primary concern at this time is that she feels shaky, nauseous, and generally unwell. Past medical history pertinent for focal epilepsy, obesity, status epilepticus, anemia, nonsustained V. tach, depression. On exam, patient appears anxious. Tachycardic at 119, otherwise stable. Patient does appear slightly dry. She denies any chest pain, shortness of breath. Lungs are clear. Patient has his treatment options. Plan to assess for any electrolyte abnormalities. Will obtain baseline blood work. She is not endorsing any pain. Will give Ativan to help with symptomatic management. I did offer evaluation with mental health and patient declines. She feels that she is receiving good help from therapist and psychiatrist. Reevaluated the patient. She reports she is feeling improved, nausea has subsided. Will p.o. challenge the patient. Patient persistently shaky. Will give another 0.5 mg of Ativan. Labs reviewed. No leukocytosis. Stable H&H. Potassium slightly low at 3.4, patient does have a gap of 15. Gap likely associated with her however her alcohol intake. Creatinine is elevated at 1.1. Magnesium 1.5, will replenish this here. Reevaluate the patient after fluids and repeat dose of Ativan. She is feeling much improved. Stable she did be discharged at this time. She is able to tolerate p.o. intake. She'll continue to increase hydration at home. She will abstain from alcohol. Patient has an appointment with her psychiatrist and EEG scheduled for tomorrow. Sees her therapist Sunday. Patient is tolerating p.o. intake. Feels ready be discharged at this time. Her is on her way to pick her up. Patient has excellent follow-up over the next few days as well as care for her mental disorders. Strict return precautions were discussed. I encouraged her cessation of alcohol. We discussed return precautions at length. Will prescribe Zofran in the event she has any recurrence of her nausea. Encouraged water intake. All of her questions and concerns were addressed and she is in agreement with this plan. HPI General Mode of arrival: ambulatory . Date/Time Provider Initiated Documentation: 08/02/20 16:26 . Limitations to Documentation: no limitations . Information obtained by: patient, family (accompanied by daughter) and RN notes reviewed . History of Present Illness 30 year old F presents to the emergency department with the chief complaint of feeling weak, shaky after stopping heavy drinking, described as moderate, Quality is described as other, Patient started experiencing this day(s) (1) and it has been constant. No relieving factors improve symptom(s), No exacerbating factors reported . Patient notes loss of appetite, nausea/vomiting (nausea, no vomiting) and weakness (generalized fatigue, weakness); denies chest pain, cough, fever/chills, rash, seizure (PMH seizure disorder, no recent seizure), shortness of breath and syncope. Patient did receive the following treatments prior to arrival, none Related Data Home Medications Medication Instructions Recorded Confirmed gabapentin 400 mg capsule 400 mg PO TID PRN cap 06/10/19 08/02/20 dextroamphetamine-amphetamine 20 20 mg PO DAILY 09/02/19 08/02/20 mg tablet dextroamphetamine-amphetamine 30 30 mg PO DAILY 04/05/20 08/02/20 mg tablet levetiracetam 1,000 mg tablet 2,000 mg PO BID #120 tab 04/05/20 08/02/20 topiramate 200 mg tablet 200 mg PO BID #180 tab 04/05/20 08/02/20 vitamin#30 30 mg iron-10 1 cap PO DAILY #90 cap 05/04/20 08/02/20 mg iron-folic acid 1 mg-omg3 capsule ondansetron 4 mg PO Q6H PRN #10 tab 08/02/20 Previous Rx's Medication Instructions Recorded levetiracetam 1,000 mg tablet 2,000 mg PO BID #120 tab 04/05/20 topiramate 200 mg tablet 200 mg PO BID #180 tab 04/05/20 vitamin#30 30 mg iron-10 1 cap PO DAILY #90 cap 05/04/20 mg iron-folic acid 1 mg-omg3 capsule ondansetron 4 mg PO Q6H PRN #10 tab 08/02/20 Allergies Allergy/AdvReac Type Severity Reaction Status Date / Time trazodone Allergy Severe Verified 08/02/20 16:43 bupropion [From Wellbutrin] AdvReac Per pt. Verified 08/02/20 16:43 possible seizure cause General KARIME: 4 Review of Systems Constitutional Constitutional: Reports as per HPI, Denies chills, Denies fever(s), Denies headache(s), Reports lethargy and Reports poor appetite Eyes Eyes: Denies change in vision ENT Ears, Nose, Mouth, and Throat: Denies vertigo, Reports dizziness (lightheaded) and Denies headache(s) Cardiovascular Cardiovascular: Reports as per HPI, Denies dyspnea and Denies dyspnea on exertion Respiratory Respiratory: Reports as per HPI, Denies chest congestion, Denies cough, Denies pain on inspiration, Denies pain with cough, Denies dyspnea, Denies dyspnea on exertion and Denies wheezing Gastrointestinal Gastrointestinal: Reports as per HPI, Denies abdominal pain, Denies melena, Denies bloating, Denies hematochezia, Reports diarrhea (3 BM today, non bloody), Reports nausea and Denies vomiting Genitourinary Genitourinary: Reports system reviewed and no additional complaints, except as documented (patient denies any change in urinary habits) Musculoskeletal Musculoskeletal: Reports as per HPI and Denies back pain Integumentary/Breasts Skin/Breast: Reports as per HPI and Denies rash Neurologic Neurologic: Reports as per HPI, Denies vertigo, Reports dizziness (lightheaded) and Denies headache(s) Allergic/Immunologic Allergic/Immunologic: Denies wheezing PFSH Medical History ADHD Depression Focal epilepsy with impairment of consciousness HRP (high risk ) Insomnia Iron deficiency anemia 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 Pilar cyst Polyhydramnios affecting in third trimester Post-traumatic stress disorder Social phobia Uterine bleeding Surgical History H/O gastric bypass Family History Mother Substance abuse Seizures Social History Smoking/Tobacco Use Status: Current every day Tobacco Type: cigarettes Tobacco: How many years used: 12 Smoking risk assessment performed?: Yes Alcohol Intake: current Alcohol Intake frequency: 3 or more drinks per day Alcohol type: hard liquor Drug use: Daily Substance use type: marijuana Household members: spouse and family Number of Children: 2 current occupation: SAHM; 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 Date GA/Weeks # Outcome Route Wgt Sex Labor Lgth Anesthes ia Location Prov Complic 05/07/13 38 No Successful vaginal 2778.253 g Male 24 hrs [place], [place] 01/21/16 36 No Successful vaginal 2579.807 g Female 12 hrs [place], [place] 12/30/19 No Successful vaginal Male Javier James other Delivery Date: 05/07/13 spont but long labor, epidural didn't work well, hematoma softball sized and had to go to the OR, had a blood transfusion, discharged home at day 5. Baby was fine. RohithChhaya Delivery Date: 01/21/16 IOL at 36 wks for pre-eclampsia, epidural that didn't work well, no complications, baby in isolette at first, went home day 4. Kolby Newberryde Delivery Date: 12/30/19 Pako Shahid LPN,[facility] Exam Const General: cooperative, healthy appearing, comfortable, no acute distress and well developed Nutritional Appearance: well nourished and overweight Orientation: alert, awake and oriented x3 HENMT Head: normal to inspection Ears: hearing grossly normal bilaterally Mouth: mucous membranes dry (appears dry) Resp Effort & Inspection: normal respiratory effort, able to speak in complete sentences and no respiratory distress Auscultation: clear to auscultation bilaterally, no rales, no rhonchi and no wheezes Cardio Rate: tachycardic Rhythm: regular rhythm Heart Sounds: S1 normal and S2 normal GI Inspection: normal to inspection, no edema and non-distended Palpation: soft, no hepatosplenomegaly, not firm, no guarding, not rigid and nontender Auscultation: normal bowel sounds Skin General skin exam: no rashes or lesions noted and other (multitude of scarring consistent with picking on BUE, nothing acute) Trauma: no lacerations or abrasions Neuro General: patient alert, patient awake and patient oriented x3 Cranial Nerves: CN's II-XI intact bilaterally Cognition: normal cognition Speech: speech normal Gait: normal gait Motor: muscle tone normal throughout, strength 5/5 throughout and no fascicul ations Coordination: [id number]-ia-[id number] test normal, [id number] test normal and Romberg test normal Extrem General: normal to inspection, capillary refill normal, no pedal edema, no calf tenderness and normal gait Psych Appearance: grossly normal and well kempt Mental Status: mental status grossly normal Speech and Movement: speech and movement normal
[2020-08-02 16:37] VITALS: BP 143/72; PULSE 119; RESP 24; TEMP 36.9; O2SAT 99
--- NOTE | 2020-08-02 16:45 | RT.EKG_ITS ---
APPROVED REPORT Exam: Resting ECG Reason for Exam: dizzy Patient Location: E HR:118 bpm ECG Measurements Heart Rate 118 AXIS NV 120 P 57 QRSd 79 QRS -17 QT 266 T 73 QTc 373 Conclusion Sinus tachycardia...rate> 99
[2020-08-02 17:26] LABS: Abs Immature Grans 0.03 10^3/uL (0.0-0.06); Absolute Basophil Count 0.02 10^3/uL (0.0-0.2); Absolute Eosinophil Count 0.08 10^3/uL (0.0-0.7); Absolute Lymphocyte Count 1.53 10^3/uL (1.2-3.4); Absolute Monocyte Count 0.26 10^3/uL (0.1-0.8); Absolute Neutrophil Count 6.18 10^3/uL (1.2-6.7); Basophils % 0.2; HCT 44.6 % (36.0-46.0); HGB 15.5 g/dL (11.2-15.7); Immature Grans % 0.4; Lymphocytes % 18.9; MCH 31.8 pg (27.0-33.0); MCHC 34.8 % (32.0-36.0); MCV 91.6 fL (80-95); Monocytes % 3.2; Neutrophils % 76.3; Nucleated RBC 0 %; Platelet Count 320 10^3/uL (130-400); RBC 4.87 10^6/uL (3.93-5.22); RDW 13.4 % (11.7-14.6); RDW-SD 44.8 fL
[2020-08-02 17:36] LABS: ALT 21 U/L (14-59); AST 17 U/L (15-37); Albumin 3.8 g/dL (3.4-5.0); Alkaline Phosphatase 97 U/L (46-116); Anion Gap 15.1 mmol/L (3-11); BUN 15 mg/dL (7-18); Bilirubin, Total 0.9 mg/dL (0.2-1.0); CO2 24.9 mmol/L (21.0-32.0); CREATININE 1.1 mg/dL (0.55-1.02); Calcium 8.9 mg/dL (8.5-10.1); Chloride 102 mmol/L (98-107); Estimated GFR 58.32 (mL/min/1.73m2); Glucose 121 mg/dL (74-106); Potassium 3.4 mmol/L (3.5-5.1); Sodium 142 mmol/L (136-145); Total Protein 7.4 g/dL (6.4-8.2)
[2020-08-02] MEDS: Lactated Ringers 1,000 ML 1000 ML IV (17:37)
[2020-08-02] MEDS: LORazepam 2 MG/ML VIAL 0.5 MG IVP ×2 (17:37→18:23)
[2020-08-02 17:47] LABS: Magnesium 1.5 mg/dL (1.8-2.4); TSH 1.39 uIU/mL (0.36-3.74); Troponin I < 0.05 ng/mL (<0.06)
[2020-08-02] MEDS: Ondansetron 4 MG/2 ML VIAL IVP (17:58)
[2020-08-02] MEDS: MAGNESIUM SULFATE 1 GM/100 ML BAG IVPB (18:23)
[2020-08-02 18:37] VITALS: BP 119/85; PULSE 110; RESP 18; O2SAT 100
[2020-08-02 19:28] VITALS: BP 135/83; PULSE 110; RESP 18; TEMP 37.5; O2SAT 100
== END 2020-08-02 19:30 | disposition home or self-care (01) ==
PROVIDERS: Emergency Provider Physician Assistant; PCP Nurse Practitioner Family
DX: F10.10 Alcohol abuse, uncomplicated (principal); E83.42 Hypomagnesemia; R11.0 Nausea
CPT/HCPCS: 80053; 93005; 96374; 96375; 96376; 99283; 81003; 83735; 84443; 84484; 85025; 93010; J2060; J2405; J3475

== ENCOUNTER 2020-08-03 02:53 | Outpatient (CLI) | payer MEDICAID, SELFPAY ==
--- NOTE | 2020-08-09 16:11 | PDOC.EEG ---
Neurology EEG EEG: [facility] Department of Neurology LONG-TERM AMBULATORY EEG REPORT Date of Recordin08/03/20 at 14:01:13 to 08/06/20 at 00:41:24 Interpreting Physician: Dr. Lakia De Anda PCP/Referring Provider: Kelly Tam NP Reason for study: Ms. Rosado is a 30 year-old woman with known epilepsy and recent spacing out spells. Current Medications: Home Medications Medication Instructions Recorded Confirmed Type gabapentin 400 mg capsule 400 mg PO TID PRN cap 06/10/19 08/02/20 History dextroamphetamine-amphetamine 20 20 mg PO DAILY 09/02/19 08/02/20 History mg tablet dextroamphetamine-amphetamine 30 30 mg PO DAILY 04/05/20 08/02/20 History mg tablet levetiracetam 1,000 mg tablet 2,000 mg PO BID #120 tab 04/05/20 08/02/20 Rx topiramate 200 mg tablet 200 mg PO BID #180 tab 04/05/20 08/02/20 Rx vitamin#30 30 mg iron-10 1 cap PO DAILY #90 cap 05/04/20 08/02/20 Rx mg iron-folic acid 1 mg-omg3 capsule ondansetron 4 mg PO Q6H PRN #10 tab 08/02/20 Rx METHODS: An 18-channel digitized electroencephalogram was recorded in the ambulatory setting with video. The 10/20 international system of electrode placement was used and bipolar and referential electrode montages were recorded. In addition to EEG the patient was monitored for EKG and by video. Activation procedures of photic stimulation and hyperventilation were performed if applicable. The duration of the recording was ~58 hours. DESCRIPTION OF EEG: Waking background activity: During maximal wakefulness a 10-Hz posterior background rhythm was present which was well-modulated, symmetrical, reactive to eye opening, and of moderate voltage. Faster frequencies were present in the bilateral anterior head regions. There was a normal anterior-posterior voltage gradient. There was diffuse motion/muscle artifact throughout the recording which limited assessment of the recording. There were episodes of apparent drowsiness manifested by attenuation of the posterior dominant background rhythm and vertex waves, however, there were NO obvious periods of sleep during this recording. Interictal abnormalities: none, though limited by apparent lack of sleep and significant motion/muscle artifact throughout the recording. Ictal findings: No reported or recorded events, though limited by issues as above. Activating Procedures: Photic stimulation was performed which produced a symmetrical posterior driving response at various flash frequencies. Hyperventilation was performed with moderate effort and produced no physiological slowing of the background. EKG: EKG revealed normal sinus rhythm. INTERPRETATION: This long-term EEG is normal during the awake state as well as during the activation procedures. PRIOR EEG: -EEG (03/07/18): severe generalized slowing and abundant left temporal spike-wave discharges. -EEG (inpatient [id number]/6/[id number]/08/18): severe generalized slowing with occasional periods of burst suppression; abundant left temporal spike-wave discharges occasionally rhythmic consistent with PLEDs. -EEG (03/08/18 at [facility]): left fronto-temporal spike-wave discharges -EEG (03/09/18 at [facility]): Findings are most consistent with either moderate to moderately severe generalized cerebral cortical dysfunction that is potentially epileptogenic or independent regions of cerebral dysfunction of either cerebral hemisphere, more prominently over the left temporal-frontotemporal region. -EEG (03/12/18): Asleep only study with bilateral independent temporal spike-waves at T3 and F8. -EEG (inpatient overnight 03/14/18-03/15/18): Near continuous left >right temporal sharp and spike-wave activity during sleep consistent with partial electrical status epilepticus of sleep. Bilateral independent temporal spike-wave discharges (F7/T3 and T4/T6). Frequent bursts of generalized, left temporal predominant sharp theta activity intermixed with spike-waves during wakefulness. -[place]EEG [place]03/15/18[place]03[place] [facility] [place] Frequent runs of bitemporal independent left greater than right 1-3 Hz spike and slow wave discharges seen while awake and asleep (predominant during sleep). Sharply contoured independent frequent runs of left greater than right bitemporal theta (4-6 Hz) slowing (also predominantly seen during sleep). Left anterior temporal sharps (T3). No clinical seizures. CLINICAL CORRELATION: No focal regions of cerebral dysfunction or epileptiform activity was present. This study was limited by diffuse motion/muscle artifact throughout the recording as well as an apparent lack of sleep (!) despite a recording duration of ~58hours. Epilepsy remains a clinical diagnosis and a normal EEG does not rule out epilepsy. Clinical correlation is advised. Lakia De Anda MD
== END 2020-08-03 02:54 | disposition home or self-care (01) ==
LOC: RT 02:53
PROVIDERS: PCP Nurse Practitioner Family; Visit Provider Psychiatry & Neurology Neurology
DX: G40.909 Epilepsy, unspecified, not intractable, without status epilepticus (principal)
CPT/HCPCS: 95711; 95714

== ENCOUNTER 2020-08-31 15:11 | Outpatient (REF) | payer MEDICAID, SELFPAY ==
[2020-09-04 07:43] LABS: Amphetamine 29 ng/mL (Cutoff: 25); Amphetamines Interpretation Positive.; MDA (Ecstasy Metabolite) Negative ng/mL (Cutoff: 25); MDMA (Ecstasy) Negative ng/mL (Cutoff: 25); Methamphetamine Negative ng/mL (Cutoff: 25); Phentermine Negative ng/mL (Cutoff: 25); Pseudoephedrine/Ephedrine Negative ng/mL (Cutoff: 25)
== END 2020-08-31 15:12 | disposition home or self-care (01) ==
LOC: NCHCN 15:11
PROVIDERS: PCP Nurse Practitioner Family; Visit Provider Nurse Practitioner Psychiatric/Mental Health
DX: F90.9 Attention-deficit hyperactivity disorder, unspecified type (principal); Z51.81 Encounter for therapeutic drug level monitoring
CPT/HCPCS: 80324

== ENCOUNTER 2021-05-12 11:13 | Emergency (ER) | payer MEDICAID, SELFPAY ==
[2021-05-12] VITALS (78 sets, daily range): BP systolic 83–121; BP diastolic 25–99; PULSE 78–145; RESP 21–42; TEMP 35.9; O2SAT 95–100
--- NOTE | 2021-05-12 11:15 | RT.EKG_ITS ---
APPROVED REPORT Exam: Resting ECG Reason for Exam: pui Patient Location: E HR:127 bpm ECG Measurements Heart Rate 127 AXIS RI 120 P 40 QRSd 75 QRS -24 QT 280 T 27 QTc 408 Conclusion Sinus tachycardia...rate> 99 Physician: no stemi
[2021-05-12 11:42] LABS: Source Nasal/Nares
[2021-05-12] MEDS: Normal Saline 1,000 ML 1000 ML IV ×2 (12:12→14:18)
[2021-05-12] MEDS: Ondansetron O.D.T. 4 MG TABEF PO (12:13)
[2021-05-12] MEDS: LORazepam 2 MG/ML VIAL 1 MG IVP (12:13)
[2021-05-12 12:17] LABS: Abs Immature Grans 0.09 10^3/uL (0.0-0.06); MCH 31.4 pg (27.0-33.0); MCHC 33.6 % (32.0-36.0); MCV 93.6 fL (80-95); MPV 10.9 fL (8.0-11.0); Nucleated RBC 0 %; Platelet Count 266 10^3/uL (130-400); RBC 6.11 10^6/uL (3.93-5.22); RDW 13.7 % (11.7-14.6); RDW-SD 47.8 fL
[2021-05-12 12:23] LABS: HCT 57.2 % (36.0-46.0); HGB 19.2 g/dL (11.2-15.7)
--- NOTE | 2021-05-12 12:24 | ED.GENADUL_ITS ---
Discharge Plan Disposition Patient Disposition: HOSPITAL, NON-SPECIFIC Condition: Serious Discharge Details Clinical Impression: Acute pancreatitis Primary Care Provider: Kelly Tam ED Provider: Zaida Hawkins Home Meds and New Rx's Prescriptions: No Action gabapentin 400 mg capsule 400 mg PO TID PRN0RF dextroamphetamine-amphetamine [Adderall] 20 mg tablet 20 mg PO DAILY 0RF Label Comments: In p.m., ordered by CHRIS Kerr dextroamphetamine-amphetamine [Adderall] 30 mg tablet 30 mg PO DAILY 0RF Label Comments: In a.m.; ordered by CHRIS Kerr topiramate 200 mg tablet 200 mg PO BID Qty: 180 3RF levetiracetam 1,000 mg tablet 2,000 mg PO BID Qty: 360 3RF PNV #[id number] 30 mg iron-10 mg iron-1 mg capsule 1 cap PO DAILY Qty: 90 3RF ondansetron 4 mg tablet,disintegrating 4 mg PO Q6H PRN (Reason: nausea and vomiting) Qty: 10 0RF mirtazapine 30 mg tablet 30 mg PO DAILY 0RF hydroxyzine HCl 25 mg tablet 25 mg PO QID 0RF topiramate 200 mg tablet 200 mg PO BID 0RF acetylcysteine 600 mg capsule 600 mg PO BID 0RF Discharge Data Discharge Date/Time-TO BE ENTERED AT DEPARTURE: 05/12/21 20:26 Medical Decision Making <Porter Forte NP - Last Filed: 05/13/21 08:20> Patient presenting to the emergency department for chief complaint of nausea and vomiting, body aches, sore throat. She reports for the past 4 days has felt ill. She does report a possible withdrawal type seizure last night due to not being able to drink her typical amount of alcohol. Patient denies any known contact to COVID-19 and states that she has vaccinated but daughter has had exposure at school. Physical exam shows ill-appearing patient with significant tachycardia, diffuse nonfocal abdominal tenderness with normal active bowel sounds, clear lung sounds, otherwise nondiagnostic exam. Pending results patient given IV fluids, Zofran, and Ativan. Labs are reviewed and show significant hemoconcentration with elevated white count of 26. Hemoglobin 19 and hematocrit 57. Patient also has neutrophils of 21. CMP shows low sodium, decreased carbon dioxide, anion gap of 18 BUN elevated along with creatinine elevation. Patient does have AST 51 ALT 21 with an alk phos of 150. Lipase significantly elevated at 12,000 476 with triglycerides of 177. Due to this patient was ordered a CT scan. Pending CT imaging patient started complaining of chest pain so D-dimer was added and this was noted to be elevated so CTA PE study also ordered given tachycardia and chest pain. Given complaint of pain patient ordered morphine. 1626: Care assumed from provider Bruce Forte pending CT results and admission for pancreatitis. In short patient is a verey sick 31 year old female with a history of alcohol abuse who presents with N/V x [address] results relayed to me by radiologist Dr. Joyce <Zaida Hawkins - Last Filed: 05/12/21 20:01> 1626: Care assumed from provider Bruce Forte pending CT results and admission for pancreatitis. In short patient is a verey sick 31 year old female with a history of alcohol abuse who presents with N/V x [address] results relayed to me by radiologist Dr. Joyce Results noted below. FINDINGS: CHEST: Images of this study are degraded by motion artifact PULMONARY ARTERIES: There are no obvious intra-arterial filling defects to suggest the presence of acute pulmonary emboli. LUNGS: There is a 4 millimeter calcified granuloma in the right lung.? No right lung infiltrates nor pleural effusions.? There is a small amount of left pleural fluid.? Mild infiltrate is noted in the left lower lobe posterior basal segment and some atelectasis noted in the lingular segment of the left lung.? There are no focal findings in the trachea and mainstem bronchi..? Very small amount of left pleural fluid noted. MEDIASTINUM: There is no hilar nor mediastinal adenopathy. Visualized thyroid unremarkable. CARDIAC: Heart size is normal.? There is no pericardial effusion.? There is no significant shift of the interventricular septum.Caliber of the thoracic aorta is within normal limits. OSSEOUS: No significant osseous lesions.. ABDOMEN: There is moderate ascites. There is evidence of prior bariatric surgery.? The pre colic Cristin limb is not dilated.? The pokagon excluded stomach is not distended.? There is some density noted the duodenal C-loop.? Cannot exclude clot within the lumen. LIVER: There are no focal hepatic lesions nor dilatation of intrahepatic ducts.? GALLBLADDER/BILIARY: Gallbladder appears distended.? It contains a density which may be a noncalcified gallstones.? CBD is difficult to visualize. PANCREAS: There is severe pancreatic edema consistent with severe pancreatitis and there is peripancreatic streaking and fluid which extends to the spleen.? Splenic and portal vein are narrow but do not appear thrombosed. SPLEEN: Spleen is not enlarged. There are no intrasplenic lesions.? Splenic and portal veins are patent.? Perisplenic fluid noted ADRENALS: There are no significant adrenal masses. KIDNEYS:No cysts evident. No calculi nor hydronephrosis. No solid renal masses. ABDOMINAL AORTA: Abdominal aorta is not enlarged. LYMPH NODES: There is no retroperitoneal or para-aortic adenopathy. ABDOMINAL WALL/GI: No evidence of significant anterior abdominal wall hernia.? No bowel obstruction. PELVIS:? LYMPH NODES: There is no intrapelvic nor inguinal adenopathy. GI: The appendix is not able to be identified.Very redundant sigmoid which reaches into the upper abdomen. URINARY BLADDER: No calculi nor masses evident REPRODUCTIVE: Uterus size is age-appropriate.? No obvious ovarian masses.? There is free fluid in the pelvis which is most probably related to the abdominal findings. OSSEOUS: No significant osseous lesions. Abdomen ultrasound limited: IMPRESSION: 1. No evidence of acute pulmonary emboli nor pulmonary infarction.? Small left pleural effusion 2. There appears to be severe pancreatitis.? Abundant surrounding fluid around a very edematous pancreas.? High risk for developing pancreatic necrosis and pseudocysts.Ascites evident in the abdomen and pelvis which is most probably related to the severe pancreatitis. 3. Previous bariatric surgery.? No obvious bowel obstruction. 4. Extremely redundant sigmoid which extends up to the upper abdomen 5. Gallbladder appears distended and may contain calculi.? Should be further investigated with ultrasound. Findings discussed by myself with the ER provider 1629: Hospitalist Paged. 1635: Spoke with hospitalist team Dr. Dias who recommends an ultrasound prior to excepting patient to rule out an obstructive stone. This would determine the need for emergent ERCP and further evaluation versus admission here. Ultrasound ordered. 1654: BP 111/76 HR 135, Patient requesting ice chips, heading to DI at this time for US. COMPARISON: US US OB AGUILA WEIGHT from 12/30/[address] CHEST PE ABD PELVIS W from 05/12/2021 FINDINGS: There is site evident. GALLBLADDER/BILIARY: There are 2 gallstones noted in the gallbladder lumen. The gallbladder appears distended but the gallbladder wall does not appear grossly edematous. Common hepatic duct is upper normal measuring 6-7 millimeters. Cannot visualize lower down in CBD because of the large amount of gas here. See CT scan report IMPRESSION: 1. Cholelithiasis. No obvious gallbladder wall edema although the gallbladder is distended. 2. Please see CT scan report 1716: Hospitalist re-paged. 1724: Spoke with Dr. Luna, he is here in department for patient eval. 1823: After speaking with hospitalist, he paged general surgery who recommends transfer to a tertiary facility. 1824: [facility] called, they have no available floor, stepdown, or ICU beds. Will contact [facility]. 1824: [facility] transfer center contacted they are at bed capacity for hospitalist service. They recommend calling back daily to check on bed status. 1834: [facility] called, [facility] called no step down or ICU beds, [facility] called they do not have any availability, 1845: [facility] called they are at bed capacity. 1851: [facility] called no bed capacity at this time, 1855: [facility] called, spoke with transfer center they are open for ED to ED transfers at this time, spoke with Dr. Rodas who accepts patient for transfer, he does recommend a central IV access prior to transfer. [facility] called 1951: Central line placed by Dr. Norton see procedure note above. EMS here for transfer. Patient hemodynamically stable at the time of this dictation. Lab Data Lab results narrative: 05/12/21 15:18 Blood Blood Culture - Pending 05/12/21 15:18 Blood Blood Culture - Pending 05/12/21 13:15 Nasopharynx Influenza Types A,B Antigen - Final 05/12/21 11:40 Pharynx Group A Streptococcus Culture - Pending Laboratory Tests Range/Units 05/12/21 05/12/21 05/12/21 11:40 12:05 12:05 WBC (4.4-10.8) 10^3/uL 23.60 H RBC (3.93-5.22) 10^6/uL 6.11 H Hgb (11.2-15.7) g/dL 19.2 H* Hct (36.0-46.0) % 57.2 H* MCV (80-95) fL 93.6 MCH (27.0-33.0) pg 31.4 MCHC (32.0-36.0) % 33.6 RDW (11.7-14.6) % 13.7 Plt Count (130-400) 10^3/uL 266 MPV (8.0-11.0) fL 10.9 Immature Gran % 0.0 Neutrophils % 89.0 Band Neutrophils % 2 Lymphocytes % 6.0 Monocytes % 3.0 Eosinophils % 0.0 Basophils % 0.0 Nucleated RBC % % 0 Absolute Neutrophils (1.2-6.7) 10^3/uL 21.48 H Absolute Lymphocytes (1.2-3.4) 10^3/uL 1.42 Absolute Monocytes (0.1-0.8) 10^3/uL 0.71 Absolute Eosinophils (0.0-0.7) 10^3/uL 0.00 Absolute Basophils (0.0-0.2) 10^3/uL 0.00 RBC Morphology Normal D-Dimer (<500) ng/mlFEU Sodium (136-145) mmol/L 134 L Potassium (3.5-5.1) mmol/L 5.0 Chloride (98-107) mmol/L 98 Carbon Dioxide (21.0-32.0) mmol/L 17.5 L Anion Gap (3-11) mmol/L 18.5 H BUN (7-18) mg/dL 38 H Creatinine (0.55-1.02) mg/dL 1.7 H Estimated GFR/1.73 m2 (mL/min/1.73m2) 35.06 Glucose (74-106) mg/dL 184 H Calcium (8.5-10.1) mg/dL 8.4 L Magnesium (1.8-2.4) mg/dL 1.8 Total Bilirubin (0.2-1.0) mg/dL 1.6 H AST (15-37) U/L 51 H ALT (14-59) U/L 21 Alkaline Phosphatase (46-116) U/L 150 H Troponin I (<or=60) ng/L Total Protein (6.4-8.2) g/dL 8.3 H Albumin (3.4-5.0) g/dL 4.0 Triglycerides (<150) mg/dL Lipase (73-393) U/L 41804 H Ethyl Alcohol (<10) mg/dL < 3.0 COVID-19 Source Nasal/Nares SARS-CoV-2 (PCR) (Negative) Negative Range/Units 05/12/21 05/12/21 05/12/21 12:05 12:05 14:07 WBC (4.4-10.8) 10^3/uL RBC (3.93-5.22) 10^6/uL Hgb (11.2-15.7) g/dL Hct (36.0-46.0) % MCV (80-95) fL MCH (27.0-33.0) pg MCHC (32.0-36.0) % RDW (11.7-14.6) % Plt Count (130-400) 10^3/uL MPV (8.0-11.0) fL Immature Gran % Neutrophils % Band Neutrophils % Lymphocytes % Monocytes % Eosinophils % Basophils % Nucleated RBC % % Absolute Neutrophils (1.2-6.7) 10^3/uL Absolute Lymphocytes (1.2-3.4) 10^3/uL Absolute Monocytes (0.1-0.8) 10^3/uL Absolute Eosinophils (0.0-0.7) 10^3/uL Absolute Basophils (0.0-0.2) 10^3/uL RBC Morphology D-Dimer (<500) ng/mlFEU 7020 H Sodium (136-145) mmol/L Potassium (3.5-5.1) mmol/L Chloride (98-107) mmol/L Carbon Dioxide (21.0-32.0) mmol/L Anion Gap (3-11) mmol/L BUN (7-18) mg/dL Creatinine (0.55-1.02) mg/dL Estimated GFR/1.73 m2 (mL/min/1.73m2) Glucose (74-106) mg/dL Calcium (8.5-10.1) mg/dL Magnesium (1.8-2.4) mg/dL Total Bilirubin (0.2-1.0) mg/dL AST (15-37) U/L ALT (14-59) U/L Alkaline Phosphatase (46-116) U/L Troponin I (<or=60) ng/L < 50 Total Protein (6.4-8.2) g/dL Albumin (3.4-5.0) g/dL Triglycerides (<150) mg/dL 177 H Lipase (73-393) U/L Ethyl Alcohol (<10) mg/dL COVID-19 Source SARS-CoV-2 (PCR) (Negative) HPI <Porter Forte NP - Last Filed: 05/13/21 08:20> General Date/Time Provider Initiated Documentation: 05/12/21 11:14 . History of Present Illness 31 year old F presents to the emergency department with the chief complaint of body aches, n/v, fever, described as moderate, with intensity rated at 9. Quality is described as aching, Patient reports no radiation. Patient started experiencing this day(s) (4) and it has been constant. improves with No relieving factors improve symptom(s), No exacerbating factors reported . Patient notes fever/chills, malaise, nausea/vomiting and weakness; denies chest pain and cough. Related Data Home Medications Medication Instructions Recorded Confirmed gabapentin 400 mg capsule 400 mg PO TID PRN cap 06/10/19 05/12/21 dextroamphetamine-amphetamine 20 20 mg PO DAILY 09/02/19 05/12/21 mg tablet (Adderall) dextroamphetamine-amphetamine 30 30 mg PO DAILY 04/05/20 05/12/21 mg tablet (Adderall) ondansetron 4 mg disintegrating 4 mg PO Q6H PRN #10 tab 08/02/20 05/12/21 tablet levetiracetam 1,000 mg tablet 2,000 mg PO BID #360 tab 03/08/21 05/12/21 topiramate 200 mg tablet 200 mg PO BID #180 tab 03/08/21 05/12/21 vitamin#30 30 mg iron-10 1 cap PO DAILY #90 cap 04/05/21 05/12/21 mg iron-folic acid 1 mg-omg3 capsule acetylcysteine 600 mg capsule 600 mg PO BID 05/12/21 05/12/21 hydroxyzine HCl 25 mg tablet 25 mg PO QID 05/12/21 05/12/21 mirtazapine 30 mg tablet 30 mg PO DAILY 05/12/21 05/12/21 topiramate 200 mg tablet 200 mg PO BID 05/12/21 05/12/21 Previous Rx's Medication Instructions Recorded ondansetron 4 mg disintegrating 4 mg PO Q6H PRN #10 tab 08/02/20 tablet levetiracetam 1,000 mg tablet 2,000 mg PO BID #360 tab 03/08/21 topiramate 200 mg tablet 200 mg PO BID #180 tab 03/08/21 vitamin#30 30 mg iron-10 1 cap PO DAILY #90 cap 04/05/21 mg iron-folic acid 1 mg-omg3 capsule Allergies Allergy/AdvReac Type Severity Reaction Status Date / Time trazodone Allergy Severe Verified 05/12/21 11:28 bupropion [From Wellbutrin] AdvReac Per pt. Verified 05/12/21 11:28 possible seizure cause General Stated Complaint: Nausea/Vomit/Diar KARIME: 3 Review of Systems <Porter Forte NP - Last Filed: 05/13/21 08:20> Constitutional Constitutional: Reports body ache(s), Reports chills, Reports fever(s), Reports headache(s) and Reports malaise ENT Ears, Nose, Mouth, and Throat: Denies ear discharge, Reports headache(s), Denies neck pain, Reports sore throat and Denies throat swelling Cardiovascular Cardiovascular: Denies chest pain, Denies syncope, Reports rapid heart rate and Reports dyspnea Respiratory Respiratory: Denies cough and Reports dyspnea Gastrointestinal Gastrointestinal: Reports abdominal pain (Secondary to vomiting), Reports nausea and Reports vomiting Musculoskeletal Musculoskeletal: Reports myalgias, Denies joint swelling and Denies neck pain Integumentary/Breasts Skin/Breast: Denies rash Neurologic Neurologic: Denies syncope, Reports headache(s) and Reports seizure-like activity (possible last night) Allergic/Immunologic Allergic/Immunologic: Denies throat swelling PFSH <Porter Forte NP - Last Filed: 05/13/21 08:20> All Active Problems (Updated 05/12/21 @ 18:06 by Tera Luna MD) High risk social situation (Acute) Cholelithiases (Acute) Dehydration (Acute) Alcohol abuse (Chronic) Nausea (Acute) Hypomagnesemia (Acute) Acute pancreatitis (Acute) labor (Acute) (normal spontaneous vaginal delivery) (Acute) labor (Acute) SGA (small for gestational age), , affecting care of mother, antepartum (Acute) Polyhydramnios (Acute) Polyhydramnios affecting in third trimester (Acute) HRP (high risk ) (Acute) History of gastric bypass (Acute) Abnormal urinalysis (Acute) Vaginal odor (Acute) (Acute) Medication overuse headache (Acute) Migraine headache without aura (Chronic) Altered mental status (Acute) 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) Obesity (Chronic) Status epilepticus (Acute) Microcytic anemia (Chronic) Depression (Chronic) ADHD (Chronic) DVT prophylaxis (Acute) Discharge planning issues (Acute) Seizures (Acute) Amphetamine overdose of undetermined intent (Acute) Seizure (Acute) Medical History Insomnia Iron deficiency anemia 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 Pilar cyst Post-traumatic stress disorder Social phobia Uterine bleeding Surgical History H/O gastric bypass Family History Mother Substance abuse Seizures Social History Smoking/Tobacco Use Status: Current every day Tobacco Type: cigarettes Tobacco: How many years used: 12 Smoking risk assessment performed?: Yes Alcohol Intake: current Alcohol Intake frequency: 3 or more drinks per day Alcohol type: hard liquor Drug use: Daily Substance use type: marijuana Household members: spouse and family Number of Children: 2 current occupation: SAHM; 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 Date GA/Weeks # Outcome Route Wgt Sex Labor Lgth Anesthes ia Location [facility] 05/07/13 38 No Successful vaginal 2778.253 g Male 24 hrs [place] 01/21/16 36 No Successful vaginal 2579.807 g Female 12 hrs [place] 12/30/19 No Successful vaginal Male Javier James other Delivery Date: 05/07/13 Last Updated by: Chhaya Newberry spont but long labor, epidural didn't work well, hematoma softball sized and had to go to the OR, had a blood transfusion, discharged home at day 5. Baby was fine. Delivery Date: 01/21/16 Last Updated by: Chhaya Newberry IOL at 36 wks for pre-eclampsia, epidural that didn't work well, no complications, baby in isolette at first, went home day 4. Delivery Date: 12/30/19 Last Updated by: MARTHA Dotson Exam <Porter Forte NP - Last Filed: 05/13/21 08:20> Const General: cooperative, no acute distress and ill appearing acutely Orientation: alert and awake HENNV Head: normal to inspection, normocephalic and atraumatic Ears: hearing grossly normal bilaterally General nose exam: external nose normal Mouth: oral mucosae normal, no drooling, no muffled voice and no trismus Throat: posterior oropharynx normal Neck Neck: normal visual inspection, full ROM, no lymphadenopathy, no meningeal signs, trachea midline and supple Resp Effort & Inspection: normal respiratory effort and able to speak in complete sentences Auscultation: clear to auscultation bilaterally Cardio Rate: tachycardic Rhythm: regular rhythm Heart Sounds: S1 normal, S2 normal, normal S1 and S2, no click, no gallops, no murmurs and no rubs GI Inspection: obesity Palpation: not firm, no guarding, not rigid and tender (difuse non- focal ) Auscultation: normal bowel sounds Skin General skin exam: no rashes or lesions noted and dry skin (warm) Neuro General: patient alert, patient awake, patient oriented x3, gait normal and moves all extremities Cognition: normal cognition Speech: speech normal Course <Porter Forte NP - Last Filed: 05/13/21 08:20> Vital Signs Vital signs: Vital Signs Temperature 35.9 C L 05/12/21 11:19 Pulse 135 H 05/12/21 11:19 Blood Pressure 120/81 05/12/21 11:19 Pulse Oximetry 95 05/12/21 11:19 Temperature 35.9 C L 05/12/21 11:19 Pulse 135 H 05/12/21 11:19 Respiratory Effort 05/12/21 11:19 Blood Pressure 120/81 05/12/21 11:19 Pulse Oximetry 95 05/12/21 11:19 Oxygen Delivery Method Room Air 05/12/21 11:19 Oxygen Flow Rate 0 05/12/21 11:19 Pain Level 8 05/12/21 11:19 Lab/Test Results Lab/Test Results: 05/12/21 11:40 Pharynx Group A Streptococcus Culture - Pending Laboratory Tests Range/Units 05/12/21 11:40 COVID-19 Source Nasal/Nares POC Strep Test-KAREN(Rapid) Start: 05/12/21 11:29 Freq: .Rapid Strep Test Status: Active Protocol: Document 05/12/21 11:48 [facility] [place] (Rec: 05/12/21 11:48 [facility] [id number]) Strep test-KAREN(Rapid)-POC POC-Strep test-KAREN (Rapid) Negative POC-Strep test-KAREN (Rapid) Negative <Luan Norton DO - Last Filed: 05/12/21 19:47> Central Line Placement Right IJ: Additional Comments: Procedure: Internal Jugular Central Venous Catheter Indication: Hemodynamic monitoring/Intravenous access PROCEDURE SUMMARY: A time-out was performed. The patient?s neck region was prepped and draped in sterile fashion using chlorhexidine scrub. Anesthesia was achieved with 1% lidocaine. The internal jugular vein was accessed under ultrasound guidance using a finder needle.Venous blood was withdrawn. A guidewire was advanced through the needle. A small incision was made with a 10 blade scalpel and the dilator was advanced over the guidewire until appropriate dilation was obtained. The dilator was removed and a triple lumen catheter was advanced over the guidewire and secured into place with 2 simple interrupted sutures. At time of procedure completion, all ports aspirated and flushed properly. Post-procedure x-ray shows the tip of the catheter within the superior vena cava. ESTIMATED BLOOD LOSS: 5ml?s The patient tolerated the procedure well there were no complications. <Zaida Hawkins - Last Filed: 05/12/21 20:01> Critical Care Time Total Critical Care Time: 60 Attestation: I spent greater than 35 minutes addressing this patient's acute life threatening illness. This time was spent engaged in actions directly related to the patient's care. Failure to initiate these interventions would have likely resulted in clinically significant or life threatening deterioration in the patients condition. Sign Out <Porter Forte NP - Last Filed: 05/13/21 08:20> Sign Out Data: Sign Out Comment: Patient signed out to Zaida RASMUSSEN pending CT imaging of chest and abdomen Last updated by Porter Forte NP at 05/12/21 16:16 PAWSS <Porter Forte NP - Last Filed: 05/13/21 08:20> Have you Been Recently Intoxicated or Drunk Within the Last 30 days?: Yes Have you Ever Experienced Previous Episodes of Alcohol Withdrawal?: No Have you ever Experienced Withdrawal Seizures?: Yes Have you ever Experienced Delirium Tremens(DT)s?: No Have you ever undergone Alcohol Rehabilitation Treatment (i.e, inpt ot ou tpatient treatment programs)?: No Have you ever Experienced Blackouts?: No Have you ever Combined Alcohol with other Downers within the last 90 days?: No Have you ever Combined Alcohol with any other Substance of Abuse during the last 90 days?: No Positive Blood Alcohol level on Presentation? [PCS.BAL]: No Evidence of Increased Autonomic Activity (i.e. HR>120, tremor, sweating, agitation, nausea)?: No Result: 2 <Zaida Hawkins - Last Filed: 05/12/21 20:01> Result: 2 <Luan Norton DO - Last Filed: 05/12/21 19:47> Result: 2
[2021-05-12 12:32] LABS: ALT 21 U/L (14-59); AST 51 U/L (15-37); Alkaline Phosphatase 150 U/L (46-116); Anion Gap 18.5 mmol/L (3-11); BUN 38 mg/dL (7-18); Bilirubin, Total 1.6 mg/dL (0.2-1.0); CO2 17.5 mmol/L (21.0-32.0); CREATININE 1.7 mg/dL (0.55-1.02); Calcium 8.4 mg/dL (8.5-10.1); Chloride 98 mmol/L (98-107); Estimated GFR 35.06 (mL/min/1.73m2); Glucose 184 mg/dL (74-106); Magnesium 1.8 mg/dL (1.8-2.4); Sodium 134 mmol/L (136-145); Total Protein 8.3 g/dL (6.4-8.2)
[2021-05-12 12:33] LABS: Absolute Lymphocyte Count 1.42 10^3/uL (1.2-3.4); Absolute Monocyte Count 0.71 10^3/uL (0.1-0.8); Absolute Neutrophil Count 21.48 10^3/uL (1.2-6.7); Bands % 2; Diff Comment Manual Differential; RBC Morphology Normal
[2021-05-12 12:39] LABS: ETHANOL BLOOD < 3.0 mg/dL (<10)
[2021-05-12 13:04] LABS: COVID-19 PCR Negative (Negative)
[2021-05-12 13:08] LABS: Lipase 12476 U/L (73-393)
[2021-05-12] MEDS: MORPHine 4 MG/ML SYR IVP (13:10)
[2021-05-12 13:16] LABS: Troponin I < 50 ng/L (<or=60)
--- NOTE | 2021-05-12 13:20 | DI.CT_ITS ---
Exam(s) CT CHEST PE ABD PELVIS W EXAM: CT CHEST PE ABD PELVIS W CLINICAL HISTORY: N/V, elvated lipase. TECHNIQUE: Imaging Protocol: Axial CT angiography was performed with multi-slice acquisition and m ulti-planar and/or 3D reconstructions. CONTRAST MATERIAL: Intravenous: Omnipaque 350 Contrast volume:100 ml Oral: None FINDINGS: CHEST: Images of this study are degraded by motion artifact PULMONARY ARTERIES: There are no obvious intra-arterial filling defects to suggest the presence of ac marcelo pulmonary emboli. LUNGS: There is a 4 millimeter calcified granuloma in the right lung. No right lung infiltrates nor pleural effusions. There is a small amount of left pleural fluid. Mild infiltrate is noted in the l eft lower lobe posterior basal segment and some atelectasis noted in the lingular segment of the left lung. There are no focal findings in the trachea and mainstem bronchi.. Very small amount of left pleural fluid noted. MEDIASTINUM: There is no hilar nor mediastinal adenopathy. Visualized thyroid unremarkable. CARDIAC: Heart size is normal. There is no pericardial effusion. There is no significant shift of t he interventricular septum.Caliber of the thoracic aorta is within normal limits. OSSEOUS: No significant osseous lesions.. ABDOMEN: There is moderate ascites. There is evidence of prior bariatric surgery. The pre colic Cristin limb is not dilated. The [place] ex cluded stomach is not distended. There is some density noted the duodenal C-loop. Cannot exclude cl ot within the lumen. LIVER: There are no focal hepatic lesions nor dilatation of intrahepatic ducts. GALLBLADDER/BILIARY: Gallbladder appears distended. It contains a density which may be a noncalcifie d gallstones. CBD is difficult to visualize. PANCREAS: There is severe pancreatic edema consistent with severe pancreatitis and there is peripancr eatic streaking and fluid which extends to the spleen. Splenic and portal vein are narrow but do not appear thrombosed. SPLEEN: Spleen is not enlarged. There are no intrasplenic lesions. Splenic and portal veins are lopez nt. Perisplenic fluid noted ADRENALS: There are no significant adrenal masses. KIDNEYS:No cysts evident. No calculi nor hydronephrosis. No solid renal masses. ABDOMINAL AORTA: Abdominal aorta is not enlarged. LYMPH NODES: There is no retroperitoneal or para-aortic adenopathy. ABDOMINAL WALL/GI: No evidence of significant anterior abdominal wall hernia. No bowel obstruction. PELVIS: LYMPH NODES: There is no intrapelvic nor inguinal adenopathy. GI: The appendix is not able to be identified.Very redundant sigmoid which reaches into the upper abd omen. URINARY BLADDER: No calculi nor masses evident REPRODUCTIVE: Uterus size is age-appropriate. No obvious ovarian masses. There is free fluid in the pelvis which is most probably related to the abdominal findings. OSSEOUS: No significant osseous lesions. IMPRESSION: 1. No evidence of acute pulmonary emboli nor pulmonary infarction. Small left pleural effusion 2. There appears to be severe pancreatitis. Abundant surrounding fluid around a very edematous pancr eas. High risk for developing pancreatic necrosis and pseudocysts.Ascites evident in the abdomen and pelvis which is most probably related to the severe pancreatitis. 3. Previous bariatric surgery. No obvious bowel obstruction. 4. Extremely redundant sigmoid which extends up to the upper abdomen 5. Gallbladder appears distended and may contain calculi. Should be further investigated with ultras ound. Findings discussed by myself with the ER provider RADIATION DOSE DELIVERED: 2,057.42mGy.cm Total DLP DATA REPOSITORY: All CT scans at this facility are submitted to the National Radiology Data Registry (NRDR) Dose Index Registry (DIR) with the [employer] (ACR). RADIATION OPTIMIZATION: All CT scans at this facility use at least one of these dose optimization te chniques: automated exposure control; mA and/or kV adjustment per patient size (includes targeted exa ms where dose is matched to clinical indication); or iterative reconstruction.
[2021-05-12 14:18] LABS: Triglyceride 177 mg/dL (<150)
[2021-05-12 15:14] LABS: D-Dimer 7020 ng/mlFEU (<500)
[2021-05-12] MEDS: Omnipaque 350 MG/ML 100 ML BTL IJ (15:38)
--- NOTE | 2021-05-12 16:30 | DI.US_ITS ---
Exam(s) US ABDOMEN LIMITED EXAM: US ABDOMEN LIMITED CLINICAL HISTORY: R/O Obstructed Gallstone TECHNIQUE: Ultrasound abdomen performed using standard protocol. COMPARISON: US US OB AGUILA WEIGHT from 12/30/[address] CHEST PE ABD PELVIS W from 05/12/2021 FINDINGS: There is site evident. GALLBLADDER/BILIARY: There are 2 gallstones noted in the gallbladder lumen. The gallbladder appears distended but the gallbladder wall does not appear grossly edematous. Common hepatic duct is upper n ormal measuring 6-7 millimeters. Cannot visualize lower down in CBD because of the large amount of g as here. See CT scan report IMPRESSION: 1. Cholelithiasis. No obvious gallbladder wall edema although the gallbladder is distended. 2. Please see CT scan report DATA REPOSITORY:
[2021-05-12] MEDS: Lactated Ringers 1,000 ML 250 ML IV (16:50)
--- NOTE | 2021-05-12 17:51 | W.PM.HP.N ---
Date of service: 05/12/21 Time of Service: 17:51 Assessment and Plan Assessment and plan (1) Alcohol abuse: Status: Chronic Assessment and plan: She will be placed on alcohol withdrawal protocol. Lorazepam will be used as needed. Intravenous vitamins will be administered. (2) Nausea: Status: Acute Assessment and plan: Her nausea is related to her acute pancreatitis. She will be treated with IV fluids and ondansetron as needed. (3) Acute pancreatitis: Status: Acute Assessment and plan: Acute pancreatitis is likely due to alcohol abuse although we cannot rule out a gallstone pancreatitis. I have contacted surgery to obtain a consultation. She will be maintained on IV fluids and analgesics. (4) Dehydration: Status: Acute Assessment and plan: She is still tachycardic and intermittently hypotensive. She will continue receiving intravenous fluids of lactated Ringer's. With history of severe pancreatitis she may need additional fluids. She has difficult intravenous access and a central line may be needed. (5) Cholelithiases: Status: Acute Assessment and plan: She does have cholecystolithiasis and I will obtain a surgical consultation. (6) High risk social situation: Status: Acute Assessment and plan: Her two children were with someone from the [facility] in the parking lot earlier according to the nurse taking care of her. The patient understands that she will likely need to be in the hospital for few days. We will need to make sure the children are being cared for appropriately and adequately while she is here. History of Present Illness History of Present Illness Chief Complaint: abd pain, nausea,vomiting Narrative: This 31-year-old female presented emergency department earlier today with abdominal pain, nausea and vomiting. She says she has had pain for about 3 days. I cannot obtain much history from her because she was quite lethargic. She did receive morphine or hydromorphone earlier today. There may been a history of a seizure last night but that is not confirmed. She has had nausea and vomiting along with this abdominal pain. Abdominal pain radiates to her back and also down both sides of her anterior abdomen. She says she never had pain like this in the past. She does drink 3-4 hard liquor drinks per day. She said she not been around anyone else has been sick. She said she has received her Covid vaccine but not the booster. She uses marijuana daily as well as tobacco. She lives at home with her 1-year-old and 5-year-old children. She says there with a friend at this time. She was found to have acute pancreatitis with a lipase of 12,000. There is some ascites in her abdomen. She has received 2 L normal saline is currently on Ringer's lactate. She has received morphine, hydromorphone and ondansetron. She is found to have an elevated white count of 23,000. Abdominal ultrasound did not see the common bile duct and the common hepatic duct does appear to be at the upper limits of normal in terms of size. There are some stones in the gallbladder. Review of Systems Narrative: Review of systems is difficult to obtain because of her somnolence. Gastrointestinal Gastrointestinal: Reports abdominal pain, Reports nausea and Reports vomiting PFSH All Active Problems (Updated 05/12/21 @ 18:06 by Tera Luna MD) High risk social situation (Acute) Cholelithiases (Acute) Dehydration (Acute) Alcohol abuse (Chronic) Nausea (Acute) Hypomagnesemia (Acute) Acute pancreatitis (Acute) labor (Acute) (normal spontaneous vaginal delivery) (Acute) labor (Acute) SGA (small for gestational age), , affecting care of mother, antepartum (Acute) Polyhydramnios (Acute) Polyhydramnios affecting in third trimester (Acute) HRP (high risk ) (Acute) History of gastric bypass (Acute) Abnormal urinalysis (Acute) Vaginal odor (Acute) (Acute) Medication overuse headache (Acute) Migraine headache without aura (Chronic) Altered mental status (Acute) 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) Obesity (Chronic) Status epilepticus (Acute) Microcytic anemia (Chronic) Depression (Chronic) ADHD (Chronic) DVT prophylaxis (Acute) Discharge planning issues (Acute) Seizures (Acute) Amphetamine overdose of undetermined intent (Acute) Seizure (Acute) Medical History Insomnia Iron deficiency anemia 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 Pilar cyst Post-traumatic stress disorder Social phobia Uterine bleeding Surgical History H/O gastric bypass Family History Mother Substance abuse Seizures Social History Smoking/Tobacco Use Status: Current every day Tobacco Type: cigarettes Tobacco: How many years used: 12 Smoking risk assessment performed?: Yes Alcohol Intake: current Alcohol Intake frequency: 3 or more drinks per day Alcohol type: hard liquor Drug use: Daily Substance use type: marijuana Household members: spouse and family Number of Children: 2 current occupation: SAHM; 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 Date GA/Weeks # Outcome Route Wgt Sex Labor Lgth Anesthesia Location [facility] 05/07/13 38 No Successful vaginal 2778.253 g Male 24 hrs [place], [place] 01/21/16 36 No Successful vaginal 2579.807 g Female 12 hrs [place], [place] 12/30/19 No Successful vaginal Male Javier James other Delivery Date: 05/07/13 Last Updated by: Chhaya Newberry spont but long labor, epidural didn't work well, hematoma softball sized and had to go to the OR, had a blood transfusion, discharged home at day 5. Baby was fine. Delivery Date: 01/21/16 Last Updated by: Chhaya Newberry IOL at 36 wks for pre-eclampsia, epidural that didn't work well, no complications, baby in isolette at first, went home day 4. Delivery Date: 12/30/19 Last Updated by: MARTHA Dotson Allergies and Home Medications Allergies Allergy/AdvReac Type Severity Reaction Status Date / Time trazodone Allergy Severe Verified 05/12/21 11:28 bupropion [From Wellbutrin] AdvReac Per pt. Verified 05/12/21 11:28 possible seizure cause Home Medications Medication Instructions Recorded Confirmed Type gabapentin 400 mg capsule 400 mg PO TID PRN cap 06/10/19 05/12/21 History dextroamphetamine-amphetamine 20 20 mg PO DAILY 09/02/19 05/12/21 History mg tablet (Adderall) dextroamphetamine-amphetamine 30 30 mg PO DAILY 04/05/20 05/12/21 History mg tablet (Adderall) ondansetron 4 mg disintegrating 4 mg PO Q6H PRN #10 tab 08/02/20 05/12/21 Rx tablet levetiracetam 1,000 mg tablet 2,000 mg PO BID #360 tab 03/08/21 05/12/21 Rx topiramate 200 mg tablet 200 mg PO BID #180 tab 03/08/21 05/12/21 Rx vitamin#30 30 mg iron-10 1 cap PO DAILY #90 cap 04/05/21 05/12/21 Rx mg iron-folic acid 1 mg-omg3 capsule acetylcysteine 600 mg capsule 600 mg PO BID 05/12/21 05/12/21 History hydroxyzine HCl 25 mg tablet 25 mg PO QID 05/12/21 05/12/21 History mirtazapine 30 mg tablet 30 mg PO DAILY 05/12/21 05/12/21 History topiramate 200 mg tablet 200 mg PO BID 05/12/21 05/12/21 History Exam Const General: cooperative, no acute distress and ill appearing Limitations: altered mental status [facility] Head: normal to inspection and normocephalic Mouth: mucous membranes dry Eyes Sclera: sclerae normal Neck Neck: normal visual inspection, no lymphadenopathy and no JVD Resp Auscultation: clear to auscultation bilaterally, no rhonchi and no wheezes Cardio Rate: tachycardic Rhythm: regular rhythm Heart Sounds: S1 normal, S2 normal, no gallops and no murmurs GI Inspection: normal to inspection and non-distended Palpation: soft, no hepatosplenomegaly and nontender Neuro General: not alert, not oriented x3 and patient obtunded Extrem General: normal to inspection, no calf tenderness bilaterally and no edema Results Labs Result diagrams: 05/12/21 12:05 05/12/21 12:05 Labs: Laboratory Results - last 24 hr 05/12/21 05/12/21 05/12/21 11:40 12:05 12:05 WBC 23.60 H RBC 6.11 H Hgb 19.2 H* Hct 57.2 H* MCV 93.6 MCH 31.4 MCHC 33.6 RDW 13.7 Plt Count 266 MPV 10.9 Immature Gran % 0.0 Neutrophils % 89.0 Band Neutrophils % 2 Lymphocytes % 6.0 Monocytes % 3.0 Eosinophils % 0.0 Basophils % 0.0 Nucleated RBC % 0 Absolute Neutrophils 21.48 H Absolute Lymphocytes 1.42 Absolute Monocytes 0.71 Absolute Eosinophils 0.00 Absolute Basophils 0.00 RBC Morphology Normal D-Dimer Sodium 134 L Potassium 5.0 Chloride 98 Carbon Dioxide 17.5 L Anion Gap 18.5 H BUN 38 H Creatinine 1.7 H Estimated GFR/1.73 m2 35.06 Glucose 184 H Calcium 8.4 L Magnesium 1.8 Total Bilirubin 1.6 H AST 51 H ALT 21 Alkaline Phosphatase 150 H Troponin I Total Protein 8.3 H Albumin 4.0 Triglycerides Lipase 36161 H Ethyl Alcohol < 3.0 COVID-19 Source Nasal/Nares SARS-CoV-2 (PCR) Negative Path Cons Comment 05/12/21 05/12/21 05/12/21 12:05 12:05 14:07 WBC RBC Hgb Hct MCV MCH MCHC RDW Plt Count MPV Immature Gran % Neutrophils % Band Neutrophils % Lymphocytes % Monocytes % Eosinophils % Basophils % Nucleated RBC % Absolute Neutrophils Absolute Lymphocytes Absolute Monocytes Absolute Eosinophils Absolute Basophils RBC Morphology D-Dimer 7020 H Sodium Potassium Chloride Carbon Dioxide Anion Gap BUN Creatinine Estimated GFR/1.73 m2 Glucose Calcium Magnesium Total Bilirubin AST ALT Alkaline Phosphatase Troponin I < 50 Total Protein Albumin Triglycerides 177 H Lipase Ethyl Alcohol COVID-19 Source SARS-CoV-2 (PCR) Path Cons Comment Last Vital Signs Temp 35.9 C L 05/12/21 11:19 Pulse 128 H 05/12/21 17:45 Resp 25 H 05/12/21 17:45 BP 110/73 05/12/21 17:45 Pulse Ox 95 05/12/21 17:30 PAWSS Have you Been Recently Intoxicated or Drunk Within the Last 30 days?: Yes Have you Ever Experienced Previous Episodes of Alcohol Withdrawal?: No Have you ever Experienced Withdrawal Seizures?: Yes Have you ever Experienced Delirium Tremens(DT)s?: No Have you ever undergone Alcohol Rehabilitation Treatment (i.e, inpt ot outpatient treatment programs)?: No Have you ever Experienced Blackouts?: No Have you ever Combined Alcohol with other Downers within the last 90 days?: No Have you ever Combined Alcohol with any other Substance of Abuse during the last 90 days?: No Positive Blood Alcohol level on Presentation? [PCS.BAL]: No Evidence of Increased Autonomic Activity (i.e. HR>120, tremor, sweating, agitation, nausea)?: No Result: 2
[2021-05-12] MEDS: levETIRAcetam 1,000 MG in Normal Saline 100 ML 400 MG IVPB (18:19)
[2021-05-12 19:10] LABS: Bilirubin Negative (Negative); Blood Moderate (Negative); Clarity Sl Cloudy (Clear); Glucose Negative (Negative); Ketones Trace mg/dL (Negative); Leukocyte Esterase Negative (Negative); Nitrite Negative (Negative); Urobilinogen 0.2 EU/dL (Up TO 0.2); pH 5.5 (5-8)
[2021-05-12 19:16] LABS: Bacteria Few HPF (Negative); C & S Indicated? No/Sq. Contamination; Casts Negative LPF (Negative); Crystals Negative HPF (Negative); Epithelial Cells Many HPF (Negative); Mucus Moderate (Negative); WBC 0-2 HPF (0-5)
[2021-05-12 19:19] LABS: *AMPHETAMINES SCREEN URINE Positive (Negative); *BARBITURATES SCREEN URINE Negative (Negative); *BENZODIAZEPINES SCREEN URINE Negative (Negative); Cannabinoids THC Negative (Negative); Cocaine Screen,Urine Negative (Negative); METHADONE URINE SCREEN Negative (Negative); OPIATES URINE SCREEN Positive (Negative)
[2021-05-12 19:22] LABS: Tricyclic Antidepressants Positive (Negative)
--- NOTE | 2021-05-12 19:52 | DI.RAD_ITS ---
Exam(s) XR PORTABLE CHEST AP EXAM: XR PORTABLE CHEST AP CLINICAL HISTORY: Post Chest Tube insertion TECHNIQUE: 2D digital imaging was performed of the chest. One image was obtained. An AP view was ob tained. COMPARISON: CR,XR XR PORTABLE CHEST AP from 09/22/2019 FINDINGS: MEDIASTINUM: Normal. HEART: Normal. PULMONARY VASCULATURE: Normal. LUNGS: Clear. PLEURAL SPACE: No pleural effusion or pneumothorax. BONE:Within normal limits for the patient's age. OTHER FINDINGS:There are low lung volumes. There is a right-sided jugular venous catheter. The tip is in the right atrium. IMPRESSION: No acute pulmonary findings. DATA REPOSITORY: RADIATION DOSE DELIVERED:
[2021-05-12] MEDS: MULTIVITAMIN 10 ML, THIAMINE 100 MG, FOLIC ACID 1 MG in DEXTROSE 5%-0.45% SALINE 1,000 ML 42 ML IV (20:00)
[2021-05-12 20:07] LABS: INR 1.4 (0.9-1.1); PTT Activated 18.2 sec (21.0-27.5); Prothrombin Time 13.9 sec (9.3-11.0)
--- NOTE | 2021-05-12 20:07 | DI.VRAD_ITS ---
PROCEDURE INFORMATION: Exam: XR Chest Exam date and time: 05/12/2021 7:40 PM Age: 31 years old Clinical indication: Device placement; Chest tube TECHNIQUE: Imaging protocol: XR of the chest. Views: 1 view. COMPARISON: CT CHEST PE ABD PELVIS W 05/12/2021 3:37 PM FINDINGS: Tubes, catheters and devices: Right external jugular central venous line is in place. Tip projects at the right atrium. Monitoring wires are noted. Lungs: Lung volumes are low. Negative for significant consolidation or collapse. Pulmonary vessels are not congested. Calcified granulomas noted on the right. Pleural spaces: Unremarkable. No pleural effusion. No pneumothorax. Heart/Mediastinum: No cardiomegaly. Negative for mediastinal widening. Bones/joints: Unremarkable. IMPRESSION: No complications observed following line placement. Dictated and Authenticated by: Iván Denis MD. Ordering:ARINA Cerda MD
[2021-05-12] MEDS: cefTRIAXone 1 GM/50 ML BAG IVPB (20:15)
[2021-05-12] MEDS: metroNIDAZOLE 500 MG/100 ML BAG 100 MG IVPB (20:16)
== END 2021-05-12 20:26 | disposition short-term general hospital (02) ==
PROVIDERS: Family Medicine; Nurse Practitioner Family; Emergency Provider Registered Nurse Emergency; PCP Nurse Practitioner Family
DX: K85.90 Acute pancreatitis without necrosis or infection, unspecified (principal); J02.9 Acute pharyngitis, unspecified; R00.0 Tachycardia, unspecified; F10.10 Alcohol abuse, uncomplicated; R11.2 Nausea with vomiting, unspecified
CPT/HCPCS: 36415; 36556; 71275; 74177; 80053; 80307; 83690; 87040; 87449; 87635; 87880; 93005; 96361; 96365; 96366; 96367; 96375; 99283; 99291; 71045; 76705; 80320; 81003; 81015; 83735; 84478; 84484; 85025; 85379; 85610; 85730; 87081; 93010; J0696; J1953; J2060; J2270; J3490

== ENCOUNTER 2021-11-24 15:56 | Outpatient (REF) | payer MEDICAID, SELFPAY ==
[2021-11-24 20:17] LABS: HCT 33.9 % (36.0-46.0); HGB 11.2 g/dL (11.2-15.7); MCH 28.6 pg (27.0-33.0); MCV 87 fL (80-95); MPV 12.7 fL (8.0-11.0); Platelet Count 256 10^3/uL (130-400); RBC 3.92 10^6/uL (3.93-5.22); RDW 14.2 % (11.7-14.6); RDW-SD 45.1 fL; WBC 4.92 10^3/uL (4.4-10.8)
[2021-11-24 20:25] LABS: Iron 20 ug/dL (50-170)
[2021-11-24 20:26] LABS: ALT 34 U/L (14-59); AST 33 U/L (15-37); Albumin 3.6 g/dL (3.4-5.0); Alkaline Phosphatase 84 U/L (46-116); Amylase 30 U/L (25-115); Anion Gap 7.1 mmol/L (3-11); BUN 17 mg/dL (7-18); Bilirubin, Total 0.7 mg/dL (0.2-1.0); CO2 27.9 mmol/L (21.0-32.0); CREATININE 0.8 mg/dL (0.55-1.02); Calcium 8.7 mg/dL (8.5-10.1); Chloride 104 mmol/L (98-107); Glucose 102 mg/dL (74-106); Lipase 26 U/L (73-393); Potassium 4.5 mmol/L (3.5-5.1); Sodium 139 mmol/L (136-145); Total Protein 6.9 g/dL (6.4-8.2)
== END 2021-11-24 15:57 | disposition home or self-care (01) ==
LOC: NCHCN 15:56
PROVIDERS: PCP Nurse Practitioner Family; Visit Provider Nurse Practitioner Family
DX: K86.1 Other chronic pancreatitis (principal); D50.9 Iron deficiency anemia, unspecified
CPT/HCPCS: 80053; 83690; 85027; 82150; 83540

== ENCOUNTER 2022-11-06 11:24 | Emergency (ER) | payer MEDICAID, SELFPAY ==
[2022-11-06] VITALS (14 sets, daily range): BP systolic 110–120; BP diastolic 60–85; PULSE 69–103; RESP 18–20; TEMP 36.7–36.9; O2SAT 99–100
--- NOTE | 2022-11-06 11:45 | DI.US_ITS ---
Exam(s) US ABDOMEN LIMITED EXAM: US ABDOMEN LIMITED CLINICAL HISTORY: RUQ pain TECHNIQUE: Ultrasound abdomen performed using standard protocol. COMPARISON: CT CT CHEST PE ABD PELVIS W from 05/12/2021 US US ABDOMEN LIMITED from 05/12/2021 FINDINGS: LIVER: Normal size. Normalechogenicity. No focal liver lesions are seen.. GALLBLADDER: Mobile gallstones. No evidence of wall thickening. No pericholecystic fluid identified. Gallbladder not abnormally distended. JENKINS'S SIGN: Negative. BILIARY SYSTEM: No intrahepatic or extrahepatic biliary ductal dilation. RIGHT KIDNEY: Normal size. No evidence of renal calculi. No evidence of hydronephrosis. No suspicious renal mass. No cyst identified. PANCREAS: Mostly obscured. Proximal pancreas is visible. Mild dilatation of proximal pancreatic lito t 4. ABDOMINAL AORTA AND IVC: Visualized portions normal caliber. ASCITES: None seen. IMPRESSION: Cholelithiasis. No evidence of acute cholecystitis. DATA REPOSITORY:
[2022-11-06] MEDS: Ondansetron 4 MG/2 ML VIAL IVP (12:05)
[2022-11-06 12:06] LABS: Abs Immature Grans 0.01 10^3/uL (0.0-0.06); Absolute Basophil Count 0.03 10^3/uL (0.0-0.2); Absolute Eosinophil Count 0.18 10^3/uL (0.0-0.7); Absolute Lymphocyte Count 2.03 10^3/uL (1.2-3.4); Absolute Monocyte Count 0.18 10^3/uL (0.1-0.8); Absolute Neutrophil Count 2.29 10^3/uL (1.2-6.7); Basophils % 0.6; Eosinophils % 3.8; HCT 29.1 % (36.0-46.0); HGB 8.5 g/dL (11.2-15.7); Immature Grans % 0.2; MCH 19.7 pg (27.0-33.0); MCHC 29.2 % (32.0-36.0); MCV 67 fL (80-95); Monocytes % 3.8; Neutrophils % 48.6; Platelet Count 242 10^3/uL (130-400); RBC 4.32 10^6/uL (3.93-5.22); RDW 19.4 % (11.7-14.6); RDW-SD 45.5 fL; WBC 4.72 10^3/uL (4.4-10.8)
[2022-11-06] MEDS: Normal Saline 1,000 ML 1000 ML IV ×2 (12:06→13:28)
[2022-11-06 12:08] LABS: Bilirubin Negative (Negative); Blood Large (Negative); Clarity Clear (Clear); Glucose >=1000 mg/dL (Negative); Ketones Negative (Negative); Leukocyte Esterase Negative (Negative); Nitrite Negative (Negative); Specific Gravity 1.015 (1.005-1.025); Urobilinogen 0.2 mg/dL (Up to 0.2); pH 5.5 (5-8)
[2022-11-06 12:16] LABS: Epithelial Cells Few HPF (Negative); RBC >50 HPF (0-2); WBC Negative HPF (0-5)
[2022-11-06 12:17] LABS: Bacteria Negative HPF (Negative); C & S Indicated? No; Casts Negative LPF (Negative); Crystals Negative HPF (Negative); Mucus Negative (Negative)
--- NOTE | 2022-11-06 12:19 | NUR.NOTE ---
Nursing Note:PT TO DI FOR ORDERED ABD. U/S VIA WHEELCHAIR.
[2022-11-06 12:20] LABS: PTT Activated 21.1 sec (21.5-31.9)
[2022-11-06 12:23] LABS: Diff Comment Diff Reviewed; Microcytosis 2+
[2022-11-06 12:39] LABS: ALT 18 U/L (14-59); AST 20 U/L (15-37); Albumin 3.7 g/dL (3.4-5.0); Alkaline Phosphatase 100 U/L (46-116); Anion Gap 9.2 mmol/L (3-11); BUN 4 mg/dL (7-18); Bilirubin, Total 0.9 mg/dL (0.2-1.0); CO2 26.8 mmol/L (21.0-32.0); CREATININE 0.8 mg/dL (0.55-1.02); Calcium 8.8 mg/dL (8.5-10.1); Chloride 100 mmol/L (98-107); Estimated GFR 100.33 (mL/min/1.73m2); Glucose 404 mg/dL (74-106); Lipase 13 U/L (16-77); Magnesium 1.6 mg/dL (1.8-2.4); Potassium 3.7 mmol/L (3.5-5.1); Sodium 136 mmol/L (136-145); Troponin I < 50 ng/L (<or=60)
--- NOTE | 2022-11-06 12:39 | NUR.NOTE ---
Nursing Note:PT RETURN FROM DI, IVF CONT., REPORTS NAUSEA HAS IMPROVED BUT STILL HAVING PAIN, PROVIDER MADE AWARE.
--- NOTE | 2022-11-06 13:08 | ED.GENADUL_ITS ---
Discharge Plan Disposition Patient Disposition: Home Discharge Details Clinical Impression: Diabetes mellitus, new onset, Microcytic anemia, Homelessness unspecified Primary Care Provider: Kelly Tam ED Provider: Porter Forte Home Meds and New Rx's Prescriptions: New metformin 500 mg tablet 500 mg PO BID 30 Days Qty: 60 0RF iron 159 mg (45 mg iron) tablet extended release 159 mg PO DAILY 30 Days Qty: 30 0RF Continued prochlorperazine maleate 10 mg tablet 10 mg PO Q8H PRN (Reason: nausea and vomiting, headache) Qty: 30 3RF Patient Comments: pt states does not take sumatriptan succinate 100 mg tablet See Rx Instructions PO .COMPLEX Qty: 9 5RF Rx Instructions: take 1 tab at onset of headache; if no relief, may repeat 1 tab after at least 2 hrs; max = 2 tabs/24 hrs PO dextroamphetamine-amphetamine 10 mg tablet 10 mg PO TID mirtazapine 15 mg tablet 15 mg PO QHS Patient Comments: TAKE ONE TABLET BY MOUTH EVERY DAY AT BEDTIME gabapentin 600 mg tablet 1,200 mg PO QHS Patient Comments: TAKE ONE TABLET BY MOUTH TWICE A DAY fluticasone propionate [Flovent HFA] 44 mcg/actuation HFA aerosol inhaler 2 puff inhalation BID Patient Comments: INHALE TWO PUFFS BY MOUTH TWICE A DAY RINSE AND SPIT AFTER USE albuterol sulfate [Ventolin HFA] 90 mcg/actuation HFA aerosol inhaler inhalation Patient Comments: pt does not take omeprazole 20 mg capsule,delayed release(DR/EC) 20 mg PO DAILY Patient Comments: TAKE ONE CAPSULE BY MOUTH EVERY DAY levetiracetam 500 mg tablet 500 mg PO BID Qty: 180 3RF topiramate 100 mg tablet 150 mg PO BID Qty: 270 3RF hydroxyzine HCl 50 mg tablet 50 mg PO PRN PRN Discharge Instructions Instructions: Type 2 Diabetes in Adults: New Diagnosis (ED), Anemia (ED), Diabetes and Nutrition (ED) Additional Instructions: It is very important that you take your medications as prescribed and follow-up with your primary care provider. Please reduce the amount of carbohydrates and sugars that you intake as this will increase your blood sugar. You are free to return to the emergency department for any new or significant worsening of her symptoms otherwise follow-up with primary care provider preferably by the end of the week. Referrals: Kelly Tam [Primary Care Provider] - 5 days Discharge Data Discharge Date/Time-TO BE ENTERED AT DEPARTURE: 11/06/22 15:51 Medical Decision Making Patient presenting to the emergency department for chief complaint of abdominal pain. Patient states history of gallbladder issues and feels like her gallbladder is causing her to feel nauseous. Patient denies any vomiting but does states back pain as well. Patient has history of multiple substance abuse, migraines, seizure disorder, depression, microcytic anemia and overdose. Physical exam shows tenderness to palpation of right upper quadrant with positive Newberry sign. Exam is otherwise nondiagnostic. Will plan on checking patient's labs, ultrasound imaging of abdomen, will give fluids and acetaminophen pending results Reviewed labs and patient has a hemoglobin of 8.5 and is consistent with her macrocytic anemia, CMP shows magnesium 1.6 which we will orally replete, glucose is significantly elevated at 404 with urinalysis showing blood in urine but greater than 1000 urine glucose. Labs are otherwise nondiagnostic. Reviewed ultrasound imaging and radiologist interpretation that shows cholelithiasis wit hout acute cholecystitis. Discussed with patient history of diabetes which she denies any history of this. Will give patient another liter of fluids and reassess. Patient did state some improvement of symptoms and was able to tolerate p.o. intake. Will start patient on metformin and have her follow-up with primary care provider preferably in the next week for recheck of new onset diabetes. Af ter discussion of diagnosis and plan of care patient has no further needs, questions, or concerns and states clear understanding to return to the emergency department for any worsening symptoms. This documentation was generated using [employer] dictation system, please disregard any oddities of phrase or misspellings. Imaging Data Radiologic Study: Imaging: Ultrasound Radiologist's impression: Exam(s) US ABDOMEN LIMITED EXAM: US ABDOMEN LIMITED CLINICAL HISTORY: RUQ pain TECHNIQUE: Ultrasound abdomen performed using standard protocol. COMPARISON: CT CT CHEST PE ABD PELVIS W from 05/12/2021 US US ABDOMEN LIMITED from 05/12/2021 FINDINGS: LIVER: Normal size. Normalechogenicity. No focal liver lesions are seen.. GALLBLADDER: Mobile gallstones. No evidence of wall thickening. No pericholecystic fluid identified. Gallbladder not abnormally distended. NEWBERRY'S SIGN: Negative. BILIARY SYSTEM: No intrahepatic or extrahepatic biliary ductal dilation. RIGHT KIDNEY: Normal size. No evidence of renal calculi. No evidence of hydronephrosis. No suspicious renal mass. No cyst identified. PANCREAS: Mostly obscured. Proximal pancreas is visible. Mild dilatation of proximal pancreatic duct 4. ABDOMINAL AORTA AND IVC: Visualized portions normal caliber. ASCITES: None seen. IMPRESSION: Cholelithiasis. No evidence of acute cholecystitis. Lab Data Lab results reviewed: Yes I reviewed the patient's lab results. HPI General Mode of arrival: ambulatory . Date/Time Provider Initiated Documentation: 11/06/22 11:30 . Limitations to Documentation: no limitations . Information obtained by: patient and old records reviewed . History of Present Illness 32 year old F presents to the emergency department with the chief complaint of Abdominal pain, described as moderate and similar to prior episodes, with intensity rated at 8. Quality is described as aching and sharp, and is localized to the abdomen. Patient reports radiation to back. Patient started experiencing this day(s) (2) and it has been constant. No relieving factors improve symptom(s), No exacerbating factors reported . Related Data Home Medications Medication Instructions Recorded Confirmed albuterol sulfate 90 mcg/actuation inhalation 05/04/22 06/15/22 aerosol inhaler (Ventolin HFA) dextroamphetamine-amphetamine 10 10 mg PO TID 05/04/22 11/06/22 mg tablet fluticasone propionate 44 2 puff inhalation BID 05/04/22 11/06/22 mcg/actuation HFA aerosol inhaler (Flovent HFA) gabapentin 600 mg tablet 1,200 mg PO QHS 05/04/22 11/06/22 levetiracetam 500 mg tablet 500 mg PO BID #180 tabs 05/04/22 11/06/22 mirtazapine 15 mg tablet 15 mg PO QHS 05/04/22 11/06/22 omeprazole 20 mg capsule,delayed 20 mg PO DAILY 05/04/22 11/06/22 release prochlorperazine maleate 10 mg 10 mg PO Q8H PRN nausea and 05/04/22 06/15/22 tablet vomiting, headache #30 tabs sumatriptan succinate 100 mg tablet See Rx Instructions PO .COMPLEX #9 05/04/22 11/06/22 tabs topiramate 100 mg tablet 150 mg PO BID #270 tabs 06/15/22 11/06/22 ferrous sulfate, dried 159 mg (45 159 mg PO DAILY 1 month #30 tabs 11/06/22 mg iron) tablet,extended release (iron ER) hydroxyzine HCl 50 mg tablet 50 mg PO PRN PRN 11/06/22 11/06/22 metformin 500 mg tablet 500 mg PO BID 1 month #60 tabs 11/06/22 Previous Rx's Medication Instructions Recorded levetiracetam 500 mg tablet 500 mg PO BID #180 tabs 05/04/22 prochlorperazine maleate 10 mg 10 mg PO Q8H PRN nausea and 05/04/22 tablet vomiting, headache #30 tabs sumatriptan succinate 100 mg tablet See Rx Instructions PO .COMPLEX #9 05/04/22 tabs topiramate 100 mg tablet 150 mg PO BID #270 tabs 06/15/22 ferrous sulfate, dried 159 mg (45 159 mg PO DAILY 1 month #30 tabs 11/06/22 mg iron) tablet,extended release (iron ER) metformin 500 mg tablet 500 mg PO BID 1 month #60 tabs 11/06/22 Allergies Allergy/AdvReac Type Severity Reaction Status Date / Time trazodone Allergy Severe Verified 11/06/22 11:33 bupropion [From Wellbutrin] AdvReac Per pt. Verified 11/06/22 11:33 possible seizure cause General Stated Complaint: Abd Prob KARIME: 3 Review of Systems Constitutional Constitutional: Denies chills, Denies fever(s) and Reports poor appetite Cardiovascular Cardiovascular: Denies chest pain and Denies dyspnea Respiratory Respiratory: Denies cough and Denies dyspnea Gastrointestinal Gastrointestinal: Reports as per HPI, Reports abdominal pain, Denies melena, Denies change in bowel habits, Denies constipation, Denies diarrhea, Reports nausea and Reports vomiting Genitourinary Genitourinary: Denies hematuria, Denies urinary incontinence, Denies urinary hesitancy and Denies urinary urgency Integumentary/Breasts Skin/Breast: Denies rash PFSH All Active Problems (Updated 11/06/22 @ 15:30 by Porter Forte NP) Diabetes mellitus, new onset (Acute) Homelessness unspecified (Acute) High risk social situation (Acute) Cholelithiases (Acute) Dehydration (Acute) Alcohol abuse (Chronic) Nausea (Acute) Hypomagnesemia (Acute) labor (Acute) (normal spontaneous vaginal delivery) (Acute) labor (Acute) SGA (small for gestational age), , affecting care of mother, antepartum (Acute) Polyhydramnios (Acute) Polyhydramnios affecting in third trimester (Acute) HRP (high risk ) (Acute) History of gastric bypass (Acute) Abnormal urinalysis (Acute) Vaginal odor (Acute) (Acute) Medication overuse headache (Acute) Migraine headache without aura (Chronic) Altered mental status (Acute) 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) Obesity (Chronic) Status epilepticus (Acute) Microcytic anemia (Chronic) Depression (Chronic) ADHD (Chronic) DVT prophylaxis (Acute) Discharge planning issues (Acute) Seizures (Acute) Amphetamine overdose of undetermined intent (Acute) Seizure (Acute) Medical History Insomnia Iron deficiency anemia 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 Pilar cyst Post-traumatic stress disorder Social phobia Uterine bleeding Surgical History H/O gastric bypass Family History Mother Substance abuse Seizures Social History Smoking/Tobacco Use Status: Current every day Tobacco Type: cigarettes Tobacco: How many years used: 12 Smoking risk assessment performed?: Yes Alcohol Intake: former Drug use: Daily Substance use type: marijuana Household members: spouse and family Number of Children: 2 current occupation: [employer]; 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 Date GA/Weeks # Preg Succ Route Wgt Sex Labor Lgth Anesth esia Location [facility] 05/07/13 38 No vaginal 2778.253 g Male 24 hrs [place] 01/21/16 36 No vaginal 2579.807 g Female 12 hrs [place] 12/30/19 No vaginal Male Javier Still el other Delivery Date: 05/07/13 Last Updated by: Chhaya Newberry spont but long labor, epidural didn't work well, hematoma softball sized and had to go to the OR, had a blood transfusion, discharged home at day 5. Baby was fine. Delivery Date: 01/21/16 Last Updated by: Chhaya Newberry IOL at 36 wks for pre-eclampsia, epidural that didn't work well, no complications, baby in isolette at first, went home day 4. Delivery Date: 12/30/19 Last Updated by: MARTHA Dotson Course Vital Signs Vital signs: Vital Signs Temperature 36.7 C 11/06/22 11:28 Pulse 95 H 11/06/22 11:28 Respiratory Rate 20 11/06/22 11:28 Blood Pressure 118/64 11/06/22 11:28 Pulse Oximetry 100 11/06/22 11:28 Temperature 36.7 C 11/06/22 11:28 Temperature Source Oral 11/06/22 11:28 Pulse 95 H 11/06/22 11:28 Respiratory Rate 20 11/06/22 11:28 Respiratory Effort Normal, Non-Labored 11/06/22 11:35 Blood Pressure 118/64 11/06/22 11:28 Blood Pressure Position Sitting 11/06/22 11:28 Pulse Oximetry 100 11/06/22 11:28 Oxygen Delivery Method Room Air 11/06/22 11:28 Oxygen Flow Rate 0 11/06/22 11:28 Pain Level 8 11/06/22 11:28 Lab/Test Results Lab/Test Results: Laboratory Tests Range/Units 11/06/22 11/06/22 11/06/22 11:40 11:57 11:57 WBC (4.4-10.8) 10^3/uL 4.72 RBC (3.93-5.22) 10^6/uL 4.32 Hgb (11.2-15.7) g/dL 8.5 L Hct (36.0-46.0) % 29.1 L MCV (80-95) fL 67 L MCH (27.0-33.0) pg 19.7 L MCHC (32.0-36.0) % 29.2 L RDW (11.7-14.6) % 19.4 H Plt Count (130-400) 10^3/uL 242 MPV (8.0-11.0) fL Immature Gran % 0.2 Neutrophils % 48.6 Lymphocytes % 43.0 Monocytes % 3.8 Eosinophils % 3.8 Basophils % 0.6 Nucleated RBC % (0.0-0.3) % 0.0 Absolute Neutrophils (1.2-6.7) 10^3/uL 2.29 Absolute Lymphocytes (1.2-3.4) 10^3/uL 2.03 Absolute Monocytes (0.1-0.8) 10^3/uL 0.18 Absolute Eosinophils (0.0-0.7) 10^3/uL 0.18 Absolute Basophils (0.0-0.2) 10^3/uL 0.03 RBC Morphology See Below Microcytosis 2+ PT (9.3-11.0) sec INR (0.9-1.1) APTT (21.5-31.9) sec Sodium (136-145) mmol/L 136 Potassium (3.5-5.1) mmol/L 3.7 Chloride (98-107) mmol/L 100 Carbon Dioxide (21.0-32.0) mmol/L 26.8 Anion Gap (3-11) mmol/L 9.2 BUN (7-18) mg/dL 4 L Creatinine (0.55-1.02) mg/dL 0.8 Est GFR (CKD-EPI 2020) (mL/min/1.73m2) 100.33 Glucose (74-106) mg/dL 404 H Calcium (8.5-10.1) mg/dL 8.8 Magnesium (1.8-2.4) mg/dL 1.6 L Total Bilirubin (0.2-1.0) mg/dL 0.9 AST (15-37) U/L 20 ALT (14-59) U/L 18 Alkaline Phosphatase (46-116) U/L 100 Troponin I (<or=60) ng/L < 50 Total Protein (6.4-8.2) g/dL 7.0 Albumin (3.4-5.0) g/dL 3.7 Lipase (16-77) U/L 13 L Urine Color (Yellow) Yellow Urine Clarity (Clear) Clear Urine pH (5-8) 5.5 Ur Specific [place] (1.005-1.025) 1.015 Urine Protein (Negative) mg/dL Negative Urine Ketones (Negative) mg/dL Negative Urine Blood (Negative) Large H Urine Nitrite (Negative) Negative Urine Bilirubin (Negative) Negative Urine Urobilinogen (Up to 0.2) mg/dL 0.2 Ur Leukocyte Esterase (Negative) Negative Urine RBC (0-2) HPF >50 H Urine WBC (0-5) HPF Negative Ur Epithelial Cells (Negative) HPF Few Urine Crystals (Negative) HPF Negative Urine Bacteria (Negative) HPF Negative Urine Casts (Negative) LPF Negative Urine Mucus (Negative) Negative Ur Culture Indicated? No Urine Glucose (Negative) mg/dL >=1000 H Range/Units 11/06/22 11:57 WBC (4.4-10.8) 10^3/uL RBC (3.93-5.22) 10^6/uL Hgb (11.2-15.7) g/dL Hct (36.0-46.0) % MCV (80-95) fL MCH (27.0-33.0) pg MCHC (32.0-36.0) % RDW (11.7-14.6) % Plt Count (130-400) 10^3/uL MPV (8.0-11.0) fL Immature Gran % Neutrophils % Lymphocytes % Monocytes % Eosinophils % Basophils % Nucleated RBC % (0.0-0.3) % Absolute Neutrophils (1.2-6.7) 10^3/uL Absolute Lymphocytes (1.2-3.4) 10^3/uL Absolute Monocytes (0.1-0.8) 10^3/uL Absolute Eosinophils (0.0-0.7) 10^3/uL Absolute Basophils (0.0-0.2) 10^3/uL RBC Morphology Microcytosis PT (9.3-11.0) sec 10.0 INR (0.9-1.1) 1.0 APTT (21.5-31.9) sec 21.1 L Sodium (136-145) mmol/L Potassium (3.5-5.1) mmol/L Chloride (98-107) mmol/L Carbon Dioxide (21.0-32.0) mmol/L Anion Gap (3-11) mmol/L BUN (7-18) mg/dL Creatinine (0.55-1.02) mg/dL Est GFR (CKD-EPI 2020) (mL/min/1.73m2) Glucose (74-106) mg/dL Calcium (8.5-10.1) mg/dL Magnesium (1.8-2.4) mg/dL Total Bilirubin (0.2-1.0) mg/dL AST (15-37) U/L ALT (14-59) U/L Alkaline Phosphatase (46-116) U/L Troponin I (<or=60) ng/L Total Protein (6.4-8.2) g/dL Albumin (3.4-5.0) g/dL Lipase (16-77) U/L Urine Color (Yellow) Urine Clarity (Clear) Urine pH (5-8) Ur Specific [place] (1.005-1.025) Urine Protein (Negative) mg/dL Urine Ketones (Negative) mg/dL Urine Blood (Negative) Urine Nitrite (Negative) Urine Bilirubin (Negative) Urine Urobilinogen (Up to 0.2) mg/dL Ur Leukocyte Esterase (Negative) Urine RBC (0-2) HPF Urine WBC (0-5) HPF Ur Epithelial Cells (Negative) HPF Urine Crystals (Negative) HPF Urine Bacteria (Negative) HPF Urine Casts (Negative) LPF Urine Mucus (Negative) Ur Culture Indicated? Urine Glucose (Negative) mg/dL POC- Test(urine) Negative
[2022-11-06] MEDS: Famotidine 20 MG TAB 40 MG PO (13:27)
[2022-11-06] MEDS: Magnesium Oxide 400 MG TAB PO (13:27)
[2022-11-06] MEDS: ACETAMINOPHEN 1,000 MG/100 ML BTL 400 MG IVPB (13:29)
--- NOTE | 2022-11-06 15:19 | NUR.NOTE ---
Nursing Note:pT ABLE TO EAT SALTINES & DRINK PO FLUIDS, PROVIDER AWARE.
== END 2022-11-06 15:51 | disposition home or self-care (01) ==
PROVIDERS: Emergency Provider Nurse Practitioner Family; PCP Nurse Practitioner Family
DX: E11.9 Type 2 diabetes mellitus without complications (principal); D50.9 Iron deficiency anemia, unspecified; Z59.00 Homelessness unspecified
CPT/HCPCS: 36415; 36416; 80053; 81025; 82962; 83690; 96361; 96374; 96375; 99284; 76705; 81003; 81015; 83735; 84484; 85025; 85610; 85730; J0131; J2405